=== PATIENT | female | born 2000 | race Caucasian/White ===

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

== ENCOUNTER 2022-02-15 13:21 | Outpatient (REF) | payer MEDICAID, SELFPAY ==
[2022-02-15 15:09] LABS: TSH reflex Free T4 0.53 uIU/mL (0.32-4.0)
== END 2022-02-15 13:22 | disposition home or self-care (01) ==
LOC: HO.LAB 13:21
PROVIDERS: PCP Registered Nurse; Visit Provider Nurse Practitioner
DX: K21.9 Gastro-esophageal reflux disease without esophagitis (principal); R63.5 Abnormal weight gain; R10.9 Unspecified abdominal pain
CPT/HCPCS: 36415; 84443; 99202

== ENCOUNTER 2022-02-17 14:59 | Outpatient (REF) | payer MEDICAID, SELFPAY | END 2022-02-17 15:00 | disposition home or self-care (01) | LOC: HO.LNP 14:59 | PROVIDERS: Visit Provider Nurse Practitioner | DX: K21.9 Gastro-esophageal reflux disease without esophagitis (principal); R63.5 Abnormal weight gain | CPT/HCPCS: 87338 ==

== ENCOUNTER 2022-02-21 08:49 | Outpatient (REF) | payer MEDICAID, SELFPAY ==
--- NOTE | ~2022-02-21 | FL_ITS ---
EXAMINATION: FL BARIUM SWALLOW CLINICAL INFORMATION: Dysphagia COMPARISON: None TECHNIQUE: Barium swallow examination is performed using fluoroscopic evaluation in addition to multiple fluoroscopic spot views. The patient is imaged both upright and prone and using both thick and thin sulfate along with effervescent granules. Barium tablet was also administered. Fluoroscopy time: 0.8 minutes DAP: 4.9 Gycm2 Images: 39 FINDINGS: The swallowing mechanism is normal. No aspiration or penetration. Esophageal motility is normal. No hernia or reflux. Barium tablet passed freely into the stomach. FL/FL barium swallow IMPRESSION: Unremarkable exam.
== END 2022-02-21 08:50 | disposition home or self-care (01) ==
LOC: HO.XRAY 08:49
PROVIDERS: PCP Registered Nurse; Visit Provider Nurse Practitioner
DX: R13.10 Dysphagia, unspecified (principal)
CPT/HCPCS: 74220

== ENCOUNTER 2022-03-03 14:15 | Emergency (ER) | payer MEDICAID, SELFPAY ==
--- NOTE | 2022-03-03 14:22 | ED.GENADULT ---
HPI - General Adult General Chief complaint: Dizziness <RADHA Bustillo - Last Filed: 03/03/22 14:24> Stated complaint: DIZZY,CP <RADHA Bustillo - Last Filed: 03/03/22 14:24> Time Seen by Provider: 03/03/22 16:19 <RADHA Bustillo - Last Filed: 03/03/22 14:24> Source: patient <RADHA Corrales - Last Filed: 03/03/22 16:37> Mode of arrival: ambulatory <RADHA Corrales - Last Filed: 03/03/22 16:37> Limitations: no limitations <RADHA Corrales - Last Filed: 03/03/22 16:37> History of Present Illness HPI narrative: Patient is a 22 year old assigned female at with a history of PTSD and intellectual disability presenting to the emergency department today with lightheadedness. Patient states that she is feeling more lightheaded since having her propranolol increased by her neurologist. Patient denies any dizziness, abdominal pain, nausea, vomiting, fever, chills, blurry vision, double vision, loss of vision, chest pain, difficulty breathing, shortness of breath, back pain, night sweats, pain with urination, increased urinary frequency, increased urinary urgency, blood in her urine or stool, syncope or a near syncopal episode, recent trauma or falls, bowel incontinence, bladder incontinence, bowel retention, bladder retention, or any other complaints at this time. <RADHA Corrales - Last Filed: 03/03/22 16:37> Onset (ago): day(s) <RADHA Corrales - Last Filed: 03/03/22 16:37> Severity: mild <RADHA Corrales - Last Filed: 03/03/22 16:37> Severity scale (1-10): 3 <RADHA Corrlaes Last Filed: 03/03/22 16:37> Relieving factors: none <RADHA Corrales Last Filed: 03/03/22 16:37> Exacerbating factors: none <RADHA Corrales Last Filed: 03/03/22 16:37> Associated symptoms: denies other symptoms <RADHA Corrales - Last Filed: 03/03/22 16:37> Treatments prior to arrival: none <RADHA Corrales - Last Filed: 03/03/22 16:37> Related Data Home medications: Home Medications Medication Instructions Recorded Confirmed etonogestrel 68 mg subdermal subdermal 05/25/21 09/12/21 implant (Nexplanon) hydroxyzine HCl 50 mg tablet 25 mg PO Q6H PRN Anxiety 06/28/21 09/12/21 calcium carbonate 200 mg calcium 400 mg PO Q6H PRN Gastric Reflux 08/18/21 09/12/21 (500 mg) chewable tablet (Calcium Antacid) mirtazapine 45 mg tablet 22.5 mg PO BEDTIME 08/18/21 09/12/21 trazodone 50 mg tablet 25 mg PO BEDTIME PRN Insomnia 08/18/21 09/12/21 Previous Rx's Medication Instructions Recorded guanfacine 2 mg tablet,extended 2 mg PO BEDTIME #30 tabs 03/02/21 release 24 hr acetaminophen 325 mg tablet 650 mg PO Q6H PRN Pain, Mild (Pain 04/22/21 Scale 1-3) #120 tabs cholecalciferol (vitamin D3) 25 25 mcg PO DAILY #30 caps 04/22/21 mcg (1,000 unit) capsule diphenhydramine HCl 25 mg tablet 50 mg PO Q6H PRN with prn haldol 04/22/21 (Allergy Relief (diphenhydramine)) EPS prevent #60 tabs docusate sodium 100 mg capsule 100 mg PO BEDTIME #30 caps 04/22/21 famotidine 20 mg tablet 20 mg PO BID #60 tabs 04/22/21 ibuprofen 800 mg tablet 800 mg PO Q8H PRN Pain, Mild (Pain 04/22/21 Scale 1-3) #60 tabs loratadine 10 mg tablet 10 mg PO DAILY PRN allergy sx #30 04/22/21 tabs naproxen 500 mg tablet 500 mg PO BID PRN cyst pain #60 04/22/21 tabs oxcarbazepine 300 mg tablet 300 mg PO TID #90 tabs 04/22/21 quetiapine 25 mg tablet 25 mg PO TID PRN PTSD Triggers, 04/22/21 Anxiety #60 tabs white petrolatum-mineral oil 1 appl topical BID PRN Itching 04/22/21 topical cream (Dermacerin topical #100 grams cream) <RADHA Bustillo Last Filed: 03/03/22 14:24> Allergies/adverse reactions: Allergies Allergy/AdvReac Type Severity Reaction Status Date / Time No Known Allergies Allergy Unverified 02/16/22 10:58 <RADHA Bustillo Last Filed: 03/03/22 14:24> Review of Systems Constitutional: Constitutional: Reports no additional constitutional complaints, Denies chills, Denies fever(s) and Denies night sweats <RADHA Corrales Last Filed: 03/03/22 16:37> Eyes: Eyes: Reports no additional eye complaints, Denies blurry vision, Denies change in vision, Denies diplopia, Denies eye discharge, Denies loss of vision and Denies eye pain <RADHA Corrales Last Filed: 03/03/22 16:37> ENT: Denies dizziness <RADHA Corrales Last Filed: 03/03/22 16:37> Cardiovascular: Cardiovascular: Reports no additional cardiovascular complaints, Denies chest pain, Denies lightheadedness, Denies Loss of Consciousness and Denies dyspnea <RADHA Corrales Last Filed: 03/03/22 16:37> Respiratory: Respiratory: Reports no additional respiratory complaints and Denies dyspnea <RADHA Corrales Last Filed: 03/03/22 16:37> Gastrointestinal: Gastrointestinal: Reports no additional gastrointestinal complaints, Denies abdominal pain, Denies melena, Denies hematochezia, Denies change in bowel habits and Denies change in stool character <RADHA Corrales Last Filed: 03/03/22 16:37> Genitourinary: Genitourinary: Denies hematuria, Denies urinary frequency, Denies dysuria, Denies urinary incontinence, Denies urinary hesitancy and Denies urinary urgency <RADHA Corrales Last Filed: 03/03/22 16:37> Musculoskeletal: Musculoskeletal: Reports no additional musculoskeletal complaints, Denies numbness and Denies tingling <RADHA Corrales Last Filed: 03/03/22 16:37> Neurologic: Denies dizziness, Denies loss of vision, Denies numbness and Denies tingling <RADHA Corrales - Last Filed: 03/03/22 16:37> Psychiatric: Psychiatric: Reports no additional psychiatric complaints <RADHA Corrales - Last Filed: 03/03/22 16:37> Endocrine: Endocrine: Reports no additional endocrine complaints <RADHA Corrales - Last Filed: 03/03/22 16:37> Hematologic/Lymphatic: Hematologic/Lymphatic: Reports no additional hematologic/lymphatic complaints <RADHA Corrales - Last Filed: 03/03/22 16:37> Allergic/Immunologic: Allergic/Immunologic: Reports no additional allergic/immunologic complaints <RADHA Corrales - Last Filed: 03/03/22 16:37> PMFSH Past Medical History Attestation statement: The following information was validated with the patient. <RADHA Corrales - Last Filed: 03/03/22 16:37> Source: old records reviewed and nursing notes reviewed <RADHA Corrales - Last Filed: 03/03/22 16:37> Medical History: Medical History ADHD Depression with anxiety Learning disability PTSD (post-traumatic stress disorder) Severe recurrent major depression Traumatic brain injury <RADHA Bustillo - Last Filed: 03/03/22 14:24> Social History Social History: Social History Household Members: Family Household Members Other:: Nursing Home Housing: House Do you presently have visiting nurse or other home services: No Alcohol intake: never Patient Tobacco Use Status: Never used Tobacco Use of substances other than those prescribed or required for medical reasons: No Advance Directives: No Advance Directives Information Provided: No service: No Sexual orientation: Straight/Heterosexual Gender identity: Female <RADHA Bustillo - Last Filed: 03/03/22 14:24> Physical Exam ED Vital Signs: Vital Signs - 24 hr 03/03/22 14:23 03/03/22 14:40 03/03/22 16:15 Temperature 98.2 F 98.7 F Pulse Rate 79 73 73 Respiratory Rate 18 14 Blood Pressure 123/90 H 118/81 125/79 Pulse Oximetry 98 98 Oxygen Delivery Method Room Air Room Air 03/03/22 16:20 03/03/22 16:26 Temperature Pulse Rate 73 81 Respiratory Rate Blood Pressure 119/79 127/98 H Pulse Oximetry Oxygen Delivery Method BMI result Body Mass Index 26.5 <RADHA Bustillo Last Filed: 03/03/22 14:24> Vital Signs - 24 hr 03/03/22 14:23 03/03/22 14:40 03/03/22 16:15 Temperature 98.2 F 98.7 F Pulse Rate 79 73 73 Respiratory Rate 18 14 Blood Pressure 123/90 H 118/81 125/79 Pulse Oximetry 98 98 Oxygen Delivery Method Room Air Room Air 03/03/22 16:20 03/03/22 16:26 Temperature Pulse Rate 73 81 Respiratory Rate Blood Pressure 119/79 127/98 H Pulse Oximetry Oxygen Delivery Method BMI result Body Mass Index 26.5 <RADHA Corrales Last Filed: 03/03/22 16:37> Const General: cooperative, no acute distress, alert and awake <RADHA Corrales Last Filed: 03/03/22 16:37> Nutritional Appearance: well nourished <RADHA Corrales Last Filed: 03/03/22 16:37> Orientation/consciousness: patient oriented x3 <RADHA Corrales Last Filed: 03/03/22 16:37> Limitations: no limitations <RADHA Corrales Last Filed: 03/03/22 16:37> HENMT Head: Yes normal to inspection and Yes atraumatic <RADHA Corrales Last Filed: 03/03/22 16:37> Ears: hearing grossly normal bilaterally and external ears normal <RADHA Corrales Last Filed: 03/03/22 16:37> General nose exam: Normal external nose present, no nasal discharge noted and no epistaxis <RADHA Corrales Last Filed: 03/03/22 16:37> Face and sinus: Yes normal facial exam, No abrasion and No laceration <RADHA Corrales Last Filed: 03/03/22 16:37> Mouth: Normal oral and palatal mucosa present, no drooling and no muffled voice <RADHA Corrales Last Filed: 03/03/22 16:37> Eyes General: appearance normal, both eyes and all related structures <Annel Escalona PA - Last Filed: 03/03/22 16:37> Periorbital: periorbital findings normal <Annel Escalona PA - Last Filed: 03/03/22 16:37> Eyelids: Yes eyelids normal <Annel Escalona PA - Last Filed: 03/03/22 16:37> Conjunctivae: conjunctivae normal <Annel Escalona PA - Last Filed: 03/03/22 16:37> Pupils: Equal, round and reactive pupils present <Annel Escalona PA - Last Filed: 03/03/22 16:37> EOM: EOMs intact bilaterally <Annel Escalona PA - Last Filed: 03/03/22 16:37> Neck Neck: Yes normal visual inspection, Yes full ROM and Yes no lymphadenopathy <Annel Escalona PA - Last Filed: 03/03/22 16:37> Chest Chest palpation & inspection: normal inspection of the chest <Annel Escalona PA - Last Filed: 03/03/22 16:37> Resp Effort & Inspection: normal respiratory effort and able to speak in complete sentences <Annel Escalona PA - Last Filed: 03/03/22 16:37> Auscultation: clear to auscultation bilaterally <Annel Escalona PA - Last Filed: 03/03/22 16:37> Cardio Rate: regular rate <Annel Escalona PA - Last Filed: 03/03/22 16:37> Rhythm: regular rhythm <Annel Escalona PA - Last Filed: 03/03/22 16:37> GI Inspection: Yes normal to inspection <Annel Escalona PA - Last Filed: 03/03/22 16:37> Neuro General: patient oriented x3 and moves all extremities <Annel Escalona PA - Last Filed: 03/03/22 16:37> Cranial nerves: Yes Equal, round and reactive pupils present <Annel Escalona PA - Last Filed: 03/03/22 16:37> Cognition (Neuro): normal cognition <Annel Escalona PA - Last Filed: 03/03/22 16:37> Motor exam (neuro): 5/5 motor strength present throughout <RADHA Corrales - Last Filed: 03/03/22 16:37> Sensory Exam: Normal double simultaneous stimulation for sensation <RADHA Corrales - Last Filed: 03/03/22 16:37> Coordination: [id number] test normal <RADHA Corrales - Last Filed: 03/03/22 16:37> Extrem General: Yes normal to inspection, Yes full ROM and Yes capillary refill normal <RAHDA Corrales - Last Filed: 03/03/22 16:37> Psych Appearance: grossly normal <RADHA Corrales - Last Filed: 03/03/22 16:37> Mental Status: mental status grossly normal <RADHA Corrales - Last Filed: 03/03/22 16:37> Affect: normal affect <RADHA Corrales - Last Filed: 03/03/22 16:37> Attitude: cooperative <RADHA Corrales - Last Filed: 03/03/22 16:37> Thought process: Normal thought process present <RADHA Corrales - Last Filed: 03/03/22 16:37> Thought content: Normal thought content present <RADHA Corrales - Last Filed: 03/03/22 16:37> Insight: Good insight present (Psych) <RADHA Corrales - Last Filed: 03/03/22 16:37> Course Course Course Narrative: RME-14:25PM - 21-year-old female c PMHx of intellectual disability, PTSD, ADHD, major depressive disorder, anxiety, adjustment disorder and insomnia who is currently in a prison presenting to the ED c c/o dizziness and feeling hot that started this morning. Denies any headaches, fevers, change in vision, nausea/vomiting, sore throat, ear pain, chest pain or shortness of breath, abdominal pain, dysuria, abnormal discharge, rashes, recent falls or trauma or any other symptoms complaints or concerns at this time. Kellie charge nurse is calling the prison to find out more information about this patient. Plan: Will start with the COVID/RSV/flu swab, UA and UHCG ordered at this time. Patient can be sent back to the waiting room to be evaluated in [facility]. <RADHA Bustillo - Last Filed: 03/03/22 14:24> Medical Decision Making Medical Decision Making [facility] Narrative: Patient is a 22 year old assigned female at with a history of PTSD and intellectual disability presenting to the emergency department today with lightheadedness. Patient's physical exam was unremarkable. Patient's blood work was unremarkable. Patient's urine showed no acute process. Patient's clinical presentation is likely due to an increase in her propranolol. I advised the patient to go back to her original dose and follow back up with her neurologist. I explained my physical exam findings as well as all test results to the patient. I answered all questions asked by the patient. Patient received IV fluids which she stated helped her symptoms significantly. I stressed the importance of the patient taking her medication as prescribed. I stressed the importance of the patient following up with her primary care provider and her neurologist. I stressed the importance of the patient returning to the emergency department immediately if her symptoms were to worsen or if she were to develop any dizziness, shortness of breath, difficulty breathing, chest pain, blurry vision, loss of vision, nausea, vomiting, abdominal pain, fever, chills, back pain, or any other complaints. Patient verbalized agreement and understanding with this treatment plan and discharge. <RADHA Corrales - Last Filed: 03/03/22 16:37> Differential Diagnosis Differential Diagnoses: The differential diagnosis associated with the presentation includes <RADHA Corrales - Last Filed: 03/03/22 16:37> lightheadedness <RADHA Corrales - Last Filed: 03/03/22 16:37> Lab Data [facility] Lab Attestation statement: I reviewed the patient's lab results. <RADHA Corrales - Last Filed: 03/03/22 16:37> Result Diagrams: : 03/03/22 14:58 03/03/22 14:58 <RADHA Bustillo - Last Filed: 03/03/22 14:24> Labs: Lab Results 03/03/22 03/03/22 03/03/22 Range/Units 14:43 14:57 14:57 WBC (4.8-10.8) X10*3/uL RBC (4.20-5.50) X10*6/uL Hgb (12.0-16.0) g/dl Hct (37.0-47.0) % MCV (80.0-98.0) fL MCH (27.0-33.0) pg MCHC (31.0-35.0) g/dl RDW (11.0-16.0) % Plt Count (160-400) X10*3/uL MPV (9.4-12.3) fL Absolute Nucleated RBC (0.0-0.012) X10*3/uL Nucleated RBC % (auto) (0.0-0.2) /100WBC Sodium (135-145) mmol/L Potassium (3.3-5.1) mmol/L Chloride (96-108) mmol/L Carbon Dioxide (22-29) mmol/L Anion Gap (12-20) BUN (9-16) mg/dL Creatinine (0.5-1.4) mg/dL Estim Creat Clear Calc Estimated GFR Random Glucose (60-115) mg/dL Calcium (8.4-10.2) mg/dL Urine Color Yellow Urine Appearance Clear Urine pH 7.0 (5.0-9.0) Ur Specific [place] 1.015 (1.005-1.025) Urine Protein Negative (Neg-Trace) mg/dL Urine Glucose (UA) Negative (Negative) mg/dL Urine Ketones Negative (Negative) mg/dL Urine Blood Negative (Negative) Urine Nitrite Negative (Negative) Ur Leukocyte Esterase Moderate (2+) H (Negative) Urine RBC 0-2 (0-2) /HPF Urine WBC 11-20 H (0-5) /HPF Ur Squamous Epith Cells 0-2 (0-2) /HPF Urine Bacteria None Seen (None Seen) Hyaline Casts 0-2 (0-2) /LPF Urine Test NEGATIVE (NEGATIVE) Influenza Type A (PCR) NEGATIVE (Negative) Influenza Type B (PCR) NEGATIVE (Negative) RSV RNA Qual (PCR) NEGATIVE (Negative) SARS-CoV-2 RNA (RT-PCR) NEGATIVE (Negative) 03/03/22 03/03/22 Range/Units 14:58 14:58 WBC 8.2 (4.8-10.8) X10*3/uL RBC 4.88 (4.20-5.50) X10*6/uL Hgb 13.7 (12.0-16.0) g/dl Hct 41.5 (37.0-47.0) % MCV 85.0 (80.0-98.0) fL MCH 28.1 (27.0-33.0) pg MCHC 33.0 (31.0-35.0) g/dl RDW 12.0 (11.0-16.0) % Plt Count 306 (160-400) X10*3/uL MPV 10.0 (9.4-12.3) fL Absolute Nucleated RBC 0.000 (0.0-0.012) X10*3/uL Nucleated RBC % (auto) 0.0 (0.0-0.2) /100WBC Sodium 140 (135-145) mmol/L Potassium 4.1 (3.3-5.1) mmol/L Chloride 103 (96-108) mmol/L Carbon Dioxide 29 (22-29) mmol/L Anion Gap 12 (12-20) BUN 9 (9-16) mg/dL Creatinine 0.77 (0.5-1.4) mg/dL Estim Creat Clear Calc 107.9 Estimated GFR > 60 Random Glucose 64 (60-115) mg/dL Calcium 9.8 D (8.4-10.2) mg/dL Urine Color Urine Appearance Urine pH (5.0-9.0) Ur Specific [place] (1.005-1.025) Urine Protein (Neg-Trace) mg/dL Urine Glucose (UA) (Negative) mg/dL Urine Ketones (Negative) mg/dL Urine Blood (Negative) Urine Nitrite (Negative) Ur Leukocyte Esterase (Negative) Urine RBC (0-2) /HPF Urine WBC (0-5) /HPF Ur Squamous Epith Cells (0-2) /HPF Urine Bacteria (None Seen) Hyaline Casts (0-2) /LPF Urine Test (NEGATIVE) Influenza Type A (PCR) (Negative) Influenza Type B (PCR) (Negative) RSV RNA Qual (PCR) (Negative) SARS-CoV-2 RNA (RT-PCR) (Negative) <RADHA Bustillo - Last Filed: 03/03/22 14:24> Lab Results 03/03/22 03/03/22 03/03/22 Range/Units 14:43 14:57 14:57 WBC (4.8-10.8) X10*3/uL RBC (4.20-5.50) X10*6/uL Hgb (12.0-16.0) g/dl Hct (37.0-47.0) % MCV (80.0-98.0) fL MCH (27.0-33.0) pg MCHC (31.0-35.0) g/dl RDW (11.0-16.0) % Plt Count (160-400) X10*3/uL MPV (9.4-12.3) fL Absolute Nucleated RBC (0.0-0.012) X10*3/uL Nucleated RBC % (auto) (0.0-0.2) /100WBC Sodium (135-145) mmol/L Potassium (3.3-5.1) mmol/L Chloride (96-108) mmol/L Carbon Dioxide (22-29) mmol/L Anion Gap (12-20) BUN (9-16) mg/dL Creatinine (0.5-1.4) mg/dL Estim Creat Clear Calc Estimated GFR Random Glucose (60-115) mg/dL Calcium (8.4-10.2) mg/dL Urine Color Yellow Urine Appearance Clear Urine pH 7.0 (5.0-9.0) Ur Specific [place] 1.015 (1.005-1.025) Urine Protein Negative (Neg-Trace) mg/dL Urine Glucose (UA) Negative (Negative) mg/dL Urine Ketones Negative (Negative) mg/dL Urine Blood Negative (Negative) Urine Nitrite Negative (Negative) Ur Leukocyte Esterase Moderate (2+) H (Negative) Urine RBC 0-2 (0-2) /HPF Urine WBC 11-20 H (0-5) /HPF Ur Squamous Epith Cells 0-2 (0-2) /HPF Urine Bacteria None Seen (None Seen) Hyaline Casts 0-2 (0-2) /LPF Urine Test NEGATIVE (NEGATIVE) Influenza Type A (PCR) NEGATIVE (Negative) Influenza Type B (PCR) NEGATIVE (Negative) RSV RNA Qual (PCR) NEGATIVE (Negative) SARS-CoV-2 RNA (RT-PCR) NEGATIVE (Negative) 03/03/22 03/03/22 Range/Units 14:58 14:58 WBC 8.2 (4.8-10.8) X10*3/uL RBC 4.88 (4.20-5.50) X10*6/uL Hgb 13.7 (12.0-16.0) g/dl Hct 41.5 (37.0-47.0) % MCV 85.0 (80.0-98.0) fL MCH 28.1 (27.0-33.0) pg MCHC 33.0 (31.0-35.0) g/dl RDW 12.0 (11.0-16.0) % Plt Count 306 (160-400) X10*3/uL MPV 10.0 (9.4-12.3) fL Absolute Nucleated RBC 0.000 (0.0-0.012) X10*3/uL Nucleated RBC % (auto) 0.0 (0.0-0.2) /100WBC Sodium 140 (135-145) mmol/L Potassium 4.1 (3.3-5.1) mmol/L Chloride 103 (96-108) mmol/L Carbon Dioxide 29 (22-29) mmol/L Anion Gap 12 (12-20) BUN 9 (9-16) mg/dL Creatinine 0.77 (0.5-1.4) mg/dL Estim Creat Clear Calc 107.9 Estimated GFR > 60 Random Glucose 64 (60-115) mg/dL Calcium 9.8 D (8.4-10.2) mg/dL Urine Color Urine Appearance Urine pH (5.0-9.0) Ur Specific [place] (1.005-1.025) Urine Protein (Neg-Trace) mg/dL Urine Glucose (UA) (Negative) mg/dL Urine Ketones (Negative) mg/dL Urine Blood (Negative) Urine Nitrite (Negative) Ur Leukocyte Esterase (Negative) Urine RBC (0-2) /HPF Urine WBC (0-5) /HPF Ur Squamous Epith Cells (0-2) /HPF Urine Bacteria (None Seen) Hyaline Casts (0-2) /LPF Urine Test (NEGATIVE) Influenza Type A (PCR) (Negative) Influenza Type B (PCR) (Negative) RSV RNA Qual (PCR) (Negative) SARS-CoV-2 RNA (RT-PCR) (Negative) <RADHA Corrales - Last Filed: 03/03/22 16:37> Discharge Plan Discharge Clinical Impression: Intermittent lightheadedness <RADHA Bustillo - Last Filed: 03/03/22 14:24> Patient Disposition: Home, Self-Care <RADHA Bustillo - Last Filed: 03/03/22 14:24> Instructions: Lightheadedness (ED) <RADHA Bustillo - Last Filed: 03/03/22 14:24> Additional Instructions: Go back down to your original dose of Propranolol. Follow up with your primary care provider and your neurologist. Return to the emergency department immediately if your symptoms worsen or if you develop any dizziness, shortness of breath, difficulty breathing, chest pain, blurry vision, loss of vision, nausea, vomiting, abdominal pain, fever, chills, back pain, or any other complaints. <RADHA Bustillo - Last Filed: 03/03/22 14:24> Prescriptions: No Action guanfacine 2 mg tablet extended release 24 hr 2 mg PO BEDTIME Qty: 30 1RF acetaminophen 325 mg Tablet 650 mg PO Q6H PRN (Reason: Pain, Mild (Pain Scale 1-3)) Qty: 120 0RF diphenhydramine HCl [Allergy Relief(diphenhydramin)] 25 mg Tablet 50 mg PO Q6H PRN (Reason: with prn haldol EPS prevent) Qty: 60 0RF loratadine 10 mg Tablet 10 mg PO DAILY PRN (Reason: allergy sx) Qty: 30 0RF quetiapine 25 mg Tablet 25 mg PO TID PRN (Reason: PTSD Triggers, Anxiety) Qty: 60 0RF ibuprofen 800 mg Tablet 800 mg PO Q8H PRN (Reason: Pain, Mild (Pain Scale 1-3)) Qty: 60 0RF oxcarbazepine 300 mg Tablet 300 mg PO TID Qty: 90 0RF famotidine 20 mg Tablet 20 mg PO BID Qty: 60 0RF docusate sodium 100 mg Capsule 100 mg PO BEDTIME Qty: 30 0RF naproxen 500 mg Tablet 500 mg PO BID PRN (Reason: cyst pain) Qty: 60 0RF Dermacerin Cream 1 appl topical BID PRN (Reason: Itching) Qty: 100 0RF Protocol: Apply to: Apply to: affected area post shaving cholecalciferol (vitamin D3) 25 mcg (1,000 unit) capsule 25 mcg PO DAILY Qty: 30 0RF calcium carbonate [Calcium Antacid] 200 mg calcium (500 mg) tablet,chewable 400 mg PO Q6H MDD 8 g PRN (Reason: Gastric Reflux) mirtazapine 45 mg tablet 22.5 mg PO BEDTIME trazodone 50 mg tablet 25 mg PO BEDTIME PRN (Reason: Insomnia) hydroxyzine HCl 50 mg tablet 25 mg PO Q6H PRN (Reason: Anxiety) Nexplanon 68 mg implant subdermal <RADHA Bustillo - Last Filed: 03/03/22 14:24> Referrals: [facility] [Primary Care Provider] - <RADHA Bustillo - Last Filed: 03/03/22 14:24> Print Language: Ukrainian <RADHA Bustillo - Last Filed: 03/03/22 14:24>
[2022-03-03 14:23] VITALS: BP 121/66; BP 123/90; PULSE 79; PULSE 88; RESP 18; TEMP 36.8; O2SAT 98; BMI 26.5
--- NOTE | 2022-03-03 14:34 | PC.NURSE ---
prison director kwame pereira called ([phone]) states pt had difficulty therapy session yesterday and is having trouble coping with the conversation. per kwame pt is no longer going to be in [facility] custody.
[2022-03-03 14:40] VITALS: BP 118/81; PULSE 73; RESP 14; TEMP 37.1; O2SAT 98
--- NOTE | 2022-03-03 14:55 | PC.NURSE ---
pt ambulating to restroom independently, steadily with no issue. states dizziness mostly resolved at this time
[2022-03-03 15:14] LABS: Hematocrit 41.5 % (37.0-47.0); Hemoglobin 13.7 g/dl (12.0-16.0); Mean Corpuscular Hemoglobin 28.1 pg (27.0-33.0); Platelet Count 306 X10*3/uL (160-400); Red Blood Count 4.88 X10*6/uL (4.20-5.50); White Blood Count 8.2 X10*3/uL (4.8-10.8)
[2022-03-03 15:19] LABS: UPreg QC Valid YES; Urine Pregnancy NEGATIVE (NEGATIVE)
[2022-03-03 15:21] LABS: Appearance Urine Clear; Color Urine Yellow; Glucose Urine UA Negative (Negative); Leukocyte Esterase Urine Moderate (2+) (Negative); Nitrite Urine Negative (Negative); Specific Gravity - Urine 1.015 (1.005-1.025); UMIC TRIGGER UACC YES; Urine Blood Negative (Negative); Urine Ketones Negative (Negative); Urine Protein Negative (Neg-Trace)
[2022-03-03 15:27] LABS: Bacteria Urine None Seen (None Seen); Hyaline Casts Urine 0-2 /LPF (0-2); RBC Urine 0-2 /HPF (0-2); Squamous Epithelial Cell Urine 0-2 /HPF (0-2); UACC Culture Trigger YES
[2022-03-03 15:39] LABS: Influenza A PCR NEGATIVE (Negative); Influenza B PCR NEGATIVE (Negative); Resp Syncy Virus RNA Qual PCR NEGATIVE (Negative); SARS COV2 PCR INHOUSE NEGATIVE (Negative)
[2022-03-03 15:50] LABS: Anion Gap 12 (12-20); Blood Urea Nitrogen 9 mg/dL (9-16); Calcium 9.8 mg/dL (8.4-10.2); Carbon Dioxide 29 mmol/L (22-29); Chloride 103 mmol/L (96-108); Creatinine Clr Calc Pharmacy 107.9; Estimated Glomerular Filt Rate > 60; Glucose Random 64 mg/dL (60-115); Potassium 4.1 mmol/L (3.3-5.1); Sodium 140 mmol/L (135-145)
[2022-03-03 16:15] VITALS: BP 125/79; PULSE 73
[2022-03-03 16:20] VITALS: BP 119/79; PULSE 73
[2022-03-03 16:26] VITALS: BP 127/98; PULSE 81
--- NOTE | 2022-03-03 16:26 | PC.NURSE ---
NEGATIVE ORTHOS. PT REPORTS RECENT CHANGE IN RX, UNKNOWN NAME
== END 2022-03-03 17:35 | disposition home or self-care (01) ==
PROVIDERS: Physician Assistant Medical; Emergency Provider Student in an Organized Health Care Education/Training Program
DX: R42 Dizziness and giddiness (principal); Z20.822 Contact with and (suspected) exposure to COVID-19; F41.8 Other specified anxiety disorders; Z79.899 Other long term (current) drug therapy
CPT/HCPCS: 0241U; 36415; 80048; 81001; 81025; 85027; 87086; 87147; 99283; 99284

== ENCOUNTER → 2022-03-07 12:45 | Outpatient (BNVA) | payer MEDICAID, SELFPAY | PROVIDERS: Visit Provider Nurse Practitioner | DX: K21.9 Gastro-esophageal reflux disease without esophagitis (principal); R10.9 Unspecified abdominal pain; R63.5 Abnormal weight gain | CPT/HCPCS: 99212 ==

== ENCOUNTER → 2022-06-23 12:05 | Outpatient (BNVA) | payer MEDICAID, SELFPAY | PROVIDERS: PCP Registered Nurse; Visit Provider Nurse Practitioner | DX: K21.9 Gastro-esophageal reflux disease without esophagitis (principal); R10.9 Unspecified abdominal pain; R63.5 Abnormal weight gain; Z79.899 Other long term (current) drug therapy | CPT/HCPCS: 99212 ==

== ENCOUNTER 2022-07-12 15:18 | Inpatient (IN) | payer MEDICAID, OTHER, SELFPAY ==
[2022-07-12 15:39] VITALS: BP 132/88; PULSE 89; RESP 16; TEMP 37.2; O2SAT 96
--- NOTE | 2022-07-12 15:40 | ED.PSYCH ---
HPI - Psych General Chief Complaint: Psychiatric Symptoms <RADHA Gary - Last Filed: 07/12/22 16:17> Stated Complaint: SI w/ plan per EMS <RADHA Gary - Last Filed: 07/12/22 16:17> Time Seen by Provider: 07/12/22 15:22 <RADHA Gary Last Filed: 07/12/22 16:17> Source: patient and EMS <RADHA Gary Last Filed: 07/12/22 16:17> Mode of arrival: EMS <RADHA Gary Last Filed: 07/12/22 16:17> Limitations: no limitations <RADHA Gary Last Filed: 07/12/22 16:17> History of Present Illness HPI Narrative: 22 y/o female with history of PTSD, severe recurrent major depression, ADHD, anxiety, learning disability, history of TBI, GERD, ovarian cyst who presents to the ER from her residential for evaluation of suicidal ideation with a plan to jump off of a bridge. She states she has been depressed lately and overwhelmed. 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 She does not feel supported in her residential and feels disrespected. She states she used to have a 1:1 at the residential but they took it away 6 months ago. She has been compliant with all of her meds, not using any etoh or drugs. She states she has bad suicidal ideations and cannot control her thoughts. She states she ran out of her residential today when she got upset and no one even followed her to make sure she was okay so they must not care about her. <RADHA Gary - Last Filed: 07/12/22 16:17> MD complaint: suicidal ideation and feels depressed <RADHA Gary Last Filed: 07/12/22 16:17> Onset (ago): unknown <RADHA Gary Last Filed: 07/12/22 16:17> Duration: changing over time <RADHA Gary Last Filed: 07/12/22 16:17> History of same: Yes <RADHA Gary Last Filed: 07/12/22 16:17> Relieving factors: none <RADHA Gary - Last Filed: 07/12/22 16:17> Exacerbating factors: none <RADHA Gary - Last Filed: 07/12/22 16:17> Context: significant life stressor <RADHA Gary - Last Filed: 07/12/22 16:17> Associated psychiatric symptoms: depression, suicidal ideation and racing thoughts <RADHA Gary - Last Filed: 07/12/22 16:17> Associated symptoms: denies other symptoms <RADHA Gary - Last Filed: 07/12/22 16:17> If self harm: admits thoughts of self harm and has plan <RADHA Gary - Last Filed: 07/12/22 16:17> Related Data Home Medications: Home Medications Medication Instructions Recorded Confirmed hydroxyzine HCl 50 mg tablet 25 mg PO Q6H PRN Anxiety 06/28/21 07/12/22 calcium carbonate 200 mg calcium 400 mg PO Q6H PRN Gastric Reflux 08/18/21 07/12/22 (500 mg) chewable tablet (Calcium Antacid) mirtazapine 45 mg tablet 22.5 mg PO BEDTIME 08/18/21 07/12/22 trazodone 50 mg tablet 25 mg PO BEDTIME PRN Insomnia 08/18/21 07/12/22 oxcarbazepine 300 mg tablet 300 mg PO TID 03/07/22 07/12/22 quetiapine 50 mg tablet,extended 50 mg PO BEDTIME 07/12/22 07/12/22 release 24 hr Previous Rx's Medication Instructions Recorded guanfacine 2 mg tablet,extended 2 mg PO BEDTIME #30 tabs 03/02/21 release 24 hr acetaminophen 325 mg tablet 650 mg PO Q6H PRN Pain, Mild (Pain 04/22/21 Scale 1-3) #120 tabs cholecalciferol (vitamin D3) 25 25 mcg PO DAILY #30 caps 04/22/21 mcg (1,000 unit) capsule diphenhydramine HCl 25 mg tablet 50 mg PO Q6H PRN with prn haldol 04/22/21 (Allergy Relief (diphenhydramine)) EPS prevent #60 tabs docusate sodium 100 mg capsule 100 mg PO BEDTIME #30 caps 04/22/21 loratadine 10 mg tablet 10 mg PO DAILY PRN allergy sx #30 04/22/21 tabs quetiapine 25 mg tablet 25 mg PO TID PRN PTSD Triggers, 04/22/21 Anxiety #60 tabs white petrolatum-mineral oil 1 appl topical BID PRN Itching 04/22/21 topical cream (Dermacerin topical #100 grams cream) dicyclomine 20 mg tablet 20 mg PO QID PRN cramping 30 days 06/23/22 #90 tabs famotidine 20 mg tablet 20 mg PO BID #60 tabs 06/23/22 sucralfate 100 mg/mL oral 10 ml PO BID PRN dyspepsia #420 mL 06/23/22 suspension (Carafate) <RADHA Gary - Last Filed: 07/12/22 16:17> Allergies/Adverse Reactions: Allergies Allergy/AdvReac Type Severity Reaction Status Date / Time No Known Allergies Allergy Verified 06/23/22 12:11 <RADHA Gary - Last Filed: 07/12/22 16:17> Review of Systems Review of Systems: Yes all other systems are reviewed and are negative <RADHA Gary - Last Filed: 07/12/22 16:17> [facility] Past Medical History Medical History: Medical History ADHD Depression with anxiety Learning disability PTSD (post-traumatic stress disorder) Severe recurrent major depression Traumatic brain injury <RADHA Gary - Last Filed: 07/12/22 16:17> Social History Social History: Social History Household Members: Family Household Members Other:: Custodial Housing: House Do you presently have visiting nurse or other home services: No Alcohol intake: never Patient Tobacco Use Status: Never used Tobacco Smoked in Last 30 Days: No Use of substances other than those prescribed or required for medical reasons: No Advance Directives: No Advance Directives Information Provided: No service: No Sexual orientation: Straight/Heterosexual Gender identity: Female <RADHA Gary - Last Filed: 07/12/22 16:17> Physical Exam Vital Signs: Vital Signs: Last Vital Signs Temp 97.6 F 07/14/22 06:01 Pulse 88 07/14/22 06:01 Resp 16 07/14/22 06:01 BP 117/71 07/14/22 06:01 Pulse Ox 98 07/14/22 06:01 O2 Del Method Room Air 07/14/22 06:01 BMI result Body Mass Index 25.4 <RADHA Gary - Last Filed: 07/12/22 16:17> Vital Signs: Last Vital Signs Temp 97.6 F 07/14/22 06:01 Pulse 88 07/14/22 06:01 Resp 16 07/14/22 06:01 BP 117/71 07/14/22 06:01 Pulse Ox 98 07/14/22 06:01 O2 Del Method Room Air 07/14/22 06:01 BMI result Body Mass Index 25.4 <Jeovany Gomez MD - Last Filed: 07/12/22 19:28> Vital Signs: Last Vital Signs Temp 97.6 F 07/14/22 06:01 Pulse 88 07/14/22 06:01 Resp 16 07/14/22 06:01 BP 117/71 07/14/22 06:01 Pulse Ox 98 07/14/22 06:01 O2 Del Method Room Air 07/14/22 06:01 BMI result Body Mass Index 25.4 <Reji Morgan MD - Last Filed: 07/13/22 07:01> Vital Signs: Last Vital Signs Temp 97.6 F 07/14/22 06:01 Pulse 88 07/14/22 06:01 Resp 07/14/22 06:01 BP 117/71 07/14/22 06:01 Pulse Ox 98 07/14/22 06:01 O2 Del Method Room Air 07/14/22 06:01 BMI result Body Mass Index 25.4 <Jaime Griffith MD - Last Filed: 07/14/22 10:59> Appearance: Alert. Oriented X3. No acute distress. Head: normocephalic, atraumatic. Eyes: Pupils equal, round and reactive to light. ENT: Pharynx normal. No tonsillar swelling or exudate. Neck: Normal inspection. Neck supple. CVS: Normal heart rate and rhythm. Pulses normal. Respiratory: No respiratory distress. Breath sounds normal. Abdomen: Soft and nontender. +BS x4 Skin: Skin warm and dry. Normal skin color. Normal skin turgor. No rashes. Extremities: No lower extremity edema. No joint swelling. Neuro/psych: Oriented X 3. No motor deficit. No sensory deficit. CN II-XII intact. Normal speech and cognition. Makes brief eye contact. Repetitive about residential staff. +SI, No HI, No AH, No VH. Mood is bad, depressed. <RADHA Gary - Last Filed: 07/12/22 16:17> Course Course Course Narrative: 1926: Patient was sitting in a chair and twitching, she was able to answer questions, I was able to get her to stand and walk back into her room. Patient consistent with anxiety/non electric-seizure. Patient was ordered to get Ativan 2 mg IM. <Jeovany Gomez MD - Last Filed: 07/12/22 19:28> Reevaluation(s) Reevaluation #1: I assume care at 7:00 a.m. this morning. This is a 22-year-old female who presents with suicidal ideation with a plan to jump off bridge. She is pending a care team evaluation. Overnight, patient did receive Ativan 2 mg intramuscularly. <Reji Morgan MD - Last Filed: 07/13/22 07:01> Reevaluation #2: June 8 AM no event reported overnight patient is a bed search for SI she is in a [facility] vital signs stable as 06:00, bed search continue <Jaime Griffith MD - Last Filed: 07/14/22 10:59> Time: 08:10 <Jaime Griffith MD - Last Filed: 07/14/22 10:59> Reevaluation #3: EKG non specific st-t changes in lateral leads ,but high sensitive tropi undetectable <Jaime Griffith MD - Last Filed: 07/14/22 10:59> Time: 10:57 <Jaime Griffith MD - Last Filed: 07/14/22 10:59> Medications Administered Generic Name Dose Route Start Last Admin Trade Name Freq PRN Reason Stop Dose Admin Diphenhydramine HCl 50 mg 07/13/22 06:31 07/13/22 20:22 Diphenhydramine Hcl 25 Mg Capsule PO 50 mg Q6H PRN Administration with prn haldol EPS prevent Docusate Sodium 100 mg 07/13/22 21:00 07/13/22 20:22 Docusate Sodium 100 Mg Capsule PO 100 mg BEDTIME PRISCILA Administration Famotidine 20 mg 07/13/22 09:00 07/14/22 08:28 Famotidine 20 Mg Tablet PO 20 mg BID PRISCILA Administration Guanfacine HCl 2 mg 07/13/22 21:00 07/13/22 20:39 Guanfacine Hcl Er 2 Mg Tab.Er.24h PO 2 mg BEDTIME PRISCILA Administration Hydroxyzine HCl 25 mg 07/13/22 06:31 07/13/22 20:27 Hydroxyzine Hcl 25 Mg Tablet PO 25 mg Q6H PRN Administration Anxiety Loratadine 10 mg 07/13/22 06:31 07/14/22 09:35 Loratadine 10 Mg Tablet PO 10 mg DAILY PRN Administration allergy sx Mirtazapine 22.5 mg 07/13/22 21:00 07/13/22 20:22 Mirtazapine 7.5 Mg Tablet PO 22.5 mg BEDTIME PRISCILA Administration Oxcarbazepine 300 mg 07/13/22 09:00 07/14/22 08:28 Oxcarbazepine 300 Mg Tablet PO 300 mg TID PRISCILA Administration Quetiapine Fumarate 25 mg 07/13/22 06:31 07/13/22 13:41 Quetiapine Fumarate 25 Mg Tablet PO 25 mg TID PRN Administration PTSD Triggers, Anxiety Quetiapine Fumarate 25 mg 07/13/22 09:00 07/14/22 08:28 Quetiapine Fumarate 25 Mg Tablet PO 25 mg BID PRISCILA Administration Vitamin D 25 mcg 07/13/22 09:00 07/14/22 08:28 Cholecalciferol (Vitamin D3) 25 Mcg Tablet PO 25 mcg DAILY PRISCILA Administration Discontinued Medications Generic Name Dose Route Start Last Admin Trade Name Freq PRN Reason Stop Dose Admin Lorazepam 2 mg 07/12/22 19:26 07/12/22 19:30 Lorazepam 2 Mg/Ml Vial IM 07/12/22 19:27 2 mg STAT STA Administration <RADHA Gary - Last Filed: 07/12/22 16:17> Medications Administered Generic Name Dose Route Start Last Admin Trade Name Freq PRN Reason Stop Dose Admin Diphenhydramine HCl 50 mg 07/13/22 06:31 07/13/22 20:22 Diphenhydramine Hcl 25 Mg Capsule PO 50 mg Q6H PRN Administration with prn haldol EPS prevent Docusate Sodium 100 mg 07/13/22 21:00 07/13/22 20:22 Docusate Sodium 100 Mg Capsule PO 100 mg BEDTIME PRISCILA Administration Famotidine 20 mg 07/13/22 09:00 07/14/22 08:28 Famotidine 20 Mg Tablet PO 20 mg BID PRISCILA Administration Guanfacine HCl 2 mg 07/13/22 21:00 07/13/22 20:39 Guanfacine Hcl Er 2 Mg Tab.Er.24h PO 2 mg BEDTIME PRISCILA Administration Hydroxyzine HCl 25 mg 07/13/22 06:31 07/13/22 20:27 Hydroxyzine Hcl 25 Mg Tablet PO 25 mg Q6H PRN Administration Anxiety Loratadine 10 mg 07/13/22 06:31 07/14/22 09:35 Loratadine 10 Mg Tablet PO 10 mg DAILY PRN Administration allergy sx Mirtazapine 22.5 mg 07/13/22 21:00 07/13/22 20:22 Mirtazapine 7.5 Mg Tablet PO 22.5 mg BEDTIME PRISCILA Administration Oxcarbazepine 300 mg 07/13/22 09:00 07/14/22 08:28 Oxcarbazepine 300 Mg Tablet PO 300 mg TID PRISCILA Administration Quetiapine Fumarate 25 mg 07/13/22 06:31 07/13/22 13:41 Quetiapine Fumarate 25 Mg Tablet PO 25 mg TID PRN Administration PTSD Triggers, Anxiety Quetiapine Fumarate 25 mg 07/13/22 09:00 07/14/22 08:28 Quetiapine Fumarate 25 Mg Tablet PO 25 mg BID PRISCILA Administration Vitamin D 25 mcg 07/13/22 09:00 07/14/22 08:28 Cholecalciferol (Vitamin D3) 25 Mcg Tablet PO 25 mcg DAILY PRISCILA Administration Discontinued Medications Generic Name Dose Route Start Last Admin Trade Name Freq PRN Reason Stop Dose Admin Lorazepam 2 mg 07/12/22 19:26 07/12/22 19:30 Lorazepam 2 Mg/Ml Vial IM 07/12/22 19:27 2 mg STAT STA Administration <Jeovany Sciaruto, MD - Last Filed: 07/12/22 19:28> Medications Administered Generic Name Dose Route Start Last Admin Trade Name Pauline PRN Reason Stop Dose Admin Diphenhydramine HCl 50 mg 07/13/22 06:31 07/13/22 20:22 Diphenhydramine Hcl 25 Mg Capsule PO 50 mg Q6H PRN Administration with prn haldol EPS prevent Docusate Sodium 100 mg 07/13/22 21:00 07/13/22 20:22 Docusate Sodium 100 Mg Capsule PO 100 mg BEDTIME PRISCILA Administration Famotidine 20 mg 07/13/22 09:00 07/14/22 08:28 Famotidine 20 Mg Tablet PO 20 mg BID PRISCILA Administration Guanfacine HCl 2 mg 07/13/22 21:00 07/13/22 20:39 Guanfacine Hcl Er 2 Mg Tab.Er.24h PO 2 mg BEDTIME PRISCILA Administration Hydroxyzine HCl 25 mg 07/13/22 06:31 07/13/22 20:27 Hydroxyzine Hcl 25 Mg Tablet PO 25 mg Q6H PRN Administration Anxiety Loratadine 10 mg 07/13/22 06:31 07/14/22 09:35 Loratadine 10 Mg Tablet PO 10 mg DAILY PRN Administration allergy sx Mirtazapine 22.5 mg 07/13/22 21:00 07/13/22 20:22 Mirtazapine 7.5 Mg Tablet PO 22.5 mg BEDTIME PRISCILA Administration Oxcarbazepine 300 mg 07/13/22 09:00 07/14/22 08:28 Oxcarbazepine 300 Mg Tablet PO 300 mg TID PRISCILA Administration Quetiapine Fumarate 25 mg 07/13/22 06:31 07/13/22 13:41 Quetiapine Fumarate 25 Mg Tablet PO 25 mg TID PRN Administration PTSD Triggers, Anxiety Quetiapine Fumarate 25 mg 07/13/22 09:00 07/14/22 08:28 Quetiapine Fumarate 25 Mg Tablet PO 25 mg BID PRISCILA Administration Vitamin D 25 mcg 07/13/22 09:00 07/14/22 08:28 Cholecalciferol (Vitamin D3) 25 Mcg Tablet PO 25 mcg DAILY PRISCILA Administration Discontinued Medications Generic Name Dose Route Start Last Admin Trade Name Pauline PRN Reason Stop Dose Admin Lorazepam 2 mg 07/12/22 19:26 07/12/22 19:30 Lorazepam 2 Mg/Ml Vial IM 07/12/22 19:27 2 mg STAT STA Administration <Reji Morgan MD - Last Filed: 07/13/22 07:01> Medications Administered Generic Name Dose Route Start Last Admin Trade Name Pauline PRN Reason Stop Dose Admin Diphenhydramine HCl 50 mg 07/13/22 06:31 07/13/22 20:22 Diphenhydramine Hcl 25 Mg Capsule PO 50 mg Q6H PRN Administration with prn haldol EPS prevent Docusate Sodium 100 mg 07/13/22 21:00 07/13/22 20:22 Docusate Sodium 100 Mg Capsule PO 100 mg BEDTIME PRISCILA Administration Famotidine 20 mg 07/13/22 09:00 07/14/22 08:28 Famotidine 20 Mg Tablet PO 20 mg BID PRISCILA Administration Guanfacine HCl 2 mg 07/13/22 21:00 07/13/22 20:39 Guanfacine Hcl Er 2 Mg Tab.Er.24h PO 2 mg BEDTIME PRISCILA Administration Hydroxyzine HCl 25 mg 07/13/22 06:31 07/13/22 20:27 Hydroxyzine Hcl 25 Mg Tablet PO 25 mg Q6H PRN Administration Anxiety Loratadine 10 mg 07/13/22 06:31 07/14/22 09:35 Loratadine 10 Mg Tablet PO 10 mg DAILY PRN Administration allergy sx Mirtazapine 22.5 mg 07/13/22 21:00 07/13/22 20:22 Mirtazapine 7.5 Mg Tablet PO 22.5 mg BEDTIME PRISCILA Administration Oxcarbazepine 300 mg 07/13/22 09:00 07/14/22 08:28 Oxcarbazepine 300 Mg Tablet PO 300 mg TID PRISCILA Administration Quetiapine Fumarate 25 mg 07/13/22 06:31 07/13/22 13:41 Quetiapine Fumarate 25 Mg Tablet PO 25 mg TID PRN Administration PTSD Triggers, Anxiety Quetiapine Fumarate 25 mg 07/13/22 09:00 07/14/22 08:28 Quetiapine Fumarate 25 Mg Tablet PO 25 mg BID PRISCILA Administration Vitamin D 25 mcg 07/13/22 09:00 07/14/22 08:28 Cholecalciferol (Vitamin D3) 25 Mcg Tablet PO 25 mcg DAILY PRISCILA Administration Discontinued Medications Generic Name Dose Route Start Last Admin Trade Name Pauline PRN Reason Stop Dose Admin Lorazepam 2 mg 07/12/22 19:26 07/12/22 19:30 Lorazepam 2 Mg/Ml Vial IM 07/12/22 19:27 2 mg STAT STA Administration <Jaime Griffith MD - Last Filed: 07/14/22 10:59> Medical Decision Making Medical Decision Making MDM Narrative: 22 yo female with history of TBI, PTSD, psychogenic nonepileptic seizures, depression/anxiety presents to the ER with SI with plan to jump off of a bridge. She is actively suicidal now. VSS. Does not feel safe in her residential. Medical clearance labs ordered along with CARE team evaluation. <RADHA Gary - Last Filed: 07/12/22 16:17> Differential Diagnosis Differential Diagnoses: The differential diagnosis associated with the presentation includes <RADHA Gary - Last Filed: 07/12/22 16:17> substance induced mood disorder, acute psychosis, schizophrenia, schizoaffective disorder, PTSD, bipolar disorder, major depression with psychotic features <RADHA Gary - Last Filed: 07/12/22 16:17> Admission/Observation Consideration of admission/observation: Escalation of care including admission/observation considered <RADHA Gary - Last Filed: 07/12/22 16:17> Lab Data Result Diagrams: 07/12/22 16:31 07/12/22 16:32 <RADHA Gary - Last Filed: 07/12/22 16:17> Labs: Lab Results 07/12/22 07/12/22 07/12/22 Range/Units 16:31 16:32 16:32 WBC 8.0 (4.8-10.8) X10*3/uL RBC 4.72 (4.20-5.50) X10*6/uL Hgb 13.2 (12.0-16.0) g/dl Hct 39.8 (37.0-47.0) % MCV 84.3 (80.0-98.0) fL MCH 28.0 (27.0-33.0) pg MCHC 33.2 (31.0-35.0) g/dl RDW 12.0 (11.0-16.0) % Plt Count 288 (160-400) X10*3/uL MPV 10.0 (9.4-12.3) fL Immature Gran % (Auto) 0.4 (0.0-0.4) % Neut % (Auto) 63.0 (45-73) % Lymph % (Auto) 24.0 (20-40) % [place] % (Auto) 5.8 (2-11) % Eos % (Auto) 5.8 H (0-4) % Baso % (Auto) 1.0 (0-2) % Lymph # (Auto) 1.9 (1.2-4.9) X10*3/uL [place] # (Auto) 0.5 (0.1-1.2) X10*3/uL Eos # (Auto) 0.5 H (0.0-0.4) X10*3/uL Baso # (Auto) 0.1 (0.0-0.2) X10*3/uL Abs Immat Gran (auto) 0.03 (0.00-0.03) X10*3/uL Absolute Neuts (auto) 5.0 (2.0-8.3) x10*3/uL Absolute Nucleated RBC 0.000 (0.0-0.012) X10*3/uL Nucleated RBC % (auto) 0.0 (0.0-0.2) /100WBC Sodium 143 (135-145) mmol/L Potassium 4.2 (3.3-5.1) mmol/L Chloride 107 (96-108) mmol/L Carbon Dioxide 26 (22-29) mmol/L Anion Gap 14 (12-20) BUN 14 (9-16) mg/dL Creatinine 1.05 (0.5-1.4) mg/dL Estim Creat Clear Calc 71.7 Estimated GFR > 60 Random Glucose 80 (60-115) mg/dL Calcium 10.3 H (8.4-10.2) mg/dL Magnesium 1.8 (1.6-2.6) mg/dL Total Bilirubin 0.3 (0.0-1.0) mg/dL Direct Bilirubin 0.1 (0.0-0.5) mg/dL AST 16 (5-31) U/L ALT 16 (0-31) U/L Alkaline Phosphatase 74 (39-117) U/L Troponin I High Sens (<3.5-17.0) ng/L Total Protein 7.2 (6.5-8.0) g/dL Albumin 4.6 (3.5-5.0) g/dL Urine Color Urine Appearance Urine pH (5.0-9.0) Ur Specific [place] (1.005-1.025) Urine Protein (Neg-Trace) mg/dL Urine Glucose (UA) (Negative) mg/dL Urine Ketones (Negative) mg/dL Urine Blood (Negative) Urine Nitrite (Negative) Ur Leukocyte Esterase (Negative) Urine RBC (0-2) /HPF Urine WBC (0-5) /HPF Ur Squamous Epith Cells (0-2) /HPF Urine Bacteria (None Seen) Hyaline Casts (0-2) /LPF Urine Test (NEGATIVE) Salicylates < 5.0 L (15-30) mg/dL Urine Opiates Screen (Not Detect) Urine Fentanyl Screen (Not Detect) Acetaminophen < 17 (<30) mcg/mL Ur Barbiturates Screen (Not Detect) Ur Phencyclidine Scrn (Not Detect) Ur Amphetamines Screen (Not Detect) U Benzodiazepines Scrn (Not Detect) Urine Cocaine Screen (Not Detect) U Marijuana (THC) Screen (Not Detect) Ethyl Alcohol < 10 mg/dL COVID-19 ([facility]) Negative (Negative) COVID-19 Clin Com See Note 07/12/22 07/12/22 07/12/22 Range/Units 16:57 16:57 16:57 WBC (4.8-10.8) X10*3/uL RBC (4.20-5.50) X10*6/uL Hgb (12.0-16.0) g/dl Hct (37.0-47.0) % MCV (80.0-98.0) fL MCH (27.0-33.0) pg MCHC (31.0-35.0) g/dl RDW (11.0-16.0) % Plt Count (160-400) X10*3/uL MPV (9.4-12.3) fL Immature Gran % (Auto) (0.0-0.4) % Neut % (Auto) (45-73) % Lymph % (Auto) (20-40) % [place] % (Auto) (2-11) % Eos % (Auto) (0-4) % Baso % (Auto) (0-2) % Lymph # (Auto) (1.2-4.9) X10*3/uL [place] # (Auto) (0.1-1.2) X10*3/uL Eos # (Auto) (0.0-0.4) X10*3/uL Baso # (Auto) (0.0-0.2) X10*3/uL Abs Immat Gran (auto) (0.00-0.03) X10*3/uL Absolute Neuts (auto) (2.0-8.3) x10*3/uL Absolute Nucleated RBC (0.0-0.012) X10*3/uL Nucleated RBC % (auto) (0.0-0.2) /100WBC Sodium (135-145) mmol/L Potassium (3.3-5.1) mmol/L Chloride (96-108) mmol/L Carbon Dioxide (22-29) mmol/L Anion Gap (12-20) BUN (9-16) mg/dL Creatinine (0.5-1.4) mg/dL Estim Creat Clear Calc Estimated GFR Random Glucose (60-115) mg/dL Calcium (8.4-10.2) mg/dL Magnesium (1.6-2.6) mg/dL Total Bilirubin (0.0-1.0) mg/dL Direct Bilirubin (0.0-0.5) mg/dL AST (5-31) U/L ALT (0-31) U/L Alkaline Phosphatase (39-117) U/L Troponin I High Sens (<3.5-17.0) ng/L Total Protein (6.5-8.0) g/dL Albumin (3.5-5.0) g/dL Urine Color Yellow Urine Appearance Clear Urine pH 5.5 (5.0-9.0) Ur Specific [place] 1.025 (1.005-1.025) Urine Protein Negative (Neg-Trace) mg/dL Urine Glucose (UA) Negative (Negative) mg/dL Urine Ketones Trace (Negative) mg/dL Urine Blood Trace H (Negative) Urine Nitrite Negative (Negative) Ur Leukocyte Esterase Large (3+) H (Negative) Urine RBC 6-10 H (0-2) /HPF Urine WBC >50 H (0-5) /HPF Ur Squamous Epith Cells 6-10 (0-2) /HPF Urine Bacteria Trace (None Seen) Hyaline Casts 0-2 (0-2) /LPF Urine Test NEGATIVE (NEGATIVE) Salicylates (15-30) mg/dL Urine Opiates Screen Not Detected (Not Detect) Urine Fentanyl Screen Not Detected (Not Detect) Acetaminophen (<30) mcg/mL Ur Barbiturates Screen Not Detected (Not Detect) Ur Phencyclidine Scrn Not Detected (Not Detect) Ur Amphetamines Screen Not Detected (Not Detect) U Benzodiazepines Scrn Not Detected (Not Detect) Urine Cocaine Screen Not Detected (Not Detect) U Marijuana (THC) Screen Not Detected (Not Detect) Ethyl Alcohol mg/dL COVID-19 ([facility]) (Negative) COVID-19 Clin Com 07/14/22 Range/Units 09:05 WBC (4.8-10.8) X10*3/uL RBC (4.20-5.50) X10*6/uL Hgb (12.0-16.0) g/dl Hct (37.0-47.0) % MCV (80.0-98.0) fL MCH (27.0-33.0) pg MCHC (31.0-35.0) g/dl RDW (11.0-16.0) % Plt Count (160-400) X10*3/uL MPV (9.4-12.3) fL Immature Gran % (Auto) (0.0-0.4) % Neut % (Auto) (45-73) % Lymph % (Auto) (20-40) % [place] % (Auto) (2-11) % Eos % (Auto) (0-4) % Baso % (Auto) (0-2) % Lymph # (Auto) (1.2-4.9) X10*3/uL [place] # (Auto) (0.1-1.2) X10*3/uL Eos # (Auto) (0.0-0.4) X10*3/uL Baso # (Auto) (0.0-0.2) X10*3/uL Abs Immat Gran (auto) (0.00-0.03) X10*3/uL Absolute Neuts (auto) (2.0-8.3) x10*3/uL Absolute Nucleated RBC (0.0-0.012) X10*3/uL Nucleated RBC % (auto) (0.0-0.2) /100WBC Sodium (135-145) mmol/L Potassium (3.3-5.1) mmol/L Chloride (96-108) mmol/L Carbon Dioxide (22-29) mmol/L Anion Gap (12-20) BUN (9-16) mg/dL Creatinine (0.5-1.4) mg/dL Estim Creat Clear Calc Estimated GFR Random Glucose (60-115) mg/dL Calcium (8.4-10.2) mg/dL Magnesium (1.6-2.6) mg/dL Total Bilirubin (0.0-1.0) mg/dL Direct Bilirubin (0.0-0.5) mg/dL AST (5-31) U/L ALT (0-31) U/L Alkaline Phosphatase (39-117) U/L Troponin I High Sens < 2.7 (<3.5-17.0) ng/L Total Protein (6.5-8.0) g/dL Albumin (3.5-5.0) g/dL Urine Color Urine Appearance Urine pH (5.0-9.0) Ur Specific [place] (1.005-1.025) Urine Protein (Neg-Trace) mg/dL Urine Glucose (UA) (Negative) mg/dL Urine Ketones (Negative) mg/dL Urine Blood (Negative) Urine Nitrite (Negative) Ur Leukocyte Esterase (Negative) Urine RBC (0-2) /HPF Urine WBC (0-5) /HPF Ur Squamous Epith Cells (0-2) /HPF Urine Bacteria (None Seen) Hyaline Casts (0-2) /LPF Urine Test (NEGATIVE) Salicylates (15-30) mg/dL Urine Opiates Screen (Not Detect) Urine Fentanyl Screen (Not Detect) Acetaminophen (<30) mcg/mL Ur Barbiturates Screen (Not Detect) Ur Phencyclidine Scrn (Not Detect) Ur Amphetamines Screen (Not Detect) U Benzodiazepines Scrn (Not Detect) Urine Cocaine Screen (Not Detect) U Marijuana (THC) Screen (Not Detect) Ethyl Alcohol mg/dL COVID-19 ([facility]) (Negative) COVID-19 Clin Com <RADHA Gary - Last Filed: 07/12/22 16:17> Lab Results 07/12/22 07/12/22 07/12/22 Range/Units 16:31 16:32 16:32 WBC 8.0 (4.8-10.8) X10*3/uL RBC 4.72 (4.20-5.50) X10*6/uL Hgb 13.2 (12.0-16.0) g/dl Hct 39.8 (37.0-47.0) % MCV 84.3 (80.0-98.0) fL MCH 28.0 (27.0-33.0) pg MCHC 33.2 (31.0-35.0) g/dl RDW 12.0 (11.0-16.0) % Plt Count 288 (160-400) X10*3/uL MPV 10.0 (9.4-12.3) fL Immature Gran % (Auto) 0.4 (0.0-0.4) % Neut % (Auto) 63.0 (45-73) % Lymph % (Auto) 24.0 (20-40) % [place] % (Auto) 5.8 (2-11) % Eos % (Auto) 5.8 H (0-4) % Baso % (Auto) 1.0 (0-2) % Lymph # (Auto) 1.9 (1.2-4.9) X10*3/uL [place] # (Auto) 0.5 (0.1-1.2) X10*3/uL Eos # (Auto) 0.5 H (0.0-0.4) X10*3/uL Baso # (Auto) 0.1 (0.0-0.2) X10*3/uL Abs Immat Gran (auto) 0.03 (0.00-0.03) X10*3/uL Absolute Neuts (auto) 5.0 (2.0-8.3) x10*3/uL Absolute Nucleated RBC 0.000 (0.0-0.012) X10*3/uL Nucleated RBC % (auto) 0.0 (0.0-0.2) /100WBC Sodium 143 (135-145) mmol/L Potassium 4.2 (3.3-5.1) mmol/L Chloride 107 (96-108) mmol/L Carbon Dioxide 26 (22-29) mmol/L Anion Gap 14 (12-20) BUN 14 (9-16) mg/dL Creatinine 1.05 (0.5-1.4) mg/dL Estim Creat Clear Calc 71.7 Estimated GFR > 60 Random Glucose 80 (60-115) mg/dL Calcium 10.3 H (8.4-10.2) mg/dL Magnesium 1.8 (1.6-2.6) mg/dL Total Bilirubin 0.3 (0.0-1.0) mg/dL Direct Bilirubin 0.1 (0.0-0.5) mg/dL AST 16 (5-31) U/L ALT 16 (0-31) U/L Alkaline Phosphatase 74 (39-117) U/L Troponin I High Sens (<3.5-17.0) ng/L Total Protein 7.2 (6.5-8.0) g/dL Albumin 4.6 (3.5-5.0) g/dL Urine Color Urine Appearance Urine pH (5.0-9.0) Ur Specific [place] (1.005-1.025) Urine Protein (Neg-Trace) mg/dL Urine Glucose (UA) (Negative) mg/dL Urine Ketones (Negative) mg/dL Urine Blood (Negative) Urine Nitrite (Negative) Ur Leukocyte Esterase (Negative) Urine RBC (0-2) /HPF Urine WBC (0-5) /HPF Ur Squamous Epith Cells (0-2) /HPF Urine Bacteria (None Seen) Hyaline Casts (0-2) /LPF Urine Test (NEGATIVE) Salicylates < 5.0 L (15-30) mg/dL Urine Opiates Screen (Not Detect) Urine Fentanyl Screen (Not Detect) Acetaminophen < 17 (<30) mcg/mL Ur Barbiturates Screen (Not Detect) Ur Phencyclidine Scrn (Not Detect) Ur Amphetamines Screen (Not Detect) U Benzodiazepines Scrn (Not Detect) Urine Cocaine Screen (Not Detect) U Marijuana (THC) Screen (Not Detect) Ethyl Alcohol < 10 mg/dL COVID-19 ([facility]) Negative (Negative) COVID-19 Clin Com See Note 07/12/22 07/12/22 07/12/22 Range/Units 16:57 16:57 16:57 WBC (4.8-10.8) X10*3/uL RBC (4.20-5.50) X10*6/uL Hgb (12.0-16.0) g/dl Hct (37.0-47.0) % MCV (80.0-98.0) fL MCH (27.0-33.0) pg MCHC (31.0-35.0) g/dl RDW (11.0-16.0) % Plt Count (160-400) X10*3/uL MPV (9.4-12.3) fL Immature Gran % (Auto) (0.0-0.4) % Neut % (Auto) (45-73) % Lymph % (Auto) (20-40) % [place] % (Auto) (2-11) % Eos % (Auto) (0-4) % Baso % (Auto) (0-2) % Lymph # (Auto) (1.2-4.9) X10*3/uL [place] # (Auto) (0.1-1.2) X10*3/uL Eos # (Auto) (0.0-0.4) X10*3/uL Baso # (Auto) (0.0-0.2) X10*3/uL Abs Immat Gran (auto) (0.00-0.03) X10*3/uL Absolute Neuts (auto) (2.0-8.3) x10*3/uL Absolute Nucleated RBC (0.0-0.012) X10*3/uL Nucleated RBC % (auto) (0.0-0.2) /100WBC Sodium (135-145) mmol/L Potassium (3.3-5.1) mmol/L Chloride (96-108) mmol/L Carbon Dioxide (22-29) mmol/L Anion Gap (12-20) BUN (9-16) mg/dL Creatinine (0.5-1.4) mg/dL Estim Creat Clear Calc Estimated GFR Random Glucose (60-115) mg/dL Calcium (8.4-10.2) mg/dL Magnesium (1.6-2.6) mg/dL Total Bilirubin (0.0-1.0) mg/dL Direct Bilirubin (0.0-0.5) mg/dL AST (5-31) U/L ALT (0-31) U/L Alkaline Phosphatase (39-117) U/L Troponin I High Sens (<3.5-17.0) ng/L Total Protein (6.5-8.0) g/dL Albumin (3.5-5.0) g/dL Urine Color Yellow Urine Appearance Clear Urine pH 5.5 (5.0-9.0) Ur Specific [place] 1.025 (1.005-1.025) Urine Protein Negative (Neg-Trace) mg/dL Urine Glucose (UA) Negative (Negative) mg/dL Urine Ketones Trace (Negative) mg/dL Urine Blood Trace H (Negative) Urine Nitrite Negative (Negative) Ur Leukocyte Esterase Large (3+) H (Negative) Urine RBC 6-10 H (0-2) /HPF Urine WBC >50 H (0-5) /HPF Ur Squamous Epith Cells 6-10 (0-2) /HPF Urine Bacteria Trace (None Seen) Hyaline Casts 0-2 (0-2) /LPF Urine Test NEGATIVE (NEGATIVE) Salicylates (15-30) mg/dL Urine Opiates Screen Not Detected (Not Detect) Urine Fentanyl Screen Not Detected (Not Detect) Acetaminophen (<30) mcg/mL Ur Barbiturates Screen Not Detected (Not Detect) Ur Phencyclidine Scrn Not Detected (Not Detect) Ur Amphetamines Screen Not Detected (Not Detect) U Benzodiazepines Scrn Not Detected (Not Detect) Urine Cocaine Screen Not Detected (Not Detect) U Marijuana (THC) Screen Not Detected (Not Detect) Ethyl Alcohol mg/dL COVID-19 ([facility]) (Negative) COVID-19 Clin Com 07/14/22 Range/Units 09:05 WBC (4.8-10.8) X10*3/uL RBC (4.20-5.50) X10*6/uL Hgb (12.0-16.0) g/dl Hct (37.0-47.0) % MCV (80.0-98.0) fL MCH (27.0-33.0) pg MCHC (31.0-35.0) g/dl RDW (11.0-16.0) % Plt Count (160-400) X10*3/uL MPV (9.4-12.3) fL Immature Gran % (Auto) (0.0-0.4) % Neut % (Auto) (45-73) % Lymph % (Auto) (20-40) % [place] % (Auto) (2-11) % Eos % (Auto) (0-4) % Baso % (Auto) (0-2) % Lymph # (Auto) (1.2-4.9) X10*3/uL [place] # (Auto) (0.1-1.2) X10*3/uL Eos # (Auto) (0.0-0.4) X10*3/uL Baso # (Auto) (0.0-0.2) X10*3/uL Abs Immat Gran (auto) (0.00-0.03) X10*3/uL Absolute Neuts (auto) (2.0-8.3) x10*3/uL Absolute Nucleated RBC (0.0-0.012) X10*3/uL Nucleated RBC % (auto) (0.0-0.2) /100WBC Sodium (135-145) mmol/L Potassium (3.3-5.1) mmol/L Chloride (96-108) mmol/L Carbon Dioxide (22-29) mmol/L Anion Gap (12-20) BUN (9-16) mg/dL Creatinine (0.5-1.4) mg/dL Estim Creat Clear Calc Estimated GFR Random Glucose (60-115) mg/dL Calcium (8.4-10.2) mg/dL Magnesium (1.6-2.6) mg/dL Total Bilirubin (0.0-1.0) mg/dL Direct Bilirubin (0.0-0.5) mg/dL AST (5-31) U/L ALT (0-31) U/L Alkaline Phosphatase (39-117) U/L Troponin I High Sens < 2.7 (<3.5-17.0) ng/L Total Protein (6.5-8.0) g/dL Albumin (3.5-5.0) g/dL Urine Color Urine Appearance Urine pH (5.0-9.0) Ur Specific [place] (1.005-1.025) Urine Protein (Neg-Trace) mg/dL Urine Glucose (UA) (Negative) mg/dL Urine Ketones (Negative) mg/dL Urine Blood (Negative) Urine Nitrite (Negative) Ur Leukocyte Esterase (Negative) Urine RBC (0-2) /HPF Urine WBC (0-5) /HPF Ur Squamous Epith Cells (0-2) /HPF Urine Bacteria (None Seen) Hyaline Casts (0-2) /LPF Urine Test (NEGATIVE) Salicylates (15-30) mg/dL Urine Opiates Screen (Not Detect) Urine Fentanyl Screen (Not Detect) Acetaminophen (<30) mcg/mL Ur Barbiturates Screen (Not Detect) Ur Phencyclidine Scrn (Not Detect) Ur Amphetamines Screen (Not Detect) U Benzodiazepines Scrn (Not Detect) Urine Cocaine Screen (Not Detect) U Marijuana (THC) Screen (Not Detect) Ethyl Alcohol mg/dL COVID-19 ([facility]) (Negative) COVID-19 Clin Com <Jeovany Gomez MD - Last Filed: 07/12/22 19:28> Lab Results 07/12/22 07/12/22 07/12/22 Range/Units 16:31 16:32 16:32 WBC 8.0 (4.8-10.8) X10*3/uL RBC 4.72 (4.20-5.50) X10*6/uL Hgb 13.2 (12.0-16.0) g/dl Hct 39.8 (37.0-47.0) % MCV 84.3 (80.0-98.0) fL MCH 28.0 (27.0-33.0) pg MCHC 33.2 (31.0-35.0) g/dl RDW 12.0 (11.0-16.0) % Plt Count 288 (160-400) X10*3/uL MPV 10.0 (9.4-12.3) fL Immature Gran % (Auto) 0.4 (0.0-0.4) % Neut % (Auto) 63.0 (45-73) % Lymph % (Auto) 24.0 (20-40) % [place] % (Auto) 5.8 (2-11) % Eos % (Auto) 5.8 H (0-4) % Baso % (Auto) 1.0 (0-2) % Lymph # (Auto) 1.9 (1.2-4.9) X10*3/uL [place] # (Auto) 0.5 (0.1-1.2) X10*3/uL Eos # (Auto) 0.5 H (0.0-0.4) X10*3/uL Baso # (Auto) 0.1 (0.0-0.2) X10*3/uL Abs Immat Gran (auto) 0.03 (0.00-0.03) X10*3/uL Absolute Neuts (auto) 5.0 (2.0-8.3) x10*3/uL Absolute Nucleated RBC 0.000 (0.0-0.012) X10*3/uL Nucleated RBC % (auto) 0.0 (0.0-0.2) /100WBC Sodium 143 (135-145) mmol/L Potassium 4.2 (3.3-5.1) mmol/L Chloride 107 (96-108) mmol/L Carbon Dioxide 26 (22-29) mmol/L Anion Gap 14 (12-20) BUN 14 (9-16) mg/dL Creatinine 1.05 (0.5-1.4) mg/dL Estim Creat Clear Calc 71.7 Estimated GFR > 60 Random Glucose 80 (60-115) mg/dL Calcium 10.3 H (8.4-10.2) mg/dL Magnesium 1.8 (1.6-2.6) mg/dL Total Bilirubin 0.3 (0.0-1.0) mg/dL Direct Bilirubin 0.1 (0.0-0.5) mg/dL AST 16 (5-31) U/L ALT 16 (0-31) U/L Alkaline Phosphatase 74 (39-117) U/L Troponin I High Sens (<3.5-17.0) ng/L Total Protein 7.2 (6.5-8.0) g/dL Albumin 4.6 (3.5-5.0) g/dL Urine Color Urine Appearance Urine pH (5.0-9.0) Ur Specific [place] (1.005-1.025) Urine Protein (Neg-Trace) mg/dL Urine Glucose (UA) (Negative) mg/dL Urine Ketones (Negative) mg/dL Urine Blood (Negative) Urine Nitrite (Negative) Ur Leukocyte Esterase (Negative) Urine RBC (0-2) /HPF Urine WBC (0-5) /HPF Ur Squamous Epith Cells (0-2) /HPF Urine Bacteria (None Seen) Hyaline Casts (0-2) /LPF Urine Test (NEGATIVE) Salicylates < 5.0 L (15-30) mg/dL Urine Opiates Screen (Not Detect) Urine Fentanyl Screen (Not Detect) Acetaminophen < 17 (<30) mcg/mL Ur Barbiturates Screen (Not Detect) Ur Phencyclidine Scrn (Not Detect) Ur Amphetamines Screen (Not Detect) U Benzodiazepines Scrn (Not Detect) Urine Cocaine Screen (Not Detect) U Marijuana (THC) Screen (Not Detect) Ethyl Alcohol < 10 mg/dL COVID-19 ([facility]) Negative (Negative) COVID-19 Clin Com See Note 07/12/22 07/12/22 07/12/22 Range/Units 16:57 16:57 16:57 WBC (4.8-10.8) X10*3/uL RBC (4.20-5.50) X10*6/uL Hgb (12.0-16.0) g/dl Hct (37.0-47.0) % MCV (80.0-98.0) fL MCH (27.0-33.0) pg MCHC (31.0-35.0) g/dl RDW (11.0-16.0) % Plt Count (160-400) X10*3/uL MPV (9.4-12.3) fL Immature Gran % (Auto) (0.0-0.4) % Neut % (Auto) (45-73) % Lymph % (Auto) (20-40) % [place] % (Auto) (2-11) % Eos % (Auto) (0-4) % Baso % (Auto) (0-2) % Lymph # (Auto) (1.2-4.9) X10*3/uL [place] # (Auto) (0.1-1.2) X10*3/uL Eos # (Auto) (0.0-0.4) X10*3/uL Baso # (Auto) (0.0-0.2) X10*3/uL Abs Immat Gran (auto) (0.00-0.03) X10*3/uL Absolute Neuts (auto) (2.0-8.3) x10*3/uL Absolute Nucleated RBC (0.0-0.012) X10*3/uL Nucleated RBC % (auto) (0.0-0.2) /100WBC Sodium (135-145) mmol/L Potassium (3.3-5.1) mmol/L Chloride (96-108) mmol/L Carbon Dioxide (22-29) mmol/L Anion Gap (12-20) BUN (9-16) mg/dL Creatinine (0.5-1.4) mg/dL Estim Creat Clear Calc Estimated GFR Random Glucose (60-115) mg/dL Calcium (8.4-10.2) mg/dL Magnesium (1.6-2.6) mg/dL Total Bilirubin (0.0-1.0) mg/dL Direct Bilirubin (0.0-0.5) mg/dL AST (5-31) U/L ALT (0-31) U/L Alkaline Phosphatase (39-117) U/L Troponin I High Sens (<3.5-17.0) ng/L Total Protein (6.5-8.0) g/dL Albumin (3.5-5.0) g/dL Urine Color Yellow Urine Appearance Clear Urine pH 5.5 (5.0-9.0) Ur Specific [place] 1.025 (1.005-1.025) Urine Protein Negative (Neg-Trace) mg/dL Urine Glucose (UA) Negative (Negative) mg/dL Urine Ketones Trace (Negative) mg/dL Urine Blood Trace H (Negative) Urine Nitrite Negative (Negative) Ur Leukocyte Esterase Large (3+) H (Negative) Urine RBC 6-10 H (0-2) /HPF Urine WBC >50 H (0-5) /HPF Ur Squamous Epith Cells 6-10 (0-2) /HPF Urine Bacteria Trace (None Seen) Hyaline Casts 0-2 (0-2) /LPF Urine Test NEGATIVE (NEGATIVE) Salicylates (15-30) mg/dL Urine Opiates Screen Not Detected (Not Detect) Urine Fentanyl Screen Not Detected (Not Detect) Acetaminophen (<30) mcg/mL Ur Barbiturates Screen Not Detected (Not Detect) Ur Phencyclidine Scrn Not Detected (Not Detect) Ur Amphetamines Screen Not Detected (Not Detect) U Benzodiazepines Scrn Not Detected (Not Detect) Urine Cocaine Screen Not Detected (Not Detect) U Marijuana (THC) Screen Not Detected (Not Detect) Ethyl Alcohol mg/dL COVID-19 ([facility]) (Negative) COVID-19 Clin Com 07/14/22 Range/Units 09:05 WBC (4.8-10.8) X10*3/uL RBC (4.20-5.50) X10*6/uL Hgb (12.0-16.0) g/dl Hct (37.0-47.0) % MCV (80.0-98.0) fL MCH (27.0-33.0) pg MCHC (31.0-35.0) g/dl RDW (11.0-16.0) % Plt Count (160-400) X10*3/uL MPV (9.4-12.3) fL Immature Gran % (Auto) (0.0-0.4) % Neut % (Auto) (45-73) % Lymph % (Auto) (20-40) % [place] % (Auto) (2-11) % Eos % (Auto) (0-4) % Baso % (Auto) (0-2) % Lymph # (Auto) (1.2-4.9) X10*3/uL [place] # (Auto) (0.1-1.2) X10*3/uL Eos # (Auto) (0.0-0.4) X10*3/uL Baso # (Auto) (0.0-0.2) X10*3/uL Abs Immat Gran (auto) (0.00-0.03) X10*3/uL Absolute Neuts (auto) (2.0-8.3) x10*3/uL Absolute Nucleated RBC (0.0-0.012) X10*3/uL Nucleated RBC % (auto) (0.0-0.2) /100WBC Sodium (135-145) mmol/L Potassium (3.3-5.1) mmol/L Chloride (96-108) mmol/L Carbon Dioxide (22-29) mmol/L Anion Gap (12-20) BUN (9-16) mg/dL Creatinine (0.5-1.4) mg/dL Estim Creat Clear Calc Estimated GFR Random Glucose (60-115) mg/dL Calcium (8.4-10.2) mg/dL Magnesium (1.6-2.6) mg/dL Total Bilirubin (0.0-1.0) mg/dL Direct Bilirubin (0.0-0.5) mg/dL AST (5-31) U/L ALT (0-31) U/L Alkaline Phosphatase (39-117) U/L Troponin I High Sens < 2.7 (<3.5-17.0) ng/L Total Protein (6.5-8.0) g/dL Albumin (3.5-5.0) g/dL Urine Color Urine Appearance Urine pH (5.0-9.0) Ur Specific [place] (1.005-1.025) Urine Protein (Neg-Trace) mg/dL Urine Glucose (UA) (Negative) mg/dL Urine Ketones (Negative) mg/dL Urine Blood (Negative) Urine Nitrite (Negative) Ur Leukocyte Esterase (Negative) Urine RBC (0-2) /HPF Urine WBC (0-5) /HPF Ur Squamous Epith Cells (0-2) /HPF Urine Bacteria (None Seen) Hyaline Casts (0-2) /LPF Urine Test (NEGATIVE) Salicylates (15-30) mg/dL Urine Opiates Screen (Not Detect) Urine Fentanyl Screen (Not Detect) Acetaminophen (<30) mcg/mL Ur Barbiturates Screen (Not Detect) Ur Phencyclidine Scrn (Not Detect) Ur Amphetamines Screen (Not Detect) U Benzodiazepines Scrn (Not Detect) Urine Cocaine Screen (Not Detect) U Marijuana (THC) Screen (Not Detect) Ethyl Alcohol mg/dL COVID-19 ([facility]) (Negative) COVID-19 Clin Com <Reji Morgan MD - Last Filed: 07/13/22 07:01> Lab Results 07/12/22 07/12/22 07/12/22 Range/Units 16:31 16:32 16:32 WBC 8.0 (4.8-10.8) X10*3/uL RBC 4.72 (4.20-5.50) X10*6/uL Hgb 13.2 (12.0-16.0) g/dl Hct 39.8 (37.0-47.0) % MCV 84.3 (80.0-98.0) fL MCH 28.0 (27.0-33.0) pg MCHC 33.2 (31.0-35.0) g/dl RDW 12.0 (11.0-16.0) % Plt Count 288 (160-400) X10*3/uL MPV 10.0 (9.4-12.3) fL Immature Gran % (Auto) 0.4 (0.0-0.4) % Neut % (Auto) 63.0 (45-73) % Lymph % (Auto) 24.0 (20-40) % [place] % (Auto) 5.8 (2-11) % Eos % (Auto) 5.8 H (0-4) % Baso % (Auto) 1.0 (0-2) % Lymph # (Auto) 1.9 (1.2-4.9) X10*3/uL [place] # (Auto) 0.5 (0.1-1.2) X10*3/uL Eos # (Auto) 0.5 H (0.0-0.4) X10*3/uL Baso # (Auto) 0.1 (0.0-0.2) X10*3/uL Abs Immat Gran (auto) 0.03 (0.00-0.03) X10*3/uL Absolute Neuts (auto) 5.0 (2.0-8.3) x10*3/uL Absolute Nucleated RBC 0.000 (0.0-0.012) X10*3/uL Nucleated RBC % (auto) 0.0 (0.0-0.2) /100WBC Sodium 143 (135-145) mmol/L Potassium 4.2 (3.3-5.1) mmol/L Chloride 107 (96-108) mmol/L Carbon Dioxide 26 (22-29) mmol/L Anion Gap 14 (12-20) BUN 14 (9-16) mg/dL Creatinine 1.05 (0.5-1.4) mg/dL Estim Creat Clear Calc 71.7 Estimated GFR > 60 Random Glucose 80 (60-115) mg/dL Calcium 10.3 H (8.4-10.2) mg/dL Magnesium 1.8 (1.6-2.6) mg/dL Total Bilirubin 0.3 (0.0-1.0) mg/dL Direct Bilirubin 0.1 (0.0-0.5) mg/dL AST 16 (5-31) U/L ALT 16 (0-31) U/L Alkaline Phosphatase 74 (39-117) U/L Troponin I High Sens (<3.5-17.0) ng/L Total Protein 7.2 (6.5-8.0) g/dL Albumin 4.6 (3.5-5.0) g/dL Urine Color Urine Appearance Urine pH (5.0-9.0) Ur Specific [place] (1.005-1.025) Urine Protein (Neg-Trace) mg/dL Urine Glucose (UA) (Negative) mg/dL Urine Ketones (Negative) mg/dL Urine Blood (Negative) Urine Nitrite (Negative) Ur Leukocyte Esterase (Negative) Urine RBC (0-2) /HPF Urine WBC (0-5) /HPF Ur Squamous Epith Cells (0-2) /HPF Urine Bacteria (None Seen) Hyaline Casts (0-2) /LPF Urine Test (NEGATIVE) Salicylates < 5.0 L (15-30) mg/dL Urine Opiates Screen (Not Detect) Urine Fentanyl Screen (Not Detect) Acetaminophen < 17 (<30) mcg/mL Ur Barbiturates Screen (Not Detect) Ur Phencyclidine Scrn (Not Detect) Ur Amphetamines Screen (Not Detect) U Benzodiazepines Scrn (Not Detect) Urine Cocaine Screen (Not Detect) U Marijuana (THC) Screen (Not Detect) Ethyl Alcohol < 10 mg/dL COVID-19 ([facility]) Negative (Negative) COVID-19 Clin Com See Note 07/12/22 07/12/22 07/12/22 Range/Units 16:57 16:57 16:57 WBC (4.8-10.8) X10*3/uL RBC (4.20-5.50) X10*6/uL Hgb (12.0-16.0) g/dl Hct (37.0-47.0) % MCV (80.0-98.0) fL MCH (27.0-33.0) pg MCHC (31.0-35.0) g/dl RDW (11.0-16.0) % Plt Count (160-400) X10*3/uL MPV (9.4-12.3) fL Immature Gran % (Auto) (0.0-0.4) % Neut % (Auto) (45-73) % Lymph % (Auto) (20-40) % [place] % (Auto) (2-11) % Eos % (Auto) (0-4) % Baso % (Auto) (0-2) % Lymph # (Auto) (1.2-4.9) X10*3/uL [place] # (Auto) (0.1-1.2) X10*3/uL Eos # (Auto) (0.0-0.4) X10*3/uL Baso # (Auto) (0.0-0.2) X10*3/uL Abs Immat Gran (auto) (0.00-0.03) X10*3/uL Absolute Neuts (auto) (2.0-8.3) x10*3/uL Absolute Nucleated RBC (0.0-0.012) X10*3/uL Nucleated RBC % (auto) (0.0-0.2) /100WBC Sodium (135-145) mmol/L Potassium (3.3-5.1) mmol/L Chloride (96-108) mmol/L Carbon Dioxide (22-29) mmol/L Anion Gap (12-20) BUN (9-16) mg/dL Creatinine (0.5-1.4) mg/dL Estim Creat Clear Calc Estimated GFR Random Glucose (60-115) mg/dL Calcium (8.4-10.2) mg/dL Magnesium (1.6-2.6) mg/dL Total Bilirubin (0.0-1.0) mg/dL Direct Bilirubin (0.0-0.5) mg/dL AST (5-31) U/L ALT (0-31) U/L Alkaline Phosphatase (39-117) U/L Troponin I High Sens (<3.5-17.0) ng/L Total Protein (6.5-8.0) g/dL Albumin (3.5-5.0) g/dL Urine Color Yellow Urine Appearance Clear Urine pH 5.5 (5.0-9.0) Ur Specific [place] 1.025 (1.005-1.025) Urine Protein Negative (Neg-Trace) mg/dL Urine Glucose (UA) Negative (Negative) mg/dL Urine Ketones Trace (Negative) mg/dL Urine Blood Trace H (Negative) Urine Nitrite Negative (Negative) Ur Leukocyte Esterase Large (3+) H (Negative) Urine RBC 6-10 H (0-2) /HPF Urine WBC >50 H (0-5) /HPF Ur Squamous Epith Cells 6-10 (0-2) /HPF Urine Bacteria Trace (None Seen) Hyaline Casts 0-2 (0-2) /LPF Urine Test NEGATIVE (NEGATIVE) Salicylates (15-30) mg/dL Urine Opiates Screen Not Detected (Not Detect) Urine Fentanyl Screen Not Detected (Not Detect) Acetaminophen (<30) mcg/mL Ur Barbiturates Screen Not Detected (Not Detect) Ur Phencyclidine Scrn Not Detected (Not Detect) Ur Amphetamines Screen Not Detected (Not Detect) U Benzodiazepines Scrn Not Detected (Not Detect) Urine Cocaine Screen Not Detected (Not Detect) U Marijuana (THC) Screen Not Detected (Not Detect) Ethyl Alcohol mg/dL COVID-19 ([facility]) (Negative) COVID-19 Clin Com 07/14/22 Range/Units 09:05 WBC (4.8-10.8) X10*3/uL RBC (4.20-5.50) X10*6/uL Hgb (12.0-16.0) g/dl Hct (37.0-47.0) % MCV (80.0-98.0) fL MCH (27.0-33.0) pg MCHC (31.0-35.0) g/dl RDW (11.0-16.0) % Plt Count (160-400) X10*3/uL MPV (9.4-12.3) fL Immature Gran % (Auto) (0.0-0.4) % Neut % (Auto) (45-73) % Lymph % (Auto) (20-40) % [place] % (Auto) (2-11) % Eos % (Auto) (0-4) % Baso % (Auto) (0-2) % Lymph # (Auto) (1.2-4.9) X10*3/uL [place] # (Auto) (0.1-1.2) X10*3/uL Eos # (Auto) (0.0-0.4) X10*3/uL Baso # (Auto) (0.0-0.2) X10*3/uL Abs Immat Gran (auto) (0.00-0.03) X10*3/uL Absolute Neuts (auto) (2.0-8.3) x10*3/uL Absolute Nucleated RBC (0.0-0.012) X10*3/uL Nucleated RBC % (auto) (0.0-0.2) /100WBC Sodium (135-145) mmol/L Potassium (3.3-5.1) mmol/L Chloride (96-108) mmol/L Carbon Dioxide (22-29) mmol/L Anion Gap (12-20) BUN (9-16) mg/dL Creatinine (0.5-1.4) mg/dL Estim Creat Clear Calc Estimated GFR Random Glucose (60-115) mg/dL Calcium (8.4-10.2) mg/dL Magnesium (1.6-2.6) mg/dL Total Bilirubin (0.0-1.0) mg/dL Direct Bilirubin (0.0-0.5) mg/dL AST (5-31) U/L ALT (0-31) U/L Alkaline Phosphatase (39-117) U/L Troponin I High Sens < 2.7 (<3.5-17.0) ng/L Total Protein (6.5-8.0) g/dL Albumin (3.5-5.0) g/dL Urine Color Urine Appearance Urine pH (5.0-9.0) Ur Specific [place] (1.005-1.025) Urine Protein (Neg-Trace) mg/dL Urine Glucose (UA) (Negative) mg/dL Urine Ketones (Negative) mg/dL Urine Blood (Negative) Urine Nitrite (Negative) Ur Leukocyte Esterase (Negative) Urine RBC (0-2) /HPF Urine WBC (0-5) /HPF Ur Squamous Epith Cells (0-2) /HPF Urine Bacteria (None Seen) Hyaline Casts (0-2) /LPF Urine Test (NEGATIVE) Salicylates (15-30) mg/dL Urine Opiates Screen (Not Detect) Urine Fentanyl Screen (Not Detect) Acetaminophen (<30) mcg/mL Ur Barbiturates Screen (Not Detect) Ur Phencyclidine Scrn (Not Detect) Ur Amphetamines Screen (Not Detect) U Benzodiazepines Scrn (Not Detect) Urine Cocaine Screen (Not Detect) U Marijuana (THC) Screen (Not Detect) Ethyl Alcohol mg/dL COVID-19 ([facility]) (Negative) COVID-19 Clin Com <Jaime Griffith MD - Last Filed: 07/14/22 10:59> Independent Historian Clinical information obtained from an independent historian. History obtained from or confirmed by: EMS <RADHA Gary - Last Filed: 07/12/22 16:17> External Record Review External record reviewed: Inpatient record, Outpatient record, Prior outpatient labs and Prior outpatient radiology <RADHA Gary - Last Filed: 07/12/22 16:17> Prescription Management I considered prescription management with: Other (antipsychotics) <RADHA Gary - Last Filed: 07/12/22 16:17> Chronic Conditions Patient?s care impacted by: Other (TBI, PTSD, mental illness) <RADHA Gary - Last Filed: 07/12/22 16:17> Social Determinants Patient?s care significantly limited by Social Determinants of Health including: Problems related to primary support group <RADHA Gary - Last Filed: 07/12/22 16:17> Critical Care Time Critical Care Time Critical Care Time: No <RADHA Gary - Last Filed: 07/12/22 16:17> Discharge Plan Discharge Clinical Impression: Suicidal ideation, Psychiatric pseudoseizure <RADHA Gary - Last Filed: 07/12/22 16:17> Patient Disposition: Still a Patient <RADHA Gary - Last Filed: 07/12/22 16:17> Prescriptions: No Action guanfacine 2 mg tablet extended release 24 hr 2 mg PO BEDTIME Qty: 30 1RF acetaminophen 325 mg Tablet 650 mg PO Q6H PRN (Reason: Pain, Mild (Pain Scale 1-3)) Qty: 120 0RF diphenhydramine HCl [Allergy Relief(diphenhydramin)] 25 mg Tablet 50 mg PO Q6H PRN (Reason: with prn haldol EPS prevent) Qty: 60 0RF loratadine 10 mg Tablet 10 mg PO DAILY PRN (Reason: allergy sx) Qty: 30 0RF quetiapine 25 mg Tablet 25 mg PO TID PRN (Reason: PTSD Triggers, Anxiety) Qty: 60 0RF docusate sodium 100 mg Capsule 100 mg PO BEDTIME Qty: 30 0RF Dermacerin Cream 1 appl topical BID PRN (Reason: Itching) Qty: 100 0RF Protocol: Apply to: Apply to: affected area post shaving cholecalciferol (vitamin D3) 25 mcg (1,000 unit) capsule 25 mcg PO DAILY Qty: 30 0RF calcium carbonate [Calcium Antacid] 200 mg calcium (500 mg) tablet,chewable 400 mg PO Q6H MDD 8 g PRN (Reason: Gastric Reflux) mirtazapine 45 mg tablet 22.5 mg PO BEDTIME trazodone 50 mg tablet 25 mg PO BEDTIME PRN (Reason: Insomnia) hydroxyzine HCl 50 mg tablet 25 mg PO Q6H PRN (Reason: Anxiety) quetiapine 50 mg tablet extended release 24 hr 50 mg PO BEDTIME oxcarbazepine 300 mg tablet 300 mg PO TID dicyclomine 20 mg tablet 20 mg PO QID PRN (Reason: cramping) 30 Days Qty: 90 3RF sucralfate [Carafate] 100 mg/mL suspension 10 ml PO BID PRN (Reason: dyspepsia) Qty: 420 6RF famotidine 20 mg tablet 20 mg PO BID Qty: 60 6RF <RADHA Gary - Last Filed: 07/12/22 16:17> Interventions: [place]-Suicide Risk Severity Scale Last Done: 07/14/22 04:56 <RADHA Gary - Last Filed: 07/12/22 16:17>
[2022-07-12 16:12] VITALS: BP 125/78; PULSE 81; TEMP 36.8; O2SAT 97; BMI 25.4
[2022-07-12 16:37] LABS: MANUAL DIFF FLAG NO
[2022-07-12 16:38] LABS: Basophils Absolute Auto 0.1 X10*3/uL (0.0-0.2); Eosinophils Absolute Auto 0.5 X10*3/uL (0.0-0.4); Eosinophils Percent Auto 5.8 % (0-4); Hematocrit 39.8 % (37.0-47.0); Hemoglobin 13.2 g/dl (12.0-16.0); Imm Gran Abs Auto 0.03 X10*3/uL (0.00-0.03); Imm Gran Pct Auto 0.4 % (0.0-0.4); Lymphocytes Absolute Auto 1.9 X10*3/uL (1.2-4.9); Mean Corpuscular HGB Conc 33.2 g/dl (31.0-35.0); Mean Corpuscular Volume 84.3 fL (80.0-98.0); Monocytes Absolute Auto 0.5 X10*3/uL (0.1-1.2); Monocytes Percent Auto 5.8 % (2-11); Platelet Count 288 X10*3/uL (160-400); Red Blood Count 4.72 X10*6/uL (4.20-5.50)
[2022-07-12 16:56] LABS: COVID-19 Test Negative (Negative); IDNOW Serial# 9DB6401D
[2022-07-12 17:08] LABS: Appearance Urine Clear; Color Urine Yellow; Glucose Urine UA Negative (Negative); Leukocyte Esterase Urine Large (3+) (Negative); Nitrite Urine Negative (Negative); PH 5.5 (5.0-9.0); Specific Gravity - Urine 1.025 (1.005-1.025); UMIC TRIGGER UACC YES; Urine Blood Trace (Negative); Urine Ketones Trace mg/dL (Negative); Urine Protein Negative (Neg-Trace)
[2022-07-12 17:10] LABS: Alanine Aminotransferase 16 U/L (0-31); Albumin Level 4.6 g/dL (3.5-5.0); Alkaline Phosphatase 74 U/L (39-117); Anion Gap 14 (12-20); Aspartate Amino Transferase 16 U/L (5-31); Bilirubin Direct 0.1 mg/dL (0.0-0.5); Bilirubin Total 0.3 mg/dL (0.0-1.0); Blood Urea Nitrogen 14 mg/dL (9-16); Calcium 10.3 mg/dL (8.4-10.2); Carbon Dioxide 26 mmol/L (22-29); Chloride 107 mmol/L (96-108); Creatinine Clr Calc Pharmacy 71.7; Estimated Glomerular Filt Rate > 60; Ethanol < 10 mg/dL; Glucose Random 80 mg/dL (60-115); Magnesium 1.8 mg/dL (1.6-2.6); Potassium 4.2 mmol/L (3.3-5.1); Sodium 143 mmol/L (135-145); Total Protein 7.2 g/dL (6.5-8.0)
[2022-07-12 17:12] LABS: UPreg QC Valid YES; Urine Pregnancy NEGATIVE (NEGATIVE)
[2022-07-12 17:21] LABS: Amphetamine Screen Urine Not Detected (Not Detect); Barbiturates, Urine Not Detected (Not Detect); Benzodiazepines Screen Urine Not Detected (Not Detect); Cannabinoid Screen Urine Not Detected (Not Detect); Cocaine Screen Urine Not Detected (Not Detect); Fentanyl, urine Not Detected (Not Detect); Opiate Screen Urine Not Detected (Not Detect); Phencyclidine Screen Urine Not Detected (Not Detect)
[2022-07-12 17:29] LABS: Acetaminophen LAB < 17 mcg/mL (<30); Salicylate < 5.0 mg/dL (15-30)
[2022-07-12 18:46] LABS: Bacteria Urine Trace (None Seen); Hyaline Casts Urine 0-2 /LPF (0-2); UACC Culture Trigger YES; WBC Urine >50 /HPF (0-5)
[2022-07-12] MEDS: LORazepam 2 MG/ML VIAL IM (19:30)
[2022-07-13 06:17] VITALS: BP 126/81; PULSE 61; RESP 17; TEMP 36.8; O2SAT 100
--- NOTE | 2022-07-13 06:31 | PC.NURSE ---
Patient had one episode of PNES Ativan 2 mg IM administered at 1930 with + effect, slept through the night, no distress observed/reported, med rec completed/pending provider's approval, care consult ordered/pending evaluation, labs completed/resulted, behavior non concerning, will continue to monitor.
[2022-07-13 08:27] VITALS: BP 124/83; PULSE 89; RESP 19; TEMP 36.8; O2SAT 99
[2022-07-13] MEDS: OXcarbazepine 300 MG TABLET PO ×3 (08:27→20:22)
[2022-07-13] MEDS: Cholecalciferol (Vitamin D3) 25 MCG TABLET PO (08:27)
[2022-07-13] MEDS: QUEtiapine Fumarate 25 MG TABLET PO ×3 (08:28→20:22)
[2022-07-13] MEDS: Famotidine 20 MG TABLET PO ×2 (08:28→20:22)
--- NOTE | 2022-07-13 12:48 | MHC.CARE ---
CARE Team [facility] conducted a follow-up call with Joanna Sarmiento ([phone]), Animator at pt's shelter. T/w informed her of the interventions given so far and possible plans for respite or to be discharged back home. Joanna was open to pt returning, but still has some ambivalence due to pt's chronic aggressive actions and elopements. CARE Team will follow-up with Joanna once a disposition is reached.
[2022-07-13] MEDS: hydrOXYzine HCL 25 MG TABLET PO ×2 (13:41→20:27)
--- NOTE | 2022-07-13 13:56 | PC.NURSE ---
1311 Pt reporting SI, began to lightly head bang, refused medications. Pt came out of her room, tossed trash can, tossed tray. She became loud. Security was called. Charissa in. Pt calmed. Meds given with good effect noted.
[2022-07-13] MEDS: diphenhydrAMINE HCL 25 MG CAPSULE 50 MG PO (20:22)
[2022-07-13] MEDS: Docusate Sodium 100 MG CAPSULE PO (20:22)
[2022-07-13] MEDS: Mirtazapine 7.5 MG TABLET 22.5 MG PO (20:22)
[2022-07-13 20:25] VITALS: BP 114/80; PULSE 114; RESP 20; TEMP 36.6; O2SAT 97
[2022-07-13] MEDS: guanFACINE HCl ER 2 MG TAB.ER.24H PO (20:39)
--- NOTE | 2022-07-14 04:59 | PC.NURSE ---
Patient slept through the night, no distress observed/reported, mood pleasant, behavior non concerning at this time, disposition per care team is section 12 inpatient bed search, medication compliant, VSS, contracted for the safety. will continue to monitor.
[2022-07-14 06:01] VITALS: BP 117/71; PULSE 88; RESP 16; TEMP 36.4; O2SAT 98
--- NOTE | 2022-07-14 08:19 | ECG_ITS ---
Test Reason : check qt Blood Pressure : / mmHG Vent. Rate : 097 BPM Atrial Rate : 097 BPM P-R Int : 170 ms QRS Dur : 076 ms QT Int : 344 ms P-R-T Axes : 049 075 -23 degrees QTc Int : 436 ms Normal sinus rhythm with sinus arrhythmia T wave abnormality, consider anterolateral ischemia Abnormal ECG No previous ECGs available Referred By: Jaime Griffith Electronically Signed By:Alfredo Potts
[2022-07-14] MEDS: Famotidine 20 MG TABLET PO ×2 (08:28→20:55)
[2022-07-14] MEDS: Cholecalciferol (Vitamin D3) 25 MCG TABLET PO (08:28)
[2022-07-14] MEDS: QUEtiapine Fumarate 25 MG TABLET PO ×2 (08:28→20:56)
[2022-07-14] MEDS: OXcarbazepine 300 MG TABLET PO ×3 (08:28→20:56)
--- NOTE | 2022-07-14 08:32 | PC.NURSE ---
Pt OOB. EKG obtained. Pt calm. Eating Breakfast. Mood has improved sense yesterday. Talking about college and work. Concerned with owing money to SSI. Pt laughing and seems happy. No dangerous behaviors at this time.
[2022-07-14] MEDS: Loratadine 10 MG TABLET PO (09:35)
[2022-07-14 10:35] LABS: Troponin-I High Sensitivity < 2.7 ng/L (<3.5-17.0)
[2022-07-14 14:32] VITALS: BP 118/72; PULSE 100; RESP 18; TEMP 36.8; O2SAT 99
[2022-07-14 15:06] VITALS: BP 145/86; PULSE 108; RESP 18; TEMP 36.8; O2SAT 95
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
[2022-07-14 20:15] VITALS: BP 139/92; PULSE 92; RESP 18; TEMP 36.7; O2SAT 98
[2022-07-14] MEDS: Docusate Sodium 100 MG CAPSULE PO (20:55)
[2022-07-14] MEDS: guanFACINE HCl ER 2 MG TAB.ER.24H PO (20:55)
[2022-07-14] MEDS: Mirtazapine 7.5 MG TABLET 22.5 MG PO (20:55)
[2022-07-14] MEDS: Propranolol HCL 10 MG TABLET PO (20:56)
[2022-07-14 22:03] LABS: Appearance Urine Clear; Color Urine Yellow; Glucose Urine UA Negative (Negative); Leukocyte Esterase Urine Small (1+) (Negative); Nitrite Urine Negative (Negative); Specific Gravity - Urine 1.025 (1.005-1.025); UMIC TRIGGER UA YES; Urine Blood Small (1+) (Negative); Urine Ketones Trace mg/dL (Negative); Urine Protein Negative (Neg-Trace)
[2022-07-14 22:36] LABS: Bacteria Urine None Seen (None Seen); Hyaline Casts Urine 0-2 /LPF (0-2); Squamous Epithelial Cell Urine 0-2 /HPF (0-2); WBC Urine 0-5 /HPF (0-5)
[2022-07-15 06:00] VITALS: BP 122/84; PULSE 92; RESP 18; TEMP 36.7; O2SAT 98
[2022-07-15] MEDS: Cholecalciferol (Vitamin D3) 25 MCG TABLET PO (09:19)
[2022-07-15] MEDS: OXcarbazepine 300 MG TABLET PO ×3 (09:19→20:53)
[2022-07-15] MEDS: Loratadine 10 MG TABLET PO (09:20)
[2022-07-15] MEDS: Propranolol HCL 10 MG TABLET PO ×2 (09:20→20:56)
[2022-07-15] MEDS: QUEtiapine Fumarate 25 MG TABLET PO ×2 (09:20→20:57)
[2022-07-15] MEDS: hydrOXYzine HCL 25 MG TABLET PO (09:20)
[2022-07-15] MEDS: Famotidine 20 MG TABLET PO ×2 (09:21→20:56)
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
[2022-07-15 18:00] VITALS: BP 121/78; PULSE 104; RESP 16; TEMP 36.8; O2SAT 97
[2022-07-15] MEDS: Mirtazapine 15 MG TABLET 45 MG PO (20:52)
[2022-07-15] MEDS: Docusate Sodium 100 MG CAPSULE PO (20:53)
[2022-07-15] MEDS: Amoxicillin 500 MG CAPSULE PO (20:53)
[2022-07-15] MEDS: hydrOXYzine HCL 50 MG TABLET PO (20:55)
[2022-07-15] MEDS: guanFACINE HCl ER 2 MG TAB.ER.24H PO (21:01)
[2022-07-16 06:00] VITALS: BP 130/84; PULSE 88; RESP 16; TEMP 36.6; O2SAT 98
[2022-07-16] MEDS: Propranolol HCL 10 MG TABLET PO ×2 (09:45→22:55)
[2022-07-16] MEDS: hydrOXYzine HCL 50 MG TABLET PO ×3 (09:45→22:55)
[2022-07-16] MEDS: Cholecalciferol (Vitamin D3) 25 MCG TABLET PO (09:46)
[2022-07-16] MEDS: QUEtiapine Fumarate 25 MG TABLET PO ×3 (09:46→22:56)
[2022-07-16] MEDS: OXcarbazepine 300 MG TABLET PO ×2 (09:46→22:55)
[2022-07-16] MEDS: Amoxicillin 500 MG CAPSULE PO ×3 (09:46→22:54)
[2022-07-16] MEDS: Famotidine 20 MG TABLET PO ×2 (09:46→21:17)
--- NOTE | 2022-07-16 16:57 | HO.PSYCHPN ---
Subjective Subjective Date of Service: 07/16/22 Reason For Visit: Si Interim History: calm, cooperative. feels things here are going well so far. focused on not feeling safe going back to [facility], not feeling wanted there, needing somewhere else to be. per staff, eating, in good behavioral control. sleeping well, about 8 hours last night. anxiety improved. some depression. Mental Status Exam Mental Status Exam Narrative: Patient Appearance:?Appropriate Patient Orientation:?Person, Place, Time and Situation Level of Consciousness:?Alert Patient Behavior:?Appropriate and Talkative Mood Description:?improved Affect Description:?flexible Patient Cognition Impaired:?no Ability to Follow Directions:?Good Speech Pattern:?Spontaneous Speech Memory Description:?Intact Hallucinations:?None Delusions:?Not Present Thought Process:?Distracted Thought Content:?positive for Circumstantial Depressive Symptoms:?Increased Anxiety, Diff. Making Decisions and Low Self Esteem Judgement:?Fair denies SI/HI/AVH Diagnostics Vital Signs (24Hr): Vital Signs - 24 hr 07/15/22 18:00 07/16/22 06:00 Temperature 98.3 F 97.8 F Pulse Rate 104 H 88 Respiratory Rate 16 16 Blood Pressure 121/78 130/84 Pulse Oximetry 97 98 Oxygen Delivery Method Room Air Room Air BMI result Body Mass Index 25.4 Labs 07/12/22 16:31 07/12/22 16:32 Labs: Laboratory Results - last 48 hr 07/14/22 21:05 Urine Color Yellow Urine Appearance Clear Urine pH 6.0 Ur Specific [place] 1.025 Urine Protein Negative Urine Glucose (UA) Negative Urine Ketones Trace Urine Blood Small (1+) H Urine Nitrite Negative Ur Leukocyte Esterase Small (1+) H Urine RBC 6-10 H Urine WBC 0-5 Ur Squamous Epith Cells 0-2 Urine Bacteria None Seen Hyaline Casts 0-2 Medications Medications Current Medications Acetaminophen (Acetaminophen 325 Mg Tablet) 650 mg PO Q6H PRN PRN Reason: Headache/Pain Mild Scale (1-3) Al Hydroxide/Mg Hydroxide (Magnesium Hydrox/Alum Hydrox 30 Ml Oral.Susp) 30 ml PO Q6H PRN PRN Reason: Heartburn/Nausea Amoxicillin (Amoxicillin 500 Mg Capsule) 500 mg PO TID [facility] Stop: 07/20/22 20:59 Last Admin: 07/16/22 14:06 Dose: 500 mg Calcium Carbonate (Calcium Carbonate 500 Mg Tablet) 500 mg PO Q6H PRN PRN Reason: Gastric Reflux Dicyclomine HCl (Dicyclomine Hcl 10 Mg Capsule) 20 mg PO QID PRN PRN Reason: cramping Docusate Sodium (Docusate Sodium 100 Mg Capsule) 100 mg PO BEDTIME [facility] Last Admin: 07/15/22 20:53 Dose: 100 mg Famotidine (Famotidine 20 Mg Tablet) 20 mg PO BID [facility] Last Admin: 07/16/22 09:46 Dose: 20 mg Guanfacine HCl (Guanfacine Hcl Er 2 Mg Tab.Er.24h) 2 mg PO BEDTIME [facility] Last Admin: 07/15/22 21:01 Dose: 2 mg Hydroxyzine HCl (Hydroxyzine Hcl 50 Mg Tablet) 50 mg PO TID [facility] Last Admin: 07/16/22 14:06 Dose: 50 mg Magnesium Hydroxide (Milk Of Magnesia 30 Ml Oral.Susp) 30 ml PO DAILY PRN PRN Reason: Constipation Mirtazapine (Mirtazapine 15 Mg Tablet) 45 mg PO BEDTIME [facility] Last Admin: 07/15/22 20:52 Dose: 45 mg Multi-Ingred Cream/Lotion/Oil/Oint (Mineral Oil/Petrolatum,White 106 Gm Tube) 1 appl TOPICAL BID PRN; Protocol PRN Reason: Itching Oxcarbazepine (Oxcarbazepine 300 Mg Tablet) 300 mg PO BID [facility] Last Admin: 07/16/22 09:46 Dose: 300 mg Propranolol HCl (Propranolol Hcl 10 Mg Tablet) 10 mg PO BID [facility]; Protocol Last Admin: 07/16/22 09:45 Dose: 10 mg Quetiapine Fumarate (Quetiapine Fumarate 25 Mg Tablet) 25 mg PO TID PRN PRN Reason: PTSD Triggers, Anxiety Last Admin: 07/16/22 14:06 Dose: 25 mg Quetiapine Fumarate (Quetiapine Fumarate 25 Mg Tablet) 25 mg PO BID [facility] Last Admin: 07/16/22 09:46 Dose: 25 mg Sucralfate (Sucralfate Oral Suspension 1 Gm/10 Ml Oral.Susp) 1 gm PO BID PRN PRN Reason: dyspepsia Trazodone HCl (Trazodone Hcl 50 Mg Tablet) 50 mg PO BEDTIME MRX1 PRN PRN Reason: Insomnia Vitamin D (Cholecalciferol (Vitamin D3) 25 Mcg Tablet) 25 mcg PO DAILY [facility] Last Admin: 07/16/22 09:46 Dose: 25 mcg Allergies Allergies Allergy/AdvReac Type Severity Reaction Status Date / Time No Known Allergies Allergy Verified 06/23/22 12:11 Assessment & Plan Assessment & Plan (1) PTSD (post-traumatic stress disorder): Status: Acute Code(s): F43.10 - Post-traumatic stress disorder, unspecified (2) Severe recurrent major depression: Status: Acute Code(s): F33.2 - Major depressive disorder, recurrent severe without psychotic features Plan continue home medications. collect collateral sunday, develop dispo plan. amox for UTI x 5 days. Reason for continued inpatient stay Substantial Risk for: inability to function and rapid decompensation Time Spent With Patient Time: Total time managing care of this patient today ____ minutes.
[2022-07-16 20:35] VITALS: BP 125/76; PULSE 105; RESP 18; TEMP 36.5; O2SAT 97
[2022-07-16] MEDS: Docusate Sodium 100 MG CAPSULE PO (22:54)
[2022-07-16] MEDS: guanFACINE HCl ER 2 MG TAB.ER.24H PO (22:54)
[2022-07-16] MEDS: Mirtazapine 15 MG TABLET 45 MG PO (22:55)
[2022-07-17] MEDS: Propranolol HCL 10 MG TABLET PO ×2 (08:15→21:16)
[2022-07-17] MEDS: QUEtiapine Fumarate 25 MG TABLET PO ×2 (08:15→21:15)
[2022-07-17] MEDS: Amoxicillin 500 MG CAPSULE PO ×3 (08:15→21:14)
[2022-07-17] MEDS: Famotidine 20 MG TABLET PO ×2 (08:16→21:15)
[2022-07-17] MEDS: hydrOXYzine HCL 50 MG TABLET PO ×3 (08:16→21:15)
[2022-07-17] MEDS: OXcarbazepine 300 MG TABLET PO ×2 (08:16→21:15)
[2022-07-17] MEDS: Cholecalciferol (Vitamin D3) 25 MCG TABLET PO (08:16)
[2022-07-17 08:18] VITALS: BP 122/72; PULSE 80; RESP 18; TEMP 36.9; O2SAT 97
[2022-07-17] MEDS: Loratadine 10 MG TABLET PO (14:22)
--- NOTE | 2022-07-17 14:39 | HO.PSYCHPN ---
Subjective Subjective Date of Service: 07/17/22 Reason For Visit: Si Interim History: calm, cooperative. no complaints. able to identify as a goal to decrease her impulsivity. meds reviewed, agree on increasing HS dose of intuniv to that end. enthusiastically awaiting adithya's return as she feels adithya knows her well (adithya moo DOMINGUEZ). intrigued by the idea of transferring services to [facility] and moving to a [facility]. per staff, sleeping well. no anx. wants new placement. safe. Mental Status Exam Mental Status Exam Narrative: Patient Appearance:?Appropriate Patient Orientation:?Person, Place, Time and Situation Level of Consciousness:?Alert Patient Behavior:?Appropriate and Talkative Mood Description:? pretty good Affect Description:?flexible Patient Cognition Impaired:?no Ability to Follow Directions:?Good Speech Pattern:?Spontaneous Speech Memory Description:?Intact Hallucinations:?None Delusions:?Not Present Thought Process:?Distracted Thought Content:?positive for Circumstantial Depressive Symptoms:?Increased Anxiety, Diff. Making Decisions and Low Self Esteem Judgement:?Fair denies SI/HI/AVH Diagnostics Vital Signs (24Hr): Vital Signs - 24 hr 07/16/22 20:35 07/17/22 08:18 Temperature 97.7 F 98.4 F Pulse Rate 105 H 80 Respiratory Rate 18 18 Blood Pressure 125/76 122/72 Pulse Oximetry 97 97 Oxygen Delivery Method Room Air Room Air BMI result Body Mass Index 25.4 Labs 07/12/22 16:31 07/12/22 16:32 Medications Medications Current Medications Acetaminophen (Acetaminophen 325 Mg Tablet) 650 mg PO Q6H PRN PRN Reason: Headache/Pain Mild Scale (1-3) Al Hydroxide/Mg Hydroxide (Magnesium Hydrox/Alum Hydrox 30 Ml Oral.Susp) 30 ml PO Q6H PRN PRN Reason: Heartburn/Nausea Amoxicillin (Amoxicillin 500 Mg Capsule) 500 mg PO TID [facility] Stop: 07/20/22 20:59 Last Admin: 07/17/22 14:22 Dose: 500 mg Calcium Carbonate (Calcium Carbonate 500 Mg Tablet) 500 mg PO Q6H PRN PRN Reason: Gastric Reflux Dicyclomine HCl (Dicyclomine Hcl 10 Mg Capsule) 20 mg PO QID PRN PRN Reason: cramping Docusate Sodium (Docusate Sodium 100 Mg Capsule) 100 mg PO BEDTIME [facility] Last Admin: 07/16/22 22:54 Dose: 100 mg Famotidine (Famotidine 20 Mg Tablet) 20 mg PO BID [facility] Last Admin: 07/17/22 08:16 Dose: 20 mg Guanfacine HCl (Guanfacine Hcl Er 1 Mg Tab.Er.24h) 3 mg PO BEDTIME [facility] Hydroxyzine HCl (Hydroxyzine Hcl 50 Mg Tablet) 50 mg PO TID [facility] Last Admin: 07/17/22 14:22 Dose: 50 mg Loratadine (Loratadine 10 Mg Tablet) 10 mg PO DAILY [facility] Last Admin: 07/17/22 14:22 Dose: 10 mg Magnesium Hydroxide (Milk Of Magnesia 30 Ml Oral.Susp) 30 ml PO DAILY PRN PRN Reason: Constipation Mirtazapine (Mirtazapine 15 Mg Tablet) 45 mg PO BEDTIME [facility] Last Admin: 07/16/22 22:55 Dose: 45 mg Multi-Ingred Cream/Lotion/Oil/Oint (Mineral Oil/Petrolatum,White 106 Gm Tube) 1 appl TOPICAL BID PRN; Protocol PRN Reason: Itching Oxcarbazepine (Oxcarbazepine 300 Mg Tablet) 300 mg PO BID [facility] Last Admin: 07/17/22 08:16 Dose: 300 mg Propranolol HCl (Propranolol Hcl 10 Mg Tablet) 10 mg PO BID [facility]; Protocol Last Admin: 07/17/22 08:15 Dose: 10 mg Quetiapine Fumarate (Quetiapine Fumarate 25 Mg Tablet) 25 mg PO TID PRN PRN Reason: PTSD Triggers, Anxiety Last Admin: 07/16/22 14:06 Dose: 25 mg Quetiapine Fumarate (Quetiapine Fumarate 25 Mg Tablet) 25 mg PO BID [facility] Last Admin: 07/17/22 08:15 Dose: 25 mg Sucralfate (Sucralfate Oral Suspension 1 Gm/10 Ml Oral.Susp) 1 gm PO BID PRN PRN Reason: dyspepsia Trazodone HCl (Trazodone Hcl 50 Mg Tablet) 50 mg PO BEDTIME MRX1 PRN PRN Reason: Insomnia Vitamin D (Cholecalciferol (Vitamin D3) 25 Mcg Tablet) 25 mcg PO DAILY [facility] Last Admin: 07/17/22 08:16 Dose: 25 mcg Allergies Allergies Allergy/AdvReac Type Severity Reaction Status Date / Time No Known Allergies Allergy Verified 06/23/22 12:11 Assessment & Plan Assessment & Plan (1) PTSD (post-traumatic stress disorder): Status: Acute Code(s): F43.10 - Post-traumatic stress disorder, unspecified (2) Severe recurrent major depression: Status: Acute Code(s): F33.2 - Major depressive disorder, recurrent severe without psychotic features Plan 07/15: continue home medications. collect collateral sunday, develop dispo plan. 07/16: as above, plus amox for UTI x 5 days. 07/17: increase intuniv to 3 mg QHS with goal of decreasing reactivity. appears euthymic. interested in moving to [facility] services and housing. [facility]. Reason for continued inpatient stay Substantial Risk for: inability to function and rapid decompensation Time Spent With Patient Time: Total time managing care of this patient today ____ minutes.
[2022-07-17] MEDS: Acetaminophen 325 MG TABLET 650 MG PO (18:14)
[2022-07-17] MEDS: guanFACINE HCl ER 1 MG TAB.ER.24H 3 MG PO (21:14)
[2022-07-17] MEDS: Docusate Sodium 100 MG CAPSULE PO (21:15)
[2022-07-17] MEDS: Mirtazapine 15 MG TABLET 45 MG PO (21:15)
[2022-07-17 21:19] VITALS: BP 129/78; PULSE 100; TEMP 36.6; O2SAT 97
[2022-07-18 09:20] VITALS: BP 116/63; PULSE 90; RESP 18; TEMP 36.6; O2SAT 98
[2022-07-18] MEDS: OXcarbazepine 300 MG TABLET PO ×2 (09:24→20:42)
[2022-07-18] MEDS: Acetaminophen 325 MG TABLET 650 MG PO ×2 (09:24→14:39)
[2022-07-18] MEDS: Famotidine 20 MG TABLET PO ×2 (09:24→20:43)
[2022-07-18] MEDS: Amoxicillin 500 MG CAPSULE PO ×3 (09:25→20:42)
[2022-07-18] MEDS: Cholecalciferol (Vitamin D3) 25 MCG TABLET PO (09:25)
[2022-07-18] MEDS: QUEtiapine Fumarate 25 MG TABLET PO ×2 (09:25→20:41)
[2022-07-18] MEDS: Loratadine 10 MG TABLET PO (09:25)
[2022-07-18] MEDS: hydrOXYzine HCL 50 MG TABLET PO ×3 (09:25→20:42)
[2022-07-18] MEDS: Propranolol HCL 10 MG TABLET PO ×2 (09:25→20:42)
[2022-07-18 10:17] VITALS: BP 124/69; PULSE 89
[2022-07-18 10:18] VITALS: BP 114/64; PULSE 93
[2022-07-18 10:19] VITALS: BP 116/73; PULSE 108
--- NOTE | 2022-07-18 15:37 | P.PNPSI_ITS ---
Subjective Subjective Date of Service: 07/18/22 Reason For Visit: Si Interim History: irritable, reactive. not happy with treaters' position that she needs to engage with her long term staff. no questions or complaints. per staff, + grps, + anx/dep. +meds and meals. Mental Status Exam Mental Status Exam Narrative: Patient Appearance:?Appropriate Patient Orientation:?Person, Place, Time and Situation Level of Consciousness:?Alert Patient Behavior:?Appropriate and Talkative Mood Description:?not assessed Affect Description:?flexible Patient Cognition Impaired:?no Ability to Follow Directions:?Good Speech Pattern:?Spontaneous Speech Memory Description:?Intact Hallucinations:?None Delusions:?Not Present Thought Process:?Distracted Thought Content:?positive for Circumstantial Depressive Symptoms:?Increased Anxiety, Diff. Making Decisions and Low Self Esteem Judgement:?Fair denies SI/HI/AVH Diagnostics Vital Signs (24Hr): Vital Signs - 24 hr 07/17/22 21:19 07/18/22 09:20 07/18/22 10:17 Temperature 97.8 F 97.8 F Pulse Rate 100 90 89 Respiratory Rate 18 Blood Pressure 129/78 116/63 124/69 Pulse Oximetry 97 98 Oxygen Delivery Method Room Air Room Air 07/18/22 10:18 07/18/22 10:19 Temperature Pulse Rate 93 108 H Respiratory Rate Blood Pressure 114/64 116/73 Pulse Oximetry Oxygen Delivery Method BMI result Body Mass Index 25.4 Labs 07/12/22 16:31 07/12/22 16:32 Medications Medications Current Medications Acetaminophen (Acetaminophen 325 Mg Tablet) 650 mg PO Q6H PRN PRN Reason: Headache/Pain Mild Scale (1-3) Last Admin: 07/18/22 14:39 Dose: 650 mg Al Hydroxide/Mg Hydroxide (Magnesium Hydrox/Alum Hydrox 30 Ml Oral.Susp) 30 ml PO Q6H PRN PRN Reason: Heartburn/Nausea Amoxicillin (Amoxicillin 500 Mg Capsule) 500 mg PO TID [facility] Stop: 07/20/22 20:59 Last Admin: 07/18/22 14:36 Dose: 500 mg Calcium Carbonate (Calcium Carbonate 500 Mg Tablet) 500 mg PO Q6H PRN PRN Reason: Gastric Reflux Dicyclomine HCl (Dicyclomine Hcl 10 Mg Capsule) 20 mg PO QID PRN PRN Reason: cramping Docusate Sodium (Docusate Sodium 100 Mg Capsule) 100 mg PO BEDTIME [facility] Last Admin: 07/17/22 21:15 Dose: 100 mg Famotidine (Famotidine 20 Mg Tablet) 20 mg PO BID [facility] Last Admin: 07/18/22 09:24 Dose: 20 mg Guanfacine HCl (Guanfacine Hcl Er 1 Mg Tab.Er.24h) 3 mg PO BEDTIME [facility] Last Admin: 07/17/22 21:14 Dose: 3 mg Hydroxyzine HCl (Hydroxyzine Hcl 50 Mg Tablet) 50 mg PO TID [facility] Last Admin: 07/18/22 14:36 Dose: 50 mg Loratadine (Loratadine 10 Mg Tablet) 10 mg PO DAILY [facility] Last Admin: 07/18/22 09:25 Dose: 10 mg Magnesium Hydroxide (Milk Of Magnesia 30 Ml Oral.Susp) 30 ml PO DAILY PRN PRN Reason: Constipation Mirtazapine (Mirtazapine 15 Mg Tablet) 45 mg PO BEDTIME [facility] Last Admin: 07/17/22 21:15 Dose: 45 mg Multi-Ingred Cream/Lotion/Oil/Oint (Mineral Oil/Petrolatum,White 106 Gm Tube) 1 appl TOPICAL BID PRN; Protocol PRN Reason: Itching Oxcarbazepine (Oxcarbazepine 300 Mg Tablet) 300 mg PO BID [facility] Last Admin: 07/18/22 09:24 Dose: 300 mg Propranolol HCl (Propranolol Hcl 10 Mg Tablet) 10 mg PO BID [facility]; Protocol Last Admin: 07/18/22 09:25 Dose: 10 mg Quetiapine Fumarate (Quetiapine Fumarate 25 Mg Tablet) 25 mg PO TID PRN PRN Reason: PTSD Triggers, Anxiety Last Admin: 07/16/22 14:06 Dose: 25 mg Quetiapine Fumarate (Quetiapine Fumarate 25 Mg Tablet) 25 mg PO BID [facility] Last Admin: 07/18/22 09:25 Dose: 25 mg Sucralfate (Sucralfate Oral Suspension 1 Gm/10 Ml Oral.Susp) 1 gm PO BID PRN PRN Reason: dyspepsia Trazodone HCl (Trazodone Hcl 50 Mg Tablet) 50 mg PO BEDTIME MRX1 PRN PRN Reason: Insomnia Vitamin D (Cholecalciferol (Vitamin D3) 25 Mcg Tablet) 25 mcg PO DAILY [facility] Last Admin: 07/18/22 09:25 Dose: 25 mcg Allergies Allergies Allergy/AdvReac Type Severity Reaction Status Date / Time No Known Allergies Allergy Verified 06/23/22 12:11 Assessment & Plan Assessment & Plan (1) PTSD (post-traumatic stress disorder): Status: Acute Code(s): F43.10 - Post-traumatic stress disorder, unspecified (2) Severe recurrent major depression: Status: Acute Code(s): F33.2 - Major depressive disorder, recurrent severe without psychotic features Plan 07/15: continue home medications. collect collateral sunday, develop dispo plan. 07/16: as above, plus amox for UTI x 5 days. 07/17: increase intuniv to 3 mg QHS with goal of decreasing reactivity. appears euthymic. interested in moving to [facility] services and housing. eagerly awaiting [facility] to return. 07/18: pt not happy to hear staff's support for engaging with long term staff. pt's only action item is that she will not return to the home unless they put her on 1:1 there. c/o some dizziness this morning. will continue the intuniv 3 for now. Reason for continued inpatient stay Substantial Risk for: harm to self, inability to function and rapid decompensa tion Time Spent With Patient Time: Total time managing care of this patient today ____ minutes.
[2022-07-18] MEDS: guanFACINE HCl ER 1 MG TAB.ER.24H 3 MG PO (20:41)
[2022-07-18] MEDS: Docusate Sodium 100 MG CAPSULE PO (20:42)
[2022-07-18] MEDS: Mirtazapine 15 MG TABLET 45 MG PO (20:43)
[2022-07-18 20:49] VITALS: BP 123/71; PULSE 106; TEMP 36.7; O2SAT 97
[2022-07-19] MEDS: Acetaminophen 325 MG TABLET 650 MG PO (05:16)
[2022-07-19 09:51] VITALS: BP 135/77; PULSE 89; RESP 18; TEMP 36.6; O2SAT 100
[2022-07-19] MEDS: QUEtiapine Fumarate 25 MG TABLET PO ×2 (10:26→20:56)
[2022-07-19] MEDS: Famotidine 20 MG TABLET PO ×2 (10:26→20:56)
[2022-07-19] MEDS: Amoxicillin 500 MG CAPSULE PO ×3 (10:26→20:56)
[2022-07-19] MEDS: Propranolol HCL 10 MG TABLET PO ×2 (10:26→20:55)
[2022-07-19] MEDS: hydrOXYzine HCL 50 MG TABLET PO ×3 (10:27→20:56)
[2022-07-19] MEDS: OXcarbazepine 300 MG TABLET PO ×2 (10:27→20:56)
[2022-07-19] MEDS: Loratadine 10 MG TABLET PO (10:27)
[2022-07-19] MEDS: Cholecalciferol (Vitamin D3) 25 MCG TABLET PO (10:27)
--- NOTE | 2022-07-19 15:44 | P.PNPSI_ITS ---
Subjective Subjective Date of Service: 07/19/22 Reason For Visit: Si Interim History: seen both alone and with ALBERTO cortés. loquacious and repetitive. no longer dizzy. rehearse arguments for why [facility] no issues, feeling OK. per staff, pleasant. low anx/dep. denies psych Sx. felt dizzy yesterday morning. + art group. taking meds and meals. sleeping well. Mental Status Exam Mental Status Exam Narrative: Patient Appearance:?Appropriate Patient Orientation:?Person, Place, Time and Situation Level of Consciousness:?Alert Patient Behavior:?Appropriate and Talkative Mood Description:? OK Affect Description:?flexible Patient Cognition Impaired:?no Ability to Follow Directions:?Good Speech Pattern:?Spontaneous Speech Memory Description:?Intact Hallucinations:?None Delusions:?Not Present Thought Process:?Distracted Thought Content:?positive for Circumstantial Depressive Symptoms:?Increased Anxiety, Diff. Making Decisions and Low Self E steem Judgement:?Fair denies SI/HI/AVH Diagnostics Vital Signs (24Hr): Vital Signs - 24 hr 07/18/22 20:49 07/19/22 09:51 Temperature 98.1 F 97.8 F Pulse Rate 106 H 89 Respiratory Rate 18 Blood Pressure 123/71 135/77 Pulse Oximetry 97 100 Oxygen Delivery Method Room Air Room Air BMI result Body Mass Index 25.4 Labs 07/12/22 16:31 07/12/22 16:32 Medications Medications Current Medications Acetaminophen (Acetaminophen 325 Mg Tablet) 650 mg PO Q6H PRN PRN Reason: Headache/Pain Mild Scale (1-3) Last Admin: 07/19/22 05:16 Dose: 650 mg Al Hydroxide/Mg Hydroxide (Magnesium Hydrox/Alum Hydrox 30 Ml Oral.Susp) 30 ml PO Q6H PRN PRN Reason: Heartburn/Nausea Amoxicillin (Amoxicillin 500 Mg Capsule) 500 mg PO TID [facility] Stop: 07/20/22 20:59 Last Admin: 07/19/22 10:26 Dose: 500 mg Calcium Carbonate (Calcium Carbonate 500 Mg Tablet) 500 mg PO Q6H PRN PRN Reason: Gastric Reflux Dicyclomine HCl (Dicyclomine Hcl 10 Mg Capsule) 20 mg PO QID PRN PRN Reason: cramping Docusate Sodium (Docusate Sodium 100 Mg Capsule) 100 mg PO BEDTIME [facility] Last Admin: 07/18/22 20:42 Dose: 100 mg Famotidine (Famotidine 20 Mg Tablet) 20 mg PO BID [facility] Last Admin: 07/19/22 10:26 Dose: 20 mg Guanfacine HCl (Guanfacine Hcl Er 1 Mg Tab.Er.24h) 3 mg PO BEDTIME [facility] Last Admin: 07/18/22 20:41 Dose: 3 mg Hydroxyzine HCl (Hydroxyzine Hcl 50 Mg Tablet) 50 mg PO TID [facility] Last Admin: 07/19/22 10:27 Dose: 50 mg Loratadine (Loratadine 10 Mg Tablet) 10 mg PO DAILY [facility] Last Admin: 07/19/22 10:27 Dose: 10 mg Magnesium Hydroxide (Milk Of Magnesia 30 Ml Oral.Susp) 30 ml PO DAILY PRN PRN Reason: Constipation Mirtazapine (Mirtazapine 15 Mg Tablet) 45 mg PO BEDTIME [facility] Last Admin: 07/18/22 20:43 Dose: 45 mg Multi-Ingred Cream/Lotion/Oil/Oint (Mineral Oil/Petrolatum,White 106 Gm Tube) 1 appl TOPICAL BID PRN; Protocol PRN Reason: Itching Oxcarbazepine (Oxcarbazepine 300 Mg Tablet) 300 mg PO BID [facility] Last Admin: 07/19/22 10:27 Dose: 300 mg Propranolol HCl (Propranolol Hcl 10 Mg Tablet) 10 mg PO BID [facility]; Protocol Last Admin: 07/19/22 10:26 Dose: 10 mg Quetiapine Fumarate (Quetiapine Fumarate 25 Mg Tablet) 25 mg PO TID PRN PRN Reason: PTSD Triggers, Anxiety Last Admin: 07/16/22 14:06 Dose: 25 mg Quetiapine Fumarate (Quetiapine Fumarate 25 Mg Tablet) 25 mg PO BID [facility] Last Admin: 07/19/22 10:26 Dose: 25 mg Sucralfate (Sucralfate Oral Suspension 1 Gm/10 Ml Oral.Susp) 1 gm PO BID PRN PRN Reason: dyspepsia Trazodone HCl (Trazodone Hcl 50 Mg Tablet) 50 mg PO BEDTIME [facility]X1 PRN PRN Reason: Insomnia Vitamin D (Cholecalciferol (Vitamin D3) 25 Mcg Tablet) 25 mcg PO DAILY [facility] Last Admin: 07/19/22 10:27 Dose: 25 mcg Allergies Allergies Allergy/AdvReac Type Severity Reaction Status Date / Time No Known Allergies Allergy Verified 06/23/22 12:11 Assessment & Plan Assessment & Plan (1) PTSD (post-traumatic stress disorder): Status: Acute Code(s): F43.10 - Post-traumatic stress disorder, unspecified (2) Severe recurrent major depression: Status: Acute Code(s): F33.2 - Major depressive disorder, recurrent severe without psychotic features Plan 07/15: continue home medications. collect collateral sunday, develop dispo plan. 07/16: as above, plus amox for UTI x 5 days. 07/17: increase intuniv to 3 mg QHS with goal of decreasing reactivity. appears euthymic. interested in moving to [facility]. 07/18: pt not happy to hear staff's support for engaging with [facility]. pt's only action item is that she will not return to the home unless they put her on 1:1 there. c/o some dizziness this morning. will continue the intuniv 3 for now. 07/19: stable presentation. no change in mgmt. dizziness has subsided. Reason for continued inpatient stay Substantial Risk for: harm to self, harm to others, inability to function and rapid decompensation Time Spent With Patient Time: Total time managing care of this patient today __35__ minutes.
[2022-07-19 16:38] VITALS: BP 138/76; PULSE 105; RESP 18; TEMP 36.4; O2SAT 99
[2022-07-19 20:15] VITALS: BP 122/78; PULSE 106; RESP 18; TEMP 37.1; O2SAT 99
[2022-07-19] MEDS: Mirtazapine 15 MG TABLET 45 MG PO (20:55)
[2022-07-19] MEDS: guanFACINE HCl ER 1 MG TAB.ER.24H 3 MG PO (20:56)
[2022-07-19] MEDS: Docusate Sodium 100 MG CAPSULE PO (20:56)
--- NOTE | 2022-07-20 06:45 | PC.NURSE ---
Cleve is noted to be social with her peers and has a bright affect. she continues to c/o the doctors not caring about her and not giving her the right medications because they don't like her. she required redirection for volume and converrsation content but was easily redirected. no real behavioral concerns noted, monitor for safety, continue Plan of Care
[2022-07-20] MEDS: Famotidine 20 MG TABLET PO ×2 (09:47→22:27)
[2022-07-20] MEDS: Loratadine 10 MG TABLET PO (09:47)
[2022-07-20] MEDS: Propranolol HCL 10 MG TABLET PO ×2 (09:47→22:27)
[2022-07-20] MEDS: QUEtiapine Fumarate 25 MG TABLET PO ×2 (09:48→22:27)
[2022-07-20] MEDS: Cholecalciferol (Vitamin D3) 25 MCG TABLET PO (09:48)
[2022-07-20] MEDS: OXcarbazepine 300 MG TABLET PO ×2 (09:48→22:26)
[2022-07-20] MEDS: Amoxicillin 500 MG CAPSULE PO ×2 (09:48→15:29)
[2022-07-20] MEDS: hydrOXYzine HCL 50 MG TABLET PO ×3 (09:48→22:26)
[2022-07-20 09:52] VITALS: BP 115/56; PULSE 82; RESP 16; TEMP 37; O2SAT 98
[2022-07-20 11:00] VITALS: BMI 29.8
[2022-07-20] MEDS: Magnesium Hydrox/Alum Hydrox 30 ML ORAL.SUSP PO (13:23)
[2022-07-20] MEDS: Docusate Sodium 100 MG CAPSULE PO (22:26)
[2022-07-20] MEDS: guanFACINE HCl ER 1 MG TAB.ER.24H 3 MG PO (22:26)
[2022-07-20] MEDS: Mirtazapine 15 MG TABLET 45 MG PO (22:26)
[2022-07-20 22:47] VITALS: BP 126/78; PULSE 80; RESP 16; TEMP 36.6; O2SAT 98
[2022-07-20] MEDS: Trolamine Salicylate 10 % Cream 85 GM TUBE 1 APPL TOPICAL (22:55)
--- NOTE | 2022-07-21 07:22 | HO.PSYCHPN ---
Subjective Subjective Date of Service: 07/20/22 Reason For Visit: Si Subjective Notes: Conditional Voluntary Interim History: Pt presents with brighter affect, pleasant on approach. Pt denies SI/HI. She reports a little somnolent with medications but doing well. Per nursing, sleeping and eating well. Review of Systems Review of Systems Yes all other systems are reviewed and are negative Mental Status Exam Mental Status Exam Narrative: Patient Appearance:?Appropriate Patient Orientation:?Person, Place, Time and Situation Level of Consciousness:?Alert Patient Behavior:?Appropriate and Talkative Mood Description:? OK Affect Description:?flexible Patient Cognition Impaired:?no Ability to Follow Directions:?Good Speech Pattern:?Spontaneous Speech Memory Description:?Intact Hallucinations:?None Delusions:?Not Present Thought Process:?Distracted Thought Content:?positive for Circumstantial Depressive Symptoms:?Increased Anxiety, Diff. Making Decisions and Low Self Esteem Judgement:?Fair denies SI/HI/AVH Diagnostics Vital Signs (24Hr): Vital Signs - 24 hr 07/20/22 09:52 07/20/22 22:47 Temperature 98.6 F 97.9 F Pulse Rate 82 80 Respiratory Rate 16 16 Blood Pressure 115/56 L 126/78 Pulse Oximetry 98 98 Oxygen Delivery Method Room Air Room Air BMI result Body Mass Index 29.8 Labs 07/12/22 16:31 07/12/22 16:32 Medications Medications Current Medications Acetaminophen (Acetaminophen 325 Mg Tablet) 650 mg PO Q6H PRN PRN Reason: Headache/Pain Mild Scale (1-3) Last Admin: 07/19/22 05:16 Dose: 650 mg Al Hydroxide/Mg Hydroxide (Magnesium Hydrox/Alum Hydrox 30 Ml Oral.Susp) 30 ml PO Q6H PRN PRN Reason: Heartburn/Nausea Last Admin: 07/20/22 13:23 Dose: 30 ml Calcium Carbonate (Calcium Carbonate 500 Mg Tablet) 500 mg PO Q6H PRN PRN Reason: Gastric Reflux Dicyclomine HCl (Dicyclomine Hcl 10 Mg Capsule) 20 mg PO QID PRN PRN Reason: cramping Docusate Sodium (Docusate Sodium 100 Mg Capsule) 100 mg PO BEDTIME [facility] Last Admin: 07/20/22 22:26 Dose: 100 mg Famotidine (Famotidine 20 Mg Tablet) 20 mg PO BID [facility] Last Admin: 07/20/22 22:27 Dose: 20 mg Guanfacine HCl (Guanfacine Hcl Er 1 Mg Tab.Er.24h) 3 mg PO BEDTIME [facility] Last Admin: 07/20/22 22:26 Dose: 3 mg Hydroxyzine HCl (Hydroxyzine Hcl 50 Mg Tablet) 50 mg PO TID [facility] Last Admin: 07/20/22 22:26 Dose: 50 mg Loratadine (Loratadine 10 Mg Tablet) 10 mg PO DAILY [facility] Last Admin: 07/20/22 09:47 Dose: 10 mg Magnesium Hydroxide (Milk Of Magnesia 30 Ml Oral.Susp) 30 ml PO DAILY PRN PRN Reason: Constipation Mirtazapine (Mirtazapine 15 Mg Tablet) 45 mg PO BEDTIME [facility] Last Admin: 07/20/22 22:26 Dose: 45 mg Multi-Ingred Cream/Lotion/Oil/Oint (Mineral Oil/Petrolatum,White 106 Gm Tube) 1 appl TOPICAL BID PRN; Protocol PRN Reason: Itching Oxcarbazepine (Oxcarbazepine 300 Mg Tablet) 300 mg PO BID [facility] Last Admin: 07/20/22 22:26 Dose: 300 mg Propranolol HCl (Propranolol Hcl 10 Mg Tablet) 10 mg PO BID [facility]; Protocol Last Admin: 07/20/22 22:27 Dose: 10 mg Quetiapine Fumarate (Quetiapine Fumarate 25 Mg Tablet) 25 mg PO TID PRN PRN Reason: PTSD Triggers, Anxiety Last Admin: 07/16/22 14:06 Dose: 25 mg Quetiapine Fumarate (Quetiapine Fumarate 25 Mg Tablet) 25 mg PO BID [facility] Last Admin: 07/20/22 22:27 Dose: 25 mg Sucralfate (Sucralfate Oral Suspension 1 Gm/10 Ml Oral.Susp) 1 gm PO BID PRN PRN Reason: dyspepsia Trazodone HCl (Trazodone Hcl 50 Mg Tablet) 50 mg PO BEDTIME MRX1 PRN PRN Reason: Insomnia Trolamine Salicylate (Trolamine Salicylate 10 % Cream 85 Gm Tube) 1 appl TOPICAL QID PRN PRN Reason: Pain, Mild (Pain Scale 1-3) Last Admin: 07/20/22 22:55 Dose: 1 appl Vitamin D (Cholecalciferol (Vitamin D3) 25 Mcg Tablet) 25 mcg PO DAILY [facility] Last Admin: 07/20/22 09:48 Dose: 25 mcg Allergies Allergies Allergy/AdvReac Type Severity Reaction Status Date / Time No Known Allergies Allergy Verified 06/23/22 12:11 Assessment & Plan Assessment & Plan (1) PTSD (post-traumatic stress disorder): Status: Acute Code(s): F43.10 - Post-traumatic stress disorder, unspecified (2) Severe recurrent major depression: Status: Acute Code(s): F33.2 - Major depressive disorder, recurrent severe without psychotic features Plan 07/15: continue home medications. collect collateral sunday, develop dispo plan. 07/16: as above, plus amox for UTI x 5 days. 07/17: increase intuniv to 3 mg QHS with goal of decreasing reactivity. appears euthymic. interested in moving to [facility] services and housing. eagerly awaiting [facility] to return. 07/18: pt not happy to hear staff's support for engaging with senior living staff. pt's only action item is that she will not return to the home unless they put her on 1:1 there. c/o some dizziness this morning. will continue the intuniv 3 for now. 07/19: stable presentation. no change in mgmt. dizziness has subsided. 07/20 continue tx. Reason for continued inpatient stay Substantial Risk for: stable for discharge Time Spent With Patient Time: Total time managing care of this patient today ____ minutes.
[2022-07-21 09:45] VITALS: BP 118/72; PULSE 82; RESP 18; TEMP 36.6; O2SAT 98
[2022-07-21] MEDS: Famotidine 20 MG TABLET PO ×2 (09:57→21:57)
[2022-07-21] MEDS: Loratadine 10 MG TABLET PO (09:57)
[2022-07-21] MEDS: Propranolol HCL 10 MG TABLET PO ×2 (09:57→21:58)
[2022-07-21] MEDS: Cholecalciferol (Vitamin D3) 25 MCG TABLET PO (09:58)
[2022-07-21] MEDS: hydrOXYzine HCL 50 MG TABLET PO ×2 (09:58→21:57)
[2022-07-21] MEDS: QUEtiapine Fumarate 25 MG TABLET PO ×2 (09:58→21:58)
[2022-07-21] MEDS: OXcarbazepine 300 MG TABLET PO ×2 (09:58→21:58)
[2022-07-21] MEDS: LORazepam 2 MG/ML VIAL IM (13:10)
[2022-07-21] MEDS: Haloperidol Lactate 5 MG/ML VIAL IM (13:10)
[2022-07-21] MEDS: Acetaminophen 325 MG TABLET 650 MG PO ×2 (13:19→22:09)
--- NOTE | 2022-07-21 13:29 | PC.NURSE ---
At 1305 patient was heard yelling loudly in small conference room . As this RN approached I heard what sounded like a repeated pounding on the wall. Patient was yelling, I need a fucking shot. I want a fucking shot now. repeatedly and hitting the plexiglass in the small conference room. She overturned the table in the room. Code assist was called for pt safety. At [address] Kidd for a prn IM at patient's request. Haldol 5mg IM and ativan 2mg IM ordered. I approached pt with the medication at 1309 and she verbally consented to receive IM haldol 5mg and IM ativan 2mg. She was cooperative with the injection, placed in her right deltoid. No holds were necessary and no hands were placed on patient during this episode. She is currently resting comfortably in bed. Left hand swelling noted. Ice applied and tylenol prn given . Dr Kidd informed.
--- NOTE | 2022-07-21 14:27 | HO.PSYCHPN ---
Subjective Subjective Date of Service: 07/21/22 Reason For Visit: Si Interim History: anxious re upcoming meeting today. no other issues. c/o mild shoulder pain for the past week. no dizziness. at meeting became dysregulated, angry, punched wall, yelling and yelling. asked for IM medication, haldol 5 and ativan 2 given per her request. slept after. per staff, low anxiety yesterday. some anxiety re visit with workers 07/21. otherwise pleasant, polite. Mental Status Exam Mental Status Exam Narrative: Patient Appearance:?Appropriate Patient Orientation:?Person, Place, Time and Situation Level of Consciousness:?Alert Patient Behavior:?Appropriate and Talkative Mood Description:? anxious Affect Description:?flexible Patient Cognition Impaired:?no Ability to Follow Directions:?Good Speech Pattern:?Spontaneous Speech Memory Description:?Intact Hallucinations:?None Delusions:?Not Present Thought Process:?Distracted Thought Content:?positive for Circumstantial Depressive Symptoms:?Increased Anxiety, Diff. Making Decisions and Low Self Esteem Judgement:?Fair denies SI/HI/AVH Diagnostics Vital Signs (24Hr): Vital Signs - 24 hr 07/20/22 22:47 07/21/22 09:45 Temperature 97.9 F 97.9 F Pulse Rate 80 82 Respiratory Rate 16 18 Blood Pressure 126/78 118/72 Pulse Oximetry 98 98 Oxygen Delivery Method Room Air Room Air BMI result Body Mass Index 29.8 Labs 07/12/22 16:31 07/12/22 16:32 Medications Medications Current Medications Acetaminophen (Acetaminophen 325 Mg Tablet) 650 mg PO Q6H PRN PRN Reason: Headache/Pain Mild Scale (1-3) Last Admin: 07/21/22 13:19 Dose: 650 mg Al Hydroxide/Mg Hydroxide (Magnesium Hydrox/Alum Hydrox 30 Ml Oral.Susp) 30 ml PO Q6H PRN PRN Reason: Heartburn/Nausea Last Admin: 07/20/22 13:23 Dose: 30 ml Calcium Carbonate (Calcium Carbonate 500 Mg Tablet) 500 mg PO Q6H PRN PRN Reason: Gastric Reflux Dicyclomine HCl (Dicyclomine Hcl 10 Mg Capsule) 20 mg PO QID PRN PRN Reason: cramping Docusate Sodium (Docusate Sodium 100 Mg Capsule) 100 mg PO BEDTIME [facility] Last Admin: 05/04/23 22:26 Dose: 100 mg Famotidine (Famotidine 20 Mg Tablet) [address] [facility] Last Admin: 07/21/22 09:57 Dose: 20 mg Guanfacine HCl (Guanfacine Hcl Er 1 Mg Tab.Er.24h) [address] [facility] Last Admin: 07/20/22 22:26 Dose: 3 mg Hydroxyzine HCl (Hydroxyzine Hcl 50 Mg Tablet) [address] [facility] Last Admin: 07/21/22 09:58 Dose: 50 mg Loratadine (Loratadine 10 Mg Tablet) [address] [facility] Last Admin: 07/21/22 09:57 Dose: 10 mg Magnesium Hydroxide (Milk Of Magnesia 30 Ml Oral.Susp) 30 ml PO DAILY PRN PRN Reason: Constipation Mirtazapine (Mirtazapine 15 Mg Tablet) [address] [facility] Last Admin: 07/20/22 22:26 Dose: 45 mg Multi-Ingred Cream/Lotion/Oil/Oint (Mineral Oil/Petrolatum,White 106 Gm Tube) 1 appl TOPICAL BID PRN; Protocol PRN Reason: Itching Oxcarbazepine (Oxcarbazepine 300 Mg Tablet) [address] [facility] Last Admin: 07/21/22 09:58 Dose: 300 mg Propranolol HCl (Propranolol Hcl 10 Mg Tablet) [address] [facility]; Protocol Last Admin: 07/21/22 09:57 Dose: 10 mg Quetiapine Fumarate (Quetiapine Fumarate 25 Mg Tablet) 25 mg PO TID PRN PRN Reason: PTSD Triggers, Anxiety Last Admin: 07/16/22 14:06 Dose: 25 mg Quetiapine Fumarate (Quetiapine Fumarate 25 Mg Tablet) [address] [facility] Last Admin: 07/21/22 09:58 Dose: 25 mg Sucralfate (Sucralfate Oral Suspension 1 Gm/10 Ml Oral.Susp) 1 gm PO BID PRN PRN Reason: dyspepsia Trazodone HCl (Trazodone Hcl 50 Mg Tablet) 50 mg PO BEDTIME MRX1 PRN PRN Reason: Insomnia Trolamine Salicylate (Trolamine Salicylate 10 % Cream 85 Gm Tube) 1 appl TOPICAL QID PRN PRN Reason: Pain, Mild (Pain Scale 1-3) Last Admin: 07/20/22 22:55 Dose: 1 appl Vitamin D (Cholecalciferol (Vitamin D3) 25 Mcg Tablet) 25 mcg PO DAILY [facility] Last Admin: 07/21/22 09:58 Dose: 25 mcg Allergies Allergies Allergy/AdvReac Type Severity Reaction Status Date / Time No Known Allergies Allergy Verified 06/23/22 12:11 Assessment & Plan Assessment & Plan (1) PTSD (post-traumatic stress disorder): Status: Acute Code(s): F43.10 - Post-traumatic stress disorder, unspecified (2) Severe recurrent major depression: Status: Acute Code(s): F33.2 - Major depressive disorder, recurrent severe without psychotic features Plan 07/15: continue home medications. collect collateral sunday, develop dispo plan. 07/16: as above, plus amox for UTI x 5 days. 07/17: increase intuniv to 3 mg QHS with goal of decreasing reactivity. appears euthymic. interested in moving to [facility] services and housing. eagerly awaiting [facility] to return. 07/18: pt not happy to hear staff's support for engaging with detention staff. pt's only action item is that she will not return to the home unless they put her on 1:1 there. c/o some dizziness this morning. will continue the intuniv 3 for now. 07/19: stable presentation. no change in mgmt. dizziness has subsided. 07/20 continue tx. 07/21: episode of severe agitation during mtg with DCF worker and other outpt wet silk hanger. became enraged and dysregulated on being told she would not have a 1:1 when she returns to the detention. asked for IM medications, haldol 5 and ativan 2 given, slept after. Reason for continued inpatient stay Substantial Risk for: harm to self, inability to function and rapid decompensation Time Spent With Patient Time: Total time managing care of this patient today _25___ minutes.
[2022-07-21] MEDS: guanFACINE HCl ER 1 MG TAB.ER.24H 3 MG PO (21:55)
[2022-07-21] MEDS: Mirtazapine 15 MG TABLET 45 MG PO (21:56)
[2022-07-21] MEDS: Docusate Sodium 100 MG CAPSULE PO (21:57)
[2022-07-21 22:00] VITALS: BP 103/54; PULSE 87; RESP 14; TEMP 36.8; O2SAT 96
[2022-07-22 08:00] VITALS: BP 119/72; PULSE 84; RESP 18; TEMP 36.7; O2SAT 97
--- NOTE | 2022-07-22 10:44 | PC.NURSE ---
Pt refused al morning meds, stated that I feel worse when specifically asked she reported that her depression was worse. Encouraged x2 to take meds and Pt refused. She did allow vital signs to be taken which were WNL .
--- NOTE | 2022-07-22 14:48 | PC.NURSE ---
Pt was quiet today not talking to peers and staff. Refused all am meds and appeared to be sleeping when I ,asked her if she would take her hydroxyzine. Will inform nurse at shift change re med.
--- NOTE | 2022-07-22 21:00 | HO.PSYCHPN ---
Subjective Subjective Date of Service: 07/22/22 Reason For Visit: Si Medical Problems Affecting Mental Status: No Interim History: Has been anxious. Upset with community program and not having 1:1 staff there and feels unsupported by them. Has refused all meds today. Feels depressed, SI. No psychosis. Sleep ok. Encouraged to take seroquel schedule and prn for mood and agitation. Medication Compliance: No Side effects from medications: No Attending Groups: No Review of Systems Acute medical concerns: No Review of Systems Review of Systems unremarkable Mental Status Exam Mental Status Exam Narrative: Patient Appearance:?Appropriate Patient Orientation:?Person, Place, Time and Situation Level of Consciousness:?Alert Patient Behavior:?Appropriate and Talkative Mood Description:? anxious Affect Description:?flexible Patient Cognition Impaired:?no Ability to Follow Directions:?Good Speech Pattern:?Spontaneous Speech Memory Description:?Intact Hallucinations:?None Delusions:?Not Present Thought Process:?Distracted Thought Content:?positive for Circumstantial Depressive Symptoms:?Increased Anxiety, Diff. Making Decisions and Low Self Esteem Judgement:?Fair denies SI/HI/AVH Diagnostics Vital Signs (24Hr): Vital Signs - 24 hr 07/21/22 22:00 07/22/22 08:00 Temperature 98.2 F 98.1 F Pulse Rate 87 84 Respiratory Rate 14 18 Blood Pressure 103/54 L 119/72 Pulse Oximetry 96 97 Oxygen Delivery Method Room Air Room Air BMI result Body Mass Index 29.8 Labs 07/12/22 16:31 07/12/22 16:32 Medications Medications Current Medications Acetaminophen (Acetaminophen 325 Mg Tablet) 650 mg PO Q6H PRN PRN Reason: Headache/Pain Mild Scale (1-3) Last Admin: 07/21/22 22:09 Dose: 650 mg Al Hydroxide/Mg Hydroxide (Magnesium Hydrox/Alum Hydrox 30 Ml Oral.Susp) 30 ml PO Q6H PRN PRN Reason: Heartburn/Nausea Last Admin: 07/20/22 13:23 Dose: 30 ml Calcium Carbonate (Calcium Carbonate 500 Mg Tablet) 500 mg PO Q6H PRN PRN Reason: Gastric Reflux Dicyclomine HCl (Dicyclomine Hcl 10 Mg Capsule) 20 mg PO QID PRN PRN Reason: cramping Docusate Sodium (Docusate Sodium 100 Mg Capsule) 100 mg PO BEDTIME [facility] Last Admin: 07/21/22 21:57 Dose: 100 mg Famotidine (Famotidine 20 Mg Tablet) 20 mg PO BID [facility] Last Admin: 07/22/22 13:08 Dose: Not Given Guanfacine HCl (Guanfacine Hcl Er 1 Mg Tab.Er.24h) 3 mg PO BEDTIME [facility] Last Admin: 07/21/22 21:55 Dose: 3 mg Hydroxyzine HCl (Hydroxyzine Hcl 50 Mg Tablet) 50 mg PO TID [facility] Last Admin: 07/22/22 16:26 Dose: Not Given Loratadine (Loratadine 10 Mg Tablet) 10 mg PO DAILY [facility] Last Admin: 07/22/22 13:08 Dose: Not Given Magnesium Hydroxide (Milk Of Magnesia 30 Ml Oral.Susp) 30 ml PO DAILY PRN PRN Reason: Constipation Mirtazapine (Mirtazapine 15 Mg Tablet) 45 mg PO BEDTIME [facility] Last Admin: 07/21/22 21:56 Dose: 45 mg Multi-Ingred Cream/Lotion/Oil/Oint (Mineral Oil/Petrolatum,White 106 Gm Tube) 1 appl TOPICAL BID PRN; Protocol PRN Reason: Itching Oxcarbazepine (Oxcarbazepine 300 Mg Tablet) 300 mg PO BID [facility] Last Admin: 07/22/22 13:08 Dose: Not Given Propranolol HCl (Propranolol Hcl 10 Mg Tablet) 10 mg PO BID [facility]; Protocol Last Admin: 07/22/22 13:08 Dose: Not Given Quetiapine Fumarate (Quetiapine Fumarate 25 Mg Tablet) 25 mg PO TID PRN PRN Reason: PTSD Triggers, Anxiety Last Admin: 07/16/22 14:06 Dose: 25 mg Quetiapine Fumarate (Quetiapine Fumarate 25 Mg Tablet) 25 mg PO BID [facility] Last Admin: 07/22/22 13:09 Dose: Not Given Sucralfate (Sucralfate Oral Suspension 1 Gm/10 Ml Oral.Susp) 1 gm PO BID PRN PRN Reason: dyspepsia Trazodone HCl (Trazodone Hcl 50 Mg Tablet) 50 mg PO BEDTIME MRX1 PRN PRN Reason: Insomnia Trolamine Salicylate (Trolamine Salicylate 10 % Cream 85 Gm Tube) 1 appl TOPICAL QID PRN PRN Reason: Pain, Mild (Pain Scale 1-3) Last Admin: 07/20/22 22:55 Dose: 1 appl Vitamin D (Cholecalciferol (Vitamin D3) 25 Mcg Tablet) 25 mcg PO DAILY [facility] Last Admin: 07/22/22 13:08 Dose: Not Given Allergies Allergies Allergy/AdvReac Type Severity Reaction Status Date / Time No Known Allergies Allergy Verified 06/23/22 12:11 Assessment & Plan Assessment & Plan (1) PTSD (post-traumatic stress disorder): Status: Acute Code(s): F43.10 - Post-traumatic stress disorder, unspecified (2) Severe recurrent major depression: Status: Acute Code(s): F33.2 - Major depressive disorder, recurrent severe without psychotic features Plan 07/15: continue home medications. collect collateral sunday, develop dispo plan. 07/16: as above, plus amox for UTI x 5 days. 07/17: increase intuniv to 3 mg QHS with goal of decreasing reactivity. appears euthymic. interested in moving to [facility] services and housing. eagerly awaiting [facility] to return. 07/18: pt not happy to hear staff's support for engaging with [facility]. pt's only action item is that she will not return to the home unless they put her on 1:1 there. c/o some dizziness this morning. will continue the intuniv 3 for now. 07/19: stable presentation. no change in mgmt. dizziness has subsided. 07/20 continue tx. 07/21: episode of severe agitation during mtg with DCF worker and other outpt energy analyst. became enraged and dysregulated on being told she would not have a 1:[facility]. asked for IM medications, haldol 5 and ativan 2 given, slept after. 07/22: encourage med adherence Reason for continued inpatient stay Substantial Risk for: inability to function Time Spent With Patient Time: Total time managing care of this patient today ____ minutes.
[2022-07-22] MEDS: Trolamine Salicylate 10 % Cream 85 GM TUBE 1 APPL TOPICAL (22:02)
[2022-07-22] MEDS: Propranolol HCL 10 MG TABLET PO (22:03)
[2022-07-22] MEDS: OXcarbazepine 300 MG TABLET PO (22:03)
[2022-07-22] MEDS: guanFACINE HCl ER 1 MG TAB.ER.24H 3 MG PO (22:03)
[2022-07-22] MEDS: hydrOXYzine HCL 50 MG TABLET PO (22:04)
[2022-07-22] MEDS: Mirtazapine 15 MG TABLET 45 MG PO (22:04)
[2022-07-22] MEDS: Famotidine 20 MG TABLET PO (22:04)
[2022-07-22] MEDS: Docusate Sodium 100 MG CAPSULE PO (22:04)
[2022-07-22] MEDS: QUEtiapine Fumarate 25 MG TABLET PO (22:04)
[2022-07-22 22:08] VITALS: BP 123/77; PULSE 90; TEMP 36.6; O2SAT 99
[2022-07-23 10:15] VITALS: BP 128/83; PULSE 91; RESP 18; TEMP 36.8; O2SAT 98
[2022-07-23] MEDS: QUEtiapine Fumarate 25 MG TABLET PO (10:27)
[2022-07-23] MEDS: OXcarbazepine 300 MG TABLET PO ×2 (10:27→22:22)
[2022-07-23] MEDS: Famotidine 20 MG TABLET PO ×2 (10:30→22:22)
[2022-07-23] MEDS: Propranolol HCL 10 MG TABLET PO ×2 (10:30→22:21)
[2022-07-23] MEDS: Cholecalciferol (Vitamin D3) 25 MCG TABLET PO (10:30)
[2022-07-23] MEDS: hydrOXYzine HCL 50 MG TABLET PO ×3 (10:31→22:22)
[2022-07-23] MEDS: Loratadine 10 MG TABLET PO (10:31)
--- NOTE | 2022-07-23 14:03 | HO.PSYCHPN ---
Subjective Subjective Date of Service: 07/23/22 Reason For Visit: Si Interim History: Remains upset with community program and not having 1:1 staff there and feels unsupported by them. Feels depressed and intermittent SI, no plans. Accepted meds today. Slept ok with unusual dreams. Worries if she discharges she will end up back in hospital as her needs might not be met (such as 1 on 1 staff). Discussed medications- preferred seroquel at 6pm and agreed to 50mg dose. Described chronic intermittent upper muscular back discomfort and advised to see PCP ref same. Medication Compliance: Yes Side effects from medications: No Attending Groups: Intermittent Review of Systems Acute medical concerns: No Review of Systems Review of Systems unremarkable Mental Status Exam Mental Status Exam Narrative: Patient Appearance:?Appropriate Patient Orientation:?Person, Place, Time and Situation Level of Consciousness:?Alert Patient Behavior:?Appropriate and Talkative Mood Description:? anxious Affect Description:?flexible Patient Cognition Impaired:?no Ability to Follow Directions:?Good Speech Pattern:?Spontaneous Speech Memory Description:?Intact Hallucinations:?None Delusions:?Not Present Thought Process:?Distracted Thought Content:?positive for Circumstantial Depressive Symptoms:?Increased Anxiety, Diff. Making Decisions and Low Self Esteem Judgement:?Fair Intermitte SI. No HI, psychosis Diagnostics Vital Signs (24Hr): Vital Signs - 24 hr 07/22/22 22:08 07/23/22 10:15 Temperature 97.9 F 98.2 F Pulse Rate 90 91 Respiratory Rate 18 Blood Pressure 123/77 128/83 Pulse Oximetry 99 98 Oxygen Delivery Method Room Air Room Air BMI result Body Mass Index 29.8 Labs 07/12/22 16:31 07/12/22 16:32 Medications Medications Current Medications Acetaminophen (Acetaminophen 325 Mg Tablet) 650 mg PO Q6H PRN PRN Reason: Headache/Pain Mild Scale (1-3) Last Admin: 07/21/22 22:09 Dose: 650 mg Al Hydroxide/Mg Hydroxide (Magnesium Hydrox/Alum Hydrox 30 Ml Oral.Susp) 30 ml PO Q6H PRN PRN Reason: Heartburn/Nausea Last Admin: 07/20/22 13:23 Dose: 30 ml Calcium Carbonate (Calcium Carbonate 500 Mg Tablet) 500 mg PO Q6H PRN PRN Reason: Gastric Reflux Dicyclomine HCl (Dicyclomine Hcl 10 Mg Capsule) 20 mg PO QID PRN PRN Reason: cramping Docusate Sodium (Docusate Sodium 100 Mg Capsule) 100 mg PO BEDTIME [facility] Last Admin: 07/22/22 22:04 Dose: 100 mg Famotidine (Famotidine 20 Mg Tablet) 20 mg PO BID [facility] Last Admin: 07/23/22 10:30 Dose: 20 mg Guanfacine HCl (Guanfacine Hcl Er 1 Mg Tab.Er.24h) 3 mg PO BEDTIME [facility] Last Admin: 07/22/22 22:03 Dose: 3 mg Hydroxyzine HCl (Hydroxyzine Hcl 50 Mg Tablet) 50 mg PO TID [facility] Last Admin: 07/23/22 10:31 Dose: 50 mg Loratadine (Loratadine 10 Mg Tablet) 10 mg PO DAILY [facility] Last Admin: 07/23/22 10:31 Dose: 10 mg Magnesium Hydroxide (Milk Of Magnesia 30 Ml Oral.Susp) 30 ml PO DAILY PRN PRN Reason: Constipation Mirtazapine (Mirtazapine 15 Mg Tablet) 45 mg PO BEDTIME [facility] Last Admin: 07/22/22 22:04 Dose: 45 mg Multi-Ingred Cream/Lotion/Oil/Oint (Mineral Oil/Petrolatum,White 106 Gm Tube) 1 appl TOPICAL BID PRN; Protocol PRN Reason: Itching Oxcarbazepine (Oxcarbazepine 300 Mg Tablet) 300 mg PO BID [facility] Last Admin: 07/23/22 10:27 Dose: 300 mg Propranolol HCl (Propranolol Hcl 10 Mg Tablet) 10 mg PO BID [facility]; Protocol Last Admin: 07/23/22 10:30 Dose: 10 mg Quetiapine Fumarate (Quetiapine Fumarate 25 Mg Tablet) 25 mg PO TID PRN PRN Reason: PTSD Triggers, Anxiety Last Admin: 07/16/22 14:06 Dose: 25 mg Quetiapine Fumarate (Quetiapine Fumarate 50 Mg Tablet) 50 mg PO DAILY@1800 [facility] Sucralfate (Sucralfate Oral Suspension 1 Gm/10 Ml Oral.Susp) 1 gm PO BID PRN PRN Reason: dyspepsia Trazodone HCl (Trazodone Hcl 50 Mg Tablet) 50 mg PO BEDTIME MRX1 PRN PRN Reason: Insomnia Trolamine Salicylate (Trolamine Salicylate 10 % Cream 85 Gm Tube) 1 appl TOPICAL QID PRN PRN Reason: Pain, Mild (Pain Scale 1-3) Last Admin: 07/22/22 22:02 Dose: 1 appl Vitamin D (Cholecalciferol (Vitamin D3) 25 Mcg Tablet) 25 mcg PO DAILY PRISCILA Last Admin: 07/23/22 10:30 Dose: 25 mcg Allergies Allergies Allergy/AdvReac Type Severity Reaction Status Date / Time No Known Allergies Allergy Verified 06/23/22 12:11 Assessment & Plan Assessment & Plan (1) PTSD (post-traumatic stress disorder): Status: Acute Code(s): F43.10 - Post-traumatic stress disorder, unspecified (2) Severe recurrent major depression: Status: Acute Code(s): F33.2 - Major depressive disorder, recurrent severe without psychotic features Plan 07/15: continue home medications. collect collateral sunday, develop dispo plan. 07/16: as above, plus amox for UTI x 5 days. 07/17: increase intuniv to 3 mg QHS with goal of decreasing reactivity. appears euthymic. interested in moving to [facility]. 07/18: pt not happy to hear staff's support for engaging with long term staff. pt's only action item is that she will not return to the home unless they put her on 1:1 there. c/o some dizziness this morning. will continue the intuniv 3 for now. 07/19: stable presentation. no change in mgmt. dizziness has subsided. 07/20 continue tx. 07/21: episode of severe agitation during mtg with DCF worker and other outpt canteen operator. became enraged and dysregulated on being told she would not have a 1:1 when she returns to the long term. asked for IM medications, haldol 5 and ativan 2 given, slept after. 07/22: encourage med adherence 57: seroquel 50mg at 6pm Reason for continued inpatient stay Substantial Risk for: inability to function and rapid decompensation Time Spent With Patient Time: Total time managing care of this patient today ____ minutes.
[2022-07-23] MEDS: QUEtiapine Fumarate 50 MG TABLET PO (18:04)
[2022-07-23 22:10] VITALS: BP 118/78; PULSE 93; RESP 20; TEMP 36.8; O2SAT 98
[2022-07-23] MEDS: guanFACINE HCl ER 1 MG TAB.ER.24H 3 MG PO (22:21)
[2022-07-23] MEDS: Docusate Sodium 100 MG CAPSULE PO (22:22)
[2022-07-23] MEDS: Mirtazapine 15 MG TABLET 45 MG PO (22:22)
[2022-07-23] MEDS: Trolamine Salicylate 10 % Cream 85 GM TUBE 1 APPL TOPICAL (22:22)
[2022-07-24 06:00] VITALS: BP 144/92; PULSE 94; RESP 16; TEMP 36.7; O2SAT 98
[2022-07-24] MEDS: hydrOXYzine HCL 50 MG TABLET PO ×3 (10:24→21:27)
[2022-07-24] MEDS: Propranolol HCL 10 MG TABLET PO ×2 (10:24→21:27)
[2022-07-24] MEDS: Loratadine 10 MG TABLET PO (10:24)
[2022-07-24] MEDS: Famotidine 20 MG TABLET PO ×2 (10:24→21:27)
[2022-07-24] MEDS: OXcarbazepine 300 MG TABLET PO ×2 (10:25→21:27)
[2022-07-24] MEDS: Cholecalciferol (Vitamin D3) 25 MCG TABLET PO (10:25)
[2022-07-24] MEDS: Haloperidol Lactate 5 MG/ML VIAL IM (10:52)
[2022-07-24] MEDS: diphenhydrAMINE HCL 50 MG/ML VIAL IM (10:53)
[2022-07-24] MEDS: LORazepam 2 MG/ML VIAL IM (10:53)
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
--- NOTE | 2022-07-24 17:14 | PC.NURSE ---
From earlier today. Pt had meeting with provider and school social worker, She was notified that she will be getting discharged tomorrow back to the snf that she came from. Patient then appeared to lose control, punching the wall, threatening the Doctor, pushing over chairs, tipping over the tables. Patient got IM medication, Ativan, Diphenhydramine, and Haldol.
[2022-07-24] MEDS: Magnesium Hydrox/Alum Hydrox 30 ML ORAL.SUSP PO (17:48)
[2022-07-24] MEDS: QUEtiapine Fumarate 50 MG TABLET PO (17:48)
[2022-07-24] MEDS: Sucralfate Oral Suspension 1 GM/10 ML ORAL.SUSP PO (17:48)
[2022-07-24 20:05] VITALS: BP 132/84; PULSE 86; RESP 16; TEMP 36.6; O2SAT 99
[2022-07-24] MEDS: Docusate Sodium 100 MG CAPSULE PO (21:27)
[2022-07-24] MEDS: Mirtazapine 15 MG TABLET 45 MG PO (21:27)
[2022-07-24] MEDS: Trolamine Salicylate 10 % Cream 85 GM TUBE 1 APPL TOPICAL (21:28)
[2022-07-24] MEDS: guanFACINE HCl ER 1 MG TAB.ER.24H 3 MG PO (21:28)
[2022-07-25 09:40] VITALS: BP 112/59; PULSE 92; TEMP 36.7; O2SAT 98
[2022-07-25] MEDS: Loratadine 10 MG TABLET PO (09:41)
[2022-07-25] MEDS: OXcarbazepine 300 MG TABLET PO (09:42)
[2022-07-25] MEDS: Propranolol HCL 10 MG TABLET PO (09:42)
[2022-07-25] MEDS: hydrOXYzine HCL 50 MG TABLET PO (09:42)
[2022-07-25] MEDS: Famotidine 20 MG TABLET PO (09:42)
[2022-07-25] MEDS: Cholecalciferol (Vitamin D3) 25 MCG TABLET PO (09:42)
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
== END 2022-07-25 12:57 | disposition home or self-care (01) | DRG 751 ==
LOC: HO.ED 07-14 08:42 → HO.PADLT16 07-14 14:18
PROVIDERS: Emergency Medicine; Physician Assistant; Admitting Provider Psychiatry & Neurology Psychiatry; Emergency Provider Emergency Medicine Emergency Medical Services; Visit Provider Psychiatry & Neurology Psychiatry
DX: F33.2 Major depressive disorder, recurrent severe without psychotic features (principal); R45.851 Suicidal ideations; F43.10 Post-traumatic stress disorder, unspecified; F90.9 Attention-deficit hyperactivity disorder, unspecified type; Z20.822 Contact with and (suspected) exposure to COVID-19; Z87.820 Personal history of traumatic brain injury; Z79.899 Other long term (current) drug therapy
CPT/HCPCS: 36415; 80048; 80076; 80143; 80179; 80307; 81001; 81003; 81025; 82077; 83735; 84484; 85025; 87086; 87147; 87635; 93005; 99285; J1200; J2060; S9485

== ENCOUNTER 2022-07-27 11:22 | Emergency (ER) | payer MEDICAID, SELFPAY ==
[2022-07-27 11:58] VITALS: BP 128/90; PULSE 95; RESP 17; TEMP 36.6; O2SAT 99; BMI 28.2
--- NOTE | 2022-07-27 12:05 | ECG_ITS ---
Test Reason : tachy Blood Pressure : / mmHG Vent. Rate : 096 BPM Atrial Rate : 096 BPM P-R Int : 162 ms QRS Dur : 072 ms QT Int : 350 ms P-R-T Axes : 027 052 018 degrees QTc Int : 442 ms Normal sinus rhythm Possible Left atrial enlargement Nonspecific T wave abnormality Abnormal ECG When compared with ECG of 14-JUL-2022 08:28, Nonspecific T wave abnormality has replaced inverted T waves in Anterior leads Referred By: Generic ED Physician Electronically Signed By:JOSEFINA SALAZAR
[2022-07-27 12:41] LABS: MANUAL DIFF FLAG NO
[2022-07-27 12:45] LABS: Appearance Urine Clear; Color Urine Yellow; Glucose Urine UA Negative (Negative); Leukocyte Esterase Urine Trace (Negative); Nitrite Urine Negative (Negative); Specific Gravity - Urine 1.025 (1.005-1.025); UMIC TRIGGER UACC YES; Urine Blood Trace (Negative); Urine Ketones Trace mg/dL (Negative); Urine Protein Negative (Neg-Trace)
[2022-07-27 12:47] LABS: Bacteria Urine None Seen (None Seen); Hyaline Casts Urine 0-2 /LPF (0-2); Squamous Epithelial Cell Urine 0-2 /HPF (0-2); WBC Urine 0-5 /HPF (0-5)
[2022-07-27 12:48] LABS: Basophils Absolute Auto 0.1 X10*3/uL (0.0-0.2); Basophils Percent Auto 0.7 % (0-2); Eosinophils Absolute Auto 0.4 X10*3/uL (0.0-0.4); Eosinophils Percent Auto 5.4 % (0-4); Hematocrit 38.6 % (37.0-47.0); Hemoglobin 12.9 g/dl (12.0-16.0); Imm Gran Abs Auto 0.03 X10*3/uL (0.00-0.03); Imm Gran Pct Auto 0.4 % (0.0-0.4); Lymphocytes Absolute Auto 1.7 X10*3/uL (1.2-4.9); Lymphocytes Percent Auto 22.5 % (20-40); Mean Corpuscular HGB Conc 33.4 g/dl (31.0-35.0); Mean Corpuscular Volume 83.7 fL (80.0-98.0); Mean Platelet Volume 9.6 fL (9.4-12.3); Monocytes Absolute Auto 0.5 X10*3/uL (0.1-1.2); Monocytes Percent Auto 6.1 % (2-11); Neutrophils Absolute Auto 4.9 x10*3/uL (2.0-8.3); Neutrophils Percent Auto 64.9 % (45-73); Platelet Count 278 X10*3/uL (160-400); Red Blood Count 4.61 X10*6/uL (4.20-5.50); Red Cell Distribution Width 12.5 % (11.0-16.0); White Blood Count 7.5 X10*3/uL (4.8-10.8)
[2022-07-27 13:05] LABS: Alanine Aminotransferase 24 U/L (0-31); Albumin Level 4.6 g/dL (3.5-5.0); Alkaline Phosphatase 81 U/L (39-117); Anion Gap 15 (12-20); Aspartate Amino Transferase 18 U/L (5-31); Bilirubin Total 0.6 mg/dL (0.0-1.0); Blood Urea Nitrogen 8 mg/dL (9-16); Calcium 9.9 mg/dL (8.4-10.2); Carbon Dioxide 27 mmol/L (22-29); Chloride 104 mmol/L (96-108); Creatinine Clr Calc Pharmacy 98.2; Estimated Glomerular Filt Rate > 60; Glucose Random 147 mg/dL (60-115); Potassium 3.8 mmol/L (3.3-5.1); Sodium 142 mmol/L (135-145); Total Protein 7.2 g/dL (6.5-8.0)
[2022-07-27 15:48] VITALS: BP 155/92; PULSE 104
--- NOTE | 2022-07-27 16:18 | ED.GENADULT ---
HPI - General Adult General Chief complaint: General Medical Stated complaint: medication side effects Time Seen by Provider: 07/27/22 15:27 Source: patient, RN notes reviewed and old records reviewed Mode of arrival: ambulatory History of Present Illness HPI narrative: 22-year-old female with a past medical history of ADHD, depression, anxiety, PTSD, recently discharged from our facility on 07/25/2022, presenting to the ED complaining of reported tachycardia this AM in 200's, suspected secondary to new medication changes after hospital discharge. Patient states her Quetiapine was increased from 25mg to 50mg, and Guanfacine was added. Patient was brought back in to the Behavioral POD s/p becoming triggered in the waiting room after seeing somebody who caused her trauma. patient with screaming/placed herself on ground while in the waiting room after being triggered. Denies SI/HI. denies CP/SOB Related Data Home Medications Medication Instructions Recorded Confirmed calcium carbonate 200 mg calcium 400 mg PO Q6H PRN Gastric Reflux 08/18/21 07/12/22 (500 mg) chewable tablet (Calcium Antacid) trazodone 50 mg tablet 25 mg PO BEDTIME PRN Insomnia 08/18/21 07/12/22 Previous Rx's Medication Instructions Recorded acetaminophen 325 mg tablet 650 mg PO Q6H PRN Pain, Mild (Pain 04/22/21 Scale 1-3) #120 tabs quetiapine 25 mg tablet 25 mg PO TID PRN PTSD Triggers, 04/22/21 Anxiety #60 tabs white petrolatum-mineral oil 1 appl topical BID PRN Itching 04/22/21 topical cream (Dermacerin topical #100 grams cream) sucralfate 100 mg/mL oral 10 ml PO BID PRN dyspepsia #420 mL 06/23/22 suspension (Carafate) cholecalciferol (vitamin D3) 25 25 mcg PO DAILY 30 days #30 caps 07/25/22 mcg (1,000 unit) capsule dicyclomine 20 mg tablet 20 mg PO QID PRN cramping 30 days 07/25/22 #90 tabs docusate sodium 100 mg capsule 100 mg PO BEDTIME 30 days #30 caps 07/25/22 famotidine 20 mg tablet 20 mg PO BID 30 days #60 tabs 07/25/22 guanfacine 1 mg tablet,extended 3 mg PO BEDTIME 30 days #90 tabs 07/25/22 release 24 hr hydroxyzine HCl 50 mg tablet 50 mg PO TID 30 days #90 tabs 07/25/22 loratadine 10 mg tablet 10 mg PO DAILY 30 days #30 tabs 07/25/22 mirtazapine 15 mg tablet 45 mg PO BEDTIME 30 days #90 tabs 07/25/22 oxcarbazepine 300 mg tablet 300 mg PO TID 30 days #90 tabs 07/25/22 propranolol 10 mg tablet 10 mg PO BID 30 days #60 tabs 07/25/22 quetiapine 50 mg tablet,extended 50 mg PO DAILY 30 days #30 tabs 07/25/22 release 24 hr trolamine salicylate 10 % topical 1 appl topical QID PRN Pain, Mild 07/25/22 cream (Arthricream) (Pain Scale 1-3) 30 days #50 grams Allergies Allergy/AdvReac Type Severity Reaction Status Date / Time No Known Allergies Allergy Verified 06/23/22 12:11 Review of Systems Review of Systems: Constitutional: No Fever, No Chills, No Malaise ENT/Mouth: No Ear Pain, No Nasal Congestion Eyes: No Eye Pain, No Swelling, No Redness Cardiovascular: No Chest Pain, No SOB, No Palpitations Respiratory: No Cough, No Sputum Gastrointestinal: No Nausea, No Vomiting, No Abdominal pain Musculoskeletal: No joint pain, No Myalgias, No Joint Swelling Skin: No Skin Lesions, No rash Neuro: No Weakness, No Headache Psych: + Anxiety/Panic, No Depression, No SI/HI/AH/VH, + Social Issues Yes all other systems are reviewed and are negative Constitutional: Constitutional: Reports as per [facility] Past Medical History Attestation statement: The following information was validated with the patient. Source: old records reviewed Medical History ADHD Depression with anxiety Learning disability PTSD (post-traumatic stress disorder) Severe recurrent major depression Traumatic brain injury Social History Social History Household Members: Other Household Members Other:: penitentiary Housing: Other Housing Other:: penitentiary Do you presently have visiting nurse or other home services: No Alcohol intake: never Patient Tobacco Use Status: Never used Tobacco Advance Directives: No Advance Directives Information Provided: No service: No Sexual orientation: Straight/Heterosexual Gender identity: Female Physical Exam ED Vital Signs: Vital Signs - 24 hr 07/27/22 11:58 07/27/22 15:48 Temperature 97.9 F Pulse Rate 95 104 H Respiratory Rate 17 Blood Pressure 128/90 H 155/92 H Pulse Oximetry 99 Oxygen Delivery Method Room Air BMI result Body Mass Index 28.2 Const General: cooperative, healthy appearing, no acute distress, alert, awake and anxious Orientation/consciousness: patient oriented x3 Limitations: no limitations HENMT Head: Yes normal to inspection and Yes atraumatic Ears: hearing grossly normal bilaterally General nose exam: Normal external nose present Face and sinus: Yes normal facial exam Eyes General: appearance normal, both eyes and all related structures EOM: EOMs intact bilaterally Neck Neck: Yes normal visual inspection and Yes no meningeal signs Resp Effort & Inspection: normal respiratory effort and no respiratory distress Cardio Rate: regular rate Heart sounds: S1 normal heart sound present and S2 normal heart sound present Skin Rashes: no rashes Wounds: no wounds Neuro General: patient oriented x3, tone normal, moves all extremities, no meningeal signs and CN's II-XI intact bilaterally Gait exam (Neuro): Normal gait present Extrem General: Yes normal to inspection Psych Affect: Anxious affect present, Hostile affect present and Irritable affect present Thought content: suicidality and no homicidality Medications Administered Discontinued Medications Generic Name Dose Route Start Last Admin Trade Name Freq PRN Reason Stop Dose Admin Lorazepam 1 mg 07/27/22 16:14 07/27/22 16:43 Lorazepam 1 Mg Tablet PO 07/27/22 16:15 1 mg ONCE ONE Administration Medical Decision Making Medical Decision Making MDM Narrative: 22-year-old female with a past medical history of ADHD, depression, anxiety, PTSD, recently discharged from our facility on 07/25/2022, presenting to the ED complaining of reported tachycardia this AM in 200's, suspected secondary to new medication changes after hospital discharge. On evaluation patient worked up, tearful, anxious, elated, however reports symptomatic improvement now that she is in behavior health POD applied. Denies SI/HI. Patient with penitentiary staff member, & feels safe to be discharged back to penitentiary. CARE team Stacie spoke with patient, patient now calmer/ cooperative, feels safe for discharge back to penitentiary with staff. Recommended close follow-up with outpatient providers in continued compliance with medications. Labs unremarkable Results discussed with patient including worrisome signs and symptoms and strict return precautions, and when to return to the emergency department. They verbalized understanding and feel safe for discharge at this time. Differential Diagnosis Differential Diagnoses: The differential diagnosis associated with the presentation includes As above Admission/Observation Consideration of admission/observation: Escalation of care including admission/observation considered Lab Data MDM Lab Attestation statement: I reviewed the patient's lab results. 07/27/22 12:35 07/27/22 12:35 Labs: Lab Results 07/27/22 07/27/22 07/27/22 Range/Units 12:29 12:35 12:35 WBC 7.5 (4.8-10.8) X10*3/uL RBC 4.61 (4.20-5.50) X10*6/uL Hgb 12.9 (12.0-16.0) g/dl Hct 38.6 (37.0-47.0) % MCV 83.7 (80.0-98.0) fL MCH 28.0 (27.0-33.0) pg MCHC 33.4 (31.0-35.0) g/dl RDW 12.5 (11.0-16.0) % Plt Count 278 (160-400) X10*3/uL MPV 9.6 (9.4-12.3) fL Immature Gran % (Auto) 0.4 (0.0-0.4) % Neut % (Auto) 64.9 (45-73) % Lymph % (Auto) 22.5 (20-40) % Garrett % (Auto) 6.1 (2-11) % Eos % (Auto) 5.4 H (0-4) % Baso % (Auto) 0.7 (0-2) % Lymph # (Auto) 1.7 (1.2-4.9) X10*3/uL Garrett # (Auto) 0.5 (0.1-1.2) X10*3/uL Eos # (Auto) 0.4 (0.0-0.4) X10*3/uL Baso # (Auto) 0.1 (0.0-0.2) X10*3/uL Abs Immat Gran (auto) 0.03 (0.00-0.03) X10*3/uL Absolute Neuts (auto) 4.9 (2.0-8.3) x10*3/uL Absolute Nucleated RBC 0.000 (0.0-0.012) X10*3/uL Nucleated RBC % (auto) 0.0 (0.0-0.2) /100WBC Sodium 142 (135-145) mmol/L Potassium 3.8 (3.3-5.1) mmol/L Chloride 104 (96-108) mmol/L Carbon Dioxide 27 (22-29) mmol/L Anion Gap 15 (12-20) BUN 8 L (9-16) mg/dL Creatinine 0.87 (0.5-1.4) mg/dL Estim Creat Clear Calc 98.2 Estimated GFR > 60 Random Glucose 147 H (60-115) mg/dL Calcium 9.9 (8.4-10.2) mg/dL Total Bilirubin 0.6 (0.0-1.0) mg/dL AST 18 (5-31) U/L ALT 24 (0-31) U/L Alkaline Phosphatase 81 (39-117) U/L Total Protein 7.2 (6.5-8.0) g/dL Albumin 4.6 (3.5-5.0) g/dL Urine Color Yellow Urine Appearance Clear Urine pH 6.0 (5.0-9.0) Ur Specific Backus 1.025 (1.005-1.025) Urine Protein Negative (Neg-Trace) mg/dL Urine Glucose (UA) Negative (Negative) mg/dL Urine Ketones Trace (Negative) mg/dL Urine Blood Trace H (Negative) Urine Nitrite Negative (Negative) Ur Leukocyte Esterase Trace H (Negative) Urine RBC 6-10 H (0-2) /HPF Urine WBC 0-5 (0-5) /HPF Ur Squamous Epith Cells 0-2 (0-2) /HPF Urine Bacteria None Seen (None Seen) Hyaline Casts 0-2 (0-2) /LPF Radiology Impression Discussion of test interpretation with radiology: I have reviewed the radiologist's reading. External Record Review External record reviewed: Inpatient record, Office record, Outpatient record, Prior outpatient labs, Prior outpatient radiology, Primary care record and Outside ED record Tests considered The following testing was considered but not selected: As above Discharge Plan Discharge Clinical Impression: PTSD (post-traumatic stress disorder) Patient Disposition: Home, Self-Care Instructions: Anxiety (ED) Additional Instructions: please continue your previously prescribed medications, you need to call your prescriber and have close follow-up outpatient your blood work was reassuring today If you have thoughts of hurting herself or others, or your heart rate rises again, you develop chest pain or shortness of breath return to the ED immediately Prescriptions: No Action acetaminophen 325 mg Tablet 650 mg PO Q6H PRN (Reason: Pain, Mild (Pain Scale 1-3)) Qty: 120 0RF quetiapine 25 mg Tablet 25 mg PO TID PRN (Reason: PTSD Triggers, Anxiety) Qty: 60 0RF Dermacerin Cream 1 appl topical BID PRN (Reason: Itching) Qty: 100 0RF Protocol: Apply to: Apply to: affected area post shaving calcium carbonate [Calcium Antacid] 200 mg calcium (500 mg) tablet,chewable 400 mg PO Q6H MDD 8 g PRN (Reason: Gastric Reflux) trazodone 50 mg tablet 25 mg PO BEDTIME PRN (Reason: Insomnia) propranolol 10 mg Tablet 10 mg PO BID 30 Days Qty: 60 0RF Protocol: Hold for SBP/HR < HOLD for SBP < : 90 HOLD for HR < : 60 mirtazapine 15 mg Tablet 45 mg PO BEDTIME 30 Days Qty: 90 0RF loratadine 10 mg Tablet 10 mg PO DAILY 30 Days Qty: 30 0RF guanfacine 1 mg Tablet Extended Release 24 Hr 3 mg PO BEDTIME 30 Days Qty: 90 0RF hydroxyzine HCl 50 mg Tablet 50 mg PO TID 30 Days Qty: 90 0RF trolamine salicylate [Arthricream] 10 % Cream 1 appl topical QID PRN (Reason: Pain, Mild (Pain Scale 1-3)) 30 Days Qty: 50 0RF oxcarbazepine 300 mg tablet 300 mg PO TID 30 Days Qty: 90 0RF famotidine 20 mg tablet 20 mg PO BID 30 Days Qty: 60 6RF dicyclomine 20 mg tablet 20 mg PO QID PRN (Reason: cramping) 30 Days Qty: 90 3RF docusate sodium 100 mg Capsule 100 mg PO BEDTIME 30 Days Qty: 30 0RF cholecalciferol (vitamin D3) 25 mcg (1,000 unit) capsule 25 mcg PO DAILY 30 Days Qty: 30 0RF quetiapine 50 mg tablet extended release 24 hr 50 mg PO DAILY 30 Days Qty: 30 0RF Rx Instructions: give at 6 pm sucralfate [Carafate] 100 mg/mL suspension 10 ml PO BID PRN (Reason: dyspepsia) Qty: 420 6RF Referrals: [facility] [Provider Group] [facility] [Outside] Physician,Unknown J [Primary Care Provider] - Interventions: ED Discharge Assessment Last Done: 07/27/22 16:52 Discharge Date/Time: 07/27/22 16:56
[2022-07-27] MEDS: LORazepam 1 MG TABLET PO (16:43)
--- NOTE | 2022-07-27 16:51 | MHC.CARE ---
CARE Team provides emotional support/check in to pt at the request of ED provider, RADHA Whalen. Pt was initially brought to the ED by her manager quantitative due to suspected medication side effects. While in the waiting room, she reports seeing the man who her mother was with at the time that pt describes being abandoned to the custody of the state, citing she picked him over me. Pt is initially very emotionally overwhelmed, crying, breathing heavily, speaking loudly, however, after processes her emotions for about 20 mins, pt is significantly calmer. Pt's jail is willing to take her back and does not have any safety concerns at this time. Pt identifies chronic feelings of hopelessness and symptoms of trauma, abandonment. Pt seems immature for her age. CARE Team speaks with RADHA Reyes and plan is for pt to be discharged home. Pt is offered to stay overnight in the pod, but declines.
--- NOTE | 2022-07-27 20:54 | MHC.CARE ---
CARE Team calls pt to check in. Pt's cell phone is [phone]. She reports she feels much better and is home interacting with staff. Pt reports she will be going to bed soon because she just took her night time medications and has day program tomorrow. She was advised to call the CARE Team if needed.
== END 2022-07-27 16:56 | disposition home or self-care (01) ==
PROVIDERS: Emergency Provider Student in an Organized Health Care Education/Training Program
DX: R00.0 Tachycardia, unspecified (principal); F43.10 Post-traumatic stress disorder, unspecified; Z79.899 Other long term (current) drug therapy
CPT/HCPCS: 36415; 80053; 81001; 85025; 93005; 99283; 99284

== ENCOUNTER 2022-08-09 15:00 | Outpatient (RCR) | payer MEDICAID, SELFPAY ==
--- NOTE | 2022-06-15 15:26 | MHC.OT.EP ---
[address] [phone] Occupational Therapy Plan of Care Patient Name: Cleve Agudelo Date of Evaluation: 06/15/22 Diagnosis: Psychogenic nonepileptic seizure Pain Location: No pain reported Pt. 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 Pt is currently residing in a supportive fdc as has assist for meal prep, shopping, and cleaning. She attends a transitional program daily 9-2. Pt. reports feeling slightly overwhelmed with her new diagnosis and is interested in strategies for stress management. She would eventually like to return to work, although she repots feeling fearful of having an episode at work and this is effecting her stress levels. Pt also reports having poor attention/concentration and memory. She does have history of learning disability. Cleve was issued the [place] Cognitive Assessment (MOCA), scoring 21/30 indicating mild cognitive impairment. Pt would benefit from skilled OT services to address noted barriers and maximize functional IND. Pt is very motivated and in agreement with plan. Frequency and Duration: The patient will be seen 2x/wk for 6 weks Short Term Goals: Pt will be educated in and utilize 2-3 stress management strategies When put in overwheming environment, pt. will utilizing grounding and/or breathing exercises to de-escalate Pt will be educated in strategies to improve attention/concentration/memory for increased IND with IADL's [employer] Attendant Goals: Pt will independently utilize chosen coping strategies during stressful situation to decrease incidence of PNES symptoms Improve attention/memory to be able to recall customers order and improve success at work Independently utilize self regulation strategy when feeling anxious/overwhelmed Pt will complete job application with min A Treatment Plan: Therapeutic Activity Patient Education ADL Training Other (see comments) Coping skills, anxiety management, IADL training, job readiness skills Electronically Signed By: Nasima Weaver MS OTR/L Please Sign and return to therapist. Thank you once again for your referral.
--- NOTE | 2022-08-10 10:47 | MHC.OT.DC ---
[address] [phone] F: [phone] Occupational Therapy Discharge Note Patient Name: Cleve Agudelo Provider: Nancy Patel Diagnosis: Psychogenic nonepileptic seizure Date of Surgery: Date of Evaluation: 06/15/22 Date of Discharge: 08/09/22 Treatments to Date: 4 Cancellations to Date: No Shows to Date: Discharge Status: Patient Elected to Stop Discharge Summary: Cleve has had a one month lapse in therapy due to recent inpatient psych hospitalization. Pt. does not go into detail, although states driving to [place] feels triggering for her. We reviewed relaxation and stress management strategies. Pt reports that in the moment when she is feeling anxiety, it is difficult to implement them. Discussed consistent exercise and walking outside in nature as resiliency strategies to improve nervous system regulation. Pt appears open to suggestions. At this time, pt. is requesting to conclude OT therapy and will continue working with her counselor/therapist for support. Goals were updated with client. Reviewed strategies to date and pt. was instructed to call with any questions/concerns. Electronically Signed By: Nasima Weaver MS OTR/L Reviewed/agree with student documentation: Therapist: Please Sign and return to therapist, thank you for your referral.
== END 2022-08-10 10:48 | disposition home or self-care (01) ==
LOC: HO.OT 15:00
PROVIDERS: Visit Provider Registered Nurse
DX: F44.5 Conversion disorder with seizures or convulsions (principal)
CPT/HCPCS: 97165; 97530

== ENCOUNTER 2022-10-12 18:28 | Emergency (ER) | payer MEDICAID, OTHER, SELFPAY ==
[2022-10-12 18:47] VITALS: BP 124/84; BP 143/84; PULSE 116; PULSE 131; RESP 18; TEMP 36.9; O2SAT 96; O2SAT 98; BMI 26.6
--- NOTE | 2022-10-12 19:03 | ED.PSYCH ---
HPI - Psych General Chief Complaint: Psychiatric Symptoms Stated Complaint: sec 12 Time Seen by Provider: 10/12/22 18:36 Source: patient Mode of arrival: EMS Limitations: no limitations History of Present Illness HPI Narrative: Patient comes to the emergency room complaining of worsening depression, suicidal ideation. Patient was Section 12 by police department in the community, because patient kept trying to run into oncoming traffic. Patient denies homicidal ideation. Related Data Home Medications Medication Instructions Recorded Confirmed calcium carbonate 200 mg calcium 400 mg PO Q6H PRN Gastric Reflux 08/18/21 07/12/22 (500 mg) chewable tablet (Calcium Antacid) trazodone 50 mg tablet 25 mg PO BEDTIME PRN Insomnia 08/18/21 07/12/22 Previous Rx's Medication Instructions Recorded acetaminophen 325 mg tablet 650 mg PO Q6H PRN Pain, Mild (Pain 04/22/21 Scale 1-3) #120 tabs quetiapine 25 mg tablet 25 mg PO TID PRN PTSD Triggers, 04/22/21 Anxiety #60 tabs white petrolatum-mineral oil 1 appl topical BID PRN Itching 04/22/21 topical cream (Dermacerin topical #100 grams cream) sucralfate 100 mg/mL oral 10 ml PO BID PRN dyspepsia #420 mL 06/23/22 suspension (Carafate) cholecalciferol (vitamin D3) 25 25 mcg PO DAILY 30 days #30 caps 07/25/22 mcg (1,000 unit) capsule dicyclomine 20 mg tablet 20 mg PO QID PRN cramping 30 days 07/25/22 #90 tabs docusate sodium 100 mg capsule 100 mg PO BEDTIME 30 days #30 caps 07/25/22 famotidine 20 mg tablet 20 mg PO BID 30 days #60 tabs 07/25/22 guanfacine 1 mg tablet,extended 3 mg PO BEDTIME 30 days #90 tabs 07/25/22 release 24 hr hydroxyzine HCl 50 mg tablet 50 mg PO TID 30 days #90 tabs 07/25/22 loratadine 10 mg tablet 10 mg PO DAILY 30 days #30 tabs 07/25/22 mirtazapine 15 mg tablet 45 mg PO BEDTIME 30 days #90 tabs 07/25/22 oxcarbazepine 300 mg tablet 300 mg PO TID 30 days #90 tabs 07/25/22 propranolol 10 mg tablet 10 mg PO BID 30 days #60 tabs 07/25/22 quetiapine 50 mg tablet,extended 50 mg PO DAILY 30 days #30 tabs 07/25/22 release 24 hr trolamine salicylate 10 % topical 1 appl topical QID PRN Pain, Mild 07/25/22 cream (Arthricream) (Pain Scale 1-3) 30 days #50 grams Allergies Allergy/AdvReac Type Severity Reaction Status Date / Time No Known Allergies Allergy Verified 06/23/22 12:11 Review of Systems Review of Systems: Constitutional : No Weight loss, No Fever, No Chills, No Night Sweats, No Fatigue, No Malaise ENT/Mouth : No Hearing loss, No Ear Pain, No Nasal Congestion, No Sinus Pain, No Hoarseness, No sore throat, No Rhinorrhea, No Swallowing Difficulty Eyes: No Eye Pain, No Swelling, No Redness, No Foreign Body, No Discharge, No Vision Changes Cardiovascular : No Chest Pain, No SOB, No Dyspnea on Exertion, No Orthopnea, No Edema, No Palpitations Respiratory : No Cough, No Sputum, No Wheezing, No Smoke Exposure, No Dyspnea Gastrointestinal : No Nausea, No Vomiting, No Diarrhea, No Constipation, No abdominal Pain, No Hematochezia, No Melena Genitourinary : no irregular bleeding, No Dysuria, No Urinary Frequency, No Hematuria, No Urinary Incontinence, No Urgency, No Flank Pain, No Urinary Flow Changes, No Hesitancy Musculoskeletal : No joint pain, No Myalgias, No Joint Swelling Skin : No Skin Lesions, No rash Neuro : No Weakness, No Numbness, No Paresthesias, No Loss of Consciousness, No Dizziness, No Headache Psych : Complaining of anxiety and depression, complaining of suicidal ideation, kept trying to run into oncoming traffic, no homicidal ideation Heme/Lymph: No Bruising, No Bleeding,No Lymphadenopathy Endocrine : No Polyuria, No Polydipsia, No Temperature Intolerance [facility] Past Medical History Medical History ADHD Depression with anxiety Learning disability Psychiatric pseudoseizure PTSD (post-traumatic stress disorder) Severe recurrent major depression Traumatic brain injury Social History Social History Household Members: Other Household Members Other:: custodial Housing: Other Housing Other:: custodial Do you presently have visiting nurse or other home services: No Alcohol intake: never Patient Tobacco Use Status: Never used Tobacco service: No Sexual orientation: Straight/Heterosexual Gender identity: Female Physical Exam Vital Signs: Vital Signs: Last Vital Signs Temp 98.4 F 10/12/22 18:47 Pulse 116 H 10/12/22 18:47 Resp 18 10/12/22 18:47 BP 143/84 H 10/12/22 18:47 Pulse Ox 96 10/12/22 18:47 O2 Del Method Room Air 10/12/22 18:47 BMI result Body Mass Index 26.6 Const: Other: Appearance: Alert. Oriented X3. No acute distress. Eyes: Pupils equal, round and reactive to light. ENT: Pharynx normal. Neck: Normal inspection. Neck supple. No lymph nodes noted. No crepitus CVS: Normal heart rate and rhythm. Pulses normal. Normal S1 and S2 Respiratory: No respiratory distress. Breath sounds normal. No Wheezing. No rales Abdomen: Soft and nontender. No rigidity. No distention. Skin: Skin warm and dry. Normal skin color. Normal skin turgor. Extremities: No lower extremity edema. No Lacerations. No Rash Neuro: Oriented X 3. No motor deficit. No sensory deficit. Moving all extremities. No slurred speech. CN 2 through 12 grossly intact Psych: calm, cooperative, flat affect Course Course Course Narrative: -all of patient's labs are pending -care team consult pending -physician observation pending Discharge Plan Discharge Clinical Impression: Depression with suicidal ideation Patient Disposition: Still a Patient Prescriptions: No Action acetaminophen 325 mg Tablet 650 mg PO Q6H PRN (Reason: Pain, Mild (Pain Scale 1-3)) Qty: 120 0RF quetiapine 25 mg Tablet 25 mg PO TID PRN (Reason: PTSD Triggers, Anxiety) Qty: 60 0RF Dermacerin Cream 1 appl topical BID PRN (Reason: Itching) Qty: 100 0RF Protocol: Apply to: Apply to: affected area post shaving calcium carbonate [Calcium Antacid] 200 mg calcium (500 mg) tablet,chewable 400 mg PO Q6H MDD 8 g PRN (Reason: Gastric Reflux) trazodone 50 mg tablet 25 mg PO BEDTIME PRN (Reason: Insomnia) propranolol 10 mg Tablet 10 mg PO BID 30 Days Qty: 60 0RF Protocol: Hold for SBP/HR < HOLD for SBP < : 90 HOLD for HR < : 60 mirtazapine 15 mg Tablet 45 mg PO BEDTIME 30 Days Qty: 90 0RF loratadine 10 mg Tablet 10 mg PO DAILY 30 Days Qty: 30 0RF guanfacine 1 mg Tablet Extended Release 24 Hr 3 mg PO BEDTIME 30 Days Qty: 90 0RF hydroxyzine HCl 50 mg Tablet 50 mg PO TID 30 Days Qty: 90 0RF trolamine salicylate [Arthricream] 10 % Cream 1 appl topical QID PRN (Reason: Pain, Mild (Pain Scale 1-3)) 30 Days Qty: 50 0RF oxcarbazepine 300 mg tablet 300 mg PO TID 30 Days Qty: 90 0RF famotidine 20 mg tablet 20 mg PO BID 30 Days Qty: 60 6RF dicyclomine 20 mg tablet 20 mg PO QID PRN (Reason: cramping) 30 Days Qty: 90 3RF docusate sodium 100 mg Capsule 100 mg PO BEDTIME 30 Days Qty: 30 0RF cholecalciferol (vitamin D3) 25 mcg (1,000 unit) capsule 25 mcg PO DAILY 30 Days Qty: 30 0RF quetiapine 50 mg tablet extended release 24 hr 50 mg PO DAILY 30 Days Qty: 30 0RF Rx Instructions: give at 6 pm sucralfate [Carafate] 100 mg/mL suspension 10 ml PO BID PRN (Reason: dyspepsia) Qty: 420 6RF
[2022-10-12 19:23] LABS: MANUAL DIFF FLAG NO
[2022-10-12 19:24] LABS: Basophils Absolute Auto 0.1 X10*3/uL (0.0-0.2); Basophils Percent Auto 0.6 % (0-2); Eosinophils Absolute Auto 0.1 X10*3/uL (0.0-0.4); Eosinophils Percent Auto 1.1 % (0-4); Hematocrit 41.6 % (37.0-47.0); Hemoglobin 13.8 g/dl (12.0-16.0); Imm Gran Abs Auto 0.06 X10*3/uL (0.00-0.03); Imm Gran Pct Auto 0.5 % (0.0-0.4); Lymphocytes Absolute Auto 1.2 X10*3/uL (1.2-4.9); Lymphocytes Percent Auto 9.5 % (20-40); Mean Corpuscular HGB Conc 33.2 g/dl (31.0-35.0); Mean Corpuscular Hemoglobin 28.2 pg (27.0-33.0); Mean Corpuscular Volume 85.1 fL (80.0-98.0); Mean Platelet Volume 9.8 fL (9.4-12.3); Monocytes Absolute Auto 0.6 X10*3/uL (0.1-1.2); Monocytes Percent Auto 4.5 % (2-11); Neutrophils Absolute Auto 10.9 x10*3/uL (2.0-8.3); Neutrophils Percent Auto 83.8 % (45-73); Platelet Count 322 X10*3/uL (160-400); Red Blood Count 4.89 X10*6/uL (4.20-5.50); Red Cell Distribution Width 12.6 % (11.0-16.0)
--- NOTE | 2022-10-12 19:31 | PC.NURSE ---
Patient was presented to ED via ambulance on section 12 from her correction for suicidal ideation and an attempt by running into traffic triggered issues at correction. Patient is also reporting worsening depression. Calm and quiet at this time, care consult ordered, pending evaluation, blood work completed/pending results, urine pending, med rec completed/pending provider's approval, will continue to monitor.
[2022-10-12 19:41] LABS: Anion Gap 20 (12-20); Blood Urea Nitrogen 12 mg/dL (9-16); Calcium 10.3 mg/dL (8.4-10.2); Carbon Dioxide 21 mmol/L (22-29); Chloride 106 mmol/L (96-108); Creatinine Clr Calc Pharmacy 71.6; Estimated Glomerular Filt Rate 60; Ethanol < 10 mg/dL; Glucose Random 84 mg/dL (60-115); Sodium 143 mmol/L (135-145)
[2022-10-12 23:15] LABS: Appearance Urine Cloudy; Color Urine Yellow; Glucose Urine UA Negative (Negative); Leukocyte Esterase Urine Negative (Negative); Nitrite Urine Negative (Negative); PH 5.5 (5.0-9.0); Specific Gravity - Urine 1.025 (1.005-1.025); UMIC TRIGGER UACC YES; Urine Blood Trace (Negative); Urine Ketones >=160 mg/dL (Negative); Urine Protein 100 (2+) mg/dL (Neg-Trace)
[2022-10-12 23:16] LABS: UPreg QC Valid YES; Urine Pregnancy NEGATIVE (NEGATIVE)
[2022-10-12 23:23] LABS: Bacteria Urine None Seen (None Seen); Granular Casts Urine Present; RBC Urine 0-2 /HPF (0-2); Squamous Epithelial Cell Urine 0-2 /HPF (0-2); WBC Urine 0-5 /HPF (0-5)
[2022-10-12 23:25] LABS: Amphetamine Screen Urine Not Detected (Not Detect); Barbiturates, Urine Not Detected (Not Detect); Benzodiazepines Screen Urine Not Detected (Not Detect); Cannabinoid Screen Urine Not Detected (Not Detect); Cocaine Screen Urine Not Detected (Not Detect); Opiate Screen Urine Not Detected (Not Detect); Phencyclidine Screen Urine Not Detected (Not Detect)
[2022-10-13] MEDS: QUEtiapine Fumarate 25 MG TABLET PO ×3 (00:08→15:23)
[2022-10-13] MEDS: hydrOXYzine HCL 50 MG TABLET PO ×3 (00:08→15:23)
[2022-10-13] MEDS: Mirtazapine 15 MG TABLET 45 MG PO (00:08)
[2022-10-13] MEDS: Famotidine 20 MG TABLET PO ×2 (00:08→08:55)
[2022-10-13] MEDS: OXcarbazepine 300 MG TABLET PO ×3 (00:08→15:23)
[2022-10-13] MEDS: Propranolol HCL 10 MG TABLET PO ×2 (00:08→08:55)
[2022-10-13 00:10] VITALS: BP 120/76; PULSE 99; RESP 16; TEMP 36.6; O2SAT 99
[2022-10-13 00:37] LABS: Fentanyl, urine Not Detected (Not Detect)
--- NOTE | 2022-10-13 05:37 | PC.NURSE ---
Patient slept through the night, no distress observed/reported, medication compliant, disposition per care team is pending, follow up in the morning, behavior non concerning, labs completed/resulted, VSS, will continue to monitor.
[2022-10-13 06:00] VITALS: RESP 16
[2022-10-13 07:28] VITALS: RESP 16
[2022-10-13] MEDS: guanFACINE HCl ER 1 MG TAB.ER.24H 3 MG PO (08:54)
[2022-10-13] MEDS: Docusate Sodium 100 MG CAPSULE PO (08:55)
[2022-10-13] MEDS: Loratadine 10 MG TABLET PO (08:55)
[2022-10-13 09:00] VITALS: BP 116/70; PULSE 87; RESP 16; TEMP 36.7; O2SAT 98
--- NOTE | 2022-10-13 14:35 | PC.NURSE ---
CARE TEAM AT BEDSIDE. PT AWARE OF PLAN OF CARE.
--- NOTE | 2022-10-13 16:55 | PC.NURSE ---
PT IS BEING D/C TO RESIDENTIAL PROGRAM WITH DORI (JAMMER OPERATOR)
== END 2022-10-13 17:09 | disposition home or self-care (01) ==
PROVIDERS: Emergency Medicine; Emergency Provider Emergency Medicine Emergency Medical Services
DX: F33.1 Major depressive disorder, recurrent, moderate (principal); R45.851 Suicidal ideations; Z79.899 Other long term (current) drug therapy
CPT/HCPCS: 36415; 80048; 80307; 81001; 81025; 85025; 99284; S9485

== ENCOUNTER 2022-10-15 04:06 | Emergency (ER) | payer MEDICAID, OTHER, SELFPAY ==
[2022-10-15 04:11] VITALS: BP 132/95; BP 142/108; PULSE 90; PULSE 95; RESP 18; TEMP 36.6; O2SAT 97; BMI 26.9
--- NOTE | 2022-10-15 04:16 | ED.GENADULT ---
HPI - General Adult General Chief complaint: Medical Clearance Stated complaint: clearance Time Seen by Provider: 10/15/22 04:09 Source: patient and EMS Mode of arrival: EMS Limitations: no limitations History of Present Illness HPI narrative: Patient lives in a intermediate and is now here for evaluation. Patient reportedly ran away. She went have dinner. She denies drug or alcohol abuse. She denies suicidal homicidal ideation. Patient is unaware why she is actually here or why she lives intermediate. Patient denies any medical complaints. Related Data Home Medications Medication Instructions Recorded Confirmed cholecalciferol (vitamin D3) 25 25 mcg PO DAILY 10/12/22 10/15/22 mcg (1,000 unit) tablet docusate sodium 100 mg capsule 100 mg PO DAILY 10/12/22 10/15/22 famotidine 20 mg tablet 20 mg PO BID 10/12/22 10/15/22 guanfacine 3 mg tablet,extended 3 mg PO DAILY 10/12/22 10/15/22 release 24 hr hydroxyzine HCl 50 mg tablet 50 mg PO TID 10/12/22 10/15/22 loratadine 10 mg tablet 10 mg PO DAILY 10/12/22 10/15/22 mirtazapine 15 mg tablet 45 mg PO BEDTIME 10/12/22 10/15/22 oxcarbazepine 300 mg tablet 300 mg PO TID 10/12/22 10/15/22 propranolol 10 mg tablet 10 mg PO BID 10/12/22 10/15/22 quetiapine 25 mg tablet 25 mg PO TID 10/12/22 10/15/22 Previous Rx's Medication Instructions Recorded acetaminophen 325 mg tablet 650 mg PO Q6H PRN Pain, Mild (Pain 04/22/21 Scale 1-3) #120 tabs Allergies Allergy/AdvReac Type Severity Reaction Status Date / Time No Known Allergies Allergy Verified 10/15/22 04:34 Review of Systems Review of Systems: CONSTITUTIONAL: Denies weight loss, fever and chills. HEENT: Denies changes in vision and hearing. RESPIRATORY: Denies SOB and cough. CV: Denies palpitations no CP. GI: Denies abdominal pain, nausea, vomiting and diarrhea. : Denies dysuria and urinary frequency. MSK: Denies myalgia and joint pain. SKIN: Denies rash and pruritus. NEUROLOGICAL: Denies headache and syncope. PSYCHIATRIC: Denies recent changes in mood. Denies anxiety and depression. All other ROS are negative unless in HPI [facility] Past Medical History Medical History ADHD Depression with anxiety Learning disability Psychiatric pseudoseizure PTSD (post-traumatic stress disorder) Severe recurrent major depression Traumatic brain injury Social History Social History Household Members: Other Household Members Other:: intermediate Housing: Other Housing Other:: intermediate Do you presently have visiting nurse or other home services: No Alcohol intake: never Patient Tobacco Use Status: Never used Tobacco Smoked in Last 30 Days: No Use of substances other than those prescribed or required for medical reasons: No Advance Directives: No Advance Directives Information Provided: No Patient : No service: No Sexual orientation: Straight/Heterosexual Gender identity: Female Physical Exam ED Vital Signs: Vital Signs - 24 hr 10/15/22 04:11 10/15/22 05:51 Temperature 97.8 F 98.1 F Pulse Rate 95 74 Respiratory Rate 18 16 Blood Pressure 132/95 H 140/95 H Pulse Oximetry 97 98 Oxygen Delivery Method Room Air Room Air BMI result Body Mass Index 26.9 GEN: Well developed, no acute distress, alert, oriented HEENT: Normocephalic, atraumatic, normal external ears, nose appears normal Eyes: Normal to appearance Neck: Supple, no lymphadenopathy Respiratory: Talks in complete sentences, no respiratory distress Extremities: No clubbing cyanosis or edema Neurologic: No focal neurologic deficits, cranial nerves 2-12 intact, gait normal Skin: No rash Course Reevaluation(s) Reevaluation #1: Patient is medically cleared for care team evaluation. I will place the patient in physician observation at this time. Time: 05:52 Reevaluation #2: Patient will be signed out to the oncoming provider at 7:00 a.m. this morning. Time: 06:16 Medical Decision Making Medical Decision Making MDM Narrative: Patient presents for an evaluation. Patient requires a medical and psychiatric clearance return back to her intermediate according to EMS. Patient did miss or 8:00 p.m. medications. Patient denies suicidal homicidal ideation. She is, cooperative. Will order routine laboratory analysis and put in for care team consultation. Differential Diagnosis Differential Diagnoses: The differential diagnosis associated with the presentation includes (Depression, anxiety, PTSD) Admission/Observation Consideration of admission/observation: Escalation of care including admission/observation considered Lab Data MDM Lab Attestation statement: I reviewed the patient's lab results. 10/15/22 04:40 10/15/22 04:40 Labs: Lab Results 10/15/22 10/15/22 Range/Units 04:40 04:40 WBC 8.0 (4.8-10.8) X10*3/uL RBC 4.73 (4.20-5.50) X10*6/uL Hgb 13.5 (12.0-16.0) g/dl Hct 40.3 (37.0-47.0) % MCV 85.2 (80.0-98.0) fL MCH 28.5 (27.0-33.0) pg MCHC 33.5 (31.0-35.0) g/dl RDW 12.4 (11.0-16.0) % Plt Count 300 (160-400) X10*3/uL MPV 9.7 (9.4-12.3) fL Immature Gran % (Auto) 0.1 (0.0-0.4) % Neut % (Auto) 62.4 (45-73) % Lymph % (Auto) 26.8 (20-40) % [place] % (Auto) 8.1 (2-11) % Eos % (Auto) 1.5 (0-4) % Baso % (Auto) 1.1 (0-2) % Lymph # (Auto) 2.1 (1.2-4.9) X10*3/uL [place] # (Auto) 0.7 (0.1-1.2) X10*3/uL Eos # (Auto) 0.1 (0.0-0.4) X10*3/uL Baso # (Auto) 0.1 (0.0-0.2) X10*3/uL Abs Immat Gran (auto) 0.01 (0.00-0.03) X10*3/uL Absolute Neuts (auto) 5.0 (2.0-8.3) x10*3/uL Absolute Nucleated RBC 0.000 (0.0-0.012) X10*3/uL Nucleated RBC % (auto) 0.0 (0.0-0.2) /100WBC Sodium 142 (135-145) mmol/L Potassium 3.4 (3.3-5.1) mmol/L Chloride 106 (96-108) mmol/L Carbon Dioxide 21 L (22-29) mmol/L Anion Gap 18 (12-20) BUN 8 L (9-16) mg/dL Creatinine 0.82 (0.5-1.4) mg/dL Estim Creat Clear Calc 102.0 Estimated GFR > 60 Random Glucose 90 (60-115) mg/dL Calcium 9.5 D (8.4-10.2) mg/dL Total Bilirubin 0.3 (0.0-1.0) mg/dL AST 16 (5-31) U/L ALT 15 (0-31) U/L Alkaline Phosphatase 68 (39-117) U/L Total Protein 7.3 (6.5-8.0) g/dL Albumin 4.5 (3.5-5.0) g/dL Ethyl Alcohol < 10 mg/dL Independent Historian Clinical information obtained from an independent historian. History obtained from or confirmed by: EMS External Record Review External record reviewed: Inpatient record Prescription Management I considered prescription management with: Other (Patient's usual medication) Discharge Plan Discharge Clinical Impression: PTSD (post-traumatic stress disorder), Severe recurrent major depression Patient Disposition: Still a Patient Prescriptions: No Action acetaminophen 325 mg Tablet 650 mg PO Q6H PRN (Reason: Pain, Mild (Pain Scale 1-3)) Qty: 120 0RF hydroxyzine HCl 50 mg tablet 50 mg PO TID propranolol 10 mg tablet 10 mg PO BID famotidine 20 mg tablet 20 mg PO BID docusate sodium 100 mg capsule 100 mg PO DAILY loratadine 10 mg tablet 10 mg PO DAILY cholecalciferol (vitamin D3) 25 mcg (1,000 unit) tablet 25 mcg PO DAILY quetiapine 25 mg tablet 25 mg PO TID oxcarbazepine 300 mg tablet 300 mg PO TID mirtazapine 15 mg tablet 45 mg PO BEDTIME guanfacine 3 mg tablet extended release 24 hr 3 mg PO DAILY
--- NOTE | 2022-10-15 04:41 | MHC.EDTECH ---
patient labs drawn and sent to lab .
[2022-10-15 04:44] LABS: MANUAL DIFF FLAG NO
[2022-10-15 04:45] LABS: Basophils Absolute Auto 0.1 X10*3/uL (0.0-0.2); Basophils Percent Auto 1.1 % (0-2); Eosinophils Absolute Auto 0.1 X10*3/uL (0.0-0.4); Eosinophils Percent Auto 1.5 % (0-4); Hematocrit 40.3 % (37.0-47.0); Hemoglobin 13.5 g/dl (12.0-16.0); Imm Gran Abs Auto 0.01 X10*3/uL (0.00-0.03); Imm Gran Pct Auto 0.1 % (0.0-0.4); Lymphocytes Absolute Auto 2.1 X10*3/uL (1.2-4.9); Lymphocytes Percent Auto 26.8 % (20-40); Mean Corpuscular HGB Conc 33.5 g/dl (31.0-35.0); Mean Corpuscular Hemoglobin 28.5 pg (27.0-33.0); Mean Corpuscular Volume 85.2 fL (80.0-98.0); Mean Platelet Volume 9.7 fL (9.4-12.3); Monocytes Absolute Auto 0.7 X10*3/uL (0.1-1.2); Monocytes Percent Auto 8.1 % (2-11); Neutrophils Percent Auto 62.4 % (45-73); Platelet Count 300 X10*3/uL (160-400); Red Blood Count 4.73 X10*6/uL (4.20-5.50); Red Cell Distribution Width 12.4 % (11.0-16.0)
[2022-10-15 04:59] LABS: Potassium 3.4 mmol/L (3.3-5.1)
[2022-10-15 05:00] LABS: Alanine Aminotransferase 15 U/L (0-31); Albumin Level 4.5 g/dL (3.5-5.0); Alkaline Phosphatase 68 U/L (39-117); Anion Gap 18 (12-20); Aspartate Amino Transferase 16 U/L (5-31); Bilirubin Total 0.3 mg/dL (0.0-1.0); Blood Urea Nitrogen 8 mg/dL (9-16); Calcium 9.5 mg/dL (8.4-10.2); Carbon Dioxide 21 mmol/L (22-29); Chloride 106 mmol/L (96-108); Estimated Glomerular Filt Rate > 60; Ethanol < 10 mg/dL; Glucose Random 90 mg/dL (60-115); Sodium 142 mmol/L (135-145); Total Protein 7.3 g/dL (6.5-8.0)
[2022-10-15 05:51] VITALS: BP 140/95; PULSE 74; RESP 16; TEMP 36.7; O2SAT 98
--- NOTE | 2022-10-15 05:53 | MHC.EDTECH ---
0600 ROUNDING DONE ,VITALS SIGN TAKEN ,PATIENT DRANK 360 ML KAITLYN WILLIAM ,STILL WAITING FOR URINE SAMPLE .
--- NOTE | 2022-10-15 08:15 | PC.NURSE ---
assumed care of pt at 0700. pt currently sleeping, in no apparent distress at this moment. awaiting urine sample and care team consult. jamie
--- NOTE | 2022-10-15 09:45 | PC.NURSE ---
pt woke up and was updated on plan of care. pt gave urine sample. awaiting results and care team consult. pt currently sitting up in bed on phone. alert and oriented. rr even/unlabored. wctm
[2022-10-15 09:50] LABS: Appearance Urine Cloudy; Color Urine Yellow; Glucose Urine UA Negative (Negative); Leukocyte Esterase Urine Negative (Negative); Nitrite Urine Negative (Negative); UMIC TRIGGER UACC YES; Urine Blood Trace (Negative); Urine Ketones 15 mg/dL (Negative); Urine Protein Trace mg/dL (Neg-Trace)
[2022-10-15 09:52] LABS: Bacteria Urine None Seen (None Seen); Hyaline Casts Urine 0-2 /LPF (0-2); Squamous Epithelial Cell Urine 0-2 /HPF (0-2); WBC Urine 0-5 /HPF (0-5)
[2022-10-15 09:53] LABS: UPreg QC Valid YES; Urine Pregnancy NEGATIVE (NEGATIVE)
[2022-10-15 10:01] LABS: Amphetamine Screen Urine Not Detected (Not Detect); Barbiturates, Urine Not Detected (Not Detect); Benzodiazepines Screen Urine Not Detected (Not Detect); Cannabinoid Screen Urine Not Detected (Not Detect); Cocaine Screen Urine Not Detected (Not Detect); Fentanyl, urine Not Detected (Not Detect); Opiate Screen Urine Not Detected (Not Detect); Phencyclidine Screen Urine Not Detected (Not Detect)
--- NOTE | 2022-10-15 10:07 | PC.NURSE ---
pt seen by care team. Kristyn Vegas, Director of pt's [facility] called for an update. requesting pt be seen by crisis for self harm behaviors. Left number with this RN for update: [phone]
--- NOTE | 2022-10-15 12:11 | MHC.CARE ---
Patient evaluated by the CARE Team, she does not require an inpatient admission at this time and is clear to return to the care home, staff will pick her up at 12:30. ED provider, RDAHA Corrales consulted and in agreement. Written assessment to follow.
[2022-10-15 12:31] VITALS: BP 138/89; PULSE 94; RESP 16; TEMP 36.8; O2SAT 99
== END 2022-10-15 12:40 | disposition home or self-care (01) ==
PROVIDERS: Emergency Provider Emergency Medicine; PCP Registered Nurse
DX: F43.10 Post-traumatic stress disorder, unspecified (principal); F33.1 Major depressive disorder, recurrent, moderate; Z79.899 Other long term (current) drug therapy
CPT/HCPCS: 36415; 80053; 80307; 81001; 81025; 85025; 99284; S9485

== ENCOUNTER 2022-10-16 09:37 | Emergency (ER) | payer MEDICAID, SELFPAY ==
[2022-10-16 09:48] VITALS: BP 128/90; PULSE 96; O2SAT 98
[2022-10-16 09:53] VITALS: BMI 28.2
[2022-10-16 10:19] VITALS: BP 124/86; PULSE 87; RESP 16; TEMP 36.7; O2SAT 94
--- NOTE | 2022-10-16 11:02 | ED.GENADULT ---
HPI - General Adult General Chief complaint: General Medical Stated complaint: FELT LIKE SHE WAS GOING TO HAVE A SZ @ [facility] Time Seen by Provider: 10/16/22 10:02 Source: patient and EMS Mode of arrival: EMS Limitations: no limitations History of Present Illness HPI narrative: 22-year-old female presents for evaluation. Patient reports having had a panic attack which she feels like could be a seizure. However, patient has no history of seizure disorder. Patient is having arguments with staff at her current nursing home. She reports that the nursing home occupants are supposed to be and unable to take care of themselves. She appears to be there for psychological related issues. She denies any SI or HI. Today, she felt stressed when they told her she they would not be able to take her to work. She became upset and frustrated. She felt lightheaded again like she might have a seizure. The symptoms were severe. They are worsened during the situation. They are improved currently at this moment. Patient has had symptoms like this in the past whenever she has been stressed. Patient also reports feeling stress that she is attempting to be in a relationship with somebody and some the from the staff has to come with her on her dates. She reports them telling her what she is supposed to do and when she is post do it. Related Data Home Medications Medication Instructions Recorded Confirmed cholecalciferol (vitamin D3) 25 25 mcg PO DAILY 10/12/22 10/15/22 mcg (1,000 unit) tablet docusate sodium 100 mg capsule 100 mg PO DAILY 10/12/22 10/15/22 famotidine 20 mg tablet 20 mg PO BID 10/12/22 10/15/22 guanfacine 3 mg tablet,extended 3 mg PO DAILY 10/12/22 10/15/22 release 24 hr hydroxyzine HCl 50 mg tablet 50 mg PO TID 10/12/22 10/15/22 loratadine 10 mg tablet 10 mg PO DAILY 10/12/22 10/15/22 mirtazapine 15 mg tablet 45 mg PO BEDTIME 10/12/22 10/15/22 oxcarbazepine 300 mg tablet 300 mg PO TID 10/12/22 10/15/22 propranolol 10 mg tablet 10 mg PO BID 10/12/22 10/15/22 quetiapine 25 mg tablet 25 mg PO TID 10/12/22 10/15/22 Previous Rx's Medication Instructions Recorded acetaminophen 325 mg tablet 650 mg PO Q6H PRN Pain, Mild (Pain 04/22/21 Scale 1-3) #120 tabs Allergies Allergy/AdvReac Type Severity Reaction Status Date / Time No Known Allergies Allergy Verified 10/16/22 09:53 Review of Systems Review of Systems: CONSTITUTIONAL: Denies weight loss, fever and chills. HEENT: Denies changes in vision and hearing. RESPIRATORY: Denies SOB and cough. CV: Denies palpitations no CP. GI: Denies abdominal pain, nausea, vomiting and diarrhea. : Denies dysuria and urinary frequency. MSK: Denies myalgia and joint pain. SKIN: Denies rash and pruritus. NEUROLOGICAL: Denies headache and syncope. PSYCHIATRIC: + recent changes in mood. + anxiety and depression. All other ROS are negative unless in HPI [facility] Past Medical History Medical History ADHD Depression with anxiety Learning disability Psychiatric pseudoseizure PTSD (post-traumatic stress disorder) Severe recurrent major depression Traumatic brain injury Social History Social History Household Members: Other Household Members Other:: nursing home Housing: Other Housing Other:: nursing home Do you presently have visiting nurse or other home services: No Alcohol intake: never Patient Tobacco Use Status: Never used Tobacco Smoked in Last 30 Days: No Use of substances other than those prescribed or required for medical reasons: No Advance Directives: No Advance Directives Information Provided: No service: No Sexual orientation: Straight/Heterosexual Gender identity: Female Physical Exam ED Vital Signs: Vital Signs - 24 hr 10/16/22 10:19 Temperature 98.1 F Pulse Rate 87 Respiratory Rate 16 Blood Pressure 124/86 Pulse Oximetry 94 Oxygen Delivery Method Room Air BMI result Body Mass Index 28.2 GEN: Well developed, no acute distress, alert, oriented HEENT: Normocephalic, atraumatic, normal external ears, nose appears normal Eyes: Normal to appearance Neck: Supple, no lymphadenopathy Respiratory: Talks in complete sentences, no respiratory distress Extremities: No clubbing cyanosis or edema Neurologic: No focal neurologic deficits, cranial nerves 2-12 intact, gait normal Skin: No rash Course Course Course Narrative: The workup is complete. Patient can be discharged at this time. Apparently her behavioral issues are causing her to have increasing restrictions at her nursing home. Patient is in DDS and DCFS services. She will go back to her nursing home. I had an extensive conversation about her behavior which is causing increased restrictions upon her ability to function independently. I also recommended that she follow-up with her disability case manager. Medical Decision Making Medical Decision Making MDM Narrative: 22-year-old female with history of psychiatric/psychological disorders. She now presents with an acute stress reaction/panic attack. Her examination is benign. Will involve Case Management to determine appropriate disposition. According to the patient, the nursing home may not be a great fit for her. Will determine if there are any a bed available options for her. Differential Diagnosis Differential Diagnoses: The differential diagnosis associated with the presentation includes (Depression, anxiety, PTSD, mood disorder, panic attack) Independent Historian Clinical information obtained from an independent historian. History obtained from or confirmed by: EMS External Record Review External record reviewed: Other (Care team consultation) Discharge Plan Discharge Clinical Impression: Acute stress reaction Patient Disposition: Still a Patient Instructions: Stress (ED) Prescriptions: No Action acetaminophen 325 mg Tablet 650 mg PO Q6H PRN (Reason: Pain, Mild (Pain Scale 1-3)) Qty: 120 0RF hydroxyzine HCl 50 mg tablet 50 mg PO TID propranolol 10 mg tablet 10 mg PO BID famotidine 20 mg tablet 20 mg PO BID docusate sodium 100 mg capsule 100 mg PO DAILY loratadine 10 mg tablet 10 mg PO DAILY cholecalciferol (vitamin D3) 25 mcg (1,000 unit) tablet 25 mcg PO DAILY quetiapine 25 mg tablet 25 mg PO TID oxcarbazepine 300 mg tablet 300 mg PO TID mirtazapine 15 mg tablet 45 mg PO BEDTIME guanfacine 3 mg tablet extended release 24 hr 3 mg PO DAILY Referrals: Marilin Rios [Primary Care Provider] -
--- NOTE | 2022-10-16 11:42 | MHC.CARE ---
CARE Team reviewed consult with Dr. Morgan. Plan for Pt to be discharged back to without CARE Team consult as Pt is not here for crisis.
--- NOTE | 2022-10-16 11:52 | PC.NURSE ---
alf called patient is being discharged. CARE TEAM spoke with dr Morgan
== END 2022-10-16 12:16 | disposition still patient (30) ==
PROVIDERS: Emergency Provider Emergency Medicine; PCP Nurse Practitioner
DX: F43.0 Acute stress reaction (principal)
CPT/HCPCS: 99284

== ENCOUNTER 2022-10-17 15:05 | Outpatient (REF) | payer MEDICAID, SELFPAY ==
[2022-10-17 16:54] LABS: Cholesterol 158 mg/dL; HDL Cholesterol 38 mg/dL; LDL Cholesterol Calculated 99 mg/dl; Triglycerides 106 mg/dL
[2022-10-17 17:12] LABS: Vitamin D 25-OH Total 53.2 ng/mL (>30)
== END 2022-10-17 15:06 | disposition home or self-care (01) ==
LOC: HO.HHCL 15:05
PROVIDERS: Visit Provider Registered Nurse
DX: Z00.00 Encounter for general adult medical examination without abnormal findings (principal); Z86.39 Personal history of other endocrine, nutritional and metabolic disease
CPT/HCPCS: 36415; 80061; 82306

== ENCOUNTER 2022-10-29 09:22 | Emergency (ER) | payer MEDICAID, SELFPAY ==
[2022-10-29 09:29] VITALS: BP 125/81; PULSE 78; RESP 18; TEMP 36.6; O2SAT 98; BMI 26.6
--- NOTE | 2022-10-29 10:10 | ED_ITS ---
HPI - General Adult General Chief complaint: Dental/Oral Stated complaint: Dental pain Time Seen by Provider: 10/29/22 09:34 Source: patient and family (Mother) Mode of arrival: ambulatory Limitations: no limitations History of Present Illness HPI narrative: Patient is a 22-year-old female presenting to the emergency department with right lower jaw pain. Patient states that she saw her dentist and was told she had an abscess and would also require a root canal. She was referred to a 2nd dentist for the root canal. Patient reports she finished the full course of antibiotics as prescribed and when she followed up with the 2nd dentist she was told that she did not require a root canal but that she did require a filling. Patient has been using Tylenol for her discomfort. She has not contacted her primary dentist. Denies any fevers. MD complaint: dental pain Onset (ago): day(s) Location: mouth Radiation: non-radiation Severity: severe Quality: aching Relieving factors: none Exacerbating factors: none Associated symptoms: denies other symptoms Treatments prior to arrival: other (Tylenol) Related Data Home Medications Medication Instructions Recorded Confirmed cholecalciferol (vitamin D3) 25 25 mcg PO DAILY 10/12/22 10/15/22 mcg (1,000 unit) tablet docusate sodium 100 mg capsule 100 mg PO DAILY 10/12/22 10/15/22 famotidine 20 mg tablet 20 mg PO BID 10/12/22 10/15/22 guanfacine 3 mg tablet,extended 3 mg PO DAILY 10/12/22 10/15/22 release 24 hr hydroxyzine HCl 50 mg tablet 50 mg PO TID 10/12/22 10/15/22 loratadine 10 mg tablet 10 mg PO DAILY 10/12/22 10/15/22 mirtazapine 15 mg tablet 45 mg PO BEDTIME 10/12/22 10/15/22 oxcarbazepine 300 mg tablet 300 mg PO TID 10/12/22 10/15/22 propranolol 10 mg tablet 10 mg PO BID 10/12/22 10/15/22 quetiapine 25 mg tablet 25 mg PO TID 10/12/22 10/15/22 Previous Rx's Medication Instructions Recorded acetaminophen 325 mg tablet 650 mg PO Q6H PRN Pain, Mild (Pain 04/22/21 Scale 1-3) #120 tabs ibuprofen 600 mg tablet 600 mg PO Q6H PRN pain #20 tabs 10/29/22 Allergies Allergy/AdvReac Type Severity Reaction Status Date / Time No Known Allergies Allergy Verified 10/29/22 09:29 Review of Systems Review of Systems: As per HPI. Yes all other systems are reviewed and are negative Constitutional: Constitutional: Reports as per HPI [facility] Past Medical History Medical History ADHD Depression with anxiety Learning disability Psychiatric pseudoseizure PTSD (post-traumatic stress disorder) Severe recurrent major depression Traumatic brain injury Social History Social History Household Members: Other Household Members Other:: custodial Housing: Other Housing Other:: custodial Do you presently have visiting nurse or other home services: No Alcohol intake: never Patient Tobacco Use Status: Never used Tobacco Advance Directives: No Advance Directives Information Provided: Yes service: No Sexual orientation: Straight/Heterosexual Gender identity: Female Physical Exam ED Vital Signs: Vital Signs - 24 hr 10/29/22 09:29 Temperature 98 F Pulse Rate 78 Respiratory Rate 18 Blood Pressure 125/81 Pulse Oximetry 98 Oxygen Delivery Method Room Air BMI result Body Mass Index 26.6 Vital signs have been reviewed and appear to be correct. Blood pressure normal. Heart rate normal. Respiratory rate normal. Temperature normal. Oxygen saturation normal. Const General: cooperative, healthy appearing and no acute distress Orientation/consciousness: oriented to person, oriented to place, oriented to time and patient oriented x3 Limitations: no limitations HENMT Head: Yes normocephalic and Yes atraumatic Ears: external ears normal General nose exam: Normal external nose present Face and sinus: Yes face symmetric Mouth: oropharynx normal and moist mucous membranes Teeth and gingiva: gingiva normal and fair dentition Teeth image: 1. No gingival erythema, edema, fluctuance or drainage, tooth nontender Throat: Yes posterior oropharynx normal and Yes uvula midline Eyes Pupils: Equal, round and reactive pupils present Neck Neck: Yes normal visual inspection and Yes supple Resp Effort & Inspection: normal respiratory effort and able to speak in complete sentences Auscultation: clear to auscultation bilaterally Cardio Rate: regular rate Rhythm: regular rhythm Heart sounds: S1 normal heart sound present and S2 normal heart sound present GI Palpation (GI): Soft to palpation and nontender Auscultation: normoactive bowel sounds General: Yes no CVA tenderness Back/Spine/Pelvis Back: no CVA tenderness Skin General skin exam: elasticity normal and turgor normal Neuro General: oriented to person, oriented to place, oriented to time, patient oriented x3, moves all extremities, no focal motor deficits and CN's II-XI int act bilaterally Cranial nerves: Yes Equal, round and reactive pupils present Cognition (Neuro): normal cognition Extrem General: Yes full ROM, Yes no pedal edema and Yes no calf tenderness Psych Mental Status: mental status grossly normal Affect: normal affect Thought process: Normal thought process present Medical Decision Making Medical Decision Making MDM Narrative: Patient is a 22-year-old female presenting to the emergency department with right lower jaw pain. On exam patient is awake, A+Ox3, VS WNL, afebrile, normal neurological exam without focal deficits, no erythema fluctuance or drainage noted to gingiva, tooth nontender. Given reported symptoms and physical exam findings, initial differential includes dental pain, dental infection, dental abscess. No evidence of infection on exam, discussed with patient alternating Tylenol and ibuprofen every 3 hours as well as gargling with salt water several times daily. Instructed patient to follow-up with dentist Sunday. Return precautions discussed at bedside. Patient and mother verbalized understanding of and agreement with plan. Differential Diagnosis Differential Diagnoses: The differential diagnosis associated with the presentation includes As per MDM. Independent Historian Clinical information obtained from an independent historian. History obtained from or confirmed by: Parent External Record Review External record reviewed: Inpatient record, Office record and Outpatient record Discharge Plan Discharge Clinical Impression: Pain, dental Patient Disposition: Home, Self-Care Instructions: Toothache (ED) Additional Instructions: You were evaluated in the emergency department today with complaint of dental pain. Your physical exam did not show evidence of infection or abscess. As discussed, you should take 650 mg of Tylenol and 600 mg ibuprofen every 6 hours. If necessary, you can alternate these medications every 3 hours, for example take ibuprofen at noon, then Tylenol at 3:00 p.m., then ibuprofen at 6:00 p.m.. Return to the emergency department if you develop worsening pain, swelling, discharge or drainage, fever 100.4? F or greater, difficulty swallowing, or any other concerning symptoms. Please contact your dentist 1st thing Earl morning for a follow-up appointment Prescriptions: New ibuprofen 600 mg tablet 600 mg PO Q6H PRN (Reason: pain) Qty: 20 0RF No Action acetaminophen 325 mg Tablet 650 mg PO Q6H PRN (Reason: Pain, Mild (Pain Scale 1-3)) Qty: 120 0RF hydroxyzine HCl 50 mg tablet 50 mg PO TID propranolol 10 mg tablet 10 mg PO BID famotidine 20 mg tablet 20 mg PO BID docusate sodium 100 mg capsule 100 mg PO DAILY loratadine 10 mg tablet 10 mg PO DAILY cholecalciferol (vitamin D3) 25 mcg (1,000 unit) tablet 25 mcg PO DAILY quetiapine 25 mg tablet 25 mg PO TID oxcarbazepine 300 mg tablet 300 mg PO TID mirtazapine 15 mg tablet 45 mg PO BEDTIME guanfacine 3 mg tablet extended release 24 hr 3 mg PO DAILY
[2022-10-29 10:38] VITALS: BP 116/78; PULSE 70; RESP 16; TEMP 36.5; O2SAT 98
== END 2022-10-29 10:48 | disposition home or self-care (01) ==
PROVIDERS: Emergency Provider Emergency Medicine Emergency Medical Services
DX: K08.89 Other specified disorders of teeth and supporting structures (principal); Z79.899 Other long term (current) drug therapy
CPT/HCPCS: 99283; 99284

== ENCOUNTER 2022-11-02 13:54 | Outpatient (AMB) | payer MEDICAID, SELFPAY ==
--- NOTE | 2022-11-02 14:02 | MHC.OFFVIS ---
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 She [place] [facility] with 3 her girls. 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 She is not sexually active with anybody she has the Nexplanon in some research into the chart showed that it was inserted in 07/28/2020 so she would be due for exchange it July of 2023 she likes it it is in her right arm because she is left-handed. She has not had sex with anybody since she was last seen and in fact the last 2 sets of STI testing was all negative. She is not yet due for her 1st Pap smear as she is only 22 years old. Her primary care providers at the [facility]. She does have questions about how to manage her ingrown hairs in her pubic area she has increased facial hair and body hair and she wax at but still got ingrown hairs she thought that it would be better than shaving. [facility], LAT[facility] Medical History ADHD Depression with anxiety Learning disability Psychiatric pseudoseizure PTSD (post-traumatic stress disorder) Severe recurrent major depression Traumatic brain injury Social History Household Members: Other Household Members [place] [facility] Housing: Other Housing Other[place] [facility] Do you presently have visiting nurse or other home services: No Alcohol intake: never Patient Tobacco Use Status: Never used Tobacco service: No Sexual orientation: Straight/Heterosexual Gender identity: Female Female Reproductive History Menstrual Age of Menarche: 16 control method: implanted (nexplonon) Total pregnancies: 0 Physical Exam Vital Signs: Last Vital Signs BP 122/82 11/02/22 14:13 BMI result Body Mass Index 26.6 Const Other: Hirsute is Um noted patient manages well by waxing her chin. She tried waxing her pubic area and unfortunately got ingrown hairs and some folliculitis at several follicles which are still slightly pink though not actively inflamed at this time. Some of the hairs are indeed ingrown and they are very curly. General: healthy appearing, comfortable, no acute distress, well developed and alert Nutritional Appearance: average body habitus Orientation/consciousness: patient oriented x3 Limitations: no limitations HEENT Head: Yes normocephalic Neck Neck: Yes normal visual inspection Chest Chest palpation & inspection: normal inspection of the chest Breast/axilla inspection: normal inspection of the breasts and normal inspection of the axillae Breast/axilla palpation: normal palpation of the breasts and normal palpation of the axillae Resp Effort & Inspection: normal respiratory effort GI Inspection: Yes normal to inspection, No Abdominal wall edema and No distended Palpation (GI): Soft to palpation and nontender Bimanual Exam- Adnexa, other: normal adnexae, no masses, normal and No adnexal tenderness Neuro General: patient oriented x3 Assessment & Plan Assessment & Plan (1) Encounter for monitoring of etonogestrel implant: Comment: Inserted 07/28/2020 due for exchange July of 2023 Code(s): Z30.46 - Encounter for surveillance of implantable subdermal contraceptive (2) Complex ovarian cyst: Comment: Resolved Code(s): N83.299 - Other ovarian cyst, unspecified side (3) control counseling: Code(s): Z30.09 - Encounter for other general counseling and advice on contraception (4) Well woman exam with routine gynecological exam: Code(s): Z01.419 - Encounter for gynecological examination (general) (routine) without abnormal findings (5) Hirsutism: Code(s): L68.0 - Hirsutism (6) Ingrown hair: Code(s): 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 Discussed self-care in general recommend safer sex with condoms if she does have sex with anyone in the coming year. She is definitely keeping herself safe by being abstinent at this time she is happy with her body weight at this time discussed her symptoms of hirsute is Um and her history of irregular periods before having had the Depo and the Nexplanon. Discussed the possibility that these factors might indicate that she might have PCOS. Discussed that it would be important for her never to gain a lot of weight and to guard against that especially with the Nexplanon. Discussed the long-term implications of obesity especially if she did have PCOS and that it would put her at increased risk for pre diabetes fatty liver and other health concerns and other concerns down the road. Discussed the it all points to elevated testosterone levels and can be difficult to manage. Discussed is speaking with her primary care provider about possibly a dermatology referral for her skin and cosmetic concerns. I wished her well with her culinary arts program.. She is not sure how much longer she will [place]. Her next visit could be any year for her annual and she would need a Pap smear then but she inquired as to when the Nexplanon needed to be replaced and that would be July of 2023 so she would need a visit month had a time in order to fill out the paperwork and review the counseling on it. Medications: Discontinued docusate sodium 100 mg PO BEDTIME 30 caps 0RF cholecalciferol (vitamin D3) 25 mcg PO DAILY 30 caps 0RF dicyclomine 20 mg PO QID 30 days PRN 90 tabs 3RF cramping R10.9 - Unspecified abdominal pain Coding Level of Care Code Est Pt Prev Care 18-39y(99151) Diagnoses Encounter for monitoring of etonogestrel implant Z30.46 Complex ovarian cyst N83.299 control counseling Z30.09 Well woman exam with routine gynecological exam Z01.419 Hirsutism L68.0 Ingrown hair L73.1
[2022-11-02 14:13] VITALS: BP 122/82; BMI 26.6
== END 2022-11-02 14:52 | disposition home or self-care (01) ==
LOC: HO.HWS 13:54
PROVIDERS: Visit Provider Advanced Practice Midwife
DX: Z01.419 Encounter for gynecological examination (general) (routine) without abnormal findings (principal); Z30.46 Encounter for surveillance of implantable subdermal contraceptive; N83.299 Other ovarian cyst, unspecified side; Z30.09 Encounter for other general counseling and advice on contraception; L68.0 Hirsutism; L73.1 Pseudofolliculitis barbae
CPT/HCPCS: 99395

== ENCOUNTER → 2022-11-02 13:54 | Outpatient (BNVA) | payer OTHER, SELFPAY | PROVIDERS: Visit Provider Advanced Practice Midwife ==

== ENCOUNTER 2022-11-24 18:15 | Outpatient (REF) | payer MEDICAID, SELFPAY ==
[2022-11-25 09:20] LABS: CT PCR NOT DETECTED (Not Detect.); NG PCR NOT DETECTED (Not Detect.)
[2022-11-25 12:35] LABS: BV Int Neg Control Negative (Negative); BV Int Pos Control Positive (Positive)
== END 2022-11-24 18:16 | disposition home or self-care (01) ==
LOC: HO.LNP 18:15
PROVIDERS: Visit Provider Emergency Medicine
DX: N89.8 Other specified noninflammatory disorders of vagina (principal)
CPT/HCPCS: 0353U; 87480; 87510; 87660

== ENCOUNTER 2022-12-11 15:05 | Emergency (ER) | payer MEDICAID, SELFPAY ==
[2022-12-11 15:27] VITALS: BP 138/92; PULSE 80
[2022-12-11 15:28] VITALS: BMI 26.6
--- NOTE | 2022-12-11 16:25 | ECG_ITS ---
Test Reason : PANIC ATTACK Blood Pressure : / mmHG Vent. Rate : 070 BPM Atrial Rate : 070 BPM P-R Int : 166 ms QRS Dur : 074 ms QT Int : 442 ms P-R-T Axes : 008 039 020 degrees QTc Int : 477 ms Normal sinus rhythm Nonspecific T wave abnormality Cannot rule out Anterior infarct , age undetermined Abnormal ECG When compared with ECG of 27-JUL-2022 12:28, Nonspecific T wave abnormality, worse in Lateral leads Referred By: Angi Vargas Electronically Signed By:ANGE MELARA
--- NOTE | 2022-12-11 16:28 | ED_ITS ---
HPI - General Adult General Chief complaint: General Medical Stated complaint: anxiety, pseudo sz's Time Seen by Provider: 12/11/22 16:25 Source: patient Mode of arrival: EMS Limitations: no limitations History of Present Illness HPI narrative: Patient comes to the emergency room complaining of a panic attack. Patient comes in by ambulance for panic attack and a pseudo-seizure. According to EMS, patient was not postictal. 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 Denies passing out, no loss of consciousness, at this time, patient has no complaints. Related Data Home Medications Medication Instructions Recorded Confirmed cholecalciferol (vitamin D3) 25 25 mcg PO DAILY 10/12/22 11/02/22 mcg (1,000 unit) tablet docusate sodium 100 mg capsule 100 mg PO DAILY 10/12/22 11/02/22 famotidine 20 mg tablet 20 mg PO BID 10/12/22 11/02/22 guanfacine 3 mg tablet,extended 3 mg PO DAILY 10/12/22 11/02/22 release 24 hr hydroxyzine HCl 50 mg tablet 50 mg PO TID 10/12/22 11/02/22 loratadine 10 mg tablet 10 mg PO DAILY 10/12/22 11/02/22 mirtazapine 45 mg disintegrating 45 mg PO BEDTIME 11/02/22 11/02/22 tablet (Remeron SolTab) propranolol 10 mg tablet 10 mg PO BID 11/02/22 11/02/22 Previous Rx's Medication Instructions Recorded acetaminophen 325 mg tablet 650 mg (2 x 325 mg) PO Q6H PRN 04/22/21 Pain, Mild (Pain Scale 1-3) #120 tabs ibuprofen 600 mg tablet 600 mg PO Q6H PRN pain #20 tabs 10/29/22 Allergies Allergy/AdvReac Type Severity Reaction Status Date / Time No Known Allergies Allergy Verified 10/29/22 09:29 Review of Systems Review of Systems: Constitutional : No Weight loss, No Fever, No Chills, No Night Sweats, No Fatigue, No Malaise ENT/Mouth : No Hearing loss, No Ear Pain, No Nasal Congestion, No Sinus Pain, No Hoarseness, No sore throat, No Rhinorrhea, No Swallowing Difficulty Eyes: No Eye Pain, No Swelling, No Redness, No Foreign Body, No Discharge, No Vision Changes Cardiovascular : No Chest Pain, No SOB, No Dyspnea on Exertion, No Orthopnea, No Edema, No Palpitations Respiratory : No Cough, No Sputum, No Wheezing, No Smoke Exposure, No Dyspnea Gastrointestinal : No Nausea, No Vomiting, No Diarrhea, No Constipation, No abdominal Pain, No Hematochezia, No Melena Genitourinary : no irregular bleeding, No Dysuria, No Urinary Frequency, No Hematuria, No Urinary Incontinence, No Urgency, No Flank Pain, No Urinary Flow Changes, No Hesitancy Musculoskeletal : No joint pain, No Myalgias, No Joint Swelling Skin : No Skin Lesions, No rash Neuro : No Weakness, No Numbness, No Paresthesias, No Loss of Consciousness, No Dizziness, No Headache Psych : Complaining of a panic attack and pseudo-seizure, No Depression, No SI/HI/AH/VH, No Social Issues, Heme/Lymph: No Bruising, No Bleeding,No Lymphadenopathy Endocrine : No Polyuria, No Polydipsia, No Temperature Intolerance REPLACED BY [facility] Past Medical History Medical History Psychiatric pseudoseizure Severe recurrent major depression PTSD (post-traumatic stress disorder) Traumatic brain injury Learning disability ADHD Depression with anxiety Social History Social History Household Members: Other Household Members Other:: custodial Housing: Other Housing Other:: custodial Do you presently have visiting nurse or other home services: No Alcohol intake: never Patient Tobacco Use Status: Never used Tobacco Advance Directives: No Advance Directives Information Provided: Yes service: No Sexual orientation: Straight/Heterosexual Gender identity: Female Physical Exam ED Vital Signs: BMI result Body Mass Index 26.6 Const Other: Appearance: Alert. Oriented X3. No acute distress. Eyes: Pupils equal, round and reactive to light. ENT: Pharynx normal. Neck: Normal inspection. Neck supple. No lymph nodes noted. No crepitus CVS: Normal heart rate and rhythm. Pulses normal. Normal S1 and S2 Respiratory: No respiratory distress. Breath sounds normal. No Wheezing. No rales Abdomen: Soft and nontender. No rigidity. No distention. Skin: Skin warm and dry. Normal skin color. Normal skin turgor. Extremities: No lower extremity edema. No Lacerations. No Rash Neuro: Oriented X 3. No motor deficit. No sensory deficit. Moving all extremities. No slurred speech. CN 2 through 12 grossly intact Psych: calm, cooperative, normal affect Medical Decision Making Medical Decision Making MDM Narrative: -patient likely had a panic attack, not postictal, feels back to baseline. -my interpretation of EKG: Normal sinus rhythm, heart rate 74, no ST segment depression or elevation, nonspecific T-wave inversion in V3 V4 V5, QTC 388 Differential Diagnosis Differential Diagnoses: The differential diagnosis associated with the presentation includes (Anxiety, panic attack, pseudo-seizure) Discharge Plan Discharge Clinical Impression: Panic attack Patient Disposition: Home, Self-Care Instructions: Panic Attack (ED) Additional Instructions: Please follow-up with your primary care physician tomorrow. If you have any worsening or new symptoms, please return to the emergency room or call 911 Prescriptions: No Action acetaminophen 325 mg Tablet 650 mg PO Q6H PRN (Reason: Pain, Mild (Pain Scale 1-3)) Qty: 120 0RF hydroxyzine HCl 50 mg tablet 50 mg PO TID famotidine 20 mg tablet 20 mg PO BID docusate sodium 100 mg capsule 100 mg PO DAILY loratadine 10 mg tablet 10 mg PO DAILY cholecalciferol (vitamin D3) 25 mcg (1,000 unit) tablet 25 mcg PO DAILY guanfacine 3 mg tablet extended release 24 hr 3 mg PO DAILY ibuprofen 600 mg tablet 600 mg PO Q6H PRN (Reason: pain) Qty: 20 0RF mirtazapine [Remeron SolTab] 45 mg tablet,disintegrating 45 mg PO BEDTIME propranolol 10 mg tablet 10 mg PO BID Interventions: ED Discharge Assessment Last Done: 12/11/22 16:59
== END 2022-12-11 17:53 | disposition home or self-care (01) ==
PROVIDERS: Emergency Provider Emergency Medicine
DX: F41.0 Panic disorder [episodic paroxysmal anxiety] (principal)
CPT/HCPCS: 93005; 99283

== ENCOUNTER 2022-12-28 14:16 | Outpatient (REF) | payer MEDICAID, SELFPAY ==
--- NOTE | ~2022-12-28 | XR_ITS ---
EXAMINATION: XR SHOULDER, LEFT CLINICAL INFORMATION: Pain status-post injury. COMPARISON: Radiographs dated 03/30/2020. TECHNIQUE: AP external rotation, Grashey, scapular Y, and axillary views of the left shoulder. FINDINGS: The bones and soft tissues are normal. No fracture. Glenohumeral and acromioclavicular alignment is anatomic with normal joint space. No abnormal soft tissue calcifications. XR/XR shoulder LT min 2V IMPRESSION: Normal left shoulder.
== END 2022-12-28 14:17 | disposition home or self-care (01) ==
LOC: HO.XRAY 14:16
PROVIDERS: PCP Registered Nurse; Visit Provider Family Medicine
DX: M25.512 Pain in left shoulder (principal)
CPT/HCPCS: 73030

== ENCOUNTER 2023-01-03 09:20 | Outpatient (REF) | payer MEDICAID, SELFPAY ==
[2023-01-03 11:28] LABS: Estimated Average Glucose 100 mg/dL; Hemoglobin A1c % 5.1 % (<6.0)
[2023-01-03 12:05] LABS: Cholesterol 169 mg/dL (<200); Glucose Fasting 85 mg/dL (60-99); HDL Cholesterol 43 mg/dL (>40); LDL Cholesterol Calculated 109 mg/dL (<100); Triglycerides 85 mg/dL (<150)
[2023-01-04 08:19] LABS: Prolactin 18.1 ng/mL
== END 2023-01-03 09:21 | disposition home or self-care (01) ==
LOC: HO.HHCL 09:20
PROVIDERS: Visit Provider Registered Nurse Psychiatric/Mental Health
DX: Z79.899 Other long term (current) drug therapy (principal)
CPT/HCPCS: 36415; 80061; 82947; 83036; 84146

== ENCOUNTER 2023-01-19 14:49 | Outpatient (AMB) | payer MEDICAID, SELFPAY ==
[2023-01-19 14:54] VITALS: BP 126/71; PULSE 71; BMI 26.0
--- NOTE | 2023-01-19 14:54 | A.OFFVIS_ITS ---
Intake Vital Signs 01/19/23 14:54 Height 5 ft 3 in Weight 146 lb 13.246 oz BMI 26.0 BP 126/71 Blood Pressure Location Lt brachial Position Sitting Pulse 71 Intake Visit Reasons: 6 month follow up Intake Note: Cleve presents to in ofice visit today in follow up of GERD. CC: Patient reports upper abdominal pain but states that the carafate helps with the pain but she sometimes can't take it because it makes her nauseous. Packer Insulation Required: No Accompanied by: Self / Same As Patient Allergies No Known Allergies Allergy (Verified 01/19/23 14:58) HPI 6 month follow up HPI Details Assessment & Plan (1) GERD (gastroesophageal reflux diseas e): Code(s): K21.9 - Gastro-esophageal reflux disease without esophagitis Plan: She feels that she is doing well with utilizing the Carafate and the famotidine. However she never received the dicyclomine so I will try res sending it. However, she is not having a great deal of cramping so she might not even really need this but my feel better having it in case there is any breakthrough emergency. At this time she is happy with her GI regimen and does not feel we need to ad dress any further concerns. Return office visit in 6 months (2) Abdominal cramping: Code(s): R10.9 - Unspecified abdominal pain (3) Weight gain, abnormal: Code(s): R63.5 - Abnormal weight gain Medications: Refilled dicyclomine 20 mg PO QID 30 d ays PRN 90 tabs 3R F cramping R10.9 - Unspecifie d abdominal pain sucralfate (Carafa te) 10 mL PO BID PRN 420 mL 6RF dyspeps ia R10.9 - Unspecifie d abdominal pain famotidine 20 mg PO BID 60 t abs 6RF TODAY'S VISIT She is here today with someone from her residential who is supportive. She does not like the taste of the carafate, so I recommend mixing it with a sweet drink. They will re write the order and fax it out for signature. This is because despite her dislike of the taste the staff and the patient agree that it is helping her quite a lot. She is not currently using the dicyclomine. She continues to use her famotidine. ROV 6 mos. [facility] Medical History Psychiatric pseudoseizure Severe recurrent major depression PTSD (post-traumatic stress disorder) Traumatic brain injury Learning disability ADHD Depression with anxiety Social History Household Members: Other Household Members Other:: residential Housing: Other Housing Other:: residential Do you presently have visiting nurse or other home services: No Alcohol intake: never Patient Tobacco Use Status: Never used Tobacco service: No Sexual orientation: Straight/Heterosexual Gender identity: Female Female Reproductive History Menstrual Age of Menarche: 16 Review of Systems Const Denies fatigue, Denies fever(s), Denies night sweats, Denies poor appetite and Denies weight loss ENT Reports Normal hearing present, Denies dental pain, Denies dysphagia, Denies hearing loss, Denies mouth pain, Denies odynophagia, Denies throat swelling, Denies tongue swelling and Reports other (Dentition adequate) Card Reports no additional complaints Resp Reports no additional complaints GI Denies abdominal pain, Denies melena, Denies bloating, Denies hematochezia, Denies constipation, Reports GI cramping, Denies dysphagia, Denies excessive flatus, Denies early satiety, Reports heartburn, Denies diarrhea, Reports loose stools, Denies nausea, Denies odynophagia, Denies vomiting and Denies hematemesis Skin/Breast Denies pruritus, Denies lesions, Denies rash and Denies jaundice Neuro Reports Normal hearing present and Denies Abnormal speech present Endo Denies fatigue Aller/Immun Denies throat swelling and Denies tongue swelling Physical Exam Vital Signs: Last Vital Signs Pulse 71 01/19/23 14:54 BP 126/71 01/19/23 14:54 BMI result Body Mass Index 26.0 Const General: cooperative, no acute distress, well developed and well groomed Nutritional Appearance: average body habitus and well nourished Orientation/consciousness: oriented to person, oriented to place and oriented to time Limitations: No language barrier HEENT Head: Yes normocephalic and Yes atraumatic Eyes General: appearance normal, both eyes and all related structures Pupils: Equal, round and reactive pupils present Neck Neck: Yes normal visual inspection and Yes no lymphadenopathy Thyroid: Thyroid normal Resp Effort & Inspection: normal respiratory effort and able to speak in complete sentences Auscultation: clear to auscultation bilaterally Cardio Rate: regular rate Rhythm: regular rhythm Heart sounds: Normal, physiologic split S2 sound present Peripheral pulses: radial pulses present and posterior tibial pulses present GI Inspection: No distended and No Abdominal panniculus present Palpation (GI): Soft to palpation, nontender, no guarding, not rigid and No hepatosplenomegaly present Percussion: Yes normal to percussion Auscultation: normal bowel sounds Rectal Exam - Female: deferred Skin General skin exam: no rashes or lesions noted, turgor normal, skin not dry, no jaundice, No spider nevi and no striae Rashes: no rashes Nails: normal Neuro General: oriented to person, oriented to place and oriented to time Cranial nerves: Yes Equal, round and reactive pupils present and Yes Normal hearing present Speech: No Abnormal speech present Extrem General: Yes normal to inspection, No clubbing, No cyanosis and No edema Psych Appearance: grossly normal and well kempt Mental Status: mental status grossly normal Speech and movement: Normal speech and movement present Affect: normal affect Attitude: cooperative Thought process: Normal thought process present and not confabulating Thought content: Normal thought content present Insight: Limited insight present (Psych) Judgement: Limited judgement present (Psych) Assessment & Plan Assessment & Plan (1) GERD (gastroesophageal reflux disease): Code(s): K21.9 - Gastro-esophageal reflux disease without esophagitis Plan: She is here today with someone from her residential who is supportive. She does not like the taste of the carafate, so I recommend mixing it with a sweet drink. They will re write the order and fax it out for signature. This is because despite her dislike of the taste the staff and the patient agree that it is helping her quite a lot. She is not currently using the dicyclomine. She continues to use her famotidine. ROV 6 mos. (2) Abdominal cramping: Code(s): R10.9 - Unspecified abdominal pain Coding Level of Care Code Est Pt Level 3 (14674) Diagnoses GERD (gastroesophageal reflux disease) K21.9 Abdominal cramping R10.9
== END 2023-01-19 15:11 | disposition home or self-care (01) ==
PROVIDERS: PCP Registered Nurse; Visit Provider Nurse Practitioner
DX: K21.9 Gastro-esophageal reflux disease without esophagitis (principal); R10.9 Unspecified abdominal pain
CPT/HCPCS: 99213

== ENCOUNTER → 2023-01-19 14:49 | Outpatient (BNVA) | payer MEDICAID, SELFPAY | PROVIDERS: PCP Registered Nurse; Visit Provider Nurse Practitioner | DX: K21.9 Gastro-esophageal reflux disease without esophagitis (principal); R10.9 Unspecified abdominal pain | CPT/HCPCS: 99212 ==

== ENCOUNTER 2023-02-07 17:42 | Outpatient (REF) | payer MEDICAID, SELFPAY | END 2023-02-07 17:43 | disposition home or self-care (01) | LOC: HO.HHCLNP 17:42 | PROVIDERS: Visit Provider Nurse Practitioner Family | DX: R30.0 Dysuria (principal) | CPT/HCPCS: 87086; 87088; 87186 ==

== ENCOUNTER 2023-02-25 21:21 | Emergency (ER) | payer MEDICAID, SELFPAY ==
[2023-02-25 21:28] VITALS: BP 141/88; PULSE 88; RESP 18; TEMP 36.6; O2SAT 97; BMI 25.7
[2023-02-25 23:21] LABS: Hematocrit 40.3 % (37.0-47.0); Hemoglobin 13.3 g/dl (12.0-16.0); Mean Corpuscular Hemoglobin 27.6 pg (27.0-33.0); Mean Corpuscular Volume 83.6 fL (80.0-98.0); Platelet Count 235 X10*3/uL (160-400); Red Blood Count 4.82 X10*6/uL (4.20-5.50); Red Cell Distribution Width 13.2 % (11.0-16.0); White Blood Count 6.3 X10*3/uL (4.8-10.8)
[2023-02-25 23:23] LABS: Appearance Urine Clear; Color Urine Dark Yellow; Glucose Urine UA Negative (Negative); Leukocyte Esterase Urine Trace (Negative); Nitrite Urine Negative (Negative); Specific Gravity - Urine >= 1.030 (1.005-1.025); UMIC TRIGGER UACC YES; Urine Blood Moderate (2+) (Negative); Urine Ketones Trace mg/dL (Negative); Urine Protein 30 (1+) mg/dL (Neg-Trace)
[2023-02-25 23:24] LABS: UPreg QC Valid YES; Urine Pregnancy NEGATIVE (NEGATIVE)
[2023-02-25 23:25] LABS: Bacteria Urine None Seen (None Seen); Hyaline Casts Urine 0-2 /LPF (0-2); RBC Urine >20 /HPF (0-2); WBC Urine 0-5 /HPF (0-5)
[2023-02-25 23:35] LABS: Anion Gap 15 (12-20); Blood Urea Nitrogen 11 mg/dL (9-16); Calcium 9.1 mg/dL (8.4-10.2); Carbon Dioxide 26 mmol/L (22-29); Chloride 103 mmol/L (96-108); Creatinine Clr Calc Pharmacy 101.6; Estimated Glomerular Filt Rate > 60; Glucose Random 142 mg/dL (60-115); Potassium 3.4 mmol/L (3.3-5.1); Sodium 141 mmol/L (135-145)
--- NOTE | 2023-02-25 23:39 | ED_ITS ---
HPI - Female Genitourinary General Chief complaint: Vaginal Bleeding Stated complaint: cramps, heavy vaginal bleeding Time Seen by Provider: 02/25/23 23:28 Source: patient, old records reviewed and other Mode of arrival: ambulatory Limitations: no limitations History of Present Illness HPI Narrative: 23 yo female with PMH of PTSD, GERD, nexplanon 2020 due for replacement in July 2023 who comes in with c/o pelvic cramping in waves and bleeding but it is blood the appearance of the end of period. She is not dizzy or weak. She notes she was with her boyfriend on Sunday. She feels slightly better with ibuprofen. She has not had a menses since her nexplanon. MD elicited complaint: vaginal bleeding and pelvic pain Onset (ago): day(s) (1) Location of symptoms: pelvis Severity: moderate Quality of pain: cramping Consistency: intermittent Vaginal bleeding: scant Exacerbating factors: none Relieving factors: none Associated symptoms: denies other symptoms Treatment prior to arrival: acetaminophen and NSAIDs Patient : No Related Data Home Medications Medication Instructions Recorded Confirmed cholecalciferol (vitamin D3) 25 25 mcg PO DAILY 10/12/22 11/02/22 mcg (1,000 unit) tablet docusate sodium 100 mg capsule 100 mg PO DAILY 10/12/22 11/02/22 famotidine 20 mg tablet 20 mg PO BID 10/12/22 11/02/22 guanfacine 3 mg tablet,extended 3 mg PO DAILY 10/12/22 11/02/22 release 24 hr hydroxyzine HCl 50 mg tablet 50 mg PO TID 10/12/22 11/02/22 loratadine 10 mg tablet 10 mg PO DAILY 10/12/22 11/02/22 mirtazapine 45 mg disintegrating 45 mg PO BEDTIME 11/02/22 11/02/22 tablet (Remeron SolTab) propranolol 10 mg tablet 10 mg PO BID 11/02/22 11/02/22 oxcarbazepine 300 mg tablet 300 mg PO TID 01/19/23 quetiapine 50 mg tablet,extended 50 mg PO BEDTIME 01/19/23 release 24 hr sucralfate 100 mg/mL oral PO 01/19/23 suspension (Carafate) Previous Rx's Medication Instructions Recorded acetaminophen 325 mg tablet 650 mg (2 x 325 mg) PO Q6H PRN 04/22/21 Pain, Mild (Pain Scale 1-3) #120 tabs Allergies Allergy/AdvReac Type Severity Reaction Status Date / Time No Known Allergies Allergy Verified 02/25/23 21:34 Review of Systems 2 Review of Systems: Constitutional : No Fever, No Chills ENT/Mouth : No sore throat, No Rhinorrhea Eyes: No Eye Pain, No Redness Cardiovascular : No Chest Pain, No SOB Respiratory : No Cough, No Sputum, No Wheezing Gastrointestinal : no Nausea, No Vomiting, No Diarrhea, positive abdominal pain, Genitourinary : positive irregular bleeding, No Dysuria, No Urinary Frequency, positive pelvic pain Musculoskeletal : No Myalgias Skin : No rash Neuro : No Weakness, No Headache Psych : No Anxiety/Panic, No Depression Heme/Lymph: No bruising, No Lymphadenopathy Endocrine : No Polyuria, No Polydipsia All other systems reviewed and are negative [facility] Past Medical History Attestation statement: The following information was validated with the patient. Source: old records reviewed Medical History Psychiatric pseudoseizure Severe recurrent major depression PTSD (post-traumatic stress disorder) Traumatic brain injury Learning disability ADHD Depression with anxiety Social History Social History Household Members: Other Household Members Other:: [facility] Housing: Other Housing Other:: [facility] Do you presently have visiting nurse or other home services: No Alcohol intake: never Patient Tobacco Use Status: Never used Tobacco Smoked in Last 30 Days: No Use of substances other than those prescribed or required for medical reasons: No Advance Directives: No Advance Directives Information Provided: No Patient : No service: No Sexual orientation: Straight/Heterosexual Gender identity: Female Physical Exam 2 Vital Signs: Vital Signs: Last Vital Signs Temp 97.9 F 02/25/23 21:28 Pulse 88 02/25/23 21:28 Resp 18 02/25/23 21:28 BP 141/88 H 02/25/23 21:28 Pulse Ox 97 02/25/23 21:28 O2 Del Method Room Air 02/25/23 21:28 BMI result Body Mass Index 25.7 Appearance: Alert. Oriented X3. No acute distress. Eyes: Pupils equal, round and reactive to light. ENT: Pharynx normal. Neck: Normal inspection. Neck supple. CVS: Normal heart rate and rhythm. Pulses normal. Respiratory: No respiratory distress. Breath sounds normal. Abdomen: Soft and mild suprapubic ttp no rebound or guarding it is bilateral but abdomen is very soft : deferred Skin: Skin warm and dry. Normal skin color. Normal skin turgor. Extremities: No lower extremity edema. No calf ttp Neuro: Oriented X 3. No motor deficit. No sensory deficit. Medical Decision Making Medical Decision Making [facility] [place] Narrative: 23 yo female with PMH of PTSD, GERD, nexplanon 2020 due for replacement in July 2023 here with 1st time of light bleeding but with cramping at this time VS stable, H/H stable, UA no UTI, abdominal exam and history of cramping in waves bilateral associated with spotting that is symmetric not consistent with torsion or cyst rupture. Was with boyfriend will send off NGCT. Suspect bleeding due to nexplanon vs chlamydia. Will refer to OBGYN Differential Diagnosis Differential Diagnoses: The differential diagnosis associated with the presentation includes dysmenorrhea, STI, UTI Lab Data [facility] [place] Lab Attestation statement: I reviewed the patient's lab results. 02/25/23 23:13 02/25/23 23:13 Labs: Lab Results 02/25/23 Range/Units 23:13 WBC 6.3 (4.8-10.8) X10*3/uL RBC 4.82 (4.20-5.50) X10*6/uL Hgb 13.3 (12.0-16.0) g/dl Hct 40.3 (37.0-47.0) % MCV 83.6 (80.0-98.0) fL MCH 27.6 (27.0-33.0) pg MCHC 33.0 (31.0-35.0) g/dl RDW 13.2 (11.0-16.0) % Plt Count 235 (160-400) X10*3/uL MPV 10.0 (9.4-12.3) fL Immature Gran % (Auto) Cancelled Neut % (Auto) Cancelled Lymph % (Auto) Cancelled [place] % (Auto) Cancelled Eos % (Auto) Cancelled Baso % (Auto) Cancelled Lymph # (Auto) Cancelled [place] # (Auto) Cancelled Eos # (Auto) Cancelled Baso # (Auto) Cancelled Abs Immat Gran (auto) Cancelled Absolute Neuts (auto) Cancelled Absolute Nucleated RBC 0.000 (0.0-0.012) X10*3/uL Nucleated RBC % (auto) 0.0 (0.0-0.2) /100WBC Neutrophils % (Manual) 37 L (45-73) % Band Neutrophils % 1 L (3-5) % Lymphocytes % (Manual) 36 (20-40) % Atypical Lymphs % (Man) 18 H (0-6) % Monocytes % (Manual) 6 (2-11) % Basophils % (Manual) 2 (0-2) % Abs Neuts (Manual) 2.4 (2.0-8.3) X10*3/uL Lymphocytes # (Manual) 2.3 (1.2-4.9) X10*3/uL Atyp Lymphs # (Manual) 1.1 x10*3/uL Monocytes # (Manual) 0.4 (0.1-1.2) X10*3/uL Basophils # (Manual) 0.1 (0.0-0.2) X10*3/uL Toxic Vacuolation PRESENT Platelet Estimate NORMAL (NORMAL) Plt Morphology Comment NORMAL RBC Morphology NORMAL Sodium 141 (135-145) mmol/L Potassium 3.4 (3.3-5.1) mmol/L Chloride 103 (96-108) mmol/L Carbon Dioxide 26 (22-29) mmol/L Anion Gap 15 (12-20) BUN 11 (9-16) mg/dL Creatinine 0.83 (0.5-1.4) mg/dL Estim Creat Clear Calc 101.6 Estimated GFR > 60 Random Glucose 142 H (60-115) mg/dL Calcium 9.1 (8.4-10.2) mg/dL Urine Color Dark Yellow Urine Appearance Clear Urine pH 6.0 (5.0-9.0) Ur Specific [place] >= 1.030 H (1.005-1.025) Urine Protein 30 (1+) H (Neg-Trace) mg/dL Urine Glucose (UA) Negative (Negative) mg/dL Urine Ketones Trace (Negative) mg/dL Urine Blood Moderate (2+) H (Negative) Urine Nitrite Negative (Negative) Ur Leukocyte Esterase Trace H (Negative) Urine RBC >20 H (0-2) /HPF Urine WBC 0-5 (0-5) /HPF Ur Squamous Epith Cells 11-20 (0-2) /HPF Urine Bacteria None Seen (None Seen) Hyaline Casts 0-2 (0-2) /LPF Urine Test NEGATIVE (NEGATIVE) Independent Historian Clinical information obtained from an independent historian. History obtained from or confirmed by: Other External Record Review External record reviewed: Office record Discharge Plan Discharge Clinical Impression: Dysmenorrhea Patient Disposition: Home, Self-Care Instructions: Dysmenorrhea (ED) Additional Instructions: continue to alternate ibuprofen and tylenol. we have a pending test for gonorrhea and chlamydia if positive we will call you. return for worsening pain, fevers, bleeding worse than regular menses more than 2 pads per hour or clots larger than a golf ball, weakness, dizziness, fainting or any other concerns. Prescriptions: No Action acetaminophen 325 mg Tablet 650 mg PO Q6H PRN (Reason: Pain, Mild (Pain Scale 1-3)) Qty: 120 0RF hydroxyzine HCl 50 mg tablet 50 mg PO TID famotidine 20 mg tablet 20 mg PO BID docusate sodium 100 mg capsule 100 mg PO DAILY loratadine 10 mg tablet 10 mg PO DAILY cholecalciferol (vitamin D3) 25 mcg (1,000 unit) tablet 25 mcg PO DAILY guanfacine 3 mg tablet extended release 24 hr 3 mg PO DAILY mirtazapine [Remeron SolTab] 45 mg tablet,disintegrating 45 mg PO BEDTIME propranolol 10 mg tablet 10 mg PO BID oxcarbazepine 300 mg tablet 300 mg PO TID quetiapine 50 mg tablet extended release 24 hr 50 mg PO BEDTIME sucralfate [Carafate] 100 mg/mL suspension PO Referrals: Jackie Alberts CNM [Certified Nurse Sports Betting Manager] - (call to schedule appointment please)
[2023-02-25 23:47] LABS: Atypical Lymph Absolute Manual 1.1 x10*3/uL; Band Neutrophils Percent 1 % (3-5); Basophils Abs Manual 0.1 X10*3/uL (0.0-0.2); Basophils Percent Manual 2 % (0-2); Lymphocytes Absolute Manual 2.3 X10*3/uL (1.2-4.9); Lymphocytes Percent Manual 36 % (20-40); Monocytes Absolute Manual 0.4 X10*3/uL (0.1-1.2); Monocytes Percent Manual 6 % (2-11); Neutrophils Absolute Manual 2.4 X10*3/uL (2.0-8.3); Neutrophils Percent Manual 37 % (45-73)
[2023-02-25 23:48] LABS: Atypical Lymphs Percent Manual 18 % (0-6); Platelet Estimate NORMAL (NORMAL); Platelet Morphology Comment NORMAL; RBC Morphology NORMAL; Toxic Vacuolation PRESENT
[2023-02-26 00:17] VITALS: BP 125/90; PULSE 78; RESP 16; TEMP 36.6; O2SAT 100
[2023-02-26 01:55] LABS: CT PCR NOT DETECTED (Not Detect.); NG PCR NOT DETECTED (Not Detect.)
== END 2023-02-26 00:36 | disposition home or self-care (01) ==
PROVIDERS: Student in an Organized Health Care Education/Training Program; Emergency Provider Emergency Medicine; PCP Registered Nurse
DX: N94.6 Dysmenorrhea, unspecified (principal); R10.2 Pelvic and perineal pain; N93.9 Abnormal uterine and vaginal bleeding, unspecified; Z79.899 Other long term (current) drug therapy
CPT/HCPCS: 0353U; 36415; 80048; 81001; 81025; 85007; 85027; 99283; 99284

== ENCOUNTER 2023-03-06 10:22 | Outpatient (REF) | payer MEDICAID, SELFPAY ==
[2023-03-06 11:31] LABS: Basophils Absolute Auto 0.1 X10*3/uL (0.0-0.2); Basophils Percent Auto 1.1 % (0-2); Eosinophils Absolute Auto 0.1 X10*3/uL (0.0-0.4); Eosinophils Percent Auto 2.4 % (0-4); Hematocrit 39.8 % (37.0-47.0); Hemoglobin 12.8 g/dl (12.0-16.0); Imm Gran Abs Auto 0.01 X10*3/uL (0.00-0.03); Imm Gran Pct Auto 0.2 % (0.0-0.4); Lymphocytes Absolute Auto 3.5 X10*3/uL (1.2-4.9); Lymphocytes Percent Auto 63.6 % (20-40); MANUAL DIFF FLAG SCAN; Mean Corpuscular HGB Conc 32.2 g/dl (31.0-35.0); Mean Corpuscular Volume 87.1 fL (80.0-98.0); Mean Platelet Volume 10.7 fL (9.4-12.3); Monocytes Absolute Auto 0.6 X10*3/uL (0.1-1.2); Monocytes Percent Auto 10.1 % (2-11); Neutrophils Absolute Auto 1.2 x10*3/uL (2.0-8.3); Neutrophils Percent Auto 22.6 % (45-73); Platelet Count 288 X10*3/uL (160-400); Red Blood Count 4.57 X10*6/uL (4.20-5.50); SCAN SMEAR FLAG 1; White Blood Count 5.5 X10*3/uL (4.8-10.8)
[2023-03-06 11:52] LABS: SLIDE REVIEW VERIFIED
== END 2023-03-06 10:23 | disposition home or self-care (01) ==
LOC: HO.HHCL 10:22
PROVIDERS: Visit Provider Student in an Organized Health Care Education/Training Program
DX: D72.820 Lymphocytosis (symptomatic) (principal)
CPT/HCPCS: 36415; 85025

== ENCOUNTER 2023-03-29 | Outpatient (REF) | payer MEDICAID, SELFPAY | END 2023-03-29 00:01 | LOC: HO.HHCLNP | PROVIDERS: Visit Provider Advanced Practice Midwife | DX: Z12.4 Encounter for screening for malignant neoplasm of cervix (principal) | CPT/HCPCS: 88142 ==

== ENCOUNTER 2023-03-30 19:40 | Emergency (ER) | payer MEDICAID, SELFPAY ==
[2023-03-30 19:51] VITALS: BP 127/83; PULSE 87; RESP 16; TEMP 36.7; O2SAT 99; BMI 24.8
[2023-03-30 22:30] VITALS: BP 125/79; PULSE 94; RESP 17; TEMP 36.9; O2SAT 100
--- NOTE | 2023-03-30 23:00 | ED_ITS ---
HPI - Dental/Oral General Chief complaint: Dental/Oral Stated complaint: allergic reaction? swollen lip, itchy mouth Time Seen by Provider: 03/30/23 22:30 Source: patient Mode of arrival: ambulatory Limitations: no limitations History of Present Illness HPI Narrative: 23 yo female noted superficial ulcers on top of roof of mouth and on lower lip used chapstick and woke up with them denies viral illness or hx of cold sores Onset (ago): hour(s) (several) Duration: constant Severity: mild Relieving factors: nothing Exacerbating factors: other (touching area, eating) Associated symptoms: other (denies) Treatment prior to arrival: none Related Data Home Medications Medication Instructions Recorded Confirmed cholecalciferol (vitamin D3) 25 25 mcg PO DAILY 10/12/22 11/02/22 mcg (1,000 unit) tablet docusate sodium 100 mg capsule 100 mg PO DAILY 10/12/22 11/02/22 famotidine 20 mg tablet 20 mg PO BID 10/12/22 11/02/22 guanfacine 3 mg tablet,extended 3 mg PO DAILY 10/12/22 11/02/22 release 24 hr hydroxyzine HCl 50 mg tablet 50 mg PO TID 10/12/22 11/02/22 loratadine 10 mg tablet 10 mg PO DAILY 10/12/22 11/02/22 mirtazapine 45 mg disintegrating 45 mg PO BEDTIME 11/02/22 11/02/22 tablet (Remeron SolTab) propranolol 10 mg tablet 10 mg PO BID 11/02/22 11/02/22 oxcarbazepine 300 mg tablet 300 mg PO TID 01/19/23 quetiapine 50 mg tablet,extended 50 mg PO BEDTIME 01/19/23 release 24 hr sucralfate 100 mg/mL oral PO 01/19/23 suspension (Carafate) Previous Rx's Medication Instructions Recorded acetaminophen 325 mg tablet 650 mg (2 x 325 mg) PO Q6H PRN 04/22/21 Pain, Mild (Pain Scale 1-3) #120 tabs famotidine 20 mg tablet 20 mg PO BID #60 tabs 03/01/23 Allergies Allergy/AdvReac Type Severity Reaction Status Date / Time No Known Allergies Allergy Verified 03/30/23 19:54 Review of Systems Review of Systems: Constitutional : No Fever, No Chills ENT/Mouth : No swallowing difficulty, no change in voice, pos oral lesions Eyes: No Eye Pain, No Swelling Cardiovascular : No Chest Pain, No SOB Respiratory : No Cough, No Sputum Gastrointestinal : No Nausea, No Vomiting, No Diarrhea Genitourinary : No Dysuria Musculoskeletal : No Myalgias Skin : No rash Neuro : No Weakness, No Numbness, No Headache PMFSH Past Medical History Attestation statement: The following information was validated with the patient. Source: old records reviewed Onset Date is defined in the Problem List Problems that require an onset date and time if occurred within 24 hrs of arrival to the ED Aortic Dissection and Rupture; Neurologic impairment; Cardiopulmonary Arrest; Endotracheal Intubation; Insertion or Replacement of Mechanical Circulatory Assist Device Medical History Psychiatric pseudoseizure Severe recurrent major depression PTSD (post-traumatic stress disorder) Traumatic brain injury Learning disability ADHD Depression with anxiety Social History Social History Household Members: Other Household Members Other:: nursing home Housing: Other Housing Other:: nursing home Do you presently have visiting nurse or other home services: No Alcohol intake: never Patient Tobacco Use Status: Never used Tobacco Smoked in Last 30 Days: Yes Use of substances other than those prescribed or required for medical reasons: No Advance Directives: No Advance Directives Information Provided: No service: No Sexual orientation: Straight/Heterosexual Gender identity: Female Physical Exam Vital Signs: Vital Signs: Last Vital Signs Temp 98.5 F 03/30/23 22:30 Pulse 94 03/30/23 22:30 Resp 17 03/30/23 22:30 BP 125/79 03/30/23 22:30 Pulse Ox 100 03/30/23 22:30 O2 Del Method Room Air 03/30/23 22:30 BMI result Body Mass Index 24.8 Appearance: Alert. Oriented X3. No acute distress. Eyes: Pupils equal, round and reactive to light. ENT: Pharynx on right lower lip very superficial apthous ulcers but just on lip mucosa in small patch on roof of mouth L upper near incisor border small apthous ulcer no other areas noted Neck: Normal inspection. Neck supple. CVS: Normal heart rate and rhythm. Pulses normal. Respiratory: No respiratory distress. Breath sounds normal. Abdomen: Soft and nontender. Skin: Skin warm and dry. Normal skin color. Normal skin turgor. Extremities: No lower extremity edema. No calf ttp Neuro: Oriented X 3. No motor deficit. No sensory deficit. Medical Decision Making Medical Decision Making [facility] Narrative: 23 yo female here with non specific apthous ulcers noted to the lip and roof of mouth without preceding illness - she is not toxic. she looks well they do not appear herpetic they do not cross the [place] border. Differential Diagnosis Differential Diagnoses: The differential diagnosis associated with the presentation includes ulcer, HSV< viral infection Lab Data Labs: Lab Results 03/30/23 Range/Units 22:56 COVID-19 ([facility]) Negative (Negative) COVID-19 Clin Com See Note External Record Review External record reviewed: Inpatient record Discharge Plan Discharge Clinical Impression: Aphthous ulcer, Acute viral syndrome Patient Disposition: Home, Self-Care Instructions: Canker Sores (ED), Viral Syndrome (ED) Additional Instructions: rinse mouth after eating can use warm water mixed with salt and gargle - avoid acidic foods like oranges and ketchup or spicy foods they will burn. return for spreading, swelling, fevers or any other concerns. COVID negative avoid the chapstick you used today. Prescriptions: No Action famotidine 20 mg tablet 20 mg PO BID Qty: 60 6RF acetaminophen 325 mg Tablet 650 mg PO Q6H PRN (Reason: Pain, Mild (Pain Scale 1-3)) Qty: 120 0RF hydroxyzine HCl 50 mg tablet 50 mg PO TID famotidine 20 mg tablet 20 mg PO BID docusate sodium 100 mg capsule 100 mg PO DAILY loratadine 10 mg tablet 10 mg PO DAILY cholecalciferol (vitamin D3) 25 mcg (1,000 unit) tablet 25 mcg PO DAILY guanfacine 3 mg tablet extended release 24 hr 3 mg PO DAILY mirtazapine [Remeron SolTab] 45 mg tablet,disintegrating 45 mg PO BEDTIME propranolol 10 mg tablet 10 mg PO BID oxcarbazepine 300 mg tablet 300 mg PO TID quetiapine 50 mg tablet extended release 24 hr 50 mg PO BEDTIME sucralfate [Carafate] 100 mg/mL suspension PO
[2023-03-30 23:18] LABS: COVID-19 Test Negative (Negative); IDNOW Serial# 6674DD1D
== END 2023-03-30 23:54 | disposition home or self-care (01) ==
PROVIDERS: Emergency Provider Emergency Medicine; PCP Registered Nurse
DX: K12.0 Recurrent oral aphthae (principal); B34.9 Viral infection, unspecified; Z11.52 Encounter for screening for COVID-19; Z20.828 Contact with and (suspected) exposure to other viral communicable diseases
CPT/HCPCS: 87635; 99283; 99284

== ENCOUNTER 2023-04-27 13:03 | Outpatient (REF) | payer MEDICAID, SELFPAY ==
[2023-04-28 03:58] LABS: CT PCR NOT DETECTED (Not Detect.); NG PCR NOT DETECTED (Not Detect.)
[2023-04-28 14:26] LABS: BV Int Neg Control Negative (Negative); BV Int Pos Control Positive (Positive)
== END 2023-04-27 13:04 | disposition home or self-care (01) ==
LOC: HO.LNP 13:03
PROVIDERS: PCP Registered Nurse; Visit Provider Advanced Practice Midwife
DX: N92.1 Excessive and frequent menstruation with irregular cycle (principal); Z97.5 Presence of (intrauterine) contraceptive device
CPT/HCPCS: 0353U; 87480; 87510; 87660; 99212

== ENCOUNTER 2023-04-27 13:03 | Outpatient (AMB) | payer MEDICAID, SELFPAY ==
--- NOTE | 2023-04-27 13:06 | MHC.OFFVIS ---
Intake Vital Signs 04/27/23 13:08 Height 5 ft 5 in Weight 147 lb BMI 24.5 BP 122/72 Intake Visit Reasons: bleeding with intercourse Intake Note: bleeding after intercourse Manager Of Radiology Required: No Information Interpreted: non-clinical & clinical Clearance Coordinator: Clearance Coordinator Present (Vivian) Allergies No Known Allergies Allergy (Verified 04/27/23 13:09) Medication List - Last Reconciled 04/27/23 by Jackie Alberts CNM acetaminophen 650 mg (2 x 325 mg) PO Q6H PRN cholecalciferol (vitamin D3) 25 mcg PO DAILY docusate sodium 100 mg PO DAILY etonogestrel (Nexplanon) subdermal famotidine 20 mg PO BID famotidine 20 mg PO BID guanfacine ER 3 mg PO DAILY hydroxyzine HCl 50 mg PO TID loratadine 10 mg PO DAILY mirtazapine (Remeron SolTab) 45 mg PO BEDTIME oxcarbazepine 300 mg PO TID propranolol 10 mg PO BID quetiapine ER 50 mg PO BEDTIME sucralfate (Carafate) PO Is last menstrual period known: No Post menopausal: No HPI bleeding with intercourse HPI Details PATIENT IS IN A RELATIONSHIP FOR THE LAST 6-7 MONTHS AND SHE SAYS SHE IS VERY HAPPY IN THE RELATIONSHIP AND IT IS GOOD BUT EVERY TIME SHE HAS SEX LATELY SHE HAS BEEN HAVING BLEEDING AND IT CAN LAST FOR A FEW DAYS IT STARTS OUT BRIGHT RED AND THEN TWIN DOES DOWN TO JUST A LITTLE BIT OF BROWN She has a Nexplanon in and she is happy with that and would replace it when it is due she thinks it is due for replacement this year. She is still in the residential program and has been for couple years and it is good and she is in the [employer] [facility] and it is going well as well. [facility] Medical History Psychiatric pseudoseizure Severe recurrent major depression PTSD (post-traumatic stress disorder) Traumatic brain injury Learning disability ADHD Depression with anxiety Social History Household Members: Other Household Members Other:: [facility] Housing: Other Housing Other:: [facility]iary Do you presently have visiting nurse or other home services: No Alcohol intake: never Patient Tobacco Use Status: Never used Tobacco service: No Sexual orientation: Straight/Heterosexual Gender identity: Female Female Reproductive History Menstrual Age of Menarche: 16 control method: implanted Total pregnancies: 0 Date of last pap smear: 03/30/23 (negative) Physical Exam Vital Signs: BMI result Body Mass Index 24.5 External Female Exam: normal external appearance Speculum Exam - Vagina: normal appearance of the vagina and normal vaginal discharge Speculum Exam - Cervix: normal appearance of the cervix Bimanual exam- vagina & uterus: normal bimanual exam, uterine size normal, consistency normal, uterine mobility normal, uterine shape normal and non-tender Bimanual Exam- Adnexa, other: normal adnexae, no masses and No adnexal tenderness Assessment & Plan Assessment & Plan (1) Breakthrough bleeding on Nexplanon: Comment: With intercourse. Code(s): N92.1 - Excessive and frequent menstruation with irregular cycle; Z97.5 - Presence of (intrauterine) contraceptive device Plan Testing for gonorrhea chlamydia trich Gardnerella and Cara done. I recommend condoms with intercourse. The bleeding could simply be because of orgasmic contractions releasing small amounts of unstable menstrual lining with intercourse. However in case there is any capillary bleeding and trauma I would recommend condoms for safety. Also discussed replacement of the Nexplanon and she is to check when that is going to be so that she can sign the paperwork ahead of time so it can be ordered. Testing for STIs done as above. She is on the portal and can check for the results or call Sunday. Her exam was completely benign and the cervix did not bleed with touch. Coding Level of Care Code Est Pt Level 3 (53264) Diagnoses Breakthrough bleeding on Nexplanon N92.1; Z97.5
[2023-04-27 13:08] VITALS: BP 122/72; BMI 24.5
== END 2023-04-27 14:19 | disposition home or self-care (01) ==
LOC: HO.HWSM 13:03
PROVIDERS: PCP Registered Nurse; Visit Provider Advanced Practice Midwife
DX: N92.1 Excessive and frequent menstruation with irregular cycle (principal); Z97.5 Presence of (intrauterine) contraceptive device
CPT/HCPCS: 99213

== ENCOUNTER 2023-05-07 19:27 | Emergency (ER) | payer MEDICAID, SELFPAY ==
--- NOTE | 2023-05-07 | ECG_ITS ---
Test Reason : SEIZURE Blood Pressure : / mmHG Vent. Rate : 115 BPM Atrial Rate : 115 BPM P-R Int : 162 ms QRS Dur : 072 ms QT Int : 314 ms P-R-T Axes : 027 036 -09 degrees QTc Int : 434 ms Sinus tachycardia Possible Left atrial enlargement T wave abnormality, consider anterior ischemia Abnormal ECG When compared with ECG of 11-DEC-2022 16:56, Vent. rate has increased BY 45 BPM Nonspecific T wave abnormality, improved in Lateral leads Referred By: Generic ED Physician Electronically Signed By:JOHNNIE NEWELL MD
[2023-05-07 19:38] VITALS: BP 127/85; BP 143/76; PULSE 111; PULSE 122; RESP 16; TEMP 36.9; O2SAT 98; BMI 25.4
[2023-05-07 19:49] LABS: MANUAL DIFF FLAG NO
[2023-05-07 19:51] VITALS: PULSE 106
--- NOTE | 2023-05-07 19:51 | ED_ITS ---
HPI - Seizure General Chief Complaint: Seizure Stated Complaint: actively seizing on arrival. 4mg versed Time Seen by Provider: 05/07/23 19:45 Source: patient Mode of arrival: EMS History of Present Illness HPI Narrative: 23-year-old female brought in from intermediate by EMS where the staff reported seizure-like activity lasting approximately 10 minutes and on arrival EMS found patient seizing and administered 4 mg of Versed IM and noted that patient was 88% with a heart rate of 140. Patient reports a history of pseudoseizures but is not on intermediate list of diagnoses. Seizure History: Yes (HX of seizure and pseudoseizure) Related Data Home Medications Medication Instructions Recorded Confirmed cholecalciferol (vitamin D3) 25 25 mcg PO DAILY 10/12/22 04/27/23 mcg (1,000 unit) tablet docusate sodium 100 mg capsule 100 mg PO DAILY 10/12/22 04/27/23 famotidine 20 mg tablet 20 mg PO BID 10/12/22 04/27/23 guanfacine 3 mg tablet,extended 3 mg PO DAILY 10/12/22 04/27/23 release 24 hr hydroxyzine HCl 50 mg tablet 50 mg PO TID 10/12/22 04/27/23 loratadine 10 mg tablet 10 mg PO DAILY 10/12/22 04/27/23 mirtazapine 45 mg disintegrating 45 mg PO BEDTIME 11/02/22 04/27/23 tablet (Remeron SolTab) propranolol 10 mg tablet 10 mg PO BID 11/02/22 04/27/23 oxcarbazepine 300 mg tablet 300 mg PO TID 01/19/23 04/27/23 quetiapine 50 mg tablet,extended 50 mg PO BEDTIME 01/19/23 04/27/23 release 24 hr sucralfate 100 mg/mL oral PO 01/19/23 04/27/23 suspension (Carafate) etonogestrel 68 mg subdermal subdermal 04/27/23 04/27/23 implant (Nexplanon) Previous Rx's Medication Instructions Recorded acetaminophen 325 mg tablet 650 mg (2 x 325 mg) PO Q6H PRN 04/22/21 Pain, Mild (Pain Scale 1-3) #120 tabs famotidine 20 mg tablet 20 mg PO BID #60 tabs 03/01/23 metronidazole 500 mg tablet 500 mg PO BID 7 days #14 tabs 05/01/23 nitrofurantoin 100 mg PO Q12H 5 days #10 caps 05/07/23 monohydrate/macrocrystals 100 mg capsule (Macrobid) Allergies Allergy/AdvReac Type Severity Reaction Status Date / Time No Known Allergies Allergy Verified 04/27/23 13:09 Review of Systems 2 Review of Systems: Pertinent positives and negatives as stated in HPI [facility] Past Medical History Source: nursing notes reviewed Medical History Psychiatric pseudoseizure Severe recurrent major depression PTSD (post-traumatic stress disorder) Traumatic brain injury Learning disability ADHD Depression with anxiety Social History Social History Household Members: Other Household Members Other:: intermediate Housing: Other Housing Other:: intermediate Do you presently have visiting nurse or other home services: No Alcohol intake: never Patient Tobacco Use Status: Never used Tobacco Smoked in Last 30 Days: No Advance Directives: No Advance Directives Information Provided: No service: No Sexual orientation: Straight/Heterosexual Gender identity: Female Physical Exam 2 Vital Signs: Vital Signs: Last Vital Signs Temp 98.2 F 05/07/23 22:19 Pulse 79 05/07/23 22:19 Resp 16 05/07/23 22:19 BP 128/85 05/07/23 22:19 Pulse Ox 98 05/07/23 22:19 O2 Del Method Room Air 05/07/23 22:19 BMI result Body Mass Index 25.4 VITAL SIGNS: Reviewed. GENERAL: Well developed, well nourished, in no acute distress. HEAD: Normocephalic/atraumatic EYES: PERRLA, EOMI EARS: Ext canals without abnormality NOSE: Nares patent bilateral OROPHARYNX: no oral lesions noted, posterior pharynx clear, no noted intraoral injuries NECK: Supple, no adenopathy LUNGS: Normal breath sounds. No adventitious sounds or accessory muscle use. SpO2<98> on 2 L nasal cannula CARDIOVASCULAR: Regular rate and rhythm without noted murmurs ABDOMEN: Soft, non-tender, non-distended with bowel sounds. MUSCULOSKELETAL: No tenderness, deformities, or effusions noted on gross inspection. EXTREMITIES: No cyanosis, clubbing or edema. SKIN: Inspection of the skin reveals no rashes NEUROLOGIC: Alert and oriented x 4. Strength and sensation to light touch were grossly intact x 4. Medications Administered Discontinued Medications Generic Name Dose Route Start Last Admin Trade Name Pauline PRN Reason Stop Dose Admin Sodium Chloride 1,000 mls @ 999 mls/hr 05/07/23 20:00 05/07/23 21:16 Ns IV 05/07/23 21:00 Infused .Q1H1M PRISCILA Infusion Sodium Chloride 1,000 mls @ 999 mls/hr 05/07/23 21:00 05/07/23 21:17 Ns IV 05/07/23 22:00 999 mls/hr .Q1H1M PRISCILA Administration Medical Decision Making Medical Decision Making MDM Narrative: 23-year-old female who arrives from a intermediate with history reported by her of pseudoseizures although I do not find any documentation of this diagnosis and on review of patient's medication list from the intermediate it does appear that she is on Trileptal and has recently been started on a course of Flagyl but on investigation of any associated interactions with that medication there are none reported. Will evaluate for possible infection/electrolyte etiologies for seizure. I reviewed all investigations and hematologic indices are grossly within normal limits without any noted derangements. Chemistry indices do not demonstrate any DEVAUGHN or electrolyte/liver enzyme derangements. Beta hCG is undetectable. Urinalysis appears to be positive and will treat for urinary tract infection, initial antibiotics provided here. Toxicology is negative and oxcarbazepine is pending and should be followed up by the supervising physician for the facility. Viral testing is negative for influenza/RSV/COVID. My interpretation is that patient had a seizure and also has a noted urinary tract infection for which she will be given antibiotics. We did check anti seizure medication levels which is a send out test and should be followed up by the supervising physician of the facility. Differential Diagnosis Differential Diagnoses: The differential diagnosis associated with the presentation includes Please see the discussion Admission/Observation Consideration of admission/observation: Escalation of care including admission/observation considered Please see the discussion above Lab Data [facility] Lab Attestation statement: I reviewed the patient's lab results. Please see the discussion above 05/07/23 19:46 05/07/23 19:46 Labs: Lab Results 05/07/23 05/07/23 05/07/23 Range/Units 19:46 20:12 22:00 WBC 5.8 (4.8-10.8) X10*3/uL RBC 4.49 (4.20-5.50) X10*6/uL Hgb 12.6 (12.0-16.0) g/dl Hct 37.5 (37.0-47.0) % MCV 83.5 (80.0-98.0) fL MCH 28.1 (27.0-33.0) pg MCHC 33.6 (31.0-35.0) g/dl RDW 12.3 (11.0-16.0) % Plt Count 259 (160-400) X10*3/uL MPV 9.9 (9.4-12.3) fL Immature Gran % (Auto) 0.2 (0.0-0.4) % Neut % (Auto) 58.6 (45-73) % Lymph % (Auto) 30.9 (20-40) % Wirt % (Auto) 7.4 (2-11) % Eos % (Auto) 2.2 (0-4) % Baso % (Auto) 0.7 (0-2) % Lymph # (Auto) 1.8 (1.2-4.9) X10*3/uL Wirt # (Auto) 0.4 (0.1-1.2) X10*3/uL Eos # (Auto) 0.1 (0.0-0.4) X10*3/uL Baso # (Auto) 0.0 (0.0-0.2) X10*3/uL Abs Immat Gran (auto) 0.01 (0.00-0.03) X10*3/uL Absolute Neuts (auto) 3.4 (2.0-8.3) x10*3/uL Absolute Nucleated RBC 0.000 (0.0-0.012) X10*3/uL Nucleated RBC % (auto) 0.0 (0.0-0.2) /100WBC Sodium 141 (135-145) mmol/L Potassium 3.3 (3.3-5.1) mmol/L Chloride 106 (96-108) mmol/L Carbon Dioxide 26 (22-29) mmol/L Anion Gap 12 (12-20) BUN 12 (9-16) mg/dL Creatinine 0.85 (0.5-1.4) mg/dL Estim Creat Clear Calc 98.7 Estimated GFR > 60 Random Glucose 117 H (60-115) mg/dL Calcium 9.1 (8.4-10.2) mg/dL Total Bilirubin 0.2 (0.0-1.0) mg/dL AST 14 (5-31) U/L ALT 11 (0-31) U/L Alkaline Phosphatase 59 (39-117) U/L Total Protein 7.0 (6.5-8.0) g/dL Albumin 4.4 (3.5-5.0) g/dL Beta HCG, Quant < 2 mIU/mL Urine Color Yellow Urine Appearance Clear Urine pH 6.5 (5.0-9.0) Ur Specific Clay 1.025 (1.005-1.025) Urine Protein Negative (Neg-Trace) mg/dL Urine Glucose (UA) Negative (Negative) mg/dL Urine Ketones 15 (Negative) mg/dL Urine Blood Negative (Negative) Urine Nitrite Negative (Negative) Ur Leukocyte Esterase Moderate (2+) H (Negative) Urine RBC 0-2 (0-2) /HPF Urine WBC 11-20 H (0-5) /HPF Ur Squamous Epith Cells 6-10 (0-2) /HPF Urine Bacteria Trace (None Seen) Hyaline Casts 0-2 (0-2) /LPF Urine Opiates Screen Not Detected (Not Detect) Urine Fentanyl Screen Not Detected (Not Detect) Ur Barbiturates Screen Not Detected (Not Detect) Ur Phencyclidine Scrn Not Detected (Not Detect) Ur Amphetamines Screen Not Detected (Not Detect) U Benzodiazepines Scrn POSITIVE H (Not Detect) Urine Cocaine Screen Not Detected (Not Detect) U Marijuana (THC) Screen Not Detected (Not Detect) Influenza Type A (PCR) NEGATIVE (Negative) Influenza Type B (PCR) NEGATIVE (Negative) RSV RNA Qual (PCR) NEGATIVE (Negative) SARS-CoV-2 RNA (RT-PCR) NEGATIVE (Negative) Independent Interpretation I performed an independent interpretation of an: EKG Interpretation: Sinus tachycardia, HR-115, no STEMI, NH/QRS/QTC is within normal limits. External Record Review External record reviewed: Outpatient record, Prior outpatient labs and Prior outpatient radiology Critical Care Time Critical Care Time Critical Care Time: Yes Total Critical Care Time: 60 Attestation: I personally attest to this time spent taking care of the patient. Discharge Plan Discharge Clinical Impression: Seizure, UTI (urinary tract infection) Patient Disposition: Home, Self-Care Instructions: Urinary Tract Infection in Women (ED), Nonepileptic Seizures (ED) Additional Instructions: 1. Resume all home medications as prescribed. 2. Follow-up on the anti seizure medication levels that were sent. 3. Complete the entire course of antibiotics as prescribed. 4. Follow-up with the primary care doctor in the next 1-2 days. Return to the ER for any worsening symptoms. Prescriptions: New nitrofurantoin monohyd/m-cryst [Macrobid] 100 mg capsule 100 mg PO Q12H 5 Days Qty: 10 0RF Rx Instructions: must administer with a meal/food No Action famotidine 20 mg tablet 20 mg PO BID Qty: 60 6RF metronidazole 500 mg tablet 500 mg PO BID 7 Days Qty: 14 0RF Rx Instructions: Take with food, Avoid alcohol and vinegar products acetaminophen 325 mg Tablet 650 mg PO Q6H PRN (Reason: Pain, Mild (Pain Scale 1-3)) Qty: 120 0RF hydroxyzine HCl 50 mg tablet 50 mg PO TID famotidine 20 mg tablet 20 mg PO BID docusate sodium 100 mg capsule 100 mg PO DAILY loratadine 10 mg tablet 10 mg PO DAILY cholecalciferol (vitamin D3) 25 mcg (1,000 unit) tablet 25 mcg PO DAILY guanfacine 3 mg tablet extended release 24 hr 3 mg PO DAILY mirtazapine [Remeron SolTab] 45 mg tablet,disintegrating 45 mg PO BEDTIME propranolol 10 mg tablet 10 mg PO BID oxcarbazepine 300 mg tablet 300 mg PO TID quetiapine 50 mg tablet extended release 24 hr 50 mg PO BEDTIME sucralfate [Carafate] 100 mg/mL suspension PO Nexplanon 68 mg implant subdermal Referrals: Nancy Patel FNP [Primary Care Provider] -
[2023-05-07 19:52] LABS: Basophils Percent Auto 0.7 % (0-2); Eosinophils Absolute Auto 0.1 X10*3/uL (0.0-0.4); Eosinophils Percent Auto 2.2 % (0-4); Hematocrit 37.5 % (37.0-47.0); Hemoglobin 12.6 g/dl (12.0-16.0); Imm Gran Abs Auto 0.01 X10*3/uL (0.00-0.03); Imm Gran Pct Auto 0.2 % (0.0-0.4); Lymphocytes Absolute Auto 1.8 X10*3/uL (1.2-4.9); Lymphocytes Percent Auto 30.9 % (20-40); Mean Corpuscular HGB Conc 33.6 g/dl (31.0-35.0); Mean Corpuscular Hemoglobin 28.1 pg (27.0-33.0); Mean Corpuscular Volume 83.5 fL (80.0-98.0); Mean Platelet Volume 9.9 fL (9.4-12.3); Monocytes Absolute Auto 0.4 X10*3/uL (0.1-1.2); Monocytes Percent Auto 7.4 % (2-11); Neutrophils Absolute Auto 3.4 x10*3/uL (2.0-8.3); Neutrophils Percent Auto 58.6 % (45-73); Platelet Count 259 X10*3/uL (160-400); Red Blood Count 4.49 X10*6/uL (4.20-5.50); Red Cell Distribution Width 12.3 % (11.0-16.0); White Blood Count 5.8 X10*3/uL (4.8-10.8)
[2023-05-07] MEDS: 0.9 % Sodium Chloride 1,000 ML 999 ML IV ×2 (20:09→21:17)
[2023-05-07 20:15] LABS: Alanine Aminotransferase 11 U/L (0-31); Albumin Level 4.4 g/dL (3.5-5.0); Alkaline Phosphatase 59 U/L (39-117); Anion Gap 12 (12-20); Aspartate Amino Transferase 14 U/L (5-31); Bilirubin Total 0.2 mg/dL (0.0-1.0); Blood Urea Nitrogen 12 mg/dL (9-16); Calcium 9.1 mg/dL (8.4-10.2); Carbon Dioxide 26 mmol/L (22-29); Chloride 106 mmol/L (96-108); Creatinine Clr Calc Pharmacy 98.7; Estimated Glomerular Filt Rate > 60; Glucose Random 117 mg/dL (60-115); Potassium 3.3 mmol/L (3.3-5.1); Sodium 141 mmol/L (135-145)
--- NOTE | 2023-05-07 20:40 | MHC.EDTECH ---
This Tech assumed care of this PT upon arrival. Pt changed into a hospital gown and placed on a compliance monitor. EKG done and handed to a provider. bloodwork sent to the lab for processing
[2023-05-07 20:42] LABS: HCG Quantitative < 2 mIU/mL
[2023-05-07 20:54] LABS: Influenza A PCR NEGATIVE (Negative); Influenza B PCR NEGATIVE (Negative); Resp Syncy Virus RNA Qual PCR NEGATIVE (Negative); SARS COV2 PCR INHOUSE NEGATIVE (Negative)
[2023-05-07 21:34] VITALS: BP 114/70; PULSE 87; RESP 14; O2SAT 98
[2023-05-07 22:07] LABS: Appearance Urine Clear; Color Urine Yellow; Glucose Urine UA Negative (Negative); Leukocyte Esterase Urine Moderate (2+) (Negative); Nitrite Urine Negative (Negative); PH 6.5 (5.0-9.0); Specific Gravity - Urine 1.025 (1.005-1.025); UMIC TRIGGER UACC YES; Urine Blood Negative (Negative); Urine Ketones 15 mg/dL (Negative); Urine Protein Negative (Neg-Trace)
[2023-05-07 22:17] LABS: Amphetamine Screen Urine Not Detected (Not Detect); Barbiturates, Urine Not Detected (Not Detect); Benzodiazepines Screen Urine POSITIVE (Not Detect); Cannabinoid Screen Urine Not Detected (Not Detect); Cocaine Screen Urine Not Detected (Not Detect); Fentanyl, urine Not Detected (Not Detect); Opiate Screen Urine Not Detected (Not Detect); Phencyclidine Screen Urine Not Detected (Not Detect)
[2023-05-07 22:18] LABS: Bacteria Urine Trace (None Seen); Hyaline Casts Urine 0-2 /LPF (0-2); RBC Urine 0-2 /HPF (0-2); UACC Culture Trigger YES
[2023-05-07 22:19] VITALS: BP 128/85; PULSE 79; RESP 16; TEMP 36.8; O2SAT 98
[2023-05-07 22:50] VITALS: BP 117/69; PULSE 87; RESP 14; O2SAT 99
[2023-05-07] MEDS: Nitrofurantoin Monohyd/M-Cryst 100 MG CAPSULE PO (22:58)
== END 2023-05-07 23:12 | disposition home or self-care (01) ==
PROVIDERS: Emergency Provider Student in an Organized Health Care Education/Training Program; PCP Registered Nurse
DX: R56.9 Unspecified convulsions (principal); N39.0 Urinary tract infection, site not specified; R00.0 Tachycardia, unspecified; Z79.899 Other long term (current) drug therapy; Z20.828 Contact with and (suspected) exposure to other viral communicable diseases; Z11.52 Encounter for screening for COVID-19
CPT/HCPCS: 0241U; 36415; 80053; 80307; 80339; 81001; 84702; 85025; 87086; 87147; 93005; 96360; 96361; 99284; 99285

== ENCOUNTER → 2023-05-07 19:41 | Outpatient (BNV) | payer MEDICAID, SELFPAY | PROVIDERS: Emergency Provider Student in an Organized Health Care Education/Training Program; PCP Registered Nurse; Visit Provider Internal Medicine Cardiovascular Disease | DX: R94.31 Abnormal electrocardiogram [ECG] [EKG] (principal) | CPT/HCPCS: 93010 ==

== ENCOUNTER 2023-06-21 15:26 | Emergency (ER) | payer MEDICAID, SELFPAY ==
[2023-06-21 15:41] VITALS: BP 125/74; PULSE 92; RESP 16; TEMP 36.8; O2SAT 98; BMI 22.5
--- NOTE | 2023-06-21 17:13 | ECG_ITS ---
Test Reason : SEIZURES Blood Pressure : / mmHG Vent. Rate : 076 BPM Atrial Rate : 076 BPM P-R Int : 182 ms QRS Dur : 074 ms QT Int : 380 ms P-R-T Axes : 009 081 010 degrees QTc Int : 427 ms Normal sinus rhythm Nonspecific T wave abnormality Abnormal ECG When compared with ECG of 07-MAY-2023 19:41, Vent. rate has decreased BY 39 BPM Nonspecific T wave abnormality has replaced inverted T waves in Anterior leads Referred By: Angi Vargas Electronically Signed By:JOHNNIE NEWELL MD
--- NOTE | 2023-06-21 17:14 | ED_ITS ---
HPI - General Adult General Chief complaint: General Medical Stated complaint: Pseudo sz like activity. No hx of epilepsy Time Seen by Provider: 06/21/23 16:03 Source: patient Mode of arrival: EMS Limitations: no limitations History of Present Illness HPI narrative: patient comes to the emergency room complaining of seizure-like activity. Patient states that she was in school arguing with the teacher, patient started having palpitations and she nearly passed out. EMS reports that she had seizure-like activity but was fully awake. At this time, patient is completely asymptomatic. No history of seizures, strong history of anxiety , suicidal ideation and panic attacks. at this time patient is not SI or HI. Related Data Home Medications ?Medication ?Instructions ?Recorded ?Confirmed cholecalciferol (vitamin D3) 25 25 mcg PO DAILY 10/12/22 04/27/23 mcg (1,000 unit) tablet docusate sodium 100 mg capsule 100 mg PO DAILY 10/12/22 04/27/23 famotidine 20 mg tablet 20 mg PO BID 10/12/22 04/27/23 guanfacine 3 mg tablet,extended 3 mg PO DAILY 10/12/22 04/27/23 release 24 hr hydroxyzine HCl 50 mg tablet 50 mg PO TID 10/12/22 04/27/23 loratadine 10 mg tablet 10 mg PO DAILY 10/12/22 04/27/23 mirtazapine 45 mg disintegrating 45 mg PO BEDTIME 11/02/22 04/27/23 tablet (Remeron SolTab) propranolol 10 mg tablet 10 mg PO BID 11/02/22 04/27/23 oxcarbazepine 300 mg tablet 300 mg PO TID 01/19/23 04/27/23 quetiapine 50 mg tablet,extended 50 mg PO BEDTIME 01/19/23 04/27/23 release 24 hr sucralfate 100 mg/mL oral PO 01/19/23 04/27/23 suspension (Carafate) etonogestrel 68 mg subdermal subdermal 04/27/23 04/27/23 implant (Nexplanon) Previous Rx's ?Medication ?Instructions ?Recorded acetaminophen 325 mg tablet 650 mg (2 x 325 mg) PO Q6H PRN 04/22/21 Pain, Mild (Pain Scale 1-3) #120 tabs famotidine 20 mg tablet 20 mg PO BID #60 tabs 03/01/23 metronidazole 500 mg tablet 500 mg PO BID 7 days #14 tabs 05/01/23 nitrofurantoin 100 mg PO Q12H 5 days #10 caps 05/07/23 monohydrate/macrocrystals 100 mg capsule (Macrobid) Allergies Allergy/AdvReac Type Severity Reaction Status Date / Time No Known Allergies Allergy Verified 06/21/23 15:41 Review of Systems 2 Review of Systems: Constitutional : No Weight loss, No Fever, No Chills, No Night Sweats, No Fatigue, No Malaise ENT/Mouth : No Hearing loss, No Ear Pain, No Nasal Congestion, No Sinus Pain, No Hoarseness, No sore throat, No Rhinorrhea, No Swallowing Difficulty Eyes: No Eye Pain, No Swelling, No Redness, No Foreign Body, No Discharge, No Vision Changes Cardiovascular : No Chest Pain, No SOB, No Dyspnea on Exertion, No Orthopnea, No Edema, No Palpitations Respiratory : No Cough, No Sputum, No Wheezing, No Smoke Exposure, No Dyspnea Gastrointestinal : No Nausea, No Vomiting, No Diarrhea, No Constipation, No abdominal Pain, No Hematochezia, No Melena Genitourinary : no irregular bleeding, No Dysuria, No Urinary Frequency, No Hematuria, No Urinary Incontinence, No Urgency, No Flank Pain, No Urinary Flow Changes, No Hesitancy Musculoskeletal : No joint pain, No Myalgias, No Joint Swelling Skin : No Skin Lesions, No rash Neuro : No Weakness, No Numbness, No Paresthesias, No Loss of Consciousness, No Dizziness, No Headache , complaining of pseudo seizure-like activity Psych : complaining of anxiety and stress in school, No Depression, No SI/HI/AH/VH, No Social Issues, Heme/Lymph: No Bruising, No Bleeding,No Lymphadenopathy Endocrine : No Polyuria, No Polydipsia, No Temperature Intolerance PMFSH Past Medical History Medical History Psychiatric pseudoseizure Severe recurrent major depression PTSD (post-traumatic stress disorder) Traumatic brain injury Learning disability ADHD Depression with anxiety Social History Social History Household Members: Other Household Members Other:: [facility] Housing: Other Housing Other:: [facility] Do you presently have visiting nurse or other home services: No Alcohol intake: never Patient Tobacco Use Status: Never used Tobacco Advance Directives: No Advance Directives Information Provided: No service: No Sexual orientation: Straight/Heterosexual Gender identity: Female Physical Exam ED Vital Signs: Vital Signs - 24 hr 06/21/23 15:41 Temperature 98.2 F Pulse Rate 92 Respiratory Rate 16 Blood Pressure 125/74 Pulse Oximetry 98 Oxygen Delivery Method Room Air BMI result Body Mass Index 22.5 Const Other: Appearance: Alert. Oriented X3. No acute distress. Eyes: Pupils equal, round and reactive to light. ENT: Pharynx normal. Neck: Normal inspection. Neck supple. No lymph nodes noted. No crepitus CVS: Normal heart rate and rhythm. Pulses normal. Normal S1 and S2 Respiratory: No respiratory distress. Breath sounds normal. No Wheezing. No rales Abdomen: Soft and nontender. No rigidity. No distention. Skin: Skin warm and dry. Normal skin color. Normal skin turgor. Extremities: No lower extremity edema. No Lacerations. No Rash Neuro: Oriented X 3. No motor deficit. No sensory deficit. Moving all extremities. No slurred speech. CN 2 through 12 grossly intact Psych: calm, cooperative, normal affect Course Course Course Narrative: - at this time, patient's physical exam is completely normal, vitals are normal, normal affect - EKG and basic labs pending Medical Decision Making Medical Decision Making [facility] Narrative: - I discussed with the patient that is likely that her symptoms from today were anxiety related, to seizure versus panic attack. - Also, I discussed with the patient that if she continues having increased from rate, palpitations, she may be a good candidate for a Holter monitor that can be referred to Cardiology through her primary care physician -my interpretation of labs: Normal hematology chemistry lactic acid, troponin -patient has been on the monitor, normal heart rate, no seizures or pseudoseizures Differential Diagnosis Differential Diagnoses: The differential diagnosis associated with the presentation includes (Anxiety, seizure, pseudo-seizure) Lab Data [facility] Lab Attestation statement: I reviewed the patient's lab results. 06/21/23 18:16 06/21/23 18:16 Labs: Lab Results 06/21/23 06/21/23 Range/Units 18:16 18:28 WBC 7.5 (4.8-10.8) X10*3/uL RBC 4.30 (4.20-5.50) X10*6/uL Hgb 12.9 (12.0-16.0) g/dl Hct 36.6 L (37.0-47.0) % MCV 85.1 (80.0-98.0) fL MCH 30.0 (27.0-33.0) pg MCHC 35.2 H (31.0-35.0) g/dl RDW 12.8 (11.0-16.0) % Plt Count 249 (160-400) X10*3/uL MPV 10.7 (9.4-12.3) fL Immature Gran % (Auto) 0.3 (0.0-0.4) % Neut % (Auto) 56.4 (45-73) % Lymph % (Auto) 30.1 (20-40) % Cherry % (Auto) 7.3 (2-11) % Eos % (Auto) 5.5 H (0-4) % Baso % (Auto) 0.4 (0-2) % Lymph # (Auto) 2.3 (1.2-4.9) X10*3/uL Cherry # (Auto) 0.6 (0.1-1.2) X10*3/uL Eos # (Auto) 0.4 (0.0-0.4) X10*3/uL Baso # (Auto) 0.0 (0.0-0.2) X10*3/uL Abs Immat Gran (auto) 0.02 (0.00-0.03) X10*3/uL Absolute Neuts (auto) 4.2 (2.0-8.3) x10*3/uL Absolute Nucleated RBC 0.000 (0.0-0.012) X10*3/uL Nucleated RBC % (auto) 0.0 (0.0-0.2) /100WBC Sodium 140 (135-145) mmol/L Potassium 4.7 D (3.3-5.1) mmol/L Chloride 106 (96-108) mmol/L Carbon Dioxide 26 (22-29) mmol/L Anion Gap 13 (12-20) BUN 9 (9-16) mg/dL Creatinine 0.76 (0.5-1.4) mg/dL Estim Creat Clear Calc 105.3 Estimated GFR > 60 Random Glucose 85 (60-115) mg/dL Lactic Acid 1.7 (0.5-2.0) mmol/L Calcium 9.3 (8.4-10.2) mg/dL Total Bilirubin 0.2 (0.0-1.0) mg/dL Direct Bilirubin < 0.2 (0.0-0.5) mg/dL AST 21 (5-31) U/L ALT 15 (0-31) U/L Alkaline Phosphatase 60 (39-117) U/L Troponin I High Sens < 2.7 (<3.5-17.0) ng/L Total Protein 7.1 (6.5-8.0) g/dL Albumin 3.9 (3.5-5.0) g/dL Discharge Plan Discharge Clinical Impression: Anxiety, Palpitations Patient Disposition: Home, Self-Care Instructions: Anxiety (ED), Heart Palpitations (ED) Additional Instructions: Please follow-up with your primary care physician tomorrow. If you have any worsening or new symptoms, please return to the emergency room or call 911 Prescriptions: No Action famotidine 20 mg tablet 20 mg PO BID Qty: 60 6RF metronidazole 500 mg tablet 500 mg PO BID 7 Days Qty: 14 0RF Rx Instructions: Take with food, Avoid alcohol and vinegar products acetaminophen 325 mg Tablet 650 mg PO Q6H PRN (Reason: Pain, Mild (Pain Scale 1-3)) Qty: 120 0RF hydroxyzine HCl 50 mg tablet 50 mg PO TID famotidine 20 mg tablet 20 mg PO BID docusate sodium 100 mg capsule 100 mg PO DAILY loratadine 10 mg tablet 10 mg PO DAILY cholecalciferol (vitamin D3) 25 mcg (1,000 unit) tablet 25 mcg PO DAILY guanfacine 3 mg tablet extended release 24 hr 3 mg PO DAILY nitrofurantoin monohyd/m-cryst [Macrobid] 100 mg capsule 100 mg PO Q12H 5 Days Qty: 10 0RF Rx Instructions: must administer with a meal/food mirtazapine [Remeron SolTab] 45 mg tablet,disintegrating 45 mg PO BEDTIME propranolol 10 mg tablet 10 mg PO BID oxcarbazepine 300 mg tablet 300 mg PO TID quetiapine 50 mg tablet extended release 24 hr 50 mg PO BEDTIME sucralfate [Carafate] 100 mg/mL suspension PO Nexplanon 68 mg implant subdermal Print Language: Swedish
[2023-06-21 18:23] LABS: MANUAL DIFF FLAG NO
[2023-06-21 18:25] LABS: Basophils Percent Auto 0.4 % (0-2); Eosinophils Absolute Auto 0.4 X10*3/uL (0.0-0.4); Eosinophils Percent Auto 5.5 % (0-4); Hematocrit 36.6 % (37.0-47.0); Hemoglobin 12.9 g/dl (12.0-16.0); Imm Gran Abs Auto 0.02 X10*3/uL (0.00-0.03); Imm Gran Pct Auto 0.3 % (0.0-0.4); Lymphocytes Absolute Auto 2.3 X10*3/uL (1.2-4.9); Lymphocytes Percent Auto 30.1 % (20-40); Mean Corpuscular HGB Conc 35.2 g/dl (31.0-35.0); Mean Corpuscular Volume 85.1 fL (80.0-98.0); Mean Platelet Volume 10.7 fL (9.4-12.3); Monocytes Absolute Auto 0.6 X10*3/uL (0.1-1.2); Monocytes Percent Auto 7.3 % (2-11); Neutrophils Absolute Auto 4.2 x10*3/uL (2.0-8.3); Neutrophils Percent Auto 56.4 % (45-73); Platelet Count 249 X10*3/uL (160-400); Red Cell Distribution Width 12.8 % (11.0-16.0); White Blood Count 7.5 X10*3/uL (4.8-10.8)
[2023-06-21 18:44] LABS: Lactic Acid 1.7 mmol/L (0.5-2.0)
[2023-06-21 18:46] LABS: Troponin-I High Sensitivity < 2.7 ng/L (<3.5-17.0)
[2023-06-21 19:38] LABS: Alanine Aminotransferase 15 U/L (0-31); Albumin Level 3.9 g/dL (3.5-5.0); Alkaline Phosphatase 60 U/L (39-117); Anion Gap 13 (12-20); Bilirubin Total 0.2 mg/dL (0.0-1.0); Blood Urea Nitrogen 9 mg/dL (9-16); Calcium 9.3 mg/dL (8.4-10.2); Carbon Dioxide 26 mmol/L (22-29); Chloride 106 mmol/L (96-108); Creatinine Clr Calc Pharmacy 105.3; Estimated Glomerular Filt Rate > 60; Glucose Random 85 mg/dL (60-115); Sodium 140 mmol/L (135-145)
[2023-06-21 19:41] LABS: Aspartate Amino Transferase 21 U/L (5-31); Bilirubin Direct < 0.2 mg/dL (0.0-0.5); Potassium 4.7 mmol/L (3.3-5.1); Total Protein 7.1 g/dL (6.5-8.0)
[2023-06-21 20:06] VITALS: BP 120/76; PULSE 90; RESP 16; TEMP 36.8; O2SAT 99
== END 2023-06-21 20:07 | disposition home or self-care (01) ==
PROVIDERS: Emergency Provider Emergency Medicine; PCP Registered Nurse
DX: R56.9 Unspecified convulsions (principal); F41.1 Generalized anxiety disorder; F43.0 Acute stress reaction; R00.2 Palpitations; Z79.899 Other long term (current) drug therapy
CPT/HCPCS: 36415; 80048; 80076; 83605; 84484; 85025; 93005; 99283; 99284

== ENCOUNTER → 2023-06-21 17:13 | Outpatient (BNV) | payer MEDICAID, SELFPAY | PROVIDERS: Emergency Provider Emergency Medicine; Visit Provider Internal Medicine Cardiovascular Disease | DX: R94.31 Abnormal electrocardiogram [ECG] [EKG] (principal) | CPT/HCPCS: 93010 ==

== ENCOUNTER 2023-06-28 10:48 | Outpatient (AMB) | payer MEDICAID, SELFPAY ==
[2023-06-28 11:14] VITALS: BP 110/62
--- NOTE | 2023-06-28 11:14 | MHC.OFFVIS ---
Intake Vital Signs 06/28/23 11:14 Height 5 ft 5 in BP 110/62 Intake Visit Reasons: Nexplanon exchange Hospital Librarian Required: No Information Interpreted: clinical only Plant Pathologist: Plant Pathologist Present Allergies No Known Allergies Allergy (Verified 06/28/23 11:15) Medication List - Last Reconciled 06/28/23 by Jackie Alberts CNM acetaminophen 650 mg (2 x 325 mg) PO Q6H PRN cholecalciferol (vitamin D3) 25 mcg PO DAILY docusate sodium 100 mg PO DAILY etonogestrel (Nexplanon) subdermal famotidine 20 mg PO BID famotidine 20 mg PO BID guanfacine ER 3 mg PO DAILY hydroxyzine HCl 50 mg PO TID loratadine 10 mg PO DAILY mirtazapine (Remeron SolTab) 45 mg PO BEDTIME nitrofurantoin monohyd/m-cryst 100 mg (Macrobid) 100 mg PO Q12H 5 days oxcarbazepine 300 mg PO TID propranolol 10 mg PO BID quetiapine ER 50 mg PO BEDTIME sucralfate (Carafate) PO Is last menstrual period known: Yes Last menstrual period: 06/28/23 Do you need a note to return to daycare/school/sports/work: No HPI Nexplanon exchange HPI Details Patient is here to get her Nexplanon removed and a new 1 inserted. She has not had sex for 2 months test today is negative she has had it for about 3 years she is on other medications for which there was concern about interactions but she has been on them for years and also has had the Nexplanon the years and it is the best alternative method for her. 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 [facility] Medical History Psychiatric pseudoseizure Severe recurrent major depression PTSD (post-traumatic stress disorder) Traumatic brain injury Learning disability ADHD Depression with anxiety Social History Household Members: Other Household Members Other:: nursing home Housing: Other Housing Other:: nursing home Do you presently have visiting nurse or other home services: No Alcohol intake: never Patient Tobacco Use Status: Never used Tobacco service: No Sexual orientation: Straight/Heterosexual Gender identity: Female Female Reproductive History Menstrual Age of Menarche: 16 Date of last menstrual period: 06/28/23 control method: implanted Total pregnancies: 0 Physical Exam Vital Signs: Last Vital Signs BP 110/62 06/28/23 11:14 Office Procedures Contraception Insert/Removal Details Details: Nexplanon Removal/Reinsertion Insertion Procedure The patient was placed in a supine position with her non dominant hand resting extended upwards, secondary to limitations of room space and bed.. The insertion site was located: 8-10cm from the medial epicondyle notch of the humerus, posterior to the sulcus, between the triceps and biceps muscle. The area of the previous implant was identified and the distal tip located. This area was cleansed with an alcohol prep and 3 ml of 1% Lidocaine on a 25 gauge needle and syringe was utilized for adequate anesthesia to the insertion site. After ascertaining adequate anesthesia, the area was prepped with Betadine solution. The skin over the distal tip was incised with a #11 blade scalpel and the capsule was located and entered freeing the implant from the canal. The implant was removed with a gentle tug using a blunt tweezer and removed intact. The Nexplanon device was removed from the manufacturers package and the implant was noted in the trocar canal. The trocar was inserted at a 30 degree angle and then lowered parallel to the skin for insertion into the subcutaneous space with counter traction. Direct pressure was applied to the insertion site for hemostasis, minimal bleeding was observed. Steri strips, Tegaderm covering, gauze pads, and Marlys wrap dressing were secured with paper tape. The implant was palpable underneath the skin by myself and the patient. The patient tolerated the procedure well and left the office in good condition. 98921 - Insertion and Removal Office Meds Nexplanon 68 mg subdermal implant Performing Provider: Jackie Alberts CNM [place] [facility] Administered by: Luis Alberto Samuel CMA on 06/28/23 12:06 Dose Route Admin Location Dispensed Lot Number Expiration Date [facility] [employer] 1 implant subdermal 1 implant [id number] 02/15/25 [id number] [employer] 1 implant subdermal 1 ea Results Reviewed Results Reviewed: Name: Cleve Jacques Age/Sex: 23/F Attending: : 2000 Submitted by: TIAGO RODRÍGUEZ [facility] Copies to: MR #: [id number] Status: PRE REF Collected: 03/29/23 Location: .LN Received: 03/30/23 Interpretation Satisfactory for evaluation. Negative for intraepithelial lesion or malignancy. Clinical Information LMP: Unknown date Previous PAP test: Unknown date/findings Material Received ThinPrep-Cervical Electronically Signed By: Heydi Hope 04/09/23 1121 The Pap Test is a screening procedure with the inherent possibility of both false negative and false positive results. Results should be interpreted in the context of historic and current clinical findings. Reliability of the Pap Test is enhanced by performing the test on a regular repetitive basis. Patient: Cleve Jacques Age/Sex: 23/F MR#: [id number] Page 1 of 1 test negative today . last intercourse 2 months ago. Assessment & Plan Assessment & Plan (1) Insertion of Nexplanon: Code(s): Z30.017 - Encounter for initial prescription of implantable subdermal contraceptive (2) Encounter for removal and reinsertion of Nexplanon: Code(s): Z30.46 - Encounter for surveillance of implantable subdermal contraceptive Plan Tolerated the procedure very well and said she did not feel thing. Area was held with pressure and Steri-Strips applied and Tegaderm over that and a pressure dressing with paper tape and over that a pressure dressing with Marlys wrap. Patient is returning school her paperwork was filled out for her. Patient instructed if she could to leave the pressure dressing on until tonight in leave the Tegaderm on until 3 days and to call if there are any signs and symptoms of expulsion or infection. See her in 1-2 weeks to check on the site. Orders: Orders AMB Nexplanon/Implanon Insertion - Patient Supply Today Z30.017 - Encounter for initial prescription of implantable subdermal contraceptive AMB HCG Urine Test Today Z32.02 - Encounter for test, result negative Coding Level of Care Code Est Pt Level 3 (51661) Diagnoses Insertion of Nexplanon Z30.017 Encounter for removal and reinsertion of Nexplanon Z30.46 CPT Codes Details - Contraception: 47155 - Insertion and Removal ([id number])
== END 2023-06-28 12:01 | disposition home or self-care (01) ==
LOC: HO.HWSM 10:48
PROVIDERS: Visit Provider Advanced Practice Midwife
DX: Z30.017 Encounter for initial prescription of implantable subdermal contraceptive (principal); Z30.46 Encounter for surveillance of implantable subdermal contraceptive
CPT/HCPCS: 11983

== ENCOUNTER → 2023-06-28 10:48 | Outpatient (BNVA) | payer MEDICAID, SELFPAY | PROVIDERS: Visit Provider Advanced Practice Midwife | DX: Z30.46 Encounter for surveillance of implantable subdermal contraceptive (principal) | CPT/HCPCS: 11983; J7307 ==

== ENCOUNTER 2023-07-12 10:47 | Outpatient (AMB) | payer MEDICAID, SELFPAY ==
[2023-07-12 10:52] VITALS: BP 110/62; BMI 22.5
--- NOTE | 2023-07-12 10:52 | A.OFFVIS_ITS ---
Vital Signs 07/12/23 10:52 Height 5 ft 5 in Weight 135 lb BMI 22.5 BP 110/62 Intake Visit Reasons: 2 week Nexplanon Check Chefs Required: No Information Interpreted: clinical only Senior Linux Systems Engineer: Senior Linux Systems Engineer Present Allergies No Known Allergies Allergy (Verified 07/12/23 10:52) Medication List - Last Reconciled 07/12/23 by Jackie Alberts CNM acetaminophen 650 mg (2 x 325 mg) PO Q6H PRN cholecalciferol (vitamin D3) 25 mcg PO DAILY docusate sodium 100 mg PO DAILY etonogestrel (Nexplanon) subdermal famotidine 20 mg PO BID famotidine 20 mg PO BID guanfacine ER 3 mg PO DAILY hydroxyzine HCl 50 mg PO TID loratadine 10 mg PO DAILY mirtazapine (Remeron SolTab) 45 mg PO BEDTIME nitrofurantoin monohyd/m-cryst 100 mg (Macrobid) 100 mg PO Q12H 5 days oxcarbazepine 300 mg PO TID propranolol 10 mg PO BID quetiapine ER 50 mg PO BEDTIME sucralfate (Carafate) PO Is last menstrual period known: Yes () HPI HPI 2 week Nexplanon Check: Details: For 2 week check on Nexplanon. She had 1 removed and another 1 inserted. She is on number other medications her her psychiatrist do with moods she says that her psychiatrist or somebody stopped her from taking the Trileptal because somebody in our office told her she could not be on that and use the Nexplanon which she had been on for years as well as the Trileptal. This issue had been discussed in the past with the patient and with other staff. Per the research that I had done the issue was more that presence of the Nexplanon may affect the level of the Trileptal if it is being used for seizure prevention. The patient was on it for mood stabilization not seizure prevention but in any case she is off of it currently I discussed with the patient that this was something she would need to discuss with her psychiatrist in determining what medications she needed but in any case if there was any question of being put on a medication that would render her her control less functional then she should backup method with condoms. A list of all the medication that she provided to us will be provided to the patient to bring to her psychiatrist today as well. [facility] Medical History Psychiatric pseudoseizure Severe recurrent major depression PTSD (post-traumatic stress disorder) Traumatic brain injury Learning disability ADHD Depression with anxiety Social History Household Members: Other Household Members Other:: retirement Housing: Other Housing Other:: retirement Do you presently have visiting nurse or other home services: No Alcohol intake: never Patient Tobacco Use Status: Never used Tobacco service: No Sexual orientation: Straight/Heterosexual Gender identity: Female Female Reproductive History Menstrual Age of Menarche: 16 Duration of menses: <3 days control method: implanted Total pregnancies: 0 Physical Exam Vital Signs: Last Vital Signs BP 110/62 07/12/23 10:52 BMI result Body Mass Index 22.5 Const Other: Patient has Nexplanon site is healing well in her right arm she also has faint skin discolorations on her arm from where the tape covering the pressure dress ing touched her skin and was left over night. She is putting Aquaphor on that. Assessment & Plan Assessment & Plan (1) Encounter for surveillance of Nexplanon subdermal contraceptive: Code(s): Z30.46 - Encounter for surveillance of implantable subdermal contraceptive Category: Medical Plan For 2 week check on Nexplanon. She had 1 removed and another 1 inserted. She is on number other medications her her psychiatrist do with moods she says that her psychiatrist or somebody stopped her from taking the Trileptal because somebody in our office told her she could not be on that and use the Nexplanon which she had been on for years as well as the Trileptal. This issue had been discussed in the past with the patient and with other staff. Per the research that I had done the issue was more that presence of the Nexplanon may affect the level of the Trileptal if it is being used for seizure prevention. The patient was on it for mood stabilization not seizure prevention but in any case she is off of it currently I discussed with the patient that this was something she would need to discuss with her psychiatrist in determining what medications she needed but in any case if there was any question of being put on a medication that would render her her control less functional then she should backup method with condoms. A list of all the medication that she provided to us will be provided to the patient to bring to her psychiatrist today as well. Coding Level of Care Code Est Pt Level 3 (00437) Diagnoses Encounter for surveillance of Nexplanon subdermal contraceptive Z30.46
== END 2023-07-12 11:36 | disposition home or self-care (01) ==
PROVIDERS: Visit Provider Advanced Practice Midwife
DX: Z30.46 Encounter for surveillance of implantable subdermal contraceptive (principal)
CPT/HCPCS: 99213

== ENCOUNTER → 2023-07-12 10:47 | Outpatient (BNVA) | payer MEDICAID, SELFPAY | PROVIDERS: Visit Provider Advanced Practice Midwife | DX: Z30.46 Encounter for surveillance of implantable subdermal contraceptive (principal) | CPT/HCPCS: 99212 ==

== ENCOUNTER 2023-08-21 10:48 | Emergency (ER) | payer OTHER, SELFPAY ==
[2023-08-21 10:56] VITALS: BP 124/86; PULSE 64; O2SAT 94
[2023-08-21 10:58] VITALS: BMI 25.4
[2023-08-21 11:06] VITALS: BP 138/108; PULSE 110; RESP 18; TEMP 36.9; O2SAT 98
--- NOTE | 2023-08-21 11:07 | ED.PSYCH ---
HPI - Psych General Chief Complaint: Behavioral Concerns Stated Complaint: SEC 12,SI ACTION WITH STAFF,CPD FOR SAFETY Time Seen by Provider: 08/21/23 10:54 Source: patient, EMS, RN notes reviewed and old records reviewed Mode of arrival: EMS History of Present Illness ED Provider: Maureen Lees PA-C HPI Narrative: 23-year-old female with a past medical history of pseudoseizures, PTSD, learning disability, ADHD, depression, anxiety, presenting to the ED from correction via EMS with PD on section 12 due to aggression with staff and SI threats. Per EMS patient took a broken piece of glass and put it up to her neck threatening to kill herself. Per patient she refused her medications today and was antagonize by correction staff which set her off. Denies SI/HI at present. States she has been taking her medications other than today. Denies auditory/visual hallucinations. Denies drugs/ETOH use Related Data Home Medications ?Medication ?Instructions ?Recorded ?Confirmed cholecalciferol (vitamin D3) 25 25 mcg PO DAILY 10/12/22 08/21/23 mcg (1,000 unit) tablet docusate sodium 100 mg capsule 100 mg PO DAILY 10/12/22 08/21/23 guanfacine 3 mg tablet,extended 3 mg PO DAILY 10/12/22 08/21/23 release 24 hr hydroxyzine HCl 50 mg tablet 50 mg PO TID 10/12/22 08/21/23 loratadine 10 mg tablet 10 mg PO DAILY 10/12/22 08/21/23 mirtazapine 45 mg disintegrating 45 mg PO BEDTIME 11/02/22 08/21/23 tablet (Remeron SolTab) quetiapine 50 mg tablet,extended 50 mg PO BEDTIME 01/19/23 08/21/23 release 24 hr carvedilol 6.25 mg tablet 6.25 mg PO BID 08/21/23 08/21/23 cetirizine 10 mg tablet 10 mg PO DAILY 08/21/23 08/21/23 oxcarbazepine 300 mg tablet 300 mg PO TID 08/21/23 08/21/23 Previous Rx's ?Medication ?Instructions ?Recorded acetaminophen 325 mg tablet 650 mg (2 x 325 mg) PO Q6H PRN 04/22/21 Pain, Mild (Pain Scale 1-3) #120 tabs famotidine 20 mg tablet 20 mg PO BID #60 tabs 03/01/23 nitrofurantoin 100 mg PO Q12H 5 days #10 caps 05/07/23 monohydrate/macrocrystals 100 mg capsule (Macrobid) Allergies Allergy/AdvReac Type Severity Reaction Status Date / Time No Known Allergies Allergy Verified 08/21/23 11:02 Review of Systems Review of Systems: Constitutional: No Fever, No Chills, No Fatigue, No Malaise Cardiovascular: No Chest Pain, No SOB Respiratory: No Cough, No Sputum, No Wheezing, No Smoke Exposure, No Dyspnea Gastrointestinal: No Nausea, No Vomiting, No Diarrhea, No Constipation, No Abdominal pain Musculoskeletal: No joint pain, No Myalgias Skin: No Skin Lesions, No rash Neuro: No Weakness, No Headache Psych: No Anxiety/Panic, No Depression, No SI/HI/AH/VH, + Social Issues Yes all other systems are reviewed and are negative Constitutional: Constitutional: Reports as per [facility] Past Medical History Attestation statement: The following information was validated with the patient. Source: old records reviewed Medical History Psychiatric pseudoseizure Severe recurrent major depression PTSD (post-traumatic stress disorder) Traumatic brain injury Learning disability ADHD Depression with anxiety Social History Social History Household Members: Other Household Members Other:: correction Housing: Other Housing Other:: correction Do you presently have visiting nurse or other home services: No Unable to assess alcohol history related to: Unable to respond Alcohol intake: never Patient Tobacco Use Status: Never used Tobacco Use of substances other than those prescribed or required for medical reasons: Unable to respond Advance Directives: No Advance Directives Information Provided: Yes Do you have a plan to hurt others: No Plan service: No Sexual orientation: Straight/Heterosexual Gender identity: Female Physical Exam Vital Signs: Vital Signs: Last Vital Signs Temp 98.4 F 08/21/23 11:06 Pulse 110 H 08/21/23 11:06 Resp 18 08/21/23 11:06 BP 138/108 H 08/21/23 11:06 Pulse Ox 98 08/21/23 11:06 O2 Del Method Room Air 08/21/23 11:06 BMI result Body Mass Index 25.4 Const: Other: Tearful General: healthy appearing and no acute distress Orientation/consciousness: patient oriented x3 Limitations: no limitations HEENT: Head: Yes normal to inspection and Yes atraumatic Ears: hearing grossly normal bilaterally General nose exam: Normal external nose present Face and sinus: Yes normal facial exam Eyes: General: appearance normal, both eyes and all related structures EOM: EOMs intact bilaterally Neck: Neck: Yes normal visual inspection and Yes no meningeal signs Resp: Effort & Inspection: normal respiratory effort and no respiratory distress Cardio: Rate: regular rate Skin: Rashes: no rashes Wounds: no wounds Neuro: General: patient oriented x3, tone normal, no meningeal signs and CN's II-XI intact bilaterally Cranial nerves: Yes CN's II-XII intact bilaterally Gait exam (Neuro): Normal gait present Extrem: General: Yes normal to inspection Psych: Other: tearful Speech and movement: Pressured speech present Affect: Irritable affect present Thought process: Perseverating thought process present Thought content: suicidality and no homicidality Course Course Course Narrative: -1321--no leukocytosis. Labs otherwise reassuring. Tox screen negative. -physician observation initiated at 13:22 as patient needs more time to be evaluated by CARE team -1545--patient evaluated by care team and will be respite bed search -1630--ED care transferred to RADHA Ludwig pending Respite Medications Administered Generic Name Dose Route Start Last Admin Trade Name Freq PRN Reason Stop Dose Admin Hydroxyzine HCl 50 mg 08/21/23 15:00 08/21/23 15:11 Hydroxyzine Hcl 50 Mg Tablet PO 50 mg TID PRISCILA Administration Nitrofurantoin Macrocrystals 100 mg 08/21/23 14:45 08/21/23 15:12 Nitrofurantoin Monohyd/M-Cryst 100 Mg Capsule PO Not Given BID PRISCILA Oxcarbazepine 300 mg 08/21/23 15:00 08/21/23 15:12 Oxcarbazepine 300 Mg Tablet PO Not Given TID PRISCILA Medical Decision Making Medical Decision Making [facility] Narrative: 23-year-old female with a past medical history of pseudoseizures, PTSD, learning disability, ADHD, depression, anxiety, presenting to the ED from correction via EMS with PD on section 12 due to aggression with staff and SI threats. On exam hypertensive, tachycardic, worked up, tearful. Denies SI/HI at present. Rule out organic causes. Plan: Labs, WRIGHT, CARE team consult Please refer to course for remaining clinical decision making, interpretation of labs/imaging results, and discussions with consultants and/or family members. Differential Diagnosis Differential Diagnoses: The differential diagnosis associated with the presentation includes As above Admission/Observation Consideration of admission/observation: Escalation of care including admission/observation considered Consult Healthcare Provider Management of the patient was discussed with: Behavioral Health Provider Lab Data [facility] Lab Attestation statement: I reviewed the patient's lab results. 08/21/23 12:07 08/21/23 12:07 Labs: Lab Results 08/21/23 08/21/23 Range/Units 12:07 12:27 WBC 7.5 (4.8-10.8) X10*3/uL RBC 4.77 (4.20-5.50) X10*6/uL Hgb 13.4 (12.0-16.0) g/dl Hct 40.6 (37.0-47.0) % MCV 85.1 (80.0-98.0) fL MCH 28.1 (27.0-33.0) pg MCHC 33.0 (31.0-35.0) g/dl RDW 12.4 (11.0-16.0) % Plt Count 270 (160-400) X10*3/uL MPV 10.5 (9.4-12.3) fL Immature Gran % (Auto) 0.4 (0.0-0.4) % Neut % (Auto) 77.8 H (45-73) % Lymph % (Auto) 15.0 L (20-40) % [place] % (Auto) 4.4 (2-11) % Eos % (Auto) 1.9 (0-4) % Baso % (Auto) 0.5 (0-2) % Lymph # (Auto) 1.1 L (1.2-4.9) X10*3/uL [place] # (Auto) 0.3 (0.1-1.2) X10*3/uL Eos # (Auto) 0.1 (0.0-0.4) X10*3/uL Baso # (Auto) 0.0 (0.0-0.2) X10*3/uL Abs Immat Gran (auto) 0.03 (0.00-0.03) X10*3/uL Absolute Neuts (auto) 5.8 (2.0-8.3) x10*3/uL Absolute Nucleated RBC 0.000 (0.0-0.012) X10*3/uL Nucleated RBC % (auto) 0.0 (0.0-0.2) /100WBC Sodium 140 (135-145) mmol/L Potassium 4.0 (3.3-5.1) mmol/L Chloride 106 (96-108) mmol/L Carbon Dioxide 26 (22-29) mmol/L Anion Gap 12 (12-20) BUN 8 L (9-16) mg/dL Creatinine 0.87 (0.5-1.4) mg/dL Estim Creat Clear Calc 96.3 Estimated GFR > 60 Random Glucose 91 (60-115) mg/dL Calcium 10.2 D (8.4-10.2) mg/dL Total Bilirubin 0.5 (0.0-1.0) mg/dL AST 16 (5-31) U/L ALT 11 (0-31) U/L Alkaline Phosphatase 75 (39-117) U/L Total Protein 7.7 (6.5-8.0) g/dL Albumin 4.7 (3.5-5.0) g/dL Urine Color Yellow Urine Appearance Clear Urine pH 7.5 (5.0-9.0) Ur Specific [place] 1.010 (1.005-1.025) Urine Protein Negative (Neg-Trace) mg/dL Urine Glucose (UA) Negative (Negative) mg/dL Urine Ketones Negative (Negative) mg/dL Urine Blood Negative (Negative) Urine Nitrite Negative (Negative) Ur Leukocyte Esterase Moderate (2+) H (Negative) Urine RBC 0-2 (0-2) /HPF Urine WBC 0-5 (0-5) /HPF Ur Squamous Epith Cells 11-20 (0-2) /HPF Urine Bacteria 1+ (None Seen) Hyaline Casts 0-2 (0-2) /LPF Urine Opiates Screen Not Detected (Not Detect) Ur Buprenorphine Scrn Not Detected (Not Detect) ng/mL Ur Oxycodone Screen Not Detected (Not Detect) ng/mL Urine Methadone Screen Not Detected (Not Detect) ng/mL Urine Fentanyl Screen Not Detected (Not Detect) Ur Barbiturates Screen Not Detected (Not Detect) Ur Phencyclidine Scrn Not Detected (Not Detect) Ur Amphetamines Screen Not Detected (Not Detect) U Benzodiazepines Scrn Not Detected (Not Detect) Urine Cocaine Screen Not Detected (Not Detect) U Marijuana (THC) Screen Not Detected (Not Detect) Ethyl Alcohol < 10 mg/dL Independent Historian Clinical information obtained from an independent historian. History obtained from or confirmed by: EMS External Record Review External record reviewed: Inpatient record, Office record, Outpatient record, Prior outpatient labs, Prior outpatient radiology, Primary care record and Outside ED record Tests considered The following testing was considered but not selected: As above Chronic Conditions Patient?s care impacted by: Other Discharge Plan Discharge Clinical Impression: Suicidal ideations Patient Disposition: Still a Patient Prescriptions: No Action famotidine 20 mg tablet 20 mg PO BID Qty: 60 6RF acetaminophen 325 mg Tablet 650 mg PO Q6H PRN (Reason: Pain, Mild (Pain Scale 1-3)) Qty: 120 0RF hydroxyzine HCl 50 mg tablet 50 mg PO TID docusate sodium 100 mg capsule 100 mg PO DAILY loratadine 10 mg tablet 10 mg PO DAILY cholecalciferol (vitamin D3) 25 mcg (1,000 unit) tablet 25 mcg PO DAILY guanfacine 3 mg tablet extended release 24 hr 3 mg PO DAILY nitrofurantoin monohyd/m-cryst [Macrobid] 100 mg capsule 100 mg PO Q12H 5 Days Qty: 10 0RF Rx Instructions: must administer with a meal/food carvedilol 6.25 mg tablet 6.25 mg PO BID cetirizine 10 mg tablet 10 mg PO DAILY oxcarbazepine 300 mg tablet 300 mg PO TID mirtazapine [Remeron SolTab] 45 mg tablet,disintegrating 45 mg PO BEDTIME quetiapine 50 mg tablet extended release 24 hr 50 mg PO BEDTIME Print Language: Chilean
--- NOTE | 2023-08-21 11:13 | PC.NURSE ---
PT DILSHAD accompanied by PD on a section 12 from her alf due to taking a piece of broken glass and threatening to kill herself with it. Per report the staff at the alf were attempting to pass morning medications but the patient was refusing. There was an escalation between the patient and staff and the patient ended up breaking a plate and used the broken piece to threaten to kill herself with it. The patient was changed over into hospital attire and belongings were inventoried. Upon assessment the patient continues to endorse suicidal ideations. The patient is very tearful and repeatedly states that she does not want to go back to the alf she was living in. The patient denies homicidal ideations. Per alf face sheet the patient has a history of: Intellectual disability PTSD ADHD MDD Anxiety Adjustment Disorder Insomnia
[2023-08-21 12:17] LABS: MANUAL DIFF FLAG NO
[2023-08-21 12:20] LABS: Basophils Percent Auto 0.5 % (0-2); Eosinophils Absolute Auto 0.1 X10*3/uL (0.0-0.4); Eosinophils Percent Auto 1.9 % (0-4); Hematocrit 40.6 % (37.0-47.0); Hemoglobin 13.4 g/dl (12.0-16.0); Imm Gran Abs Auto 0.03 X10*3/uL (0.00-0.03); Imm Gran Pct Auto 0.4 % (0.0-0.4); Lymphocytes Absolute Auto 1.1 X10*3/uL (1.2-4.9); Mean Corpuscular Hemoglobin 28.1 pg (27.0-33.0); Mean Corpuscular Volume 85.1 fL (80.0-98.0); Mean Platelet Volume 10.5 fL (9.4-12.3); Monocytes Absolute Auto 0.3 X10*3/uL (0.1-1.2); Monocytes Percent Auto 4.4 % (2-11); Neutrophils Absolute Auto 5.8 x10*3/uL (2.0-8.3); Neutrophils Percent Auto 77.8 % (45-73); Platelet Count 270 X10*3/uL (160-400); Red Blood Count 4.77 X10*6/uL (4.20-5.50); Red Cell Distribution Width 12.4 % (11.0-16.0); White Blood Count 7.5 X10*3/uL (4.8-10.8)
[2023-08-21 12:42] LABS: Alanine Aminotransferase 11 U/L (0-31); Albumin Level 4.7 g/dL (3.5-5.0); Alkaline Phosphatase 75 U/L (39-117); Anion Gap 12 (12-20); Aspartate Amino Transferase 16 U/L (5-31); Bilirubin Total 0.5 mg/dL (0.0-1.0); Blood Urea Nitrogen 8 mg/dL (9-16); Calcium 10.2 mg/dL (8.4-10.2); Carbon Dioxide 26 mmol/L (22-29); Chloride 106 mmol/L (96-108); Creatinine Clr Calc Pharmacy 96.3; Estimated Glomerular Filt Rate > 60; Ethanol < 10 mg/dL; Glucose Random 91 mg/dL (60-115); Sodium 140 mmol/L (135-145); Total Protein 7.7 g/dL (6.5-8.0)
[2023-08-21 12:47] LABS: Appearance Urine Clear; Color Urine Yellow; Glucose Urine UA Negative (Negative); Leukocyte Esterase Urine Moderate (2+) (Negative); Nitrite Urine Negative (Negative); PH 7.5 (5.0-9.0); UMIC TRIGGER UACC YES; Urine Blood Negative (Negative); Urine Ketones Negative (Negative); Urine Protein Negative (Neg-Trace)
[2023-08-21 12:54] LABS: Amphetamine Screen Urine Not Detected (Not Detect); Barbiturates, Urine Not Detected (Not Detect); Benzodiazepines Screen Urine Not Detected (Not Detect); Buprenorphine Scr Not Detected (Not Detect); Cannabinoid Screen Urine Not Detected (Not Detect); Cocaine Screen Urine Not Detected (Not Detect); Fentanyl, urine Not Detected (Not Detect); Methadone Screen, Urine Not Detected (Not Detect); Opiate Screen Urine Not Detected (Not Detect); Oxycodone Screen Urine Not Detected (Not Detect); Phencyclidine Screen Urine Not Detected (Not Detect)
[2023-08-21 13:07] LABS: Bacteria Urine 1+ (None Seen); Hyaline Casts Urine 0-2 /LPF (0-2); RBC Urine 0-2 /HPF (0-2); WBC Urine 0-5 /HPF (0-5)
[2023-08-21] MEDS: hydrOXYzine HCL 50 MG TABLET PO ×2 (15:11→20:30)
--- NOTE | 2023-08-21 15:43 | MHC.CARE ---
at the time of this writing, patinet is an [facility] bed search.
--- NOTE | 2023-08-21 19:37 | PC.NURSE ---
patient appears to remain at rest in chair in common area, patient asking appropriate questions in regard to care plan, patient appears in no distress.
[2023-08-21 20:30] VITALS: BP 118/80; PULSE 98
[2023-08-21] MEDS: carvediloL 6.25 MG TABLET PO (20:30)
[2023-08-21] MEDS: Mirtazapine 15 MG TABLET 45 MG PO (20:30)
[2023-08-21] MEDS: OXcarbazepine 300 MG TABLET PO (20:30)
[2023-08-21] MEDS: QUEtiapine Fumarate 25 MG TABLET PO (20:30)
[2023-08-21] MEDS: Famotidine 20 MG TABLET PO (20:30)
[2023-08-21] MEDS: Nitrofurantoin Monohyd/M-Cryst 100 MG CAPSULE PO (20:30)
[2023-08-21 20:32] VITALS: BP 118/80; PULSE 98; RESP 16; TEMP 36.8; O2SAT 97
[2023-08-22 06:30] VITALS: BP 125/83; PULSE 79; RESP 15; TEMP 36.8; O2SAT 98
[2023-08-22 08:02] VITALS: BP 138/91; PULSE 86; RESP 16; TEMP 37.1; O2SAT 97
[2023-08-22] MEDS: hydrOXYzine HCL 50 MG TABLET PO (08:27)
[2023-08-22] MEDS: Famotidine 20 MG TABLET PO (08:27)
[2023-08-22] MEDS: Loratadine 10 MG TABLET PO (08:27)
[2023-08-22] MEDS: Docusate Sodium 100 MG CAPSULE PO (08:27)
[2023-08-22] MEDS: Nitrofurantoin Monohyd/M-Cryst 100 MG CAPSULE PO (08:27)
[2023-08-22] MEDS: Cholecalciferol (Vitamin D3) 25 MCG TABLET PO (08:27)
[2023-08-22 10:34] VITALS: BP 138/91; PULSE 86; RESP 16; TEMP 37.1; O2SAT 97
== END 2023-08-22 10:39 | disposition other institution (70) ==
PROVIDERS: Emergency Provider Emergency Medicine
DX: R45.851 Suicidal ideations (principal); R00.0 Tachycardia, unspecified; F33.2 Major depressive disorder, recurrent severe without psychotic features; F43.10 Post-traumatic stress disorder, unspecified; F41.8 Other specified anxiety disorders; F90.9 Attention-deficit hyperactivity disorder, unspecified type; F81.9 Developmental disorder of scholastic skills, unspecified; Z87.820 Personal history of traumatic brain injury; Z79.899 Other long term (current) drug therapy
CPT/HCPCS: 36415; 80053; 80307; 81001; 85025; 99284; S9485

== ENCOUNTER 2023-09-18 10:57 | Outpatient (AMB) | payer MEDICAID, SELFPAY ==
--- NOTE | 2023-09-18 11:03 | A.OFFVIS_ITS ---
Vital Signs 09/18/23 11:07 Height 5 ft 4 in Weight 155 lb 10.342 oz BMI 26.7 BP 116/74 Blood Pressure Location Lt brachial Position Sitting Pulse 80 Intake Visit Reasons: 6 month follow up Intake Note: Cleve presents to in office visit today in follow up of GERD. CC: Patient reports that she ran out of the Carafate because she missed her last appt and since she began to have abdominal pain. Child Care Provider Required: No Accompanied by: Self / Same As Patient Allergies No Known Allergies Allergy (Verified 09/18/23 11:11) HPI HPI 6 month follow up: Details: Assessment & Plan (1) GERD (gastroesophageal reflux disease): Code(s): K21.9 - Gastro-esophageal reflux disease without esophagitis Plan: She is here today with someone from her [facility] who is supportive. She does not like the taste of the carafate, so I recommend mixing it with a sweet drink. They will re write the order and fax it out for signature. This is because despite her dislike of the taste the staff and the patient agree that it is helping her quite a lot. She is not currently using the dicyclomine. She continues to use her famotidine. ROV 6 mos. (2) Abdominal cramping: Code(s): R10.9 - Unspecified abdominal pain ?] CORRESPONDENCE On 06/30/22 @ 08:05 Shaista Salazar Wrote To MarieJune (2) Let does discontinue the medication since she seems to be doing quite well without it On 06/29/22 @ 15:39 Adilia Mabry Wrote To MarieShaista Environmental Engineering Professor to the [facility] of which [facility] resides called requesting that script sent at last visit is re-sent with clearer instructions as opposed to 'PRN'. The director states that patient is not compliant with medication often and given that there is not staff available 24hrs a day to dispense medication it would be easier if the instructions for example stated BID: take one in the am and one at night . I informed her I would send message to you to advise to get your thoughts. TODAY'S VISIT She has been out of her carafate since 07/2023 and her HB was quite worse, Kristie arently she was in [place] and missed several appts. She continues on famotidine. RoV 6 mos. [facility] Medical History (Updated 09/19/23 @ 17:03 by CUAUHTEMOC Strange) Encounter for monitoring of etonogestrel implant Etonogestrel implant for control Screen for sexually transmitted diseases COVID-19 Insertion of Nexplanon Breakthrough bleeding on Depo-Provera Depot contraception control counseling Well woman exam with routine gynecological exam Encounter for surveillance of Nexplanon subdermal contraceptive Encounter for removal and reinsertion of Nexplanon Psychiatric pseudoseizure Severe recurrent major depression PTSD (post-traumatic stress disorder) Traumatic brain injury Learning disability ADHD Depression with anxiety Social History Household Members: Other Household Members Other:: [facility] Housing: Other Housing Other:: [facility] Do you presently have visiting nurse or other home services: No Unable to assess alcohol history related to: Unable to respond Alcohol intake: never Patient Tobacco Use Status: Never used Tobacco service: No Sexual orientation: Straight/Heterosexual Gender identity: Female Female Reproductive History Menstrual Age of Menarche: 16 Review of Systems Const Denies fatigue, Denies fever(s), Denies night sweats, Denies poor appetite and Denies weight loss ENT Reports Normal hearing present, Denies dental pain, Denies dysphagia, Denies hearing loss, Denies mouth pain, Denies odynophagia, Denies throat swelling, Denies tongue swelling and Reports other (Dentition adequate) Card Reports no additional complaints Resp Reports no additional complaints GI Details: Denies abdominal pain, Denies melena, Denies bloating, Denies hematochezia, Denies constipation, Denies GI cramping, Denies dysphagia, Denies excessive flatus, Denies early satiety, Reports heartburn, Denies diarrhea, Reports nausea, Denies odynophagia, Reports vomiting and Denies hematemesis Skin/Breast Denies pruritus, Denies lesions, Denies rash and Denies jaundice Neuro Reports Normal hearing present and Denies Abnormal speech present Endo Denies fatigue Aller/Immun Denies throat swelling and Denies tongue swelling Physical Exam Vital Signs: Last Vital Signs Pulse 80 09/18/23 11:07 BP 116/74 09/18/23 11:07 BMI result Body Mass Index 26.7 Const General: cooperative, no acute distress, well developed and well groomed Nutritional Appearance: average body habitus and well nourished Orientation/consciousness: oriented to person, oriented to place and oriented to time Limitations: No language barrier HEENT Head: Yes normocephalic and Yes atraumatic Eyes General: appearance normal, both eyes and all related structures Pupils: Equal, round and reactive pupils present Neck Neck: Yes normal visual inspection and Yes no lymphadenopathy Thyroid: Thyroid normal Resp Effort & Inspection: normal respiratory effort and able to speak in complete sentences Auscultation: clear to auscultation bilaterally Cardio Rate: regular rate Rhythm: regular rhythm Heart sounds: Normal, physiologic split S2 sound present Peripheral pulses: radial pulses present and posterior tibial pulses present GI Inspection: No distended and No Abdominal panniculus present Palpation (GI): Soft to palpation, nontender, no guarding, not rigid and No hepatosplenomegaly present Percussion: Yes normal to percussion Auscultation: normal bowel sounds Rectal Exam - Female: deferred Skin General skin exam: no rashes or lesions noted, turgor normal, skin not dry, no jaundice, No spider nevi and no striae Rashes: no rashes Nails: normal Neuro General: oriented to person, oriented to place and oriented to time Cranial nerves: Yes Equal, round and reactive pupils present and Yes Normal hearing present Speech: No Abnormal speech present Extrem General: Yes normal to inspection, No clubbing, No cyanosis and No edema Psych Appearance: grossly normal and well kempt Mental Status: mental status grossly normal Speech and movement: Normal speech and movement present Affect: normal affect Attitude: cooperative Thought process: Normal thought process present and not confabulating Thought content: Normal thought content present Insight: Limited insight present (Psych) Judgement: Limited judgement present (Psych) Assessment & Plan Assessment & Plan (1) GERD (gastroesophageal reflux disease): Code(s): K21.9 - Gastro-esophageal reflux disease without esophagitis Category: Medical Plan She has been out of her carafate since 07/2023 and her HB was quite worse, Appartenly she was in [place] and missed several appts. She continues on famotidine. RoV 6 mos. Medications: New sucralfate (Carafate) Ok to mix with sweet drink 10 mL PO BID 1,000 mL 12RF Refilled famotidine 20 mg PO BID 56 tabs 12RF Coding Level of Care Code Est Pt Level 3 (85700) Diagnoses GERD (gastroesophageal reflux disease) K21.9
[2023-09-18 11:07] VITALS: BP 116/74; PULSE 80; BMI 26.7
== END 2023-09-18 11:48 | disposition home or self-care (01) ==
PROVIDERS: Visit Provider Nurse Practitioner
DX: K21.9 Gastro-esophageal reflux disease without esophagitis (principal)
CPT/HCPCS: 99213

== ENCOUNTER → 2023-09-18 10:57 | Outpatient (BNVA) | payer MEDICAID, SELFPAY | PROVIDERS: Visit Provider Nurse Practitioner | DX: K21.9 Gastro-esophageal reflux disease without esophagitis (principal) | CPT/HCPCS: 99212 ==

== ENCOUNTER 2023-10-01 10:04 | Outpatient (REF) | payer MEDICAID, SELFPAY ==
[2023-10-01 14:26] LABS: MANUAL DIFF FLAG NO
[2023-10-01 14:37] LABS: Basophils Absolute Auto 0.1 X10*3/uL (0.0-0.2); Basophils Percent Auto 0.9 % (0-2); Eosinophils Absolute Auto 0.4 X10*3/uL (0.0-0.4); Eosinophils Percent Auto 6.2 % (0-4); Hematocrit 41.3 % (37.0-47.0); Hemoglobin 13.6 g/dl (12.0-16.0); Imm Gran Abs Auto 0.02 X10*3/uL (0.00-0.03); Imm Gran Pct Auto 0.3 % (0.0-0.4); Lymphocytes Absolute Auto 1.6 X10*3/uL (1.2-4.9); Mean Corpuscular HGB Conc 32.9 g/dl (31.0-35.0); Mean Corpuscular Hemoglobin 28.6 pg (27.0-33.0); Mean Corpuscular Volume 86.8 fL (80.0-98.0); Monocytes Absolute Auto 0.4 X10*3/uL (0.1-1.2); Monocytes Percent Auto 6.2 % (2-11); Neutrophils Absolute Auto 3.9 x10*3/uL (2.0-8.3); Neutrophils Percent Auto 61.4 % (45-73); Platelet Count 286 X10*3/uL (160-400); Red Blood Count 4.76 X10*6/uL (4.20-5.50); Red Cell Distribution Width 12.7 % (11.0-16.0); White Blood Count 6.4 X10*3/uL (4.8-10.8)
[2023-10-01 15:08] LABS: Vitamin D 25-OH Total 45.2 ng/mL (>30)
== END 2023-10-01 10:05 | disposition home or self-care (01) ==
LOC: HO.CHCLDS 10:04
PROVIDERS: Visit Provider Registered Nurse
DX: E55.9 Vitamin D deficiency, unspecified (principal); D72.820 Lymphocytosis (symptomatic)
CPT/HCPCS: 36415; 82306; 85025

== ENCOUNTER 2023-11-05 13:16 | Outpatient (REF) | payer MEDICAID, SELFPAY ==
[2023-11-06 12:13] LABS: Bacterial Vaginosis PCR POSITIVE (Negative); Candida Group PCR NOT DETECTED (Not Detect); Candida glab krusei PCR NOT DETECTED (Not Detect); Trichomonas vaginalis PCR NOT DETECTED (Not Detect)
[2023-11-06 12:36] LABS: CT PCR NOT DETECTED (Not Detect.); NG PCR NOT DETECTED (Not Detect.)
== END 2023-11-05 13:17 | disposition home or self-care (01) ==
LOC: HO.LAB 13:16
PROVIDERS: Visit Provider Advanced Practice Midwife
DX: N89.8 Other specified noninflammatory disorders of vagina (principal); Z20.2 Contact with and (suspected) exposure to infections with a predominantly sexual mode of transmission; Z30.46 Encounter for surveillance of implantable subdermal contraceptive; Z11.3 Encounter for screening for infections with a predominantly sexual mode of transmission; Z01.419 Encounter for gynecological examination (general) (routine) without abnormal findings; Z12.4 Encounter for screening for malignant neoplasm of cervix
CPT/HCPCS: 0352U; 87491; 87591; 99395

== ENCOUNTER 2023-11-05 13:16 | Outpatient (AMB) | payer MEDICAID, SELFPAY ==
--- NOTE | 2023-11-05 13:31 | MHC.OFFVIS ---
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 Distribution Supervisor Required: No Information Interpreted: clinical only Allergies No Known Allergies Allergy (Verified 11/05/23 13:33) Medication List - Last Reviewed 11/05/23 by Luis Alberto Samuel CMA acetaminophen 650 mg (2 x 325 mg) PO Q6H PRN cetirizine 10 mg PO DAILY cholecalciferol (vitamin D3) 25 mcg PO DAILY docusate sodium 100 mg PO DAILY etonogestrel (Nexplanon) subdermal famotidine 20 mg PO BID fluticasone propionate 50 mcg/actuation sprays intranasal guanfacine ER 3 mg PO DAILY hydroxyzine HCl 50 mg PO TID mirtazapine (Remeron SolTab) 45 mg PO BEDTIME propranolol 20 mg PO BID quetiapine ER 50 mg PO BEDTIME sucralfate (Carafate) 10 mL PO BID Is last menstrual period known: No (Nexplanon) Do you need a note to return to daycare/school/sports/work: No HPI 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 She says the last time she had sex with anybody was in June. She sometimes gets some spotting and discharge in she wears panty liners. She sees a psychiatrist at [facility] [place] is on some psych meds she also is on a medication for her heart and she is also on different allergy meds. 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 and will graduate with her associates this year she likes [facility] Medical History (Updated 11/05/23 @ 14:27 by Jackie Alberts CNM) Well woman exam with routine gynecological exam Encounter for monitoring of etonogestrel implant Etonogestrel implant for control Screen for sexually transmitted diseases COVID-19 Insertion of Nexplanon Breakthrough bleeding on Depo-Provera Depot contraception control counseling Encounter for surveillance of Nexplanon subdermal contraceptive Encounter for removal and reinsertion of Nexplanon Psychiatric pseudoseizure Severe recurrent major depression PTSD (post-traumatic stress disorder) Traumatic brain injury Learning disability ADHD Depression with anxiety Social History Household Members: Other Household Members Other:: [facility] Housing: Other Housing Other:: [facility] Do you presently have visiting nurse or other home services: No Unable to assess alcohol history related to: Unable to respond Alcohol intake: never Patient Tobacco Use Status: Never used Tobacco service: No Sexual orientation: Straight/Heterosexual Gender identity: Female Female Reproductive History Menstrual Age of Menarche: 16 Duration of menses: <3 days control method: implanted Total pregnancies: 0 Date of last pap smear: 03/30/23 (negative) History of abnormal pap smear: No Physical Exam Vital Signs: Last Vital Signs BP 112/70 11/05/23 13:33 BMI result Body Mass Index 27.5 Const Other: Nexplanon present in right upper arm. Normal appearing whitish discharge vagina pink some ectropion visible cervix slightly reddened may just be ectropion. Cervix long close thick mobile nontender uterus midposition mobile nontender adnexa nontender good tone with Kegel. General: healthy appearing, comfortable, no acute distress, well developed and alert Nutritional Appearance: average body habitus Orientation/consciousness: patient oriented x3 Limitations: no limitations HEENT Head: Yes normocephalic Neck Neck: Yes normal visual inspection Chest Chest palpation & inspection: normal inspection of the chest Breast/axilla inspection: normal inspection of the breasts and normal inspection of the axillae Breast/axilla palpation: normal palpation of the breasts and normal palpation of the axillae Resp Effort & Inspection: normal respiratory effort GI Inspection: Yes normal to inspection, No Abdominal wall edema and No distended Palpation (GI): Soft to palpation and nontender General: Yes bladder normal to palpation External Female Exam: normal external appearance and normal appearance of the urethra Speculum Exam - Vagina: normal appearance of the vagina, normal palpation and normal vaginal discharge Speculum Exam - Cervix: normal appearance of the cervix, normal palpation and nontender Bimanual exam- vagina & uterus: normal bimanual exam, normal palpation, uterine size normal, bladder normal to palpation, consistency normal, normal palpation, uterine mobility normal, uterine shape normal, No Cervical tenderness present, non-tender and no cervical motion tenderness Bimanual Exam- Adnexa, other: normal adnexae, no masses, normal and No adnexal tenderness Neuro General: patient oriented x3 Results Reviewed Results Reviewed: Name: Cleve Jacques Age/Sex: 23/F Attending: : 2000 Submitted by: EDMAR GRIDER CNM Copies to: MR #: [id number] Status: PRE REF Collected: 03/29/23 Location: .LN Received: 03/30/23 Interpretation Satisfactory for evaluation. Negative for intraepithelial lesion or malignancy. Clinical Information LMP: Unknown date Previous PAP test: Unknown date/findings Material Received ThinPrep-Cervical Electronically Signed By: Heydi Hope 04/09/23 1121 The Pap Test is a screening procedure with the inherent possibility of both false negative and false positive results. Results should be interpreted in the context of historic and current clinical findings. Reliability of the Pap Test is enhanced by performing the test on a regular repetitive basis. Patient: Cleve Jacques Age/Sex: 23/F MR#: [id number] Page 1 of 1 Assessment & Plan Assessment & Plan (1) Encounter for monitoring of etonogestrel implant: Comment: Inserted 07/28/2020 due for exchange July of 2023;replaced 06/28/23. Code(s): Z30.46 - Encounter for surveillance of implantable subdermal contraceptive Category: Medical (2) Encounter for screening examination for sexually transmitted disease: Code(s): Z11.3 - Encounter for screening for infections with a predominantly sexual mode of transmission Category: Medical (3) Well woman exam with routine gynecological exam: Code(s): Z01.419 - Encounter for gynecological examination (general) (routine) without abnormal findings Category: Medical (4) Cervical cancer screening: Comment: Had negative Pap smear 04/07/2023 at [facility]. Code(s): Z12.4 - Encounter for screening for malignant neoplasm of cervix Category: Medical Plan -----Discussed in this visit the following: healthy balanced diet, regular and consistent exercise, getting recommended health screens, doing the best she can for her particular health concerns, kegel exercises, pap smear screening and followup recommendations, mammography screening and SBE, normal changes in cycles in her life stage--- --------reviewed her use of the Nexplanon the occasional possible breakthrough bleeding/spotting that can occur. I recommend against panty liners but many people use them. She had some razor rash full folliculitis but she said it was from when she waxed. Review that probably would be helpful to decide where she wants to go for care but at least she is getting the care she needs. Testing done for gonorrhea chlamydia trichomoniasis Gardnerella and Cara reviewed the normalness of the last 2. Encounter form stating that she was here was signed. I wished her well with her last year [employer] program she has been working in the summer at the [employer].. She is under the care of psychiatry at [facility] as well. Orders: Orders CT NG by PCR Today N89.8 - Other specified noninflammatory disorders of vagina, Z20.2 - Contact with and (suspected) exposure to infections with a predominantly sexual mode of transmission Bacterial Vaginosis Panel Today N89.8 - Other specified noninflammatory disorders of vagina Coding Level of Care Code Est Pt Prev Care 18-39y(68695) Diagnoses Encounter for monitoring of etonogestrel implant Z30.46 Encounter for screening examination for sexually transmitted disease Z11.3 Well woman exam with routine gynecological exam Z01.419 Cervical cancer screening Z12.4
[2023-11-05 13:33] VITALS: BP 112/70; BMI 27.5
== END 2023-11-05 14:21 | disposition home or self-care (01) ==
LOC: HO.HWSM 13:16
PROVIDERS: Visit Provider Advanced Practice Midwife
DX: Z30.46 Encounter for surveillance of implantable subdermal contraceptive (principal); Z11.3 Encounter for screening for infections with a predominantly sexual mode of transmission; Z01.419 Encounter for gynecological examination (general) (routine) without abnormal findings; Z12.4 Encounter for screening for malignant neoplasm of cervix
CPT/HCPCS: 99395

== ENCOUNTER 2023-12-26 12:03 | Outpatient (REF) | payer MEDICAID, SELFPAY ==
[2023-12-26 14:35] LABS: Estimated Average Glucose 111 mg/dL; Hemoglobin A1C 119.5368 umol/L; Hemoglobin A1c % 5.5 % (<6.0); Total Hemoglobin (HGBA1C) 3239.4479 umol/L
[2023-12-26 14:54] LABS: Alanine Aminotransferase 21 U/L (0-31); Albumin Level 4.3 g/dL (3.5-5.0); Alkaline Phosphatase 75 U/L (39-117); Anion Gap 12 (12-20); Aspartate Amino Transferase 18 U/L (5-31); Bilirubin Total 0.5 mg/dL (0.0-1.0); Blood Urea Nitrogen 11 mg/dL (9-16); Carbon Dioxide 27 mmol/L (22-29); Chloride 107 mmol/L (96-108); Cholesterol 161 mg/dL (<200); Estimated Glomerular Filt Rate > 60; Glucose Random 91 mg/dL (60-115); HDL Cholesterol 39 mg/dL (>40); LDL Cholesterol Calculated 102 mg/dL (<100); Potassium 3.9 mmol/L (3.3-5.1); Sodium 142 mmol/L (135-145); Total Protein 7.4 g/dL (6.5-8.0); Triglycerides 101 mg/dL (<150)
[2023-12-26 14:59] LABS: TSH reflex Free T4 0.45 uIU/mL (0.32-4.0)
[2023-12-26 17:01] LABS: CT PCR NOT DETECTED (Not Detect.); NG PCR NOT DETECTED (Not Detect.)
[2023-12-27 04:34] LABS: HIV AB/AG Nonreactive (Nonreactive); HIV Num 1 0.04 S/CO (0.00-0.99)
[2023-12-28 10:33] LABS: HCV Log PCR <1.18 NOT DETECTED Log IU/mL (NOT DETECTED); HepC Viral Load <15 NOT DETECTED IU/mL (NOT DETECTED)
[2023-12-31 07:37] LABS: RPR Rapid Plasma Reagin NON-REACTIVE (NON-REACTIVE)
== END 2023-12-26 12:04 | disposition home or self-care (01) ==
LOC: HO.CHCLDS 12:03
PROVIDERS: Visit Provider Registered Nurse
DX: Z00.00 Encounter for general adult medical examination without abnormal findings (principal)
CPT/HCPCS: 36415; 80053; 80061; 83036; 84443; 86592; 87389; 87491; 87522; 87591

== ENCOUNTER 2024-02-18 17:17 | Emergency (ER) | payer MEDICAID, SELFPAY ==
--- NOTE | ~2024-02-18 | CT_ITS ---
EXAMINATION: CT ABDOMEN AND PELVIS WITHOUT CONTRAST CLINICAL INFORMATION: Left lower quadrant abdominal pain. Kidney stones. COMPARISON: Pelvic ultrasound from 06/16/2021. TECHNIQUE: Multidetector volumetric imaging was performed from the lung bases to the pubic without contrast. Sagittal and coronal reformatted images were obtained on the technologist workstation. This CT examination was performed using dose optimization techniques as appropriate, variously including the following: *Automated exposure control. *Adjustment of mA and/or kV according to patient size (this includes techniques or standardized protocols for targeted exams where dose is matched to indication/reason for exam; i.e. extremities or head). *Use of iterative reconstruction technique. DLP: 580 mGy-cm FINDINGS: LUNG BASES: Mild bilateral dependent atelectasis. Otherwise, no abnormalities of the visualized lung bases. No demonstrated abnormalities of the visualized cardiac structures. ABDOMEN/PELVIS: Liver, Biliary Ducts, and Gallbladder: The unenhanced liver is normal in size and attenuation without focal hepatic lesions or biliary ductal dilatation. The gallbladder is physiologically distended without radiopaque gallstones, pericholecystic fluid, or significant gallbladder wall thickening. Pancreas: The pancreas is normal in appearance. Adrenal Glands: The adrenal glands are normal in appearance. Spleen: The spleen is normal in appearance. Kidneys and Ureters: The unenhanced kidneys are normal in size without evidence of nephrolithiasis or hydronephrosis. No ureterolithiasis or hydroureter. Urinary Bladder: The urinary bladder is partially distended without focal wall thickening. No bladder calculi are demonstrated. Gastrointestinal System: The stomach is decompressed and therefore not well evaluated on this exam. The small bowel is of normal caliber. The colon is normal in appearance without focal wall thickening or pericolonic inflammatory change. Normal appendix. Genitourinary: No adnexal soft tissue masses. Intra-abdominal and Retroperitoneal Spaces: No intra-abdominal free fluid collections or gas. No mesenteric, retroperitoneal, or inguinal lymphadenopathy. VASCULATURE: The abdominal aorta is of normal contour and caliber. MUSCULOSKELETAL: No acute osseous abnormalities. No lytic or sclerotic osseous lesions demonstrated. No soft tissue masses demonstrated. CT/CT abdomen pelvis wo IV con IMPRESSION: 1. No evidence of nephrolithiasis or hydronephrosis. 2. No additional CT abnormalities to explain the patient's symptoms. Electronically signed by: Anil Benjamin DO 02/19/2024 01:49 AM [facility]
[2024-02-18 17:39] VITALS: BP 126/91; PULSE 114; RESP 18; TEMP 36.6; O2SAT 98; BMI 28.7
--- NOTE | 2024-02-18 17:46 | ED_ITS ---
HPI - Female Genitourinary General Chief complaint: Urogenital-Female Stated complaint: abd pain, ? uti Time Seen by Provider: 02/18/24 19:40 Source: patient Mode of arrival: ambulatory Limitations: no limitations History of Present Illness ED Provider: Pinky Hilliard NP HPI Narrative: Patient is a 23-year-old female who presents emergency department for evaluation of urinary frequency, light pink discoloration to her urine without dysuria. Initial nursing triage with report of left lower quadrant abdominal pain, however she at the time of my evaluation is reporting a pain to the bilateral groin described as a pain sensation that is worse with sitting. She does admit that yesterday she had 4 episodes of watery diarrhea but this has resolved. Denies fevers, chills, chest pain, nausea, vomiting, hematemesis, constipation, hematochezia, melena. denies pelvic pain or abnormal vaginal discharge. Denies concern for sexually transmitted infection. Denies concern for , date of LMP is uncertain. Related Data Home Medications ?Medication ?Instructions ?Recorded ?Confirmed cholecalciferol (vitamin D3) 25 25 mcg PO DAILY 10/12/22 11/05/23 mcg (1,000 unit) tablet docusate sodium 100 mg capsule 100 mg PO DAILY 10/12/22 11/05/23 guanfacine 3 mg tablet,extended 3 mg PO DAILY 10/12/22 11/05/23 release 24 hr hydroxyzine HCl 50 mg tablet 50 mg PO TID 10/12/22 11/05/23 mirtazapine 45 mg disintegrating 45 mg PO BEDTIME 11/02/22 11/05/23 tablet (Remeron SolTab) quetiapine 50 mg tablet,extended 50 mg PO BEDTIME 01/19/23 11/05/23 release 24 hr cetirizine 10 mg tablet 10 mg PO DAILY 08/21/23 11/05/23 fluticasone propionate 50 spray intranasal 09/18/23 11/05/23 mcg/actuation nasal spray,suspension etonogestrel 68 mg subdermal subdermal 11/05/23 11/05/23 implant (Nexplanon) propranolol 40 mg tablet 20 mg PO BID 11/05/23 Previous Rx's ?Medication ?Instructions ?Recorded acetaminophen 325 mg tablet 650 mg (2 x 325 mg) PO Q6H PRN 04/22/21 Pain, Mild (Pain Scale 1-3) #120 tabs famotidine 20 mg tablet 20 mg PO BID #56 tabs 09/18/23 sucralfate 100 mg/mL oral 10 ml PO BID #1,000 mL 09/18/23 suspension (Carafate) cefuroxime axetil 250 mg tablet 250 mg PO BID #14 tabs 02/19/24 Allergies Allergy/AdvReac Type Severity Reaction Status Date / Time No Known Allergies Allergy Verified 02/18/24 17:42 Review of Systems 2 Review of Systems: Yes all other systems are reviewed and are negative [facility] Past Medical History Attestation statement: The following information was validated with the patient. Source: old records reviewed Medical History Well woman exam with routine gynecological exam Encounter for monitoring of etonogestrel implant Etonogestrel implant for control Screen for sexually transmitted diseases COVID-19 Insertion of Nexplanon Breakthrough bleeding on Depo-Provera [place] contraception control counseling Encounter for surveillance of Nexplanon subdermal contraceptive Encounter for removal and reinsertion of Nexplanon Psychiatric pseudoseizure Severe recurrent major depression PTSD (post-traumatic stress disorder) Traumatic brain injury Learning disability ADHD Depression with anxiety Social History Social History Household Members: Other Household Members Other:: assisted Housing: Other Housing Other:: assisted Do you presently have visiting nurse or other home services: No Unable to assess alcohol history related to: Unable to respond Alcohol intake: never Patient Tobacco Use Status: Never used Tobacco Smoked in Last 30 Days: No Use of substances other than those prescribed or required for medical reasons: No Advance Directives: No Advance Directives Information Provided: No service: No Sexual orientation: Straight/Heterosexual Gender identity: Female Physical Exam 2 Vital Signs: Vital Signs: Last Vital Signs Temp 98.7 F 02/19/24 02:23 Pulse 98 02/19/24 02:23 Resp 18 02/19/24 02:23 BP 132/75 02/19/24 02:23 Pulse Ox 97 02/19/24 02:23 O2 Del Method Room Air 02/19/24 02:23 BMI result Body Mass Index 28.7 Appearance: Alert.?Oriented to person, place and time. No acute distress.?Normal affect.?? Neck: Normal inspection.? Neck supple.?? CVS: Heart sounds normal. Normal heart rate and rhythm.? Pulses normal.?? Respiratory: No respiratory distress.? Lung sounds clear to auscultation bilaterally?? Abdomen: Soft and non-tender. No rebound tenderness at McBurney's point. Negative psoas sign. Negative Rovsing sign. Negative Choudhary sign. No CVAT. Normoactive bowel sounds. No pulsatile mass.?? Skin: Skin warm and dry.? Normal skin color.? Extremities: No lower extremity edema.? Neuro: Moves all extremities spontaneously. Sensation intact bilaterally. Ambulates with normal steady gait. Course Course Course Narrative: RME: 23 yold female presents to the ED for dysuria and leeft lower qaudrnat abdominal pain since yesterday. positive LLQ tenderness on palpation . labs ordered Reevaluation(s) Reevaluation #1: CT/CT abdomen pelvis wo IV con IMPRESSION: 1. No evidence of nephrolithiasis or hydronephrosis. 2. No additional CT abnormalities to explain the patient's symptoms. [facility] was called multiple times in regards to the delay and interpretation. These results were discussed with patient. Given the presence of the materia no reported dysuria, although no urine bacteria seen she does have 2+ leukocyte esterase urine WBC without compelling evidence of significant epithelial contamination will treat as urinary tract infection. Discussed strict return precautions. All questions answered. Stable for discharge Time: 01:57 Medications Administered Discontinued Medications Generic Name Dose Route Start Last Admin Trade Name Freq PRN Reason Stop Dose Admin Cefuroxime Axetil 250 mg 02/19/24 02:07 02/19/24 02:20 Cefuroxime Axetil 250 Mg Tablet PO 02/19/24 02:08 250 mg ONCE ONE Administration Medical Decision Making Medical Decision Making MDM Narrative: Patient is a 23-year-old female who presents emergency department for evaluation of urinary frequency, hematuria, and bilateral groin pain with onset yesterday as per HPI. Abdominal examination is benign, she is afebrile, no hypotension all the tachycardic though this may be due to pain. Examination not consistent with acute abdomen, no peritoneal signs; no tenderness upon light palpation, no rebound tenderness, no guarding, no percussive tenderness. She does endorse urinary frequency and hematuria concerning for UTI/pyelonephritis, renal colic, nephrolithiasis, hydronephrosis. Discussed possibility for muscular strain of the groin. hCG is negative, unlikely ectopic , lower clinical suspicion for TOA/torsion. No rebound tenderness at McBurney's point, rigidity, guarding to suggest acute appendicitis. No tenderness of the left lower quadrant nor associated nausea, vomiting, constipation, hematochezia or melena to suggest diverticulitis or GI bleed. No appreciable hernia to suggest strangulation/incarceration. Lower suspicion for bowel obstruction. No distention or rigidity to suggest GI perforation. Differential Diagnosis Differential Diagnoses: The differential diagnosis associated with the presentation includes (See narrative above) Admission/Observation Consideration of admission/observation: Escalation of care including admission/observation considered (See narrative above ) Lab Data MDM Lab Attestation statement: I reviewed the patient's lab results. CBC reveals mild leukocytosis 11,900 left shift, no anemia or thrombocytopenia. No electrolyte derangement. No DEVAUGHN. LFTs within normal range. HCG is negative. Urinalysis with 2+ leukocyte esterase,> 50 WBC and microscopic hematuria 02/18/24 17:58 02/18/24 17:58 Labs: Lab Results 02/18/24 02/18/24 Range/Units 17:58 18:24 WBC 11.9 H (4.8-10.8) X10*3/uL RBC 5.04 (4.20-5.50) X10*6/uL Hgb 14.7 (12.0-16.0) g/dl Hct 43.9 (37.0-47.0) % MCV 87.1 (80.0-98.0) fL MCH 29.2 (27.0-33.0) pg MCHC 33.5 (31.0-35.0) g/dl RDW 12.4 (11.0-16.0) % Plt Count 318 (160-400) X10*3/uL MPV 10.4 (9.4-12.3) fL Immature Gran % (Auto) 0.3 (0.0-0.4) % Neut % (Auto) 76.8 H (45-73) % Lymph % (Auto) 15.0 L (20-40) % [place] % (Auto) 4.6 (2-11) % Eos % (Auto) 2.6 (0-4) % Baso % (Auto) 0.7 (0-2) % Lymph # (Auto) 1.8 (1.2-4.9) X10*3/uL [place] # (Auto) 0.6 (0.1-1.2) X10*3/uL Eos # (Auto) 0.3 (0.0-0.4) X10*3/uL Baso # (Auto) 0.1 (0.0-0.2) X10*3/uL Abs Immat Gran (auto) 0.03 (0.00-0.03) X10*3/uL Absolute Neuts (auto) 9.2 H (2.0-8.3) x10*3/uL Absolute Nucleated RBC 0.000 (0.0-0.012) X10*3/uL Nucleated RBC % (auto) 0.0 (0.0-0.2) /100WBC Sodium 140 (135-145) mmol/L Potassium 3.9 (3.3-5.1) mmol/L Chloride 106 (96-108) mmol/L Carbon Dioxide 26 (22-29) mmol/L Anion Gap 12 (12-20) BUN 10 (9-16) mg/dL Creatinine 1.03 (0.5-1.4) mg/dL Estim Creat Clear Calc 86.1 Estimated GFR > 60 Random Glucose 136 H (60-115) mg/dL Calcium 9.9 (8.4-10.2) mg/dL Total Bilirubin 0.4 (0.0-1.0) mg/dL AST 23 (5-31) U/L ALT 28 (0-31) U/L Alkaline Phosphatase 76 (39-117) U/L Total Protein 7.6 (6.5-8.0) g/dL Albumin 4.6 (3.5-5.0) g/dL Beta HCG, Quant < 2 mIU/mL Urine Color Yellow Urine Appearance Cloudy Urine pH 5.5 (5.0-9.0) Ur Specific [place] >= 1.030 H (1.005-1.025) Urine Protein 30 (1+) H (Neg-Trace) mg/dL Urine Glucose (UA) 100 H (Negative) mg/dL Urine Ketones Trace (Negative) mg/dL Urine Blood Moderate (2+) H (Negative) Urine Nitrite Negative (Negative) Ur Leukocyte Esterase Moderate (2+) H (Negative) Urine RBC 6-10 H (0-2) /HPF Urine WBC >50 H (0-5) /HPF Ur Squamous Epith Cells 3-5 (0-2) /HPF Urine Bacteria None Seen (None Seen) Hyaline Casts 0-2 (0-2) /LPF Urine Test NEGATIVE (NEGATIVE) Radiology Impression Discussion of test interpretation with radiology: I have reviewed the radiologist's reading. External Record Review External record reviewed: Outpatient record Discharge Plan Discharge Clinical Impression: Urinary tract infection Patient Disposition: Home, Self-Care Instructions: Urinary Tract Infection in Women (ED) Prescriptions: New cefuroxime axetil 250 mg tablet 250 mg PO BID Qty: 14 0RF No Action acetaminophen 325 mg Tablet 650 mg PO Q6H PRN (Reason: Pain, Mild (Pain Scale 1-3)) Qty: 120 0RF hydroxyzine HCl 50 mg tablet 50 mg PO TID docusate sodium 100 mg capsule 100 mg PO DAILY cholecalciferol (vitamin D3) 25 mcg (1,000 unit) tablet 25 mcg PO DAILY guanfacine 3 mg tablet extended release 24 hr 3 mg PO DAILY cetirizine 10 mg tablet 10 mg PO DAILY Nexplanon 68 mg implant subdermal propranolol 40 mg tablet 20 mg PO BID mirtazapine [Remeron SolTab] 45 mg tablet,disintegrating 45 mg PO BEDTIME quetiapine 50 mg tablet extended release 24 hr 50 mg PO BEDTIME fluticasone propionate 50 mcg/actuation spray,suspension intranasal sucralfate [Carafate] 100 mg/mL suspension 10 ml PO BID Qty: 1000 12RF Rx Instructions: Ok to mix with sweet drink famotidine 20 mg tablet 20 mg PO BID Qty: 56 12RF Interventions: ED Discharge Assessment Last Done: 02/19/24 02:23 Discharge Date/Time: 02/19/24 02:24 Print Language: Korean
[2024-02-18 18:05] LABS: MANUAL DIFF FLAG NO
[2024-02-18 18:06] LABS: Basophils Absolute Auto 0.1 X10*3/uL (0.0-0.2); Basophils Percent Auto 0.7 % (0-2); Eosinophils Absolute Auto 0.3 X10*3/uL (0.0-0.4); Eosinophils Percent Auto 2.6 % (0-4); Hematocrit 43.9 % (37.0-47.0); Hemoglobin 14.7 g/dl (12.0-16.0); Imm Gran Abs Auto 0.03 X10*3/uL (0.00-0.03); Imm Gran Pct Auto 0.3 % (0.0-0.4); Lymphocytes Absolute Auto 1.8 X10*3/uL (1.2-4.9); Mean Corpuscular HGB Conc 33.5 g/dl (31.0-35.0); Mean Corpuscular Hemoglobin 29.2 pg (27.0-33.0); Mean Corpuscular Volume 87.1 fL (80.0-98.0); Mean Platelet Volume 10.4 fL (9.4-12.3); Monocytes Absolute Auto 0.6 X10*3/uL (0.1-1.2); Monocytes Percent Auto 4.6 % (2-11); Neutrophils Absolute Auto 9.2 x10*3/uL (2.0-8.3); Neutrophils Percent Auto 76.8 % (45-73); Platelet Count 318 X10*3/uL (160-400); Red Blood Count 5.04 X10*6/uL (4.20-5.50); Red Cell Distribution Width 12.4 % (11.0-16.0); White Blood Count 11.9 X10*3/uL (4.8-10.8)
[2024-02-18 18:27] LABS: Alanine Aminotransferase 28 U/L (0-31); Albumin Level 4.6 g/dL (3.5-5.0); Alkaline Phosphatase 76 U/L (39-117); Anion Gap 12 (12-20); Aspartate Amino Transferase 23 U/L (5-31); Bilirubin Total 0.4 mg/dL (0.0-1.0); Blood Urea Nitrogen 10 mg/dL (9-16); Calcium 9.9 mg/dL (8.4-10.2); Carbon Dioxide 26 mmol/L (22-29); Chloride 106 mmol/L (96-108); Creatinine Clr Calc Pharmacy 86.1; Estimated Glomerular Filt Rate > 60; Glucose Random 136 mg/dL (60-115); Potassium 3.9 mmol/L (3.3-5.1); Sodium 140 mmol/L (135-145); Total Protein 7.6 g/dL (6.5-8.0)
[2024-02-18 18:30] LABS: HCG Quantitative < 2 mIU/mL
[2024-02-18 18:47] LABS: Appearance Urine Cloudy; Color Urine Yellow; Glucose Urine UA 100 mg/dL (Negative); Leukocyte Esterase Urine Moderate (2+) (Negative); Nitrite Urine Negative (Negative); PH 5.5 (5.0-9.0); Specific Gravity - Urine >= 1.030 (1.005-1.025); UMIC TRIGGER UACC YES; Urine Blood Moderate (2+) (Negative); Urine Ketones Trace mg/dL (Negative); Urine Protein 30 (1+) mg/dL (Neg-Trace)
[2024-02-18 18:54] LABS: Bacteria Urine None Seen (None Seen); Hyaline Casts Urine 0-2 /LPF (0-2); UACC Culture Trigger YES; WBC Urine >50 /HPF (0-5)
[2024-02-18 19:02] LABS: UPreg QC Valid YES; Urine Pregnancy NEGATIVE (NEGATIVE)
[2024-02-18 21:56] VITALS: BP 118/70; PULSE 93; RESP 16; TEMP 36.9; O2SAT 98
[2024-02-18 23:41] VITALS: BP 132/89; PULSE 100; RESP 18; TEMP 36.8; O2SAT 96
[2024-02-19 01:54] VITALS: BP 132/75; PULSE 98; RESP 18; TEMP 37.1; O2SAT 97
[2024-02-19] MEDS: cefuroxime axetiL 250 MG TABLET PO (02:20)
[2024-02-19 02:23] VITALS: BP 132/75; PULSE 98; RESP 18; TEMP 37.1; O2SAT 97
--- NOTE | 2024-02-19 02:23 | PC.NURSE ---
Pt medicated per MAR, cleared for DC home.
== END 2024-02-19 02:24 | disposition home or self-care (01) ==
PROVIDERS: Physician Assistant; Emergency Provider Emergency Medicine; PCP Registered Nurse
DX: N39.0 Urinary tract infection, site not specified (principal); R10.12 Left upper quadrant pain
CPT/HCPCS: 36415; 74176; 80053; 81001; 81025; 84702; 85025; 87086; 87088; 87186; 99284

== ENCOUNTER 2024-04-14 15:25 | Outpatient (REF) | payer MEDICAID, SELFPAY ==
[2024-04-14 18:12] LABS: Anion Gap 9 (12-20); Blood Urea Nitrogen 10 mg/dL (9-16); Calcium 9.4 mg/dL (8.4-10.2); Carbon Dioxide 27 mmol/L (22-29); Chloride 108 mmol/L (96-108); Estimated Glomerular Filt Rate > 60; Glucose Random 122 mg/dL (60-115); Potassium 3.9 mmol/L (3.3-5.1); Sodium 140 mmol/L (135-145)
[2024-04-14 18:31] LABS: TSH reflex Free T4 0.89 uIU/mL (0.32-4.0); Vitamin D 25-OH Total 65.5 ng/mL (>30)
[2024-04-14 18:43] LABS: Folate 8.8 ng/mL (> or = 4.0); Vitamin B12 196 pg/mL (200-900)
--- OUTSIDE RECORDS SUMMARY | 2024-04-14 19:28 | XMS_ITS | Encounter Summary ---
Author Organization [employer] [facility] Address [address] [place] [address] [address] [place] [address] Care Team Providers Care Academic Computing Director Name Role Phone Nancy Patel Primary Care Provider [phone] Devante Jurado MD Unavailable [phone] Encounter Details Date Type Department Care Team ([facility] Contact Info) Description 06/02/2022 Telephone [facility] MEDICINE [address] [place], [place] [phone] Nancy Patel FNP [address] [place] [address] Social History Tobacco Use Types Packs/Day Years Used Date Smoking Tobacco: Never Smokeless Tobacco: Never Alcohol Use Standard Drinks/Week Comments Never 0 (1 standard drink = 0.6 oz pur e alcohol) Comments Unknown Sex and Gender Information Value Date Recorded Sex Assigned at Female 01/16/2022 10:26 AM EDT Legal Sex Female 10:26 AM EDT Gender Identity Female 01/16/2022 10:26 AM EDT Sexual Orientation Straight 01/16/2022 10 :26 AM EDT documented as of this encounter Plan of Treatment Upcoming Encounters Date Type Department Care Team ([facility] Contact Info) Description 05/19/2024 3:45 PM EST Office Visit [facility] CHC MED & PEDS [address] [place], [place] [phone] Nancy Patel FNP [address] [place], [place] [phone] documented as of this encounter Visit Diagnoses Not on filedocumented in this encounter Care Teams Academic Computing Director Relationship Specialty Start Date End Date Nancy Patel FNP [address] [place] [address] PCP - General Family Medicine 11/10/21 Devante Jurado MD [address] [place] [address] Cardiology 04/14/24 documented as of this encounter
--- OUTSIDE RECORDS SUMMARY | 2024-04-14 19:28 | XMS_ITS | Encounter Summary ---
Author Organization [employer] Address [address] [facility] [address] [place] [address] Care Team Providers Care Director Of Neurology Name Role Phone Nancy Patel Primary Care Provider [phone] Devante Jurado MD Unavailable Reason for Visit * Reason Onset Date Comments ER Follow-up 06/22/2023 Encounter Details Date Type Department Care Team ([facility] Contact Info) Description 06/22/2023 Telephone [facility] MEDICINE [address] [place] [address] Nancy Patel FNP [address] [place] [address] ER Follow-up Social History Tobacco Use Types Packs/Day Years Used Date Smoking Tobacco: Never Passive Smoke Exposure: Never Smokeless Tobacco: Never Alcohol Use Standard Drinks/Week Comments Never 0 (1 standard drink = 0.6 oz pur e alcohol) Depression Answer Date Recorded Patient Health Questionnaire-9 Score 5 03/06/2023 Patient Health Questionnaire-9 Score 5 03/06/2023 Last PHQ-9: Questionnaire Data Not on file 1 05/07/2022 Housing Stability Answer Date Recorded What is your housing situation today? I have [employer] flowers 01/01/[address] you li ve. Do you have problems with any of the following? None of the above 01/01/2023 Food Insecurity Answer Date Recorded Within the past 12 months, y ou worried that your food would run out before you got money to buy more: Never True 01/01/2023 Within the past 12 months,th e food you bought just didn't last and you didn't have enough money to get more: Never True Transportation Answer Date Recorded In the past 12 months, has l ack of transportation kept you from medical appts, meetings, work or from getting things needed for daily living? No 01/01/2023 Utilities Answer Date Recorded In the past 12 months, has t he electric, gas, oil or water company threatened to shut off services in your home? No 01/01/2023 Depression Answer Date Recorded Patient Health Questionnaire-2 Score 0 03/06/2023 Comments No Sex and Gender Information Value Date Recorded Sex Assigned at Female 01/16/2022 10:26 AM EDT Legal Sex Female 10:26 AM EDT Gender Identity Female 01/16/2022 10:26 AM EDT Sexual Orientation Straight 01/16/2022 10 :26 AM EDT documented as of this encounter Miscellaneous Notes * Telephone Encounter - Wing Harsh RN - 06/25/2023 10:18 AM EDT Tc to [facility] regarding ED f/u. [facility] reports pt is doing alright with only problem of allergies, having one to urgent care to get a nasal spray. Scheduled pt for paulie on 06/25 at 11:[address] Chester. [facility] verbalizes understanding and agreement with plan. Will scan ED note into pt's chart. * Telephone Encounter - Estevan Juarez - 06/22/2023 10:42 AM EDT [place] [facility] [place], states received a call for EDF. Please contact at [phone] * Telephone Encounter - Juan Daniel Mabry - 06/22/2023 9:33 AM EDT Patient calling to report ED visit on : Date: 06/22/23 Hospital: [facility] Seen for: Seizure Patient advised will forward to team nurse for follow up documented in this encounter Plan of Treatment Upcoming Encounters Date Type Department Care Team (Late st Contact Info) Description 05/19/2024 3:45 PM EST Office Visit [facility] CHC MED & PEDS [address] [place] [address] Nancy Patel FNP [address] [place] [address] documented as of this encounter Visit Diagnoses Not on filedocumented in this encounter Additional Health Concerns Assessment Noted Time PHQ-9 Depression Total Score: 5 03/06/20 23 10:22 AM EST documented as of this encounter Care Teams Director Of Neurology Relationship Specialty Start Date End Date Nancy Patel FNP [address] [place] [address] PCP - General Family Medicine 11/10/21 Devante Jurado MD [address] [place] [address] Cardiology 04/14/24 documented as of this encounter
--- OUTSIDE RECORDS SUMMARY | 2024-04-14 19:28 | XMS_ITS | Patient Health Record ---
Author Organization [facility] Address [address] [place] [address] Care Team Providers Care Departmental Buyer Name Role Phone ARGENIS TOLEDO Unavailable [phone] REASON FOR REFERRAL No Information MEDICATIONS Medication SIG (Take, Route, Fr equency, Duration) Notes Start Date End Date Status Tenex Active Depo-Provera 150 MG/ML 1 ml Intramuscula r every 3 months for 90 days 01/09/2019 Active Prozac Active Flagyl 500 MG 1 tablet Orally Twic e a day for 7 days 01/15/2019 Active PLAN OF TREATMENT No Information Insurance Providers Payer Name Payer Address Payer Phone Subscriber Number Group Number Insured Name Patient Relationship to Insured Coverage Start Date Coverage End Date [facility] [address] [place] [id number] JASON BRYANT Self - patient is the insured MEDICATIONS ADMINISTERED Medication Instructions Date of Administration Dosage Notes depo provera 01/13/2019 MEDICAL (GENERAL) HISTORY Medical History History ICD Code depression anxiety Surgical History Surgery Date(Month/Year)
--- OUTSIDE RECORDS SUMMARY | 2024-04-14 19:28 | XMS_ITS | Clinical Summary ---
Author Organization [facility] Address [address] [place] [address] Care Team Providers Care Grades 1 6 Tutor Name Role Phone Unavailable Primary Care Provider Unavailabl e Social History Tobacco Use Types Packs/Day Years Used Date Smoking Tobacco: Never Assessed Sex and Gender Information Value Date Recorded Sex Assigned at Not on file Gender Identity Not on file Sexual Orientation Not on file Plan of Treatment Health Maintenance Due Date Last Done Comments Gonorrhea/Chlamydia Screening 2002 HPV Vaccines (1 - 3-dose series) 2017 DTaP,Tdap,and Td Vaccines (1 - Tdap) 2021 Hepatitis B Vaccines (1 of 3 - 19+ 3-dose series) 2021 Depression Screening 02/18/2022 HIV Screening 02/18/2022 Hepatitis C Screening 02/18/2022 Social Influencers of Health Screening 02/18/2022 Cervical Cancer Screening: P ap Smear 2023 COVID-19 Vaccine ( - 2023-2 5 season) 2023 Influenza Vaccine (#1) 2023 HIB Vaccines Aged Out No longer eligi ble based on patient's age to complete this topic Hepatitis A Vaccines Aged Out No long er eligible based on patient's age to complete this topic IPV Vaccines Aged Out No longer eligi ble based on patient's age to complete this topic MMR Vaccines Aged Out No longer eligi ble based on patient's age to complete this topic Meningococcal ACWY Vaccine Aged Out N o longer eligible based on patient's age to complete this topic Pneumococcal Vaccine: Pediat rics (0 to 5 Years) and At-Risk Patients (6 to 64 Years) Aged Out No longer eligible b ased on patient's age to complete this topic RSV Immunization Patients Un bernice 20 months Aged Out No longer eligible b ased on patient's age to complete this topic Varicella Vaccines Aged Out No longer eligible based on patient's age to complete this topic
--- OUTSIDE RECORDS SUMMARY | 2024-04-14 19:29 | XMS_ITS | Encounter Summary ---
Author Organization [facility] Address [address] [place] [address] Care Team Providers Care Naprapath Name Role Phone Nancy Patel Primary Care Provider [phone] Devante Jurado MD Unavailable [phone] Reason for Visit * Reason Onset Date Comments Nurse Triage 02/07/2023 Encounter Details Date Type Department Care Team ([facility] Contact Info) Description 02/07/2023 Telephone [facility]S [address] [place], [place] [phone] Nancy Patel FNP [address] [place] [address] Nurse Triage Social History Tobacco Use Types Packs/Day Years Used Date Smoking Tobacco: Never Passive Smoke Exposure: Never Smokeless Tobacco: Never Alcohol Use Standard Drinks/Week Comments Never 0 (1 standard drink = 0.6 oz pur e alcohol) Depression Answer Date Recorded Patient Health Questionnaire-9 Score 19 08/10/2022 Housing Stability Answer Date Recorded What is [...] Answer Date Recorded Patient Health Questionnaire-2 Score 3 08/10/2022 Comments No Sex and Gender Information Value Date Recorded Sex Assigned at Female 01/16/2022 10:26 AM EDT Legal Sex Female 10:26 AM EDT Gender Identity Female 01/16/2022 10:26 AM EDT Sexual Orientation Straight 01/16/2022 10 :26 AM EDT documented as of this encounter Miscellaneous Notes * Telephone Encounter - Vita Perkins RN - 02/07/2023 10:35 AM EST Triage call to Susanna, (interior design program chair) reporting Pt concern regarding urinary symptoms. Pt just reported this morning that trying to uriniate was like trying to squeeze a lemon . Pt reports pain with urination and unable to urinate as needed. Odor unknown, color of urine unknown. Neg for burning. Liquid intake unknown. Advised to bring Pt to [facility] to be seen by provider and Susanna agreed. Insurance is verified as active prior to booking. Protocol Used: Urinary Symptoms (Adult) Protocol-Based Disposition: See in Office or Video Visit Today Positive Triage Question: * Can't control passage of urine (i.e., urinary incontinence) and new-onset (< 2 weeks) or worsening * All higher-acuity triage questions were negative Care Advice Discussed: * Reassurance and Education - Urinary Hesitancy * Reasons To Call Back - Fever occurs - Pain or burning with urination - Unable to urinate and bladder feels full - You become worse * Telephone Encounter - Jil Davalos - 02/07/2023 10:19 AM EST Symptom: Urine Symptoms Outcome: Schedule an urgent appointment (within 1 hour) or talk to a nurse or provider soon Reason: Can't pass urine (can't pee) The caller accepted this outcome Please contact susanna at [phone] documented in this encounter Plan of Treatment Upcoming Encounters Date Type Department Care Team (Late st Contact Info) Description 05/19/2024 3:45 PM EST Office Visit [facility] [address] [place] [address] Nancy Patel FNP [address] [place] [address] documented as of this encounter Visit Diagnoses Not on filedocumented in this encounter Additional Health Concerns Assessment Noted Time PHQ-9 Depression Total Score: 19 023 3:09 PM EDT documented as of this encounter Care Teams Naprapath Relationship Specialty Start Date End Date Nancy Patel FNP [address] [place] [address] PCP - General Family Medicine 11/10/21 Devante Jurado MD [address] [place] [id number] Cardiology 04/14/24 documented as of this encounter
--- OUTSIDE RECORDS SUMMARY | 2024-04-14 19:29 | XMS_ITS | Encounter Summary ---
Author Organization [employer] Address [address] [facility] [facility] [address] [place] [address] Care Team Providers Care Radiocommunications Technician Name Role Phone Nancy Patel MEGHA Primary Care Provider [phone] Devante Jurado MD Unavailable [phone] Encounter Details Date Type Department Care Team (Latest Contact Info) Description 04/14/2024 Travel Social History Tobacco Use Types Packs/Day Years Used Date Smoking Tobacco: Never Passive Smoke Exposure: Never Smokeless Tobacco: Never Alcohol Use Standard Drinks/Week Comments Never 0 (1 standard drink = 0.6 oz pur e alcohol) Depression Answer Date Recorded Patient Health Questionnaire-9 Score 10 04/14/2024 Patient Health Questionnaire-9 Score 10 04/14/2024 Last PHQ-9: Questionnaire Data Not on file 0 04/14/2024 Housing Stability Answer Date Recorded What is [...] Answer Date Recorded Patient Health Questionnaire-2 Score 1 04/14/2024 Internet Access Answer Date Recorded Internet Access Q1 Yes 11/19/2023 Internet Access Q2 Not on file 11/19/2023 Comments No Sex and Gender Information Value Date Recorded Sex Assigned at Female 01/16/2022 10:26 AM EDT Legal Sex Female 10:26 AM EDT Gender Identity Female 01/16/2022 10:26 AM EDT Sexual Orientation Straight 01/16/2022 10 :26 AM EDT documented as of this encounter Plan of Treatment Upcoming Encounters Date Type Department Care Team ([facility] st Contact Info) Description 05/19/2024 3:45 PM EST Office Visit [facility] MED & PEDS [address] [place] [address] Nancy Patel FNP [address] [place] [address] documented as of this encounter Visit Diagnoses Not on filedocumented in this encounter Additional Health Concerns Assessment Noted Time PHQ-9 Depression Total Score: 10 025 11:16 AM EST documented as of this encounter Care Teams Radiocommunications Technician Relationship Specialty Start Date End Date Nancy Patel FNP [address] [place] [address] PCP - General Family Medicine 11/10/21 Devante Jurado MD [address] [place] [id number] Cardiology 04/14/24 documented as of this encounter
--- OUTSIDE RECORDS SUMMARY | 2024-04-14 19:29 | XMS_ITS | Encounter Summary ---
Author Organization [employer] [facility] Address [address] [place] [address] Care Team Providers Care Manager Marketing Sales Name Role Phone Nancy Patel Primary Care Provider [phone] Devante Jurado MD Unavailable [phone] Reason for Visit * Reason Onset Date Comments Nurse Triage 02/27/2023 Encounter Details Date Type Department Care Team ([facility] Contact Info) Description 02/27/2023 Telephone [facility] MED & PEDS [address] [place], [place] [phone] Nancy Patel FNP [address] [place] [address] Nurse Triage Social History Tobacco Use Types [...] Telephone Encounter - Vita Perkins RN - 02/27/2023 9:36 AM EST Triage call Pt was [place] [facility] for vaginal bleeding and dysmenorrhea. Pt reports that bleeding continues using 3-4 pads/day. No further clotting observed but cramping continues. Pt does havenexplanon in place since 2020. Pt is taking tylenol alternating with ibuprofen for some relief. Aptwith Dr. Eric Clark for follow up Ed visit, 03/06/23 @ 900am. insurance is verified as active prior to booking. Multiple (2) protocols were used on this call. Disposition for Call: See in Office or Video Visit within 2 Weeks Protocol Used: Abdominal Pain - Menstrual Cramps (Adult) Protocol-Based Disposition: See in Office or Video Visit within 2 Weeks Positive Triage Question: * Moderate pain (e.g., cramps interfere with normal activities) and not relieved by ibuprofen or naproxen used per Care Advice * All higher-acuity triage questions were negative Care Advice Discussed: * Reassurance and Education - Menstrual Cramps * General Health Tips * Use Heat * Pain Medicines for Menstrual Cramps * Reasons To Call Back - Severe pain and not better after taking ibuprofen or naproxen - Menstrual cramps cause you to miss work, school, or other important activities - Menstrual cramps last over 3 days - You become worse Protocol Used: Vaginal Bleeding - Abnormal (Adult) * Telephone Encounter - Jil Davalos - 02/27/2023 9:01 AM EST Symptom: Vaginal Bleeding - Not Outcome: Talk to a nurse or provider within 15 minutes Reason: Heavy bleeding, pt was seen at [facility] [place] for vaginal bleeding. Pt still symptomatic The caller accepted this outcome Please contact pt at [phone] documented in this encounter Plan of Treatment Upcoming Encounters Date Type Department Care Team ([facility] st Contact Info) Description 05/19/2024 3:45 PM EST Office Visit [facility] MED & PEDS [address] [place] [address] Nancy Patel FNP [address] [place] [address] documented as of this encounter Visit Diagnoses Not on filedocumented in this encounter Additional Health Concerns Assessment Noted Time PHQ-9 Depression Total Score: 19 023 3:09 PM EDT documented as of this encounter Care Teams Manager Marketing Sales Relationship Specialty Start Date End Date Nancy Patel FNP [address] [place] [address] PCP - General Family Medicine 11/10/21 Devante Jurado MD [address] [place] [id number] Cardiology 04/14/24 documented as of this encounter
--- OUTSIDE RECORDS SUMMARY | 2024-04-14 19:29 | XMS_ITS | Clinical Summary ---
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 Intra-abdominal and Retroperitoneal Spaces: ?? No intra-abdominal free fluid collections or gas. No mesenteric, ?? retroperitoneal, or inguinal lymphadenopathy. ? VASCULATURE: ?? The abdominal aorta is of normal contour and caliber. ? MUSCULOSKELETAL: ?? No acute osseous abnormalities. No lytic or sclerotic osseous lesions ?? demonstrated. No soft tissue masses demonstrated. ? CT/CT abdomen pelvis wo IV con ?? IMPRESSION: ?? 1. ??No evidence of nephrolithiasis or hydronephrosis. ?? 2. ??No additional CT abnormalities to explain the patient's symptoms. ? Electronically signed by: ??Anil Benjamin DO ??02/19/2024 01:49 AM EST RP ? Dictated By: ?Gee Benjamin DO ? Signed By: ?<Electronically signed by Gee Benjamin DO in OV> ? 02/19/24 0149 ? DD/ 1906 ? TD/TT: 02/18/24 1938 ? Abalone Processor: ANDREW ? Procedure Note Donotuseinterpreter, Image - 02/19/[address] [place] [address] [address] Scan Report Signed Patient: Deisi Jacques#: [id number] : 2000Acct:[id number] Age/Sex: Date: [birth year]24 Loc: HO.ED Attending Dr: Ordering Physician: Zacarias Wiley Date of Service: 02/18/24 Procedure(s): CT abdomen pelvis wo IV con Accession Number(s): [id number] cc: Zacarias Wiley; Nancy Patel EXAMINATION: CT ABDOMEN AND PELVIS WITHOUT CONTRAST CLINICAL INFORMATION: Left lower quadrant abdominal pain. Kidney stones. COMPARISON: Pelvic ultrasound from 06/16/2021. TECHNIQUE: Multidetector volumetric imaging was performed from the lung bases to the pubic without contrast. Sagittal and coronal reformatted images were obtained on the technologist workstation. This CT examination was performed using dose optimization techniques as appropriate, variously including the following: *Automated exposure control. *Adjustment of mA and/or kV according to patient size (this includes techniques or standardized protocols for targeted exams where dose is matched to indication/reason for exam; i.e. extremities or head). *Use of iterative reconstruction technique. DLP: 580 mGy-cm FINDINGS: LUNG BASES: Mild bilateral dependent atelectasis. Otherwise, no abnormalities of the visualized lung bases. No demonstrated abnormalities of the visualized cardiac structures. ABDOMEN/PELVIS: Liver, Biliary Ducts, and Gallbladder: The unenhanced liver is normal in size and attenuation without focal hepatic lesions or biliary ductal dilatation. The gallbladder is physiologically distended without radiopaque gallstones, pericholecystic fluid, or significant gallbladder wall thickening. Pancreas: The pancreas is normal in appearance. Adrenal Glands: The adrenal glands are normal in appearance. Spleen: The spleen is normal in appearance. Kidneys and Ureters: The unenhanced kidneys are normal in size without evidence of nephrolithiasis or hydronephrosis. No ureterolithiasis or hydroureter. Urinary Bladder: The urinary bladder is partially distended without focal wall thickening. No bladder calculi are demonstrated. Gastrointestinal System: The stomach is decompressed and therefore not well evaluated on this exam. The small bowel is of normal caliber. The colon is normal in appearance without focal wall thickening or pericolonic inflammatory change. Normal appendix. Genitourinary: No adnexal soft tissue masses. Intra-abdominal and Retroperitoneal Spaces: No intra-abdominal free fluid collections or gas. No mesenteric, retroperitoneal, or inguinal lymphadenopathy. VASCULATURE: The abdominal aorta is of normal contour and caliber. MUSCULOSKELETAL: No acute osseous abnormalities. No lytic or sclerotic osseous lesions demonstrated. No soft tissue masses demonstrated. CT/CT abdomen pelvis wo IV con IMPRESSION: 1. No evidence of nephrolithiasis or hydronephrosis. 2. No additional CT abnormalities to explain the patient's symptoms. Electronically signed by: Anil Benjamin DO 02/19/2024 01:49 AM EST Dictated By: Gee Benjamin DO Signed By: <Electronically signed by Gee Benjamin DO in OV> 02/19/24 0149 DD/ 190 TD/TT: 02/18/24 193 Abalone Processor: ANDREW [facility] External Provider IMG CT PROCEDURES Final Result * Chlamydia/N. Gonorrhoeae RNA, TMA, Urogenitial (12/26/2023 12:10 PM EDT) CT PCR NOT DETECTED Not Detect. [facility] Comment:A not detected test result does not exclude the possibilityof infection because test results can be affected byimproper specimen collection, concurrent antibiotic therapy,or the number of organisms in the specimen which may bebelow the sensitivity of the test. As with many diagnostictests, results from the Xpert CT/NG assay should beinterpreted in conjunction with other laboratory andclinical data available to the clinician.Xpert CT/NG performance has not been evaluated in patientsless than 14 years of age. The assay should not be used forthe evaluationof suspected sexual abuse or for other medico-legalindications. Additional testing is recommended in anycircumstance when false positive or false negative resultscould lead to adverse medical, social or psychologicalconsequences. NG PCR NOT DETECTED Not Detect. [facility] Comment:A not detected test result does not exclude the possibilityof infection because test results can be affected byimproper specimen collection, concurrent antibiotic therapy,or the number of organisms in the specimen which may bebelow the sensitivity of the test. As with many diagnostictests, results from the Xpert CT/NG assay should beinterpreted in conjunction with other laboratory andclinical data available to the clinician.Xpert CT/NG performance has not been evaluated in patientsless than 14 years of age. The assay should not be used forthe evaluationof suspected sexual abuse or for other medico-legalindications. Additional testing is recommended in anycircumstance when false positive or false negative resultscould lead to adverse medical, social or psychologicalconsequences. Urine, Random 12/26/2023 12: 10 PM EDT 12/26/2023 2:13 PM EDT Narrative [facility] - 12/26/2023 5:01 PM EDT Urine aNncy Patel [facility] MICROBIOLOGY - GENERAL ORD ERABLES Final Result [facility] [address] [place] [address] [phone] * HIV-1/2 Antigen and Antibodies, Fourth Generation, with Reflexes (12/26/2023 12:06 PM EDT) HIV AB/AG Nonreactive Nonreactive [facility] Comment:HIV-1 p24 Ag and/or HIV-1/HIV-2 Ab not detected.A test result that is nonreactive does not exclude thepossibility of exposure to or infection with HIV-1 and/orHIV-2. Nonreactive results in this assay for individualswith prior exposure to HIV-1 and/or HIV-2 may be due toantigen and antibody levels that are below the limit ofdetection of this assay.The [employer] HIV Ag/Ab Combo assay result andsupplemental assay results should be interpreted inconjunction with the patient's clinical presentation,history and other laboratory results. If the results areinconsistent with clinical evidence, additional testing issuggested to confirm the result. Blood Venous blood specimen / Unknown 12/26/2023 12:06 PM EDT 12/26/2023 2:19 PM EDT Result [facility] Nancy Harrellestiven [facility] BLOOD ORDERABLES Final Res ult Performing Organization Address [facility] de Phone Number [facility] [address] [place] [phone] * Hepatitis C Viral RNA, Quantitative, Real-Time PCR (12/26/2023 12:01 PM EDT) Hepatitis C Viral Load <15 NOT DETECTED NOT DETECTED IU/mL [facility] HCV Log PCR <1.18 NOT DETECTED NOT DETECTED Log IU/mL [facility] Comment:For additional infor is[place], please refer tohttp://education.Global Axcess/faq/UWX36u7(This link is being provided for informational/educational purposes only.)THIS TEST WAS PERFORMED AT:[employer] [place] [phone] BARRETT MD Blood 12/26/2023 12:0 1 PM EDT 12/26/2023 2:19 PM EDT [facility] BLOOD ORDERABLES Final Res ult Performing Organization Address [facility] Co de Phone Number [facility] [address] [place] [phone] * Pap Smear (03/29/2023 11:11 AM EST) Swab Cervix uteri structure / Unknown 03/29/2023 11:11 AM EST 03/30/2023 11:20 AM EST Chiqui [facility] - 04/09/2023 11:21 AM EST ----- ------- Name: Cleve Jacques ? Age/Sex: 23/F ? : 2000 Unit#: [id number] ?? Attend Dr: ?Re03/29/23 ?Status: PRE REF ? Location: HO.LNP ?Disch: ? ----- ------- SPEC : [id number] ?RECD: 03/30/23-1119 ? STATUS: ??SOUT ? REQ NUM: [id number] ? VERONICA: 03/29/23-1111 ? SUBM DR: TIAGO RODRÍGUEZ CNM ? ENTERED: ??03/30/23-5 ?SP TYPE: Pap Smr ?OTHR : ? ORDERED: ??Pap Smear ? Interpretation ?? Satisfactory for evaluation. ?? Negative for intraepithelial lesion or malignancy. ?Clinical Information LMP: Unknown date Previous PAP test: Unknown date/findings ? Material Received ?? ThinPrep-Cervical ----- ------- Signed (signature on file) Heydi Tolbert Herminia 04/09/231120 ? ----- ------- ? END OF REPORT ? us Tiago Katty CNM LAB CYTOLOGY ORDERABLES F inal Result [facility] [address] [place] [address] [phone] from Last 3 Months or Most Recently Relevant to Health Maintenance Insurance # [id number] [place] [address] [employer] STANDARD # [id number] [place] [address] # [id number] [place] [address] [place] [address] Care Teams Orthopaedic Doctor Relationship Specialty Start Date End Date Nancy Patel FNP [address] [place] [address] PCP - General Family Medicine 11/10/21 Devante Jurado MD [address] [place] [phone] Cardiology 04/14/24
--- OUTSIDE RECORDS SUMMARY | 2024-04-14 19:29 | XMS_ITS | Encounter Summary ---
Author Organization [employer] Address [address] [place] [address] Care Team Providers Care Internet Sales Consultant Name Role Phone Nancy Patel Primary Care Provider [phone] Devante Jurado MD Unavailable [phone] Encounter Details Date Type Department Care Team ([facility] Contact Info) Description 04/14/2024 11:15 AM EST Office Visit [facility] [address] [place] [address] Nancy Patel FNP [address] [place] [address] Excessive sleepiness (Primary Dx) Social History Tobacco Use Types Packs/Day Years [...] AM EDT documented as of this encounter Last Filed Vital Signs Vital Sign Reading [...] Mass Index 28.77 04/14/2024 11:13 AM EST documented in this encounter Progress Notes * Nancy Patel, MEGHA - 04/14/2024 11:15 AM EST Subjective: Cleve Agudelo is a 24 y.o. female who presents to the office for a follow up visit. HPI: Last PCP visit: 12/21/23 for Physical Exam Upcoming appointment in April 2024 to establish with a new psych prescriber. Bridging medications through PCP until established. Reports that she has been feeling increased sleepiness over the past month. Sleeping approximately 8 hours per night, as well as multiple naps during the day. Working at [employer]. Has not been exercising. Appetite baseline. Will be transitioning to a [facility] long term in April 2024. Denies SI/HI/thoughts of self harm. Patient Active Problem List Diagnosis Attention deficit hyperactivity disorder Complex cyst of uterine adnexa Psychogenic nonepileptic seizure Mood disorder (CMS/HCC) History of suicidal ideation Seasonal allergies Healthcare maintenance Dysmenorrhea Lymphocytosis GERD (gastroesophageal reflux disease) Tachycardia Posttraumatic stress disorder Family History Problem Relation Hypertension Father Liver cancer Father Heart disease Father Lung cancer Maternal Grandmother Heart disease Maternal Grandfather Social History Social History Narrative -Living in long term with 3 other women -Employment: [employer] -Denies use of alcohol, tobacco, opioid use, or other substances -Sexual hx: male partner - boyfriend. Reviewed consent, contraception, and STI prevention. Uses condoms every time. -Contraception: Nexplanon No LMP recorded (lmp unknown). Patient has had an implant. No Known Allergies Review of Systems Constitutional: Negative for activity change, appetite change and fever. Respiratory: Negative for cough. Cardiovascular: Negative for chest pain and palpitations. Gastrointestinal: Negative for abdominal pain, constipation, diarrhea and vomiting. Genitourinary: Negative for decreased urine volume, difficulty urinating and menstrual problem. Psychiatric/Behavioral: Positive for sleep disturbance. Visit Vitals BP 115/77 (BP Location: Left arm, Patient Position: Sitting, BP Cuff Size: Adult) Pulse 86 Temp 97.3 ??F (36.3 ??C) (Oral) Resp 20 Ht 5' 3.5 (1.613 m) Wt 165 lb (74.8 kg) LMP (LMP Unknown) SpO2 98% BMI 28.77 kg/m?? OB Status Implant Smoking Status Never BSA 1.83 m?? Physical Exam Constitutional: Appearance: Normal appearance. HENT: Head: Atraumatic. Right Ear: External ear normal. Left Ear: External ear normal. Cardiovascular: Rate and Rhythm: Normal rate and regular rhythm. Pulmonary: Effort: Pulmonary effort is normal. Breath sounds: Normal breath sounds. Neurological: Mental Status: She is alert and oriented to person, place, and time. Psychiatric: Mood and Affect: Mood normal. Behavior: Behavior normal. Problem List Items Addressed This Visit Visit Diagnoses Excessive sleepiness - Primary - Check labs as below - No noted changes around onset of symptoms - Will be entering new long term soon Relevant Orders Basic Metabolic Panel Vitamin D, 25-Hydroxy, Total, Immunoassay Vitamin B12/Folate, Serum Panel TSH W/Reflex to FT4 Follow up: 1 month for sleep, sooner as needed documented in this encounter Plan of Treatment Upcoming Encounters Date Type Department Care Team (Late st Contact Info) Description 05/19/2024 3:45 PM EST Office Visit [facility] [address] [place] [address] Nancy Patel FNP [address] [place] [address] documented as of this encounter Procedures Procedure Name Priority Date/Time Associated Diagnosis Comments VITAMIN D,25-OH,TOTAL,IA Routine 04/14/2024 3:27 PM EST Excessive sleepiness VITAMIN B12/FOLATE, SERUM PANEL Routine 04/14/2024 3:27 PM EST Excessive sleepiness TSH W/REFLEX TO FT4 Routine 04/14/2024 3 :27 PM EST Excessive sleepiness BASIC METABOLIC PANEL Routine 04/14/2024 3:27 PM EST Excessive sleepiness documented in this encounter Results * TSH W/Reflex to FT4 (04/14/2024 3:27 PM EST) TSH reflex Free T4 0.89 0.32 - 4.0 uIU/mL [facility] Blood Venous blood specimen / Unknown 04/14/2024 3:27 PM EST 04/14/2024 5:46 PM EST us Nancy [facility] BLOOD ORDERABLES Final Res ult [facility] [address] [place] [phone] * (ABNORMAL) Vitamin B12/Folate, Serum Panel (04/14/2024 3:27 PM EST) Vitamin B12 196(L) 200 - 900 pg/mL [facility] Comment:NORMAL 200-900 PG/ML INDETERMINATE 160-199 PG/ML DEFICIENT < 160 PG/ML Folate 8.8 > or = 4.0 ng/mL [facility] Comment:Reference Values:> o r = 4.0 ng/mL< 4.0 ng/mL suggests folate deficiency Methotrexate, aminopterin and folinic acid(leucovorin) are chemotherapeutic agents whose molecularstructures are similar to folate; therefore, the Architectfolate assay cannot be used for patients using these drugs. Blood Venous blood specimen / Unknown 04/14/2024 3:27 PM EST 04/14/2024 5:46 PM EST Nancy Patel [facility] BLOOD ORDERABLES Final Res ult [facility] [address] [place] [phone] * Vitamin D, 25-Hydroxy, Total, Immunoassay (04/14/2024 3:27 PM EST) Vitamin D 25-OH Total 65.5 >30 ng/mL [facility] Comment:Health Based Referen ce Values*< 20 ng/mL Pcsaskkzg92-52 ng/mL Insufficient> 30 ng/mL Sufficient*Giovany PEPPER. N [...] EST 04/14/2024 5:46 PM EST Nancy Patel [facility] BLOOD ORDERABLES Final Res ult Performing Organization Address [facility] Co de Phone Number [facility] [address] [place] [phone] * (ABNORMAL) Basic Metabolic Panel (04/14/2024 3:27 PM EST) Sodium 140 135 - 145 mmol/L [facility] Potassium 3.9 3.3 - 5.1 mmol/L [facility] Chloride 108 96 - 108 mmol/L [facility] Carbon Dioxide 27 22 - 29 mmol/L [facility] Anion Gap 9(L) 12 - 20 [facility] Urea Nitrogen (BUN) 10 9 - 16 mg/dL [facility] Creatinine, Serum 0.83 0.5 - 1.4 mg/dL [facility] Estimated Glomerular Filt Rate >60 [facility] Comment:Chronic Kidney Disea se: Estimated GFR < 60 mL/min/[id number] Kidney Disease: Estimated GFR < 15 mL/min/1.73m2 Glucose 122(H) 60 - 115 mg/dL [facility] Calcium 9.4 8.4 - 10.2 mg/dL [facility] Blood Venous blood specimen / Unknown 04/14/2024 3:27 PM EST 04/14/2024 5:46 PM EST Nancy [facility] BLOOD ORDERABLES Final Res ult Performing Organization Address [facility] Co de Phone Number [facility] [address] [place] [phone] documented in this encounter Visit Diagnoses Diagnosis Excessive sleepiness- Primary Hypersomnia, unspecified documented in this encounter Additional Health Concerns Assessment Noted Time PHQ-9 Depression Total Score: 10 025 11:16 AM EST documented as of this encounter Care Teams Internet Sales Consultant Relationship Specialty Start Date End Date Nancy Patel FNP [address] [place] [address] PCP - General Family Medicine 11/10/21 Devante Jurado MD [address] [place] [address] Cardiology 04/14/24 documented as of this encounter
--- OUTSIDE RECORDS SUMMARY | 2024-04-14 19:29 | XMS_ITS | Encounter Summary ---
Author Organization [employer] Address [address] [place] [address] Care Team Providers Care Passenger Service Representative Name Role Phone Nancy Patel Primary Care Provider [phone] Devante Jurado MD Unavailable [phone] Reason for Visit * Reason Onset Date Comments Medication Question 01/22/2024 Encounter Details Date Type Department Care Team ([facility] Contact Info) Description 01/22/2024 Telephone [facility] [address] [place], [place] [phone] Nancy Patel FNP [address] [place] [address] Medication Question Social History Tobacco Use Types Packs/Day Years [...] Recorded Patient Health Questionnaire-2 Score 0 03/06/2023 Internet Access Answer Date Recorded Internet Access [...] encounter Miscellaneous Notes * Telephone Encounter - MEGHA Salmeron - 01/23/2024 4:40 PM EST 30 day bridge prescription of psych medications were sent to pharmacy on 01/22/24. Please ask Ramez the plan is for establishing with new psych prescriber. Thank you!. Hydroxyzine 50mg Q8H PRN Quetiapine 50mg nightly Mirtazapine 45mg nightly Guanfacine 3mg nightly * Telephone Encounter - Adilia Cooney - 01/22/2024 12:07 PM EST Tc [place] Gao from pt retirement at [facility] requesting a call back to go over pt medications. Also to see if pcp can prescribe pt psych meds. Best contact # [phone]. documented in this encounter Plan of Treatment Upcoming Encounters Date Type Department Care Team ([facility] st Contact Info) Description 05/19/2024 3:45 PM EST Office Visit [facility] [address] [place] [address] Nancy Patel FNP [address] [place] [address] documented as of this encounter Visit Diagnoses Not on filedocumented in this encounter Additional Health Concerns Assessment Noted Time PHQ-9 Depression Total Score: 5 03/06/20 23 10:22 AM EST documented as of this encounter Care Teams Passenger Service Representative Relationship Specialty Start Date End Date Nancy Patel FNP [address] [place] [address] PCP - General Family Medicine 11/10/21 Devante Jurado MD [address] [place] [address] Cardiology 04/14/24 documented as of this encounter
--- OUTSIDE RECORDS SUMMARY | 2024-04-14 19:29 | XMS_ITS | Encounter Summary ---
Author Organization [employer] Address [address] [facility] 7[address] [place] [address] Care Team Providers Care Box Brander Name Role Phone Nancy Patel Primary Care Provider [phone] Reason for Visit * Reason Onset Date Comments Medication Question 04/02/2024 Med Refill 04/02/2024 Encounter Details Date Type Department Care Team ([facility] st Contact Info) Description 04/02/2024 Telephone [facility] MEDICINE [address] [place] [address] Nancy Patel FNP [address] [place], [place] [id number] Medication Question; Med Refill Social History Tobacco Use Types Packs/Day Years [...] encounter Miscellaneous Notes * Telephone Encounter - Smita Lara RN - 04/03/2024 12:00 PM EST Notified Murray from long term that medications were prescribed and sent to pharmacy. Advised Murray to call office with any other questions, concerns, or needs. * Telephone Encounter - MEGHA Salmeron - 04/03/2024 11:54 AM EST Refill of meds sent to the pharmacy with 30 tablets +1 refill. Please call to let store group manager know, and to give us a call with any further questions or concerns. Thank you. * Telephone Encounter - Smita Lara RN - 04/02/2024 3:47 PM EST TC to Murray. Patient is no longer seeing rita Akinsist. She has appointment scheduled with new psychiatrist on . Murray states patient will be out of psych medications in 2 days and would like to know if PCP is willing to prescribe these medications until patient sees new psychiatrist. Reviewed psych medications that need to prescribed. They are: Seroquel 50 mg Remeron 45 mg Hydroxyzine 50 mg Guanfacine 3 mg Routing to provider for review and advisement. * Telephone Encounter - Manuel Pacheco - 04/02/2024 10:41 AM EST Tc from Murray with long term requesting a call back to Discuss pt medicating and he is requestingfor Pt to be Prescribed Psych Med. Pt does have a New Psych Doctor but the first apt is not until the April so he was wondering if it was possible to get the Pt meds Until then. Contact Murray at [phone] documented in this encounter Plan of Treatment Upcoming Encounters Date Type Department Care Team (Late st Contact Info) Description 05/19/2024 3:45 PM EST Office Visit [facility] MED & PEDS [address] [place] [address] Nancy Patel FNP [address] [place] [address] documented as of this encounter Visit Diagnoses Not on filedocumented in this encounter Additional Health Concerns Assessment Noted Time PHQ-9 Depression Total Score: 5 03/06/20 23 10:22 AM EST documented as of this encounter Care Teams Box Brander Relationship Specialty Start Date End Date Nancy Patel FNP [address] [place] [address] PCP - General Family Medicine 11/10/21 documented as of this encounter
--- OUTSIDE RECORDS SUMMARY | 2024-04-14 19:29 | XMS_ITS | Encounter Summary ---
Author Organization [employer] Address [address] [facility] 7[address] [place] [address] Care Team Providers Care Beverage Inspection Machine Tender Name Role Phone Nancy Patel Primary Care Provider [phone] Reason for Visit * Reason Onset Date Comments Med Refill 02/15/2023 Encounter Details Date Type Department Care Team ([facility] Contact Info) Description 02/15/2023 Telephone [facility] MEDICINE [address] [place] [address] Nancy Patel FNP [address] [place] [address] Med Refill Social History Tobacco Use Types [...] your housing situation today? I have anabell floewrs 01/01/[address] you li [...] encounter Miscellaneous Notes * Telephone Encounter - Shabnam Flores LPN - 02/15/2023 10:43 AM EST Medication isn't prescribed by PCP. * Telephone Encounter - Estevan Juarez - 02/15/2023 10:41 AM EST Tc from [facility] requesting a refill for famotidine (Pepcid) 20 MG tablet documented in this encounter Plan of Treatment Upcoming Encounters Date Type Department Care Team (Late st Contact Info) Description 05/19/2024 3:45 PM EST Office Visit [facility] MED & PEDS [address] [place] [address] Nancy Patel FNP [address] [place] [address] documented as of this encounter Visit Diagnoses Not on filedocumented in this encounter Additional Health Concerns Assessment Noted Time PHQ-9 Depression Total Score: 19 023 3:09 PM EDT documented as of this encounter Care Teams Beverage Inspection Machine Tender Relationship Specialty Start Date End Date Nancy Patel FNP [address] [place] [address] PCP - General Family Medicine 11/10/21 documented as of this encounter
--- OUTSIDE RECORDS SUMMARY | 2024-04-14 19:30 | XMS_ITS | Encounter Summary ---
Author Organization [employer] Address [address] [facility] 7[address] [place] [address] Care Team Providers Care Laboratory Analyst Name Role Phone Nancy Patel Primary Care Provider [phone] Devante Jurado MD Unavailable [phone] Reason for Visit * Reason Onset Date Comments Call Back Request 05/23/2023 Encounter Details Date Type Department Care Team ([facility] st Contact Info) Description 05/23/2023 Telephone [facility] MEDICINE [address] [place] [address] Nancy Patel FNP [address] [place] [address] Call Back Request Social History Tobacco Use Types Packs/Day Years [...] Telephone Encounter - Wing Harsh RN - 05/25/2023 12:13 PM EST Tc to Murray from [facility]. Confirmed that pt stopped taking psych meds after seeing TANK SYSTEMS MAINTAINER last week. Murray states he is working with his nurses to reach out th the psych provider. He wants to reiterate concerns that pt may have seizures and behavorial issues due to not taking her psych meds. Scheduled televisit with you for 05/29 at 2:30 pm. Also advised Murray that if pt can't wait until then to go to the [facility] in [place]. Murray verbalizes understanding and agreement with plan. * Telephone Encounter - MEGHA Salmeron - 05/25/2023 11:43 AM EST Cleve is prescribed multiple medications through psych, which ideally should not be stopped abruptly. Sounds like she stopped taking them after TANK SYSTEMS MAINTAINER appt? My recommendation would be to continue reaching out to psych prescriber who prescribes meds, but also to schedule Cleve for a visit to discuss if interested to get to the root of why she is refusing meds. Please schedule for a 30 mins visit with myself. She may also be seen in [facility] today if not able to wait until next week. (If no soon appt slots available on my schedule, OK to book for a 30 minute televisit Sun05/30/23 at 2:30 or 3pm. Let me know if you need me to override schedule block) Thank you! * Telephone Encounter - Wing Harsh RN - 05/24/2023 3:45 PM EST Please advise, tc to Murray from [facility] regarding pt not taking medication. Murray reported that pt did not taken her regular med only once yesterday morning but has taken regular meds since then. Pt is currently not taking psych meds because pt had seen a senior consultant recently for bleeding andwanted to start Nexplanon. Or Scrub Tech stated to the pt that her med will mean she will continue bleeding as Murray informed me. Pt then stopped taking psych meds after this. Murray has attempted sherron herrera to move up her appointment with them from June 05 to address this issue. Murray's main concern is the pt not taking her pysch meds that is a mood stabilizer. Informed Murray that I would forward the message to PCP and decide on the next steps. Also informed Murray to callus back if anything else changes or pt refuses to take regular meds. Murray verbalizes understanding and agreement with plan and stated he would call psych again tomorrow. * Telephone Encounter - MEGHA Salmeron - 05/23/2023 3:51 PM EST Please reach out to Murray to further discuss. List of psych meds documented under provider list (history of SI). Has she stopped those too? What has prompted this? May schedule pt for 30 minute visit if needed. Thank you! * Telephone Encounter - Nimo Tan RN - 05/23/2023 12:49 PM EST Will forward to PCP as BURAK. Tc from Murray from [facility] calling to inform PCP pt is no taking her medications, please contact Murray for advise at [phone]. * Telephone Encounter - Lauren Swartz - 05/23/2023 11:19 AM EST Tc from Murray from [facility] calling to inform PCP pt is no taking her medications, please contact Murray for advise at [phone]. documented in this encounter Plan of Treatment Upcoming Encounters Date Type Department Care Team (Late st Contact Info) Description 05/19/2024 3:45 PM EST Office Visit [facility] MED [facility] PEDS [address] [place] [address] Nancy Patel FNP [address] [place] [address] documented as of this encounter Visit Diagnoses Not on filedocumented in this encounter Additional Health Concerns Assessment Noted Time PHQ-9 Depression Total Score: 5 03/06/20 23 10:22 AM EST documented as of this encounter Care Teams Laboratory Analyst Relationship Specialty Start Date End Date Nancy Patel FNP [address] [place] [address] PCP - General Family Medicine 11/10/21 Devante Jurado MD [address] [place] [id number] Cardiology 04/14/24 documented as of this encounter
== END 2024-04-14 15:26 | disposition home or self-care (01) ==
LOC: HO.CHCLDS 15:25
PROVIDERS: Visit Provider Registered Nurse
DX: G47.10 Hypersomnia, unspecified (principal)
CPT/HCPCS: 36415; 80048; 82306; 82607; 82746; 84443

== ENCOUNTER 2024-09-05 13:08 | Outpatient (AMB) | payer MEDICAID, SELFPAY ==
--- OUTSIDE RECORDS SUMMARY | 2024-09-05 13:11 | XMS_ITS | Clinical Summary ---
Author Organization [facility] it Address [address] [place] [address] Care Team Providers Care Roof Bolter Helper Name Role Phone Unavailable Primary Care Provider Unavailabl e Social History Tobacco Use Types Packs/Day Years Used Date Smoking Tobacco: Never Assessed Comments Unknown Sex and Gender Information Value Date Recorded Sex Assigned at Not on file Legal Sex Female 6:52 PM EST Gender Identity Not on file Sexual Orientation Not on file Plan of Treatment Health Maintenance Due Date Last Done Comments Gonorrhea/Chlamydia Screening 2002 HPV Vaccines (1 - 3-dose series) 2017 Meningococcal B Vaccine (1 o f 2 - Standard) 2018 DTaP,Tdap,and Td Vaccines (1 - Tdap) 2021 Hepatitis B Vaccines (1 of 3 - 19+ 3-dose series) 2021 Depression Screening 02/18/2022 HIV Screening 02/18/2022 Hepatitis C Screening 02/18/2022 Social Influencers of Health Screening 02/18/2022 Cervical Cancer Screening: P ap Smear 2023 COVID-19 Vaccine ( - 2023-2 5 season) 2023 Influenza Vaccine (Season Ended) 2024 HIB Vaccines Aged Out No longer eligi [...]
--- NOTE | 2024-09-05 13:12 | MHC.OFFVIS ---
Vital Signs 09/05/24 13:14 Height 5 ft 4 in Weight 180 lb BMI 30.9 BP 128/62 Blood Pressure Location Rt brachial Position Sitting Pulse 80 Pulse Source Pulse Oximeter Pulse Oximetry (%) 96 Oxygen Delivery Method Room Air Intake Visit Reasons: Gerd 6 mo Follow up r/s 05/15 r/s 07/14/24 Intake Note: Est pt for GERD mgmt. CC; Pt denies any sx or concerns at this time. Confirms that Rx are working well for them. Dance Hall Hostess Required: No Accompanied by: Other Relationship Allergies No Known Allergies Allergy (Verified 09/05/24 13:17) HPI HPI Gerd 6 mo Follow up r/s 05/15 r/s 07/14/24: Details: Assessment & Plan (1) GERD (gastroesophageal reflux disease): Code(s): K21.9 - Gastro-esophageal reflux disease without esophagitis Category: Medical Plan She has been out of her carafate since 07/2023 and her HB was quite worse, Appartenly she was in [place] and missed several appts. She continues on famotidine. RoV 6 mos. Medications: New sucralfate (Carafate) Ok to mix with sweet drink 10 mL PO BID 1,000 mL 12RF Refilled famotidine 20 mg PO BID 56 tabs 12RF TODAYS VISIT She is here today with a staff member who is supportive. She is doing well, her total GI regimen consists of carafate (I rx) and famotidine and colace (PCP rx). She is satisfed with this regimen. ROV 1 year. [facility] Medical History Well woman exam with routine gynecological exam Encounter for monitoring of etonogestrel implant Etonogestrel implant for control Screen for sexually transmitted diseases COVID-19 Insertion of Nexplanon Breakthrough bleeding on Depo-Provera [place] contraception control counseling Encounter for surveillance of Nexplanon subdermal contraceptive Encounter for removal and reinsertion of Nexplanon Psychiatric pseudoseizure Severe recurrent major depression PTSD (post-traumatic stress disorder) Traumatic brain injury Learning disability ADHD Depression with anxiety Social History Household Members: Other Household Members Other:: nursing home Housing: Other Housing Other:: nursing home Do you presently have visiting nurse or other home services: No Unable to assess alcohol history related to: Unable to respond Alcohol intake: never Patient Tobacco Use Status: Never used Tobacco service: No Sexual orientation: Straight/Heterosexual Gender identity: Female Female Reproductive History Menstrual Age of Menarche: 16 Review of Systems Const Denies fatigue, Denies fever(s), Denies night sweats, Denies poor appetite and Denies weight loss ENT Reports Normal hearing present, Denies dental pain, Denies dysphagia, Denies hearing loss, Denies mouth pain, Denies odynophagia, Denies throat swelling, Denies tongue swelling and Reports other (Dentition adequate) Card Reports no additional complaints Resp Reports no additional complaints GI Details: Denies abdominal pain, Denies melena, Denies bloating, Denies hematochezia, Reports constipation, Denies GI cramping, Denies dysphagia, Denies excessive flatus, Denies early satiety, Reports heartburn, Denies diarrhea, Denies nausea, Denies odynophagia, Denies vomiting and Denies hematemesis Skin/Breast Denies pruritus, Denies lesions, Denies rash and Denies jaundice Neuro Reports Normal hearing present and Denies Abnormal speech present Endo Denies fatigue Aller/Immun Denies throat swelling and Denies tongue swelling Physical Exam Const General: cooperative, no acute distress, well developed and well groomed Nutritional Appearance: well nourished and overweight Orientation/consciousness: oriented to person, oriented to place and oriented to time Limitations: No language barrier and other limitations HEENT Head: Yes normocephalic and Yes atraumatic Eyes General: appearance normal, both eyes and all related structures Pupils: Equal, round and reactive pupils present Neck Neck: Yes normal visual inspection and Yes no lymphadenopathy Thyroid: Thyroid normal Resp Effort & Inspection: normal respiratory effort and able to speak in complete sentences Auscultation: clear to auscultation bilaterally Cardio Rate: regular rate Rhythm: regular rhythm Heart sounds: Normal, physiologic split S2 sound present Peripheral pulses: radial pulses present and posterior tibial pulses present GI Inspection: No distended, No Abdominal panniculus present and Yes obesity Palpation (GI): Soft to palpation, nontender, no guarding, not rigid and No hepatosplenomegaly present Percussion: Yes normal to percussion Auscultation: normal bowel sounds Rectal Exam - Female: deferred Skin General skin exam: no rashes or lesions noted, turgor normal, skin not dry, no jaundice, No spider nevi and no striae Rashes: no rashes Nails: normal Neuro General: oriented to person, oriented to place and oriented to time Cranial nerves: Yes Equal, round and reactive pupils present and Yes Normal hearing present Speech: No Abnormal speech present Extrem General: Yes normal to inspection, No clubbing, No cyanosis and No edema Psych Appearance: grossly normal and well kempt Mental Status: mental status grossly normal Speech and movement: Normal speech and movement present Affect: normal affect Attitude: cooperative Thought process: Normal thought process present and not confabulating Thought content: Normal thought content present Insight: Limited insight present (Psych) Judgement: Limited judgement present (Psych) Assessment & Plan Assessment & Plan (1) GERD (gastroesophageal reflux disease): Code(s): K21.9 - Gastro-esophageal reflux disease without esophagitis Category: Medical Plan She is here today with a staff member who is supportive. She is doing well, her total GI regimen consists of carafate (I rx) and famotidine and colace (PCP rx). She is satisfed with this regimen. ROV 1 year. Medications: Refilled sucralfate (Carafate) Ok to mix with sweet drink 10 mL PO BID 1,000 mL 12RF famotidine 20 mg PO BID 56 tabs 12RF Coding Level of Care Code Est Pt Level 3 (04497) Diagnoses GERD (gastroesophageal reflux disease) K21.9
[2024-09-05 13:14] VITALS: BP 128/62; PULSE 80; O2SAT 96; BMI 30.9
== END 2024-09-05 13:49 | disposition home or self-care (01) ==
LOC: HO.HGI 13:09
PROVIDERS: PCP Registered Nurse; Visit Provider Nurse Practitioner
DX: K21.9 Gastro-esophageal reflux disease without esophagitis (principal)
CPT/HCPCS: 99213

== ENCOUNTER → 2024-09-05 13:08 | Outpatient (BNVA) | payer OTHER, SELFPAY | PROVIDERS: PCP Registered Nurse; Visit Provider Nurse Practitioner | DX: K21.9 Gastro-esophageal reflux disease without esophagitis (principal) | CPT/HCPCS: 99212 ==

== ENCOUNTER 2024-10-20 10:54 | Outpatient (REF) | payer MEDICAID, SELFPAY ==
--- OUTSIDE RECORDS SUMMARY | 2024-10-20 11:53 | XMS_ITS | Clinical Summary ---
Author Organization [facility] it Address [address] [place] [address] Care Team Providers Care Life Guard Name Role Phone Unavailable Primary Care Provider [...] of 3 - 19+ 3-dose series) 2021 HIV Screening 02/18/2022 Hepatitis C Screening 02/18/2022 Social Influencers of Health Screening 02/18/2022 Cervical Cancer Screening: P ap Smear 2023 COVID-19 Vaccine ( - 2023-2 5 season) 2023 Depression Screening 03/19/2024 Influenza Vaccine (#1) 2024 HIB Vaccines Aged Out No longer [...] 5 Years) and At-Risk Patients (6 to 49 Years) Aged Out No longer eligible b ased on patient's age to complete this topic RSV Immunization Patients Un bernice 20 months Aged Out No longer eligible b ased on patient's age to complete this topic Varicella Vaccines Aged Out No longer eligible based on patient's age to complete this topic
--- OUTSIDE RECORDS SUMMARY | 2024-10-20 11:53 | XMS_ITS | Encounter Summary ---
Author Organization [employer] Address [address] [place] [address] Care Team Providers Care Sewer Head Name Role Phone Nancy Patel Primary Care Provider [phone] Devante Jurado MD Unavailable [phone] Reason for Visit * Reason Onset Date Comments ER Follow-up 06/22/2023 Encounter Details Date Type Department Care Team ([facility] st Contact Info) Description 06/22/2023 Telephone [facility] MEDICINE [address] [place] [address] Nancy Patel FNP [address] [place] [address] ER Follow-up Social History Tobacco Use Types [...] - 06/22/2023 10:42 AM EDT Tc from [facility] fpc returning call, states received a call for EDF. Please contact at [phone] * Telephone Encounter - Juan Daniel Mabry - 06/22/2023 9:33 AM EDT Patient calling to report ED visit on : Date: 06/22/23 Hospital: [facility] Seen for: Seizure Patient advised will forward to team nurse for follow up documented in this encounter Plan of Treatment Upcoming Encounters Date Type Department Care Team (Late st Contact Info) Description 12/29/2024 10:30 AM EDT Office Visit [facility] MED & PEDS [address] [place] [address] Nancy Patel FNP [address] [place] [address] documented as of this encounter Visit Diagnoses Not on filedocumented in this encounter Additional Health Concerns Assessment Noted Time PHQ-9 Depression Total Score: 5 03/06/20 23 10:22 AM EST documented as of this encounter Care Teams Sewer Head Relationship Specialty Start Date End Date Nancy Patel FNP [address] [place] [address] PCP - General Family Medicine 11/10/21 Devante Jurado MD [address] [place] [id number] Cardiology 04/14/24 documented as of this encounter
[2024-10-20 14:48] LABS: Vitamin B12 1427 pg/mL (200-900)
== END 2024-10-20 10:55 | disposition home or self-care (01) ==
LOC: HO.CHCLDS 10:54
PROVIDERS: Visit Provider Registered Nurse
DX: E53.8 Deficiency of other specified B group vitamins (principal)
CPT/HCPCS: 36415; 82607

== ENCOUNTER 2024-12-29 13:13 | Outpatient (REF) | payer MEDICAID, SELFPAY ==
--- OUTSIDE RECORDS SUMMARY | 2024-12-29 10:30 | XMS_ITS | Encounter Summary ---
Author Organization [employer] Address [address] [facility] [address] [place] [address] Care Team Providers Care Building Construction Foreman Name Role Phone Nancy Patel Primary Care Provider [phone] Devante Jurado MD Unavailable [phone] Reason for Visit * Reason Comments Annual Exam Encounter Details Date Type Department Care Team ([facility] Contact Info) Description 12/29/2024 10:30 AM EDT Office Visit [facility] [address] [place], [place] [phone] Nancy Patel FNP [address] [place] [address] Vitamin B12 deficiency (Primary Dx); Healthcare maintenance; Tachycardia; Mood disorder (CMS/HCC); Encounter for immunization Social History Tobacco Use Types Packs/Day Years Used Date Smoking Tobacco: Never Passive Smoke Exposure: Never Smokeless Tobacco: Never Alcohol Use Standard Drinks/Week Comments Never 0 (1 standard drink = 0.6 oz pur e alcohol) Depression Answer Date Recorded Patient Health Questionnaire-9 Score 3 12/29/2024 Patient Health Questionnaire-9 Score 3 12/29/2024 Last PHQ-9: Questionnaire Data Not on file 1 Housing Stability Answer Date Recorded What is your housing situation today? I do not have housing (Staying with others, in a hotel, in a longterm, living outside on the street, on a beach, in a car, or in a park 12/29/[address] you li ve. Do you have problems with any of the following? None of the above 12/29/2024 Food Insecurity Answer Date Recorded Within the past 12 months, y ou worried that your food would run out before you got money to buy more: Never True 12/29/2024 Within the past 12 months,th e food you bought just didn't last and you didn't have enough money to get more: Never True Transportation Answer Date Recorded In the past 12 months, has l ack of transportation kept you from medical appts, meetings, work or from getting things needed for daily living? Yes, it has kept me from non-medical meetings, work, or getting things that I need 12/29/2024 Utilities Answer Date Recorded In the past 12 months, has t he [employer], gas, oil or water [employer] threatened to shut off services in your home? I am not sure 12/29/2024 Depression Answer Date Recorded Patient Health Questionnaire-2 Score 2 12/29/2024 Internet Access Answer Date Recorded Internet Access Q1 Yes 12/29/2024 Internet Access Q2 Not on file 12/29/2024 Comments No Sex and Gender Information Value Date Recorded Sex Assigned at Female 01/16/2022 10:26 AM EDT Legal Sex Female 10:26 AM EDT Gender Identity Female 01/16/2022 10:26 AM EDT Sexual Orientation Straight 01/16/2022 10 :26 AM EDT documented as of this encounter Last Filed Vital Signs Vital Sign Reading Time Taken Comments Blood Pressure 132/94 12/29/2024 11:15 AM EDT Pulse 92 12/29/2024 11:15 AM EDT Temperature 36.6 C (97.9 F) 12/29/2024 11:15 AM EDT Respiratory Rate 18 12/29/2024 11:15 AM EDT Oxygen Saturation 98% 12/29/2024 11:15 AM EDT Inhaled Oxygen Concentration - - Weight 78.9 kg (174 lb) 12/29/2024 11:15 AM EDT Height 162 cm (5' 3.78 ) 12/29/2024 11:15 AM EDT Body Mass Index 30.07 12/29/2024 11:15 AM EDT documented in this encounter Functional Status * Over the past 2 weeks, how often have you been bothered by any of the following problems? Question Answer Date of Assessment Author Patient Health Questionnaire -2 Score 2 12/29/2024 11:18 AM EDT Sa milton Sterling [place] * Little interest or pleasure in doing things Answer Date of Assessment Author Not at all 12/29/2024 11:18 AM EDT Cece Beard MA * Feeling down, depressed, or hopeless Answer Date of Assessment Author More than half the days 12/29/2024 11:18 AM EDT Cece Sterling MA * Trouble falling or staying asleep, or sleeping too much Answer Date of Assessment Author Not at all 12/29/2024 11:18 AM EDT Cece Beard MA * Feeling tired or having little energy Answer Date of Assessment Author Not at all 12/29/2024 11:18 AM EDT Cece Beard MA * Poor appetite or overeating Answer Date of Assessment Author Not at all 12/29/2024 11:18 AM EDT Cece Beard MA * Feeling bad about yourself - or that you are a failure or have let yourself or your family down Answer Date of Assessment Author Several days 12/29/2024 11:18 AM EDT Cece Beard MA * Trouble concentrating on things, such as reading the newspaper or watching television Answer Date of Assessment Author Not at all 12/29/2024 11:18 AM ASBRAT Cece Beard MA * Moving or speaking so slowly that other people could have noticed? Or the opposite - being so fidgety or restless that you have been moving around a lot more than usual. Answer Date of Assessment Author Not at all 12/29/2024 11:18 AM SABRAT Cece Beard MA * Thoughts that you would be better off or hurting yourself in some way Answer Date of Assessment Author Not at all 12/29/2024 11:18 AM EDT Cece Beard MA * Patient Health Questionnaire-9 Score Answer Date of Assessment Author 3 12/29/2024 11:18 AM SABRAT Cece Beard MA * How difficult have these problems made it for you to do your work, take care of things at home, or get along with other people? Answer Date of Assessment Author Somewhat difficult 12/29/2024 11:18 AM EDT Cece Soares MA * Over the last 2 weeks, how often have you been bothered by any of the following problems? Question Answer Date of Assessment Author Feeling nervous, anxious, or on edge 1 12/29/2024 11:17 AM EDT Sa milton Sterling MA Not being able to stop or control worrying 0 12/29/2024 11:17 AM EDT Sa milton Sterling MA Worrying too much about different things 1 12/29/2024 11:17 AM EDT Sa milton Sterling MA Trouble relaxing 0 12/29/2024 11:17 AM EDT Cece Sterling MA Being so restless that it is hard to sit still 0 12/29/2024 11:17 AM EDT Sa milton Sterling MA Becoming easily annoyed or irritable 1 12/29/2024 11:17 AM EDT Sa milton Sterling MA Feeling afraid as if somethi ng awful might happen 2 12/29/2024 11:17 AM EDT Sa milton Sterling MA SHERRY-7 Total Score 5 12/29/2024 11:17 AM EDT Cece Sterling MA documented as of this encounter Miscellaneous Notes * Assessment & Plan Note - MEGHA Salmeron - 12/29/2024 7:00 AM EDTAssociated Problem(s): Tachycardia Well controlled with current regimen [facility] Completed Holter in 2023, echo essentially normal per consult note September 2023 Continues with Propranolol 40mg BID Previous medications: - Carvedilol (DC d/t med SE) documented in this encounter Plan of Treatment Scheduled Orders Name Type Priority Associated Diagnoses Orde r Schedule Vitamin B12 Lab Routine Healthcare maintenance Expected: 12/29/2024 (Approximate), Expires: 12/29/2025 Lipid Panel, Standard Lab Routine Healthcare maintenance Expected: 12/29/2024 (Approximate), Expires: 12/29/2025 Hemoglobin A1c Lab Routine Healthcare maintenance Expected: 12/29/2024 (Approximate), Expires: 12/29/2025 TSH with Reflex to Free T4 Lab Routine Healthcare maintenance Expected: 12/29/2024 (Approximate), Expires: 12/29/2025 Comprehensive Metabolic Panel Lab Routine Healthcare maintenance Expected: 12/29/2024 (Approximate), Expires: 12/29/2025 CBC auto differential Lab Routine Healthcare maintenance Expected: 12/29/2024, Expires: 12/29/2025 Chlamydia/Trichomonas/Neis seria gonorrhoeae, PCR, Urine Lab Routine Healthcare maintenance Expected: 12/29/2024 (Approximate), Expires: 12/29/2025 Hepatitis C Viral RNA, Quantitative, Real-Time PCR Lab Routine Healthcare maintenance Expected: 12/29/2024 (Approximate), Expires: 12/29/2025 RPR (Monitor) with Reflex to Titer Lab Routine Healthcare maintenance Expected: 12/29/2024 (Approximate), Expires: 12/29/2025 HIV-1/2 Antigen and Antibodies, Fourth Generation, with Reflexes Lab Routine Healthcare maintenance Expected: 12/29/2024 (Approximate), Expires: 12/29/2025 documented as of this encounter Visit Diagnoses Diagnosis Vitamin B12 deficiency- Primary Other B-complex deficiencies Healthcare maintenance Tachycardia Unspecified tachycardia Mood disorder (CMS/HCC) Unspecified episodic mood disorder Encounter for immunization documented in this encounter Additional Health Concerns Assessment Noted Time PHQ-9 Depression Total Score: 3 12/30/19 25 11:18 AM EDT documented as of this encounter Care Teams Building Construction Foreman Relationship Specialty Start Date End Date Nancy Patel FNP [address] [place] [address] PCP - General Family Medicine 11/10/21 Devante Jurado MD [address] [place] [address] Cardiology 04/14/24 documented as of this encounter
--- OUTSIDE RECORDS SUMMARY | 2024-12-29 13:18 | XMS_ITS | Encounter Summary ---
Author Organization [employer] Address [address] [facility] [address] [place] [address] Care Team Providers Care Historiography Teacher Name Role Phone Nancy Patel Primary Care Provider [phone] Devante Jurado MD Unavailable [phone] Encounter Details Date Type Department Care Team ([facility] st Contact Info) Description 06/02/2022 Telephone [facility] MED[facility] [address] [place] [address] Nancy Patel FNP [address] [place] [address] Social History Tobacco Use Types Packs/Day Years [...] as of this encounter Plan of Treatment Not on file documented as of this encounter Visit Diagnoses Not on filedocumented in this encounter Care Teams Historiography Teacher Relationship Specialty Start Date End Date Nancy Patel FNP [address] [place] [address] PCP - General Family Medicine 11/10/21 Devante Jurado MD [address] [place], [place] [id number] Cardiology 04/14/24 documented as of this encounter
--- OUTSIDE RECORDS SUMMARY | 2024-12-29 13:18 | XMS_ITS | Encounter Summary ---
Author Organization [employer] Address [address] [facility] [address] [place] [address] Care Team Providers Care File Clerk Name Role Phone Nancy Patel Primary Care Provider [phone] Devante Jurado MD Unavailable [phone] Reason for Visit * Reason Onset Date Comments Med Refill 12/25/2024 Encounter Details Date Type Department Care Team ([facility] st Contact Info) Description 12/25/2024 Refill [facility]ED[facility] [address] [place], [place] [phone] Nancy Patel FNP [address] [place] [address] Constipation, unspecified constipation type; Routine health maintenance Social History Tobacco Use Types Packs/Day Years [...] encounter Miscellaneous Notes * Telephone Encounter - Neha Tan LPN - 12/25/2024 1:27 PM EDT Last seen 11.12.24 documented in this encounter Plan of Treatment Not on file documented as of this encounter Visit Diagnoses Diagnosis Constipation, unspecified constipation type Routine health maintenance Unspecified examination documented in this encounter Additional Health Concerns Assessment Noted Time PHQ-9 Depression Total Score: 10 025 11:16 AM EST documented as of this encounter Care Teams File Clerk Relationship Specialty Start Date End Date Nancy Patel FNP [address] [place] [address] PCP - General Family Medicine 11/10/21 Devante Jurado MD [address] [place] [address] Cardiology 04/14/24 documented as of this encounter
--- OUTSIDE RECORDS SUMMARY | 2024-12-29 13:18 | XMS_ITS | Clinical Summary ---
Author Organization [facility] Address [address] [place] [address] Phone Care Team Providers Care Export Administrator Name Role Phone Physician, Pcp Unknown Primary Care Provider Nola vailable Allergies No known active allergies Medications hydrOXYzine pamoate (VISTARIL) 50 mg capsuleIndications :anxiety Take 1 capsule (50 mg total) by mouth 2 (two) times a day. Active guanFACINE (INTUNIV) 3 mg 24 Hour ER tabletIndications: attention-deficit hyperactivity disorder Take 1 tablet (3 mg total) by mouth at bedtime. Active mirtazapine (REMERON BELKIS-TAB) 45 mg disintegrating tablet Take 1 tablet (45 mg total) by mouth at bedtime. Active QUEtiapine fumarate ER (SeroqueL XR) 50 mg 24 hr tablet Take 1 tablet (50 mg total) by mouth at bedtime. Do not crush, chew, or split. Active docusate sodium (COLACE) 100 mg capsule Take 1 capsule (100 mg total) by mouth at bedtime. Active famotidine (PEPCID) 20 mg tablet Take 1 tablet (20 mg total) by mouth 2 (two) times a day. Active ondansetron (ZOFRAN) 4 mg tablet Take 1 tablet (4 mg total) by mouth every 8 (eight) hours if needed for nausea or vomiting. Active omeprazole (PriLOSEC) [address] capsule Take 1 capsule (20 mg total) by mouth 1 (one) time each day. Do not crush or chew. Active cyanocobalamin (VITAMIN B-12) 1,000 mcg tablet Take 1 tablet (1,000 mcg total) by mouth 1 (one) time each day. Active cholecalciferol (VITAMIN D-3) 25 mcg (1,000 unit) tablet Take 1 tablet (1,000 Units total) by mouth 1 (one) time each day. Active cetirizine (ZyrTEC) 10 mg tablet Take 1 tablet (10 mg total) by mouth 1 (one) time each day. Active naproxen (NAPROSYN) 500 mg tablet Take 1 tablet (500 mg total) by mouth 2 (two) times a day if needed for mild pain. Active acetaminophen (TYLENOL) 650 mg suppository Insert 1 suppository (650 mg total) into the rectum every 6 (six) hours if needed for mild pain. Active sucralfate (CARAFATE) 1 gram tablet Take 1 tablet (1 g total) by mouth 2 (two) times a day if needed (dyspepcia). Active propranoloL (INDERAL) 40 mg tablet Take 1 tablet (40 mg total) by mouth 2 (two) times a day. Active Active Problems No known active problems Encounters Date Type Department Care Team Description 12/12/2024 2:26 PM EDT - 12/13/2024 6:20 PM EDT Emergency [facility] Emergency [address] [place] [id number] Sunil Carpenter MD Wire, Jessica, MD Goebel, Mathew, MD Killelea, Alison G, MD Adjustment disorder, unspecified type (Primary Dx); Anxiety; Unable to control anger Discharge Disposition: Home or Self Care from Last 3 Months Medical History Medical History Date Comments GERD (gastroesophageal reflux disease) per [facility] paperwork Migraine per [facility] paperwork Adhd per [facility] paperwork Anxiety per [facility] paperwork Psychogenic nonepileptic seizure per [facility] paperwork Depression per [facility] paperwork Tachycardia per [facility] paperwork Constipation per [facility] paperwork Social History Tobacco Use Types Packs/Day Years Used Date Smoking Tobacco: Never Assessed Comments Unknown Sex and Gender Information Value Date Recorded Sex Assigned at Not on file Legal Sex Female 6:52 PM EST Gender Identity Not on file Sexual Orientation Not on file Obstetrics History Last Filed Vital Signs Vital Sign Reading Time Taken Comments Blood Pressure 128/58 12/13/2024 2:15 PM EDT Pulse 74 12/13/2024 2:15 PM EDT Temperature 36.9 C (98.4 F) 12/13/2024 2:15 PM EDT Respiratory Rate 20 12/13/2024 2:15 PM EDT Oxygen Saturation 98% 12/13/2024 2:15 PM EDT Inhaled Oxygen Concentration - - Weight 59 kg (130 lb) 12/12/2024 2:46 PM EDT Height 160 cm (5' 3 ) 12/12/2024 2:46 PM EDT Body Mass Index 23.03 12/12/2024 2:46 PM EDT Plan of Treatment Health Maintenance Due Date Last Done Comments Meningococcal B Vaccine (1 of 2 - Standard) 2018 Hepatitis C Screening 02/18/2022 Social Influencers of Health Screening 02/18/2022 Depression Screening 03/19/2024 Influenza Vaccine (#1) 2024 , 03/06/2023, 12/23/2021, Additional history exists Gonorrhea/Chlamydia Screening 12/25/2024 12/26/2023 Cervical Cancer Screening: Pap Smear 03/29/2026 03/29/2023 DTaP,Tdap,and Td Vaccines (8 - Td or Tdap) 04/18/2033 04/18/2023, 04/17/2013, 01/03/2007, Additional history exists RSV Immunization Adult Patients (1 - 1-dose 75+ series) 2077 Pneumococcal Vaccine: Pediatrics (0 to 5 Years) and At-Risk Patients (6 to 49 Years) Aged Out 2002 No longer eligible based on patient's age to complete this topic Hepatitis B Vaccines Completed 03/01/2003, 2002, 2002 MMR Vaccines Completed 09/09/2003, 06/04/2003 HIB Vaccines Completed 01/03/2007, 2002 IPV Vaccines Completed 01/03/2007, 02/16, 2002, Additional history exists Varicella Vaccines Completed 06/06/2011, 01/03/2007 Hepatitis A Vaccines Completed 04/17/2013, 06/06/19 HPV Vaccines Completed 08/18/2015, 02/16, 04/17/2013 Meningococcal ACWY Vaccine Completed 03/30, 02/10/2020, 04/17/2013 COVID-19 Vaccine Completed 12/21/2023, , 10/17/2022 HIV Screening Completed 12/26/2023 RSV Immunization Patients Under 20 months Aged Out No longer eligible based on patient's age to complete this topic Procedures Procedure Name Priority Date/Time Associated Diagnosis Comments POC , URINE DIAGNOSTIC STAT 12/12/2024 3:35 PM EDT METHADONE SCREEN, URINE STAT 12/12/2024 3:29 PM EDT PHENCYCLIDINE, URINE STAT 12/12/2024 3:29 PM EDT BUPRENORPHINE SCREEN, URINE STAT 12/12/2024 3:29 PM EDT DRUG ABUSE SCREEN 8A PANEL, URINE STAT 12/12/2024 3:29 PM EDT CBC WITH AUTO DIFFERENTIAL STAT 12/12/2024 3:27 PM EDT SALICYLATE LEVEL STAT 12/12/2024 3:27 PM EDT ACETAMINOPHEN LEVEL STAT 12/12/2024 3 :27 PM EDT ETHANOL STAT 12/12/2024 3:27 PM EDT COMPREHENSIVE METABOLIC PANEL STAT 12/12/2024 3:27 PM EDT CBC AND DIFFERENTIAL STAT 12/12/2024 3:27 PM EDT from Last 3 Months Results * POC , urine manually resulted (12/12/2024 3:35 PM EDT) HCG, Ur POC Negative Negative POC hCG Int QC Pass? Yes Yes Urine Urine specimen obtained by clean catch procedure / Unknown 12/12/2024 3:35 PM EDT Sunil Carpenter MD POINT OF CARE TEST ENTER/ EDIT ORDERABLES Final Result * Drug abuse screen 8a panel, urine (12/12/2024 3:29 PM EDT) Amphetamine Screen, Ur Negative Negative LAB CHEMISTRY METHOD 12/12/2024 5:37 PM EDT [facility] Comment:Certain OTC medicati ons containing ephedrine, phenylephrine, pseudoephedrine and phenylpropanolamine can cause false positive results. Barbiturate Screen, Ur Negative Negative LAB CHEMISTRY METHOD 12/12/2024 5:37 PM EDT [facility] Benzodiazepine Screen, Ur Negative Negative LAB CHEMISTRY METHOD 12/12/2024 5:37 PM EDT [facility] Cocaine Screen, Ur Negative Negative LAB CHEMISTRY [facility]12[facility] Opiate Screen, Ur Negative Negative LAB CHEMISTRY METHOD 12/12/2024 5:[facility] Cannabinoid (THC) Screen, Ur Negative Negative LAB CHEMISTRY METHOD 12/12/2024 5:37 PM EDT [facility] Comment:Specimens from patie nts taking pantoprazole sodium (Protonix) have been shown to produce false positive results. Oxycodone Screen, Ur Negative Negative LAB CHEMISTRY METHOD 12/12/2024 5:37 PM EDT [facility] Fentanyl, Ur Negative Negative LAB CHEMISTRY METHOD 12/12/2024 5:37 PM T [facility] Urine Urine specimen obtained by clean catch procedure / Unknown Non-blood Collection / Unknown 12/12/2024 3:29 PM EDT 12/12/2024 3:37 PM EDT Narrative [facility] - 12/12/2024 5:37 PM EDT Assay cutoffs: Amphetamines 1000 ng/mL Barbiturates 200 ng/mL Benzodiazepines 200 ng/mL Cocaine 300 ng/mL Fentanyl 1 ng/mL Opiates 300 ng/mL Oxycodone 100 ng/mL THC 50 ng/mL Semi-quantitative assay for screening purposes only. Unconfirmed screening result should not be used for non-medical purposes. *ALTERNATE METHOD CONFIRMATION DONE UPON REQUEST ONLY* Sunil Carpenter MD LAB URINE ORDERABLES Rachna l Result Performing Organization Address [facility] Co de Phone Number [facility] [address] [place] [address], [place] [phone] * Buprenorphine screen, urine (12/12/2024 3:29 PM EDT) [facility] Buprenorphine Screen Urine Negative Negative LAB CHEMISTRY METHOD 12/12/2024 5:37 PM EDT [facility] Urine Urine specimen obtained by clean catch procedure / Unknown Non-blood Collection / Unknown 12/12/2024 3:29 PM EDT 12/12/2024 3:37 PM EDT Narrative [facility] - 12/12/2024 5:37 PM EDT Assay cutoff 5 ng/mL Semi-quantitative assay for screening purposes only. Unconfirmed screening result should not be used for non-medical purposes. *ALTERNATE METHOD CONFIRMATION DONE UPON REQUEST ONLY* Sunil Carpenter MD LAB URINE ORDERABLES Rachna l Result Performing Organization Address [facility] de Phone Number [facility] [address] [place] [address], [place] [phone] * Methadone, urine (12/12/2024 3:29 PM EDT) [facility] Methadone Screen, Urine Negative Negative LAB CHEMISTRY METHOD 12/12/2024 5:37 PM EDT [facility] Comment: Assay cutoff 300 ng/mL Semi-quantitative assay for screening purposes only. Unconfirmed screening result should not be used for non-medical purposes. *ALTERNATE METHOD CONFIRMATION DONE UPON REQUEST ONLY* Urine Urine specimen obtained by clean catch procedure / Unknown Non-blood Collection / Unknown 12/12/2024 3:29 PM EDT 12/12/2024 3:37 PM EDT Sunil Carpenter MD LAB URINE ORDERABLES Rachna l Result Performing Organization Address City/[facility]/ZIP Co de Phone Number [facility] [address] [place] [address], [place] [phone] * Phencyclidine, urine (12/12/2024 3:29 PM EDT) PCP Scrn, Ur Negative Negative LAB CHEMISTRY METHOD 12/12/2024 5:37 PM EDT [facility] Comment: Assay cutoff 25 ng/mL Semi-quantitative assay for screening purposes only. Unconfirmed screening result should not be used for non-medical purposes. *ALTERNATE METHOD CONFIRMATION DONE UPON REQUEST ONLY* Urine Urine specimen obtained by clean catch procedure / Unknown Non-blood Collection / Unknown 12/12/2024 3:29 PM EDT 12/12/2024 3:37 PM EDT Sunil Carpenter MD LAB URINE ORDERABLES Rachna l Result Performing Organization Address City/[facility]/ZIP Co de Phone Number [facility] [address] [place] [address], [place] [phone] * (ABNORMAL) CBC auto differential (12/12/2024 3:27 PM EDT) WBC 11.8(H) 4.8 - 10.8 K/mcL LAB HEMETOLOGY METHOD 12/12/2024 3:47 PM EDT [facility] RBC 4.80 3.80 - 4.80 M/[facility] LAB HEMETOLOGY METHOD 12/12/2024 3:47 PM EDT [facility] Hemoglobin 13.6 11.5 - 16.0 g/dL LAB HEMETOLOGY METHOD 12/12/2024 3:47 PM EDT [facility] Hematocrit 41.0 35.0 - 47.0 % LAB HEMETOLOGY METHOD 12/12/2024 3:47 PM EDT [facility] MCV 85.4 79.0 - 98.0 FL LAB HEMETOLOGY METHOD 12/12/2024 3:47 PM EDT [facility] MCH 28.3 27.0 - 32.0 pcg LAB HEMETOLOGY METHOD 12/12/2024 3:[facility] MCHC 33.2 32.0 - 37.0 g/dL LAB HEMETOLOGY METHOD 12/12/2024 3:47 PM EDT [facility] RDW 12.2 11.0 - 15.0 % LAB HEMETOLOGY METHOD 12/12/2024 3:47 PM [facility] Platelets 329 130 - 400 K/mcL LAB HEMETOLOGY METHOD 12/12/2024 3:47 PM [facility] MPV 10.2 7.0 - 11.0 FL LAB HEMETOLOGY METHOD 12/12/2024 3:47 [facility] NRBC 0.0 <1.0 % LAB HEMETOLOGY METHOD 12/12/2024 3:47 PM [facility] NRBC Absolute 0.00 <0.10 K/mcL LAB HEMETOLOGY METHOD 12/12/2024 3:47 PM [facility] Neutrophils Relative 68.9 % LAB HEMETOLOGY METHOD 12/12/2024 3:47 PM [facility] Lymphocytes Relative 18.4 % LAB HEMETOLOGY METHOD 12/12/2024 3:47 PM [facility] Monocytes Relative 6.0 % LAB HEMETOLOGY METHOD 12/12/2024 3:47 PM [facility] Eosinophils Relative 5.7 % LAB HEMETOLOGY METHOD 12/12/2024 3:47 PM [facility] Basophils Relative 0.6 % LAB HEMETOLOGY METHOD 12/12/2024 3:47 PM EDT [facility] Immature Granulocytes Relative 0.4 % LAB HEMETOLOGY METHOD 12/12/2024 3:47 PM EDT [facility] Neutrophils Absolute 8.11(H) 1.50 - 7.00 K/mcL LAB HEMETOLOGY METHOD 12/12/2024 3:47 PM EDT [facility] Lymphocytes Absolute 2.17 1.00 - 5.00 K/mcL LAB HEMETOLOGY METHOD 12/12/2024 3:47 PM EDT [facility] Monocytes Absolute 0.71 0.20 - 1.00 K/[facility] HEMETOLOGY METHOD 12/12/2024 3:47 PM EDT [facility] Eosinophils Absolute 0.67(H) 0.00 - 0.50 K/mcL LAB HEMETOLOGY METHOD 12/12/2024 3:47 [facility] Basophils Absolute 0.07 0.00 - 0.20 K/[facility] HEMETOLOGY METHOD 12/12/2024 3:47 PM EDT [facility] Immature Granulocytes Absolute 0.05(H) 0.00 - 0.03 K/mcL LAB HEMETOLOGY METHOD 12/12/2024 3:47 PM [facility] Blood Venous blood specimen / Unknown Venipuncture / Unknown 12/12/2024 3:27 PM EDT 12/12/2024 3:37 PM EDT us Sunil Carpenter MD LAB BLOOD ORDERABLES Rachna l Result [facility] [address] [place] [address], * Ethanol (12/12/2024 3:27 PM EDT) Ethanol Level <3 0 - 10 mg/dL LAB CHEMISTRY METHOD 12/12/2024 4:34 PM EDT [facility] Blood Venous blood specimen / Unknown Venipuncture / Unknown 12/12/2024 3:27 PM EDT 12/12/2024 3:37 PM EDT Sunil Carpenter MD LAB BLOOD ORDERABLES Rachna l Result Performing Organization Address City/[facility]/ZIP Co de Phone Number [facility] [address] [place] [address], [place] [phone] * (ABNORMAL) Acetaminophen level (12/12/2024 3:27 PM EDT) Acetaminophen Level <2.0(L) 10.0 - 30.0 mcg/mL LAB CHEMISTRY METHOD 12/12/2024 4:41 PM EDT [facility] Blood Venous blood specimen / Unknown Venipuncture / Unknown 12/12/2024 3:27 PM EDT 12/12/2024 3:37 PM EDT Sunil Carpenter MD LAB BLOOD ORDERABLES Rachna l Result Performing Organization Address [facility]/ZIP Co de Phone Number [facility] [address] [place] [address], [place] [phone] * (ABNORMAL) Salicylate level (12/12/2024 3:27 PM EDT) Salicylate Level <1.7(L) 2.0 - 29.0 mg/dL LAB CHEMISTRY METHOD 12/12/2024 4:34 PM EDT [facility] Blood Venous blood specimen / Unknown Venipuncture / Unknown 12/12/2024 3:27 PM EDT 12/12/2024 3:37 PM EDT us Sunil Carpenter MD LAB BLOOD ORDERABLES Rachna l Result Performing Organization Address City/[facility]/ZIP Co de Phone Number [facility] [address] [place] [address], [place] [phone] * Comprehensive metabolic panel (12/12/2024 3:27 PM EDT) Sodium 138 133 - 145 mmol/L LAB CHEMISTRY METHOD 12/12/2024 4:38 PM [facility] Potassium 3.7 3.5 - 5.5 mmol/L LAB CHEMISTRY METHOD 12/12/2024 4:38 PM [facility] Chloride 103 96 - 110 mmol/L LAB CHEMISTRY METHOD 12/12/2024 4:38 PM [facility] CO2 30 21 - 32 mmol/L LAB CHEMISTRY METHOD 12/12/2024 4:38 PM [facility] Anion Gap 5 3 - 11 LAB CHEMISTRY METHOD 12/12/2024 4:38 PM [facility] Glucose 89 70 - 100 mg/dL LAB CHEMISTRY METHOD 12/12/2024 4:38 PM [facility] BUN 13 5 - 25 mg/dL LAB CHEMISTRY METHOD 12/12/2024 4:38 PM [facility] Creatinine 0.99 0.50 - 1.10 mg/dL LAB CHEMISTRY METHOD 12/12/2024 4:38 PM [facility] eGFR 83 >=60 mL/min/1. 73m2 LAB CHEMISTRY METHOD 12/12/2024 4:38 PM [facility] Comment:Calculation based on the Chronic Kidney Disease Epidemiology Collaboration (CKD-EPI) equation refit without adjustment for race. BUN/Creatinine Ratio 13.1 LAB CHEMISTRY METHOD 12/12/2024 4:38 PM [facility] Calcium 9.4 8.5 - 10.5 mg/dL LAB CHEMISTRY METHOD 12/12/2024 4:38 PM [facility] AST (SGOT) 20 10 - 42 unit/L LAB CHEMISTRY METHOD 12/12/2024 4:38 PM [facility] ALT (SGPT) 43 10 - 60 unit/L LAB CHEMISTRY METHOD 12/12/2024 4:38 PM EDT [facility] Alkaline Phosphatase 71 42 - 121 unit/L LAB CHEMISTRY METHOD 12/12/2024 4:38 PM EDT [facility] Total Protein 7.1 6.0 - 8.0 g/dL LAB CHEMISTRY METHOD 12/12/2024 4:38 PM EDT [facility] Albumin 4.3 3.2 - 5.0 g/dL LAB CHEMISTRY METHOD 12/12/2024 4:38 PM EDT [facility] Total Bilirubin 0.4 0.0 - 1.4 mg/dL LAB CHEMISTRY METHOD 12/12/2024 4:38 PM EDT [facility] Blood Venous blood specimen / Unknown Venipuncture / Unknown 12/12/2024 3:27 PM EDT 12/12/2024 3:37 PM EDT us Sunil Carpenter MD LAB BLOOD ORDERABLES Rachna l Result [facility] [address] [place] [address], from Last 3 Months Insurance MEDICAID - [place] Care Teams Export Administrator Relationship Specialty Start Date End Date Physician, Pcp Unknown PCP - General 12/12/24
--- OUTSIDE RECORDS SUMMARY | 2024-12-29 13:18 | XMS_ITS | Encounter Summary ---
Author Organization [employer] Address [address] [place] [address] Care Team Providers Care Shade Classifier Name Role Phone Nancy Patel MEGHA Primary Care Provider [phone] Devante Jurado MD Unavailable [phone] Encounter Details Date Type Department Care Team (Latest Contact Info) Description 12/29/2024 Travel Social History Tobacco Use Types Packs/Day [...] with others, in a hotel, in a halfway, living outside on the street, on a [...] AM EDT documented as of this encounter Functional Status * Over the [...] than half the days 12/29/2024 11:18 AM Cece Raymundo [place] * Trouble falling or staying asleep, or sleeping too much Answer Date of Assessment Author Not at all 12/29/2024 11:18 AM Cece Abdul [place] * Feeling tired or having little [...] Assessment Author Several days 12/29/2024 11:18 AM Cece Abdul [place] * Trouble concentrating on things, such as reading the newspaper or watching television Answer Date of Assessment Author Not at all 12/29/2024 11:18 AM EDT Cece Beard [place] * Moving or speaking so slowly that other people could have noticed? Or the opposite - being so fidgety or restless that you have been moving around a lot more than usual. Answer Date of Assessment Author Not at all 12/29/2024 11:18 AM EDT Cece Beard [place] * Thoughts that you [...] or on edge 1 12/29/2024 11:17 AM EDSa milton Jacobs [place] Not being able to stop or control worrying 0 12/29/2024 11:17 AM Sa milton Raymundo [place] Worrying too much about different things 1 12/29/2024 11:17 AM Sa milton Raymundo [place] Trouble relaxing 0 12/29/2024 11:17 AM SABRAT Cece Sterling [place] Being so restless that it is hard to sit still 0 12/29/2024 11:17 AM Sa milton Raymundo [place] Becoming easily annoyed or irritable 1 12/29/2024 11:17 AM Sa milton Raymundo [place] Feeling afraid as if somethi ng awful might happen 2 12/29/2024 11:17 AM SABRAT Sa milton Sterling [place] SHERRY-7 Total Score 5 12/29/2024 11:17 AM Cece Raymundo [place] documented as of this encounter Plan of Treatment Not on file documented as of this encounter Visit Diagnoses Not on filedocumented in this encounter Additional Health Concerns Assessment Noted Time PHQ-9 Depression Total Score: 3 12/30/19 25 11:18 AM EDT documented as of this encounter Care Teams Shade Classifier Relationship Specialty Start Date End Date Nancy Patel FNP [address] [place] [address] PCP - General Family Medicine 11/10/21 Devante Jurado MD [address] [place] [address] Cardiology 04/14/24 documented as of this encounter
--- OUTSIDE RECORDS SUMMARY | 2024-12-29 13:18 | XMS_ITS | Encounter Summary ---
Author Organization [employer] Address [address] [place] [address] Care Team Providers Care Parking Station Attendant Name Role Phone Nancy Patel Primary Care Provider [phone] Devante Jurado MD Unavailable [phone] Reason for Visit * Reason Onset Date Comments Nurse Triage 02/07/2023 Encounter Details Date Type Department Care Team ([facility] Contact Info) Description 02/07/2023 Telephone [facility] [address], [place] [id number] Nancy Patel FNP [address] [place] [address] Nurse Triage Social History Tobacco Use Types [...] 10:35 AM EST Triage call to Susanna, (hospitalist program director) reporting Pt concern regarding urinary symptoms. Pt just reported this morning that trying to uriniate was like trying to squeeze a lemon . Pt reports pain with urination and unable to urinate as needed. Odor unknown, color of urine unknown. Neg for burning. Liquid intake unknown. Advised to bring Pt to [facility] to be seen by provider and Susanna [...] accepted this outcome Please contact susanna at [phone] documented in this encounter Plan of Treatment Not on file documented as of this encounter Visit Diagnoses Not on filedocumented in this encounter Additional Health Concerns Assessment Noted Time PHQ-9 Depression Total Score: 19 08/10/ 023 3:09 PM EDT documented as of this encounter Care Teams Parking Station Attendant Relationship Specialty Start Date End Date Nancy Patel FNP [address] [place] [address] PCP - General Family Medicine 11/10/21 Devante Jurado MD [address] [place] [address] Cardiology 04/14/24 documented as of this encounter
--- OUTSIDE RECORDS SUMMARY | 2024-12-29 13:18 | XMS_ITS | Encounter Summary ---
Author Organization [employer] Address [address] [place] [address] Care Team Providers Care Glass Ribbon Machine Operator Assistant Name Role Phone Nancy Patel Primary Care Provider [phone] Devante Jurado MD Unavailable [phone] Reason for Visit * Reason Onset Date Comments ER Follow-up 06/22/2023 Encounter Details Date Type Department Care Team ([facility] st Contact Info) Description 06/22/2023 Telephone [facility] [address] [place] [address] Nancy Patel FNP [address] [place] [address] ER Follow-up Social History Tobacco Use Types [...] into pt's chart. * Telephone Encounter - Esteavn Juarez - 06/22/2023 10:42 AM EDT Tc from [facility] custodial returning call, states received a call for EDF. Please contact at [phone] * Telephone Encounter - Juan Daniel Mabry - 06/22/2023 9:33 AM EDT Patient calling to report ED visit on : Date: 06/22/23 Hospital: [facility] Seen for: Seizure Patient advised will forward to team nurse for follow up documented in this encounter Plan of Treatment Not on file documented as of this encounter Visit Diagnoses Not on filedocumented in this encounter Additional Health Concerns Assessment Noted Time PHQ-9 Depression Total Score: 5 03/06/20 23 10:22 AM EST documented as of this encounter Care Teams Glass Ribbon Machine Operator Assistant Relationship Specialty Start Date End Date Nancy Patel FNP [address] [place] [address] PCP - General Family Medicine 11/10/21 Devante Jurado MD [address] [place] [address] Cardiology 04/14/24 documented as of this encounter
--- OUTSIDE RECORDS SUMMARY | 2024-12-29 13:18 | XMS_ITS | Encounter Summary ---
Author Organization [employer] Address [address] [facility] 7[address] [place] [address] Care Team Providers Care Film Editor Name Role Phone Nancy Patel Primary Care Provider [phone] Devante Jurado MD Unavailable [phone] Reason for Visit * Reason Onset Date Comments Chart Prep 12/26/2024 Encounter Details Date Type Department Care Team ([facility] Contact Info) Description 12/26/2024 Telephone [facility] MED & PEDS [address] [place], [place] [phone] Nancy Patel FNP [address] [place] [address] Chart Prep Social History Tobacco Use Types Packs/Day Years [...] encounter Miscellaneous Notes * Telephone Encounter - Christine Mabry MA - 12/26/2024 3:52 PM EDT Chart Prep Labs: not applicable Images: not applicable Referrals: not applicable Vaccines due: Flu Screenings: STI screening and LMP Overdue care gaps: SBIRT, SDOH, PHQ-9, Oral health screening, and Tobacco documented in this encounter Plan of Treatment Not on file documented as of this encounter Visit Diagnoses Not on filedocumented in this encounter Additional Health Concerns Assessment Noted Time PHQ-9 Depression Total Score: 10 025 11:16 AM EST documented as of this encounter Care Teams Film Editor Relationship Specialty Start Date End Date Nancy Patel FNP [address] [place] [address] PCP - General Family Medicine 11/10/21 Devante Jurado MD [address] [place] [address] Cardiology 04/14/24 documented as of this encounter
--- OUTSIDE RECORDS SUMMARY | 2024-12-29 13:18 | XMS_ITS | Encounter Summary ---
Author Organization [email or web address] Address [address] [facility] [address] [place] [address] Care Team Providers Care Lead Cargo Mover Name Role Phone Nancy Patel Primary Care Provider [phone] Devante Jurado MD Unavailable Reason for Visit * Reason Onset Date Comments Nurse Triage 02/27/2023 Encounter Details Date Type Department Care Team ([facility] st Contact Info) Description 02/27/2023 Telephone [facility] MED & PEDS [address] [place], [place] [phone] Nancy Patel FNP [address] [place] [address] Nurse Triage Social History Tobacco Use Types [...] EST Triage call Pt was seen in [facility] 02/25/23 for vaginal bleeding and dysmenorrhea. Pt [...] Abnormal (Adult) * Telephone Encounter - Jil Anoop - 02/27/2023 9:01 AM EST Symptom: Vaginal Bleeding - Not Outcome: Talk to a nurse or provider within 15 minutes Reason: Heavy bleeding, pt was seen at [facility] on 02/25 for vaginal bleeding. Pt still symptomatic The caller accepted this outcome Please contact pt at [phone] documented in this encounter Plan of Treatment Not on file documented as of this encounter Visit Diagnoses Not on filedocumented in this encounter Additional Health Concerns Assessment Noted Time PHQ-9 Depression Total Score: 19 08/10/ 023 3:09 PM EDT documented as of this encounter Care Teams Lead Cargo Mover Relationship Specialty Start Date End Date Nancy Patel FNP [address] [place] [address] PCP - General Family Medicine 11/10/21 Devante Jurado MD [address] [place] [address] Cardiology 04/14/24 documented as of this encounter
--- OUTSIDE RECORDS SUMMARY | 2024-12-29 13:18 | XMS_ITS | Encounter Summary ---
Author Organization [employer] Address [address] [facility] [address] [place] [address] Care Team Providers Care Finish Photographer Name Role Phone Nancy Patel Primary Care Provider [phone] Devante Jurado MD Unavailable [phone] Reason for Visit * Reason Onset Date Comments Medication Question 01/22/2024 Encounter Details Date Type Department Care Team ([facility] Contact Info) Description 01/22/2024 Telephone [facility] MED & PEDS [address] [place], [place] [phone] Nancy Patel FNP [address] [place] [address] Medication Question Social History Tobacco Use Types [...] PM EST Tc lincoln Gao from pt [facility] at [facility] requesting a call back to go over pt medications. Also to see if pcp can prescribe pt psych meds. Best contact # [phone]. documented in this encounter Plan of Treatment Not on file documented as of this encounter Visit Diagnoses Not on filedocumented in this encounter Additional Health Concerns Assessment Noted Time PHQ-9 Depression Total Score: 5 03/06/20 23 10:22 AM EST documented as of this encounter Care Teams Finish Photographer Relationship Specialty Start Date End Date Nancy Patel FNP [address] [place] [address] PCP - General Family Medicine 11/10/21 Devante Jurado MD [address] [place] [address] Cardiology 04/14/24 documented as of this encounter
--- OUTSIDE RECORDS SUMMARY | 2024-12-29 13:18 | XMS_ITS | Encounter Summary ---
Author Organization [employer] Address [address] [facility] [address] [place] [address] Care Team Providers Care Manager Switch Name Role Phone Nancy Patel Primary Care Provider [phone] Devante Jurado MD Unavailable [phone] Reason for Visit * Reason Onset Date Comments Call Back Request 05/23/2023 Encounter Details Date Type Department Care Team ([facility] st Contact Info) Description 05/23/2023 Telephone [facility] MEDICINE [address] [place] [address] Nancy Patel FNP [address] [place] [address] Call Back Request Social History Tobacco Use [...] 12:13 PM EST Tc to Murray from [facility]. Confirmed that pt stopped taking psych meds after seeing E COMM[employer] SOLUTION ARCHITECT last week. Murray states he is working [...] go [facility] [place]. Murray verbalizes understanding and agreement with plan. * Telephone Encounter - MEGHA Salmeron - 05/25/2023 11:43 AM EST Cleve is prescribed multiple medications through psych, which ideally should not be stopped abruptly. Sounds like she stopped taking them after E [employer]UTION ARCHITECT appt? My recommendation would be to continue reaching out to psych prescriber who prescribes meds, but also to schedule Cleve for a visit to discuss if interested to get to the root of why she is refusing meds. Please schedule for a 30 mins visit with myself. She may also be seen in [facility] [place] today if not able to wait until next week. (If no soon appt slots available on my schedule, OK to book for a 30 minute televisit Sun05/30/23 at 2:30 or 3pm. Let me know if you need me to override schedule block) Thank you! * Telephone Encounter - Wing Harsh RN - 05/24/2023 3:45 PM EST Please advise, tc to Murray from [facility] regarding pt not taking medication. Murray reported that pt did not taken her regular med only once yesterday morning but has taken regular meds since then. Pt is currently not taking psych meds because pt had seen a wheat shipper recently for bleeding andwanted to start Nexplanon. Building Construction Ironworker stated to the pt that her med [...] PCP as [facility]. Tc from Murray from [facility] calling to inform PCP pt is no taking her medications, please contact Murray for advise at [phone]. * Telephone Encounter - Lauren Vázquezoyo - 05/23/2023 11:19 AM EST Tc from Murray from [facility] calling to inform PCP pt is no taking her medications, please contact Murray for advise at [phone]. documented in this encounter Plan of Treatment Not on file documented as of this encounter Visit Diagnoses Not on filedocumented in this encounter Additional Health Concerns Assessment Noted Time PHQ-9 Depression Total Score: 5 03/06/20 23 10:22 AM EST documented as of this encounter Care Teams Manager Switch Relationship Specialty Start Date End Date Nancy Patel FNP [address] [place] [address] PCP - General Family Medicine 11/10/21 Devante Jurado MD [address] [place] [id number] Cardiology 04/14/24 documented as of this encounter
--- OUTSIDE RECORDS SUMMARY | 2024-12-29 13:19 | XMS_ITS | Clinical Summary ---
Author Organization [employer] Address [address] [facility] [address] [place] [address] Care Team Providers Care Wildlife Conservationist Name Role Phone Nancy Patel MEGHA Primary Care Provider [phone] Devante Jurado MD Unavailable [phone] Allergies No known active allergies Medications * This document contains information received from the source organization and may not represent a complete record from that organization. etonogestrel-elu ting (Nexplanon) 68 mg contraceptive implant insertion 07/28/20 by Jackie Alberts CNM at [facility] 021 Active Carafate 1 GM/10ML suspension Take [...] (allergy symptoms). 5 mL 3 023 Active escitalopram (Lexapro) 5 MG tablet 024 Active propranolol (Inderal) 40 MG tabletIndication s:Tachycardia 024 Active benzoyl peroxide 5 % gelIndications:M ild acne Apply topically 2 times daily. Location: face 60 g 2 024 Active fluticasone (Flonase) 50 MCG/ACT nasal sprayIndications :Seasonal allergies Administer 1 spray into each nostril if needed in the morning and at bedtime (allergies or nasal congestion). Shake gently. Before first use, prime pump. After use, clean tip and replace cap. 16 g 5 024 Active Skin Protectants, Misc. (eucerin) creamIndications :Dry skin APPLY 1 APPLICATION TOPICALLY NEEDED IN THE MORNING, AT NOON, IN THE EVENING AND AT BEDTIME 100 g 024 Active guanFACINE (Intuniv) 3 mg 24 hr tablet TAKE 1 TABLET BY MOUTH EVERY DAY 30 tablet 025 Active hydrOXYzine HCl (Atarax) 50 MG tablet Take 1 tablet (50 mg) by mouth every 8 (eight) hours if needed for anxiety. 30 tablet 2 025 Active mirtazapine (Remeron) 45 MG tablet TAKE 1 TABLET BY MOUTH AT BEDTIME 30 tablet 025 Active QUEtiapine XR (SEROquel XR) 50 MG 24 hr tablet TAKE 1 TABLET BY MOUTH EVERY DAY 30 tablet 025 Active cetirizine (ZyrTEC) 10 MG tablet Take 1 tablet (10 mg) by mouth Once per day. 30 tablet 025 2025 Active Cyanocobalamin 1000 MCG capsuleIndicatio ns:Vitamin B12 deficiency TAKE 1 CAPSULE BY MOUTH EVERY Sunday, Sunday, and Sunday 90 capsule 1 025 Active acetaminophen (Tylenol 8 Hour) 650 MG ER tablet TAKE 1 TABLET BY MOUTH EVERY 8 HOURS NEEDED FOR PAIN OR FEVER. 100 tablet 1 025 Active naproxen (Naprosyn) 500 MG tablet Take 1 tablet (500 mg) by mouth if needed in the morning and at bedtime (pain). Take with food. 60 tablet 3 025 Active docusate sodium (Colace) 100 MG capsuleIndicatio ns:Constipation, unspecified constipation type TAKE 1 CAPSULE BY MOUTH AT BEDTIME 90 capsule 3 025 Active cholecalciferol (Vitamin D3) 25 MCG (1000 UT) tabletIndication s:Routine health maintenance TAKE 1 TABLET BY MOUTH EVERY DAY 90 tablet 3 025 Active cholecalciferol (Vitamin D3) 25 MCG (1000 UT) tabletIndication s:Routine health maintenance TAKE 1 TABLET BY MOUTH EVERY DAY 90 tablet 3 024 2024 Discontinued(R eorder (will not trigger notification to Pharmacy)) docusate sodium (Colace) 100 MG capsuleIndicatio ns:Constipation, unspecified constipation type TAKE 1 CAPSULE BY MOUTH AT BEDTIME 90 capsule 3 024 2024 Discontinued(R eorder (will not trigger notification to Pharmacy)) Active Problems Problem Noted Date Diagnosed Date Vitamin B12 deficiency 04/27/2024 Overview (12/29/2024 6:58 AM EDT): Lab Results Component Value Date VITB12 1,427 (H) 10/20/2024 VITB12 196 (L) 04/14/2024 - Initiated Vit B12 1000 mcg daily Apr 2024 - Oct 2024: decreased dosing to 3x/week Assessment & Plan (12/29/2024 6:58 AM EDT): >>ASSESSMENT AND PLAN FOR LOW VITAMIN B12 LEVEL WRITTEN ON 05/20/2024 2:59 PM BY MEGHA MEDRANO -Reports improvement s/p initiation of vitamin B supplement. Suspect improvement with change in environment as well. -Plan to follow-up with any persistence or worsening of symptoms. Assessment & Plan (04/27/2024 11:52 AM EST): - Vit B12 196 pg/mL in Mar 2024 - Started on Vit B12 1000 mcg PO daily Posttraumatic stress disorder 12/21/2023 Tachycardia 05/20/2023 Assessment & Plan (12/29/2024 7:00 AM EDT): Well controlled with current regimen Followed by [facility] Dr. Jurado Completed Holter in 2023, echo essentially normal per consult note September 2023 Continues with Propranolol 40mg BID Previous medications: - Carvedilol (DC d/t med SE) Assessment & Plan (12/23/2023 10:16 AM EDT): Well controlled with current regimen Followed by [facility] Dr. Jurado Completed Holter in 2023, echo essentially normal per consult note September 2023 Continues with Propranolol 40mg BID Previous medications: - Carvedilol (DC d/t med SE) Assessment & Plan (10/08/2023 9:17 PM EDT): Followed by [facility] Dr. Jurado Completed Holter in 2023, plan for echo Med SE with Carvedilol 3.25mg BID, plan to follow up with cardiology office later this week Assessment & Plan (07/30/2023 3:19 PM EDT): Followed by [facility] Dr. Jurado Completed Holter in 2023, plan for echo Continues with Carvedilol 3.25mg BID Assessment & Plan (05/20/2023 8:15 PM EST): Refer to cardiology for Holter GERD (gastroesophageal reflux disease) Overview (04/18/2023): Following with [facility] Per last consult note Jan 2023: Cont [...] flu vaccine 01/22/23 Mood disorder 04/03/2022 Overview (12/29/2024): Psych prescriber: Deisi Salazar at [facility]. Follows with therapist weekly through [facility] -Protective factors: skilled nursing staff, mental health team (psychiatrist plus weekly therapy sessions), supportive partner, work Med regimen through psych: Quetiapine 50mg daily [...] of care pending communication between psychiatrist and [employer]. Follow up with PCP office PRN. Assessment & Plan (01/22/2023 6:52 AM EST): See Z89.59 History of suicidal ideation 04/03/2022 Assessment & Plan (01/23/2023 9:57 AM EST): Psych prescriber: Deisi Salazar at [facility]. 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 Follow up with [facility]: Not recommended for follow-up 2. Patient goal [...] the Fall). PLAN: 1. Follow up with [facility]: Recommended for follow-up: August 10 at 1:30 pm 2. Patient goal is reengage in behavioral health services 3. Behavioral Recommendations a. Patient will attend OP therapy and psychiatry appointments b. Patient will comply with medication c. Patient will attend follow-up appointment with PCP d. Patient will continue using coping skills e. Patient will contact [facility], if experiencing suicidal ideation Attention deficit hyperactivity [...] Pain in the coccyx 03/30/2022 3 Seizure (CMS/HCC) 03/30/2022 04/03/2022 Behavior problems 10/25/2015 04/03/2022 Encounters Date Type Department Care Team Description 12/29/2024 10:30 AM EDT Office Visit [facility] [address] [place] [address] Nancy Patel FNP Vitamin B12 deficiency (Primary Dx); Healthcare maintenance; Tachycardia; Mood disorder (CMS/HCC); Encounter for immunization 12/29/2024 Travel 12/26/2024 Telephone [facility] [address] [place] [address] Nancy Patel FNP Chart Prep 12/25/2024 Refill [facility] [address] [place] [address] Nancy Patel FNP Constipation, unspecified constipation type; Routine health maintenance 12/23/2024 Travel 12/19/2024 Patient Outreach [facility] [address] [place] [phone] Nancy Patel FNP Pre-visit Planning (Pre visit planning LVM ) 11/19/2024 Telephone [facility] [address] [place] [phone] Nancy Patel FNP Medication Question 11/13/2024 Refill [facility] [address] [place] [phone] Nancy Patel FNP 11/12/2024 5:40 PM EDT Office Visit [facility] [address] [place] [phone] Mora Cota NP Sore throat (Primary Dx) 11/12/2024 Travel 11/12/2024 Telephone [facility] [address] [place] [phone] Nancy Patel FNP Nurse Triage 11/03/2024 Results Follow-Up [facility] [address] [place] [address] Nancy Patel FNP Vitamin B12 10/20/2024 10:00 AM EDT Office Visit [facility] [address] [place] [address] Nancy Patel FNP Folliculitis (Primary Dx); Vitamin B12 deficiency; Low vitamin B12 level 10/20/2024 Travel 10/13/2024 11:15 AM EDT Office Visit [facility] [address] [place] [address] Enid Starr MD Cellulitis of left lower extremity (Primary Dx); Calf cramp 10/13/2024 Travel 10/07/2024 Telephone [facility] [address] [place] [address] Enid Starr MD CHART PREP from Last 3 Months Immunizations Immunization Administration Dates Next Due DTaP 01/03/2007, 4,09/04/2003,03/01,2002,2002 HPV 9-Valent 08/18/2015 HPV, Quadrivalent 03/06/2014,04/17/2013 Hep A, ped/adol, 2 dose 04/17/2013,06/06/2011 Hep B, Adolescent or Pediatric 03/01/2003,2002,2002 Hib (PRP-T) 01/03/2007,2002 IPV 01/03/2007, 3,2002,07/15 Influenza Injectable Quadriv alant Preservative Free IIV4 MDCK 01/09/2020 Influenza injectable quadriv alent preservative free 03/06/2023,12/23/2021,01/25/2019,12/11,12/22/2015 Influenza live intranasal qu adrivalent LIAV4 03/06/2014 Influenza, seasonal, injecta ble, preservative free 12/29/2024,12/21/2023 MMR 09/09/2003,06/04/2003 Meningococcal MCV4P ACYW-135 03/30/2020,02/10/20 20,04/17/2013 Pfizer Covid-19 Vaccine 12+ 12/21/2023, Pfizer Covid-19 Vaccine 12+ Bivalent 10/17/2022 Pneumococcal [...] with others, in a hotel, in a half-way, living outside on the street, on a [...] Mass Index 30.07 12/29/2024 11:15 AM EDT Plan of Treatment Health Maintenance Due Date Last Done Comments Meningococcal B Vaccine (1 of 2 - Standard) 2018 Chlamydia and Gonorrhea Screening 12/25/2024 12/26/2023, 04/27/2023, 02/25/2023, Additional history exists Family Planning (PISQ) 04/14/2025 04/14/2024 Tobacco Screening 11/12/2025 11/12/2024 Disability Screening 12/23/2025 12/23/2024 Alcohol/Substance Use Screening 12/29/2025 12/29/2024 Depression Screening 12/29/2025 12/29/2024, 12/30/19 25 SDOH Screening 12/29/2025 12/29/2024 Pap Smear 03/29/2026 03/29/2023 DTaP/Tdap/Td Vaccines (8 - Td or Tdap) 04/18/2033 04/18/2023, 04/17/2013, 01/03/2007, Additional history exists Zoster Vaccines (1 of 2) 02/24/2052 RSV Patients and Patients Aged 60 years or older (1 - 1-dose 75+ series) 2077 Pneumococcal Vaccine: Pediatrics (0 to 5 Years) and At-Risk Patients (6 to 49) Years Aged Out 2002 No longer eligible based on patient's age to complete this topic Hepatitis B Vaccines Completed 03/01/2003, 2002, 2002 HIB Vaccines Completed 01/03/2007, 2002 IPV Vaccines Completed 01/03/2007, 02/16, 2002, Additional history exists Hepatitis A Vaccines Completed 04/17/2013, 06/06/19 12 HPV Vaccines Completed 08/18/2015, 02/16, 04/17/2013 Meningococcal Vaccine Completed 03/30/2020 , 02/10/2020, 04/17/2013 COVID-19 Vaccine Completed 12/21/2023, , 10/17/2022 HIV Screening Completed 12/26/2023, 09/18, 05/28/2020, Additional history exists Hepatitis C Screening Completed 12/26/2023 , 10/15/2020, 05/28/2020, Additional history exists Influenza Vaccine Completed 12/29/2024, , 03/06/2023, Additional history exists RSV under 20 months Aged Out No longe r eligible based on patient's age to complete this topic Rotavirus Vaccines Aged Out No longer eligible based on patient's age to complete this topic Procedures Procedure Name Priority Date/Time Associated Diagnosis Comments POC JARAMILLO ID NOW STREP A Routine 11/12/2024 6:18 PM EDT Sore throat POCT INFLUENZA B (ID NOW RAPID MOLECULAR) Routine 11/12/2024 6:17 PM EDT Sore throat POCT INFLUENZA A (ID NOW RAPID MOLECULAR) Routine 11/12/2024 6:17 PM EDT Sore throat POCT RAPID COVID ANTIGEN Routine 11/12/2024 6:16 PM EDT Sore throat VITAMIN B12 Routine 10/20/2024 10:56 AM EDT Vitamin B12 deficiency CHLAMYDIA/N. GONORRHOEAE RNA, TMA, UROGENITAL Routine 12/26/2023 [...] Recently Relevant to Health Maintenance Results * POCT Rapid Strep A JARAMILLO ID NOW (11/12/2024 6:18 PM EDT) [facility] Rapid Strep A Screen Negative Negative, None Detected QC Media Lot # [id number] Lot# Expiration Date Swab 11/12/2024 6:18 PM EDT Mora Garciam TECHNICAL AGRONOMIST POINT OF CARE TEST ENTER/EDIT O RDERABLES Final Result * POCT Rapid Influenza B JARAMILLO ID NOW (11/12/2024 6:17 PM EDT) Influenza B Negative Negative, Indeterminate [facility] QC Media Lot # [id number] [facility] Lot# Expiration Date [facility] Swab 11/12/2024 6:17 PM EDT Mora Garcia TECHNICAL AGRONOMIST POINT OF CARE TEST ENTER/EDIT O RDERABLES Final Result Performing Organization Address [facility] Co de Phone Number [facility] [address] [place] [phone] * POCT Rapid Influenza A JARAMILLO ID NOW (11/12/2024 6:17 PM EDT) Influenza A Negative Negative, Indeterminate [facility] QC Media Lot # [id number] [facility] Lot# Expiration Date [facility] Swab 11/12/2024 6:17 PM EDT Mora Garcia TECHNICAL AGRONOMIST POINT OF CARE TEST ENTER/EDIT O RDERABLES Final Result Performing Organization Address City/[facility]/ZIP Co de Phone Number [facility] [address] [place] [phone] * POCT Rapid Covid-19 BinaxNOW (11/12/2024 6:16 PM EDT) Rapid COVID Ag Negative QC Media Lot # [id number] Lot# Expiration Date Swab 11/12/2024 6:16 PM EDT Mora Cota TECHNICAL AGRONOMIST POINT OF CARE TEST ENTER/EDIT O RDERABLES Final Result * (ABNORMAL) Vitamin B12 (10/20/2024 10:56 AM EDT) Pathologist [facility] Vitamin B12 1,427(H) 200 - 900 pg/mL [facility] Comment:NORMAL 200-900 PG/ML INDETERMINATE 160-199 PG/ML DEFICIENT < 160 PG/ML Blood Venous blood specimen / Unknown 10/20/2024 10:56 AM EDT 10/20/2024 1:54 PM EDT Nancy Patel CHAR BELT OPERATOR LAB BLOOD ORDERABLES Final Res ult [facility] [address] [place] [phone] * Chlamydia/N. Gonorrhoeae RNA, TMA, Urogenitial (12/26/2023 12:10 PM EDT) [facility] CT PCR NOT DETECTED Not Detect. [facility] Comment:A not detected test result does [...] psychologicalconsequences. NG PCR NOT DETECTED Not Detect. [facility] Comment:A not detected test result does [...] PM EDT 12/26/2023 2:13 PM EDT Narrative [facility] - 12/26/2023 5:01 PM EDT Urine Nancy [facility] MICROBIOLOGY - GENERAL ORD ERABLES Final Result Performing Organization Address City/[facility]/ZIP Co de Phone Number [facility] [address] [place] [phone] * HIV-1/2 Antigen and Antibodies, Fourth Generation, with Reflexes (12/26/2023 12:06 PM EDT) [facility] HIV AB/AG Nonreactive Nonreactive [facility] Comment:HIV-1 p24 Ag and/or HIV-1/HIV-2 Ab not detected.A test result that is nonreactive does not exclude thepossibility of exposure to or infection with HIV-1 and/orHIV-2. Nonreactive results in this assay for individualswith prior exposure to HIV-1 and/or HIV-2 may be due toantigen and antibody levels that are below the limit ofdetection of this assay.The Any.DOniMindie HIV Ag/Ab Combo assay result andsupplemental assay results should be interpreted inconjunction with the patient's clinical presentation,history and other laboratory results. If the results areinconsistent with clinical evidence, additional testing issuggested to confirm the result. Blood Venous blood specimen / Unknown 12/26/2023 12:06 PM EDT 12/26/2023 2:19 PM EDT Nancy [facility] BLOOD ORDERABLES Final Res ult [facility] [address] [place] [phone] * Hepatitis C Viral RNA, Quantitative, Real-Time PCR (12/26/2023 12:01 PM EDT) Hepatitis C Viral Load <15 NOT DETECTED NOT DETECTED IU/mL [facility] HCV Log PCR <1.18 NOT DETECTED NOT DETECTED Log IU/mL [facility] Comment:For additional infor [place], please refer [email or web address].Parametric/faq/PKO05e5(This link is being provided for informational/educational purposes only.)THIS TEST WAS PERFORMED AT:[employer] [place] [id number] BARRETT MD Blood 12/26/2023 12:0 1 PM EDT 12/26/2023 2:19 PM EDT Nancy Patel CHAR BELT OPERATOR LAB BLOOD ORDERABLES Final Res ult Performing Organization Address [facility] de Phone Number [facility] [address] [place] [phone] * Pap Smear (03/29/2023 11:11 AM EST) Swab Cervix uteri structure / Unknown 03/29/2023 11:11 AM EST 03/30/2023 11:20 AM EST Narrative [facility] - 04/09/2023 11:21 AM EST ----- ------- Name: Cleve Jacques Age/Sex: 23/F : 2000 Unit#: [id number] Attend Dr: Re03/29/23 Status: PRE REF Location: [facility] Disch: ----- ------- SPEC : [id number] RECD: 03/30/23 STATUS: TAQUERIA OLIVAS NUM: [id number] VERONICA: 03/29/23-[address] [facility] [address]: KIM RODRÍGUEZ CNM ENTERED: 03/30/23-1225 SP TYPE: Pap Smr [facility] DR: ORDERED: Pap Smear Interpretation Satisfactory for evaluation. Negative for intraepithelial lesion or malignancy. Clinical Information LMP: Unknown date Previous PAP test: Unknown date/findings Material Received ThinPrep-Cervical ----- ------- Signed (signature on file) Heydi Hope 04/09/231120 ----- ------- END OF REPORT Kim Rodríguez CNM LAB CYTOLOGY ORDERABLES F inal Result [facility] [address] [place] [phone] from Last 3 Months or Most Recently Relevant to Health Maintenance Insurance Care Teams Wildlife Conservationist Relationship Specialty Start Date End Date Nancy Patel FNP [address] [place] [address] PCP - General Family Medicine 11/10/21 Devante Jurado MD [address] [place] [phone] Cardiology 04/14/24
[2024-12-29 14:18] LABS: MANUAL DIFF FLAG NO
[2024-12-29 14:19] LABS: Hematocrit 38.6 % (37.0-47.0); Hemoglobin 12.9 g/dl (12.0-16.0); Imm Gran Abs Auto 0.02 X10*3/uL (0.00-0.03); Imm Gran Pct Auto 0.2 % (0.0-0.4); Lymphocytes Absolute Auto 1.9 X10*3/uL (1.2-4.9); Mean Corpuscular HGB Conc 33.4 g/dl (31.0-35.0); Mean Corpuscular Hemoglobin 28.7 pg (27.0-33.0); Mean Corpuscular Volume 86.0 fL (80.0-98.0); NRBC Abs Auto 0.000 X10*3/uL (0.0-0.012); NRBC Pct Auto 0.0 /100WBC (0.0-0.2); Platelet Count 240 X10*3/uL (160-400); Red Blood Count 4.49 X10*6/uL (4.20-5.50); White Blood Count 8.0 X10*3/uL (4.8-10.8)
[2024-12-29 14:35] LABS: Hemoglobin A1C 126.7338 umol/L; Total Hemoglobin (HGBA1C) 3304.9824 umol/L
[2024-12-29 14:50] LABS: Carbon Dioxide 26 mmol/L (22-29); Chloride 106 mmol/L (96-108); Potassium 4.1 mmol/L (3.3-5.1); Sodium 141 mmol/L (135-145)
[2024-12-29 14:51] LABS: Alanine Aminotransferase 25 U/L (0-31); Albumin Level 4.5 g/dL (3.5-5.0); Alkaline Phosphatase 71 U/L (39-117); Anion Gap 13 (12-20); Aspartate Amino Transferase 21 U/L (5-31); Blood Urea Nitrogen 7 mg/dL (9-16); Calcium 9.3 mg/dL (8.4-10.2); Cholesterol 153 mg/dL (<200); Estimated Glomerular Filt Rate > 60; HDL Cholesterol 37 mg/dL (>40); Total Protein 7.0 g/dL (6.5-8.0); Triglycerides 131 mg/dL (<150)
[2024-12-29 15:00] LABS: Vitamin B12 884 pg/mL (200-900)
[2024-12-29 16:01] LABS: CT PCR Urine NOT DETECTED (Not Detect.); NG PCR Urine NOT DETECTED (Not Detect.)
[2024-12-30 04:24] LABS: HIV Num 1 0.04 S/CO (0.00-0.99)
[2024-12-30 15:19] LABS: HCV Log PCR <1.18 NOT DETECTED Log IU/mL (NOT DETECTED); HepC Viral Load <15 NOT DETECTED IU/mL (NOT DETECTED)
== END 2024-12-29 13:14 | disposition home or self-care (01) ==
LOC: HO.CHCLDS 13:13
PROVIDERS: Visit Provider Registered Nurse
DX: Z00.00 Encounter for general adult medical examination without abnormal findings (principal)
CPT/HCPCS: 80053; 80061; 82607; 83036; 84443; 85025; 86592; 87389; 87491; 87522; 87591

== ENCOUNTER 2025-01-27 12:18 | Inpatient (IN) | payer OTHER, SELFPAY ==
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
[2025-01-27 12:29] VITALS: BP 130/80; PULSE 72; O2SAT 98; BMI 25.8
[2025-01-27 12:44] VITALS: BP 132/92; PULSE 88; RESP 18; TEMP 36.4; O2SAT 98
[2025-01-27 13:06] LABS: MANUAL DIFF FLAG NO
[2025-01-27 13:11] LABS: Hematocrit 45.0 % (37.0-47.0); Hemoglobin 14.8 g/dl (12.0-16.0); Imm Gran Abs Auto 0.04 X10*3/uL (0.00-0.03); Imm Gran Pct Auto 0.4 % (0.0-0.4); Lymphocytes Absolute Auto 2.0 X10*3/uL (1.2-4.9); Mean Corpuscular HGB Conc 32.9 g/dl (31.0-35.0); Mean Corpuscular Hemoglobin 28.8 pg (27.0-33.0); Mean Corpuscular Volume 87.5 fL (80.0-98.0); NRBC Abs Auto 0.000 X10*3/uL (0.0-0.012); NRBC Pct Auto 0.0 /100WBC (0.0-0.2); Platelet Count 302 X10*3/uL (160-400); Red Blood Count 5.14 X10*6/uL (4.20-5.50); White Blood Count 9.1 X10*3/uL (4.8-10.8)
[2025-01-27 13:29] LABS: Alanine Aminotransferase 24 U/L (0-31); Albumin Level 5.0 g/dL (3.5-5.0); Alkaline Phosphatase 83 U/L (39-117); Anion Gap 16 (12-20); Aspartate Amino Transferase 21 U/L (5-31); Blood Urea Nitrogen 13 mg/dL (9-16); Calcium 9.9 mg/dL (8.4-10.2); Carbon Dioxide 25 mmol/L (22-29); Chloride 104 mmol/L (96-108); Creatinine Clr Calc Pharmacy 82.6; Estimated Glomerular Filt Rate > 60; Potassium 4.1 mmol/L (3.3-5.1); Sodium 141 mmol/L (135-145); Total Protein 7.9 g/dL (6.5-8.0)
[2025-01-27 13:40] LABS: UPreg QC Valid YES
[2025-01-27 13:41] LABS: Appearance Urine Cloudy; Glucose Urine UA Negative (Negative); PH 5.5 (5.0-9.0); Specific Gravity - Urine >= 1.030 (1.005-1.025); UMIC TRIGGER UACC YES
[2025-01-27 13:48] LABS: Cannabinoid Screen Urine Not Detected (Not Detect)
--- NOTE | 2025-01-27 13:58 | PC.NURSE ---
Pts [facility] worker arrives to sit with her. She states Pt has not taken her medications consistently for weeks.
[2025-01-27 14:06] LABS: UACC Culture Trigger YES
--- NOTE | 2025-01-27 14:33 | ED_ITS ---
HPI - Psych General Chief Complaint: Psychiatric Symptoms Stated Complaint: SI W/PLAN IN PLACE FROM [facility] PER EMS Time Seen by Provider: 01/27/25 13:21 Source: patient and RN notes reviewed Mode of arrival: ambulatory Limitations: no limitations History of Present Illness ED Provider: Heydi Lan PA-C HPI Narrative: This is a 24-year-old female, with a past medical history of PTSD, learning disability, TBI, ADHD, depression and anxiety, who presents emergency department from [facility] with concerns for suicidal ideation. Patient reports that she has been triggered by stressors at the [facility] she is currently living at, and also reports stressors involving her cousin. She states that her cousin told her some things that upset her. Patient reports that she did take extra doses of her medications 2 days ago, she said that they are only several extra tablets, and she has refused her other medications over the last several days as she knows that she overused her medication. She states that she is currently feeling well, does report some slight nausea, otherwise no other symptoms. She denies any fevers, chills, chest pain, shortness of breath, abdominal pain, nausea, vomiting or diarrhea. She states that she took these extra medications to end her life. No auditory or visual hallucinations. No other complaints or concerns at this time. Related Data Home Medications ?Medication ?Instructions ?Recorded ?Confirmed cholecalciferol (vitamin D3) 25 25 mcg PO DAILY 01/27/25 mcg (1,000 unit) tablet docusate sodium 100 mg capsule 100 mg PO DAILY 3 01/27/25 guanfacine 3 mg tablet,extended 3 mg PO DAILY 10/12/22 01/27/25 release 24 hr hydroxyzine HCl 50 mg tablet 50 mg PO TID 10/12/2202/10 quetiapine 50 mg tablet,extended 50 mg PO BEDTIME 06/0801/27/25 release 24 hr cetirizine 10 mg tablet 10 mg PO DAILY 08/21/2301/17 propranolol 40 mg tablet 20 mg PO BID 11/05/23 cyanocobalamin (vitamin B-12) 1,000 mcg PO DAILY 09/0501/27/25 1,000 mcg tablet mirtazapine 45 mg tablet 45 mg PO BEDTIME 09/05/24 Previous Rx's ?Medication ?Instructions ?Recorded famotidine 20 mg tablet 20 mg PO BID #56 tabs sucralfate 100 mg/mL oral 10 ml PO BID #1,000 mL 11/20 suspension (Carafate) Allergies Allergy/AdvReac Type Severity Reaction Status Date / Time No Known Allergies Allergy Verified 01/27/25 12:33 Review of Systems 2 Review of Systems: Constitutional : No Fever, No Chills ENT/Mouth : No sore throat, No Rhinorrhea Eyes: No Eye Pain, No Swelling, No Redness Cardiovascular : No Chest Pain, No SOB Respiratory : No Cough, No Sputum Gastrointestinal : No Nausea, No Vomiting, No Diarrhea, No abdominal Pain Genitourinary : No Dysuria, No Hematuria Musculoskeletal : No joint pain, No Myalgias, No Joint Swelling Skin : No Skin Lesions Neuro : No Weakness, No Numbness, No Headache All other systems reviewed and are negative Yes all other systems are reviewed and are negative Constitutional: Constitutional: Reports as per [facility] Past Medical History Medical History Well woman exam with routine gynecological exam Encounter for monitoring of etonogestrel implant Etonogestrel implant for control Screen for sexually transmitted diseases COVID-19 Insertion of Nexplanon Breakthrough bleeding on Depo-Provera Depot contraception control counseling Encounter for surveillance of Nexplanon subdermal contraceptive Encounter for removal and reinsertion of Nexplanon Psychiatric pseudoseizure Severe recurrent major depression PTSD (post-traumatic stress disorder) Traumatic brain injury Learning disability ADHD Depression with anxiety Social History Social History Household Members: Other Household Members Other[facility] Housing: Other Housing Other:: [facility] Do you presently have visiting nurse or other home services: No Alcohol intake: never Patient Tobacco Use Status: Never used Tobacco Smoked in Last 30 Days: No Use of substances other than those prescribed or required for medical reasons: No Advance Directives: No Advance Directives Information Provided: Yes Do you have a plan to hurt others: No Plan Patient : No service: No Sexual orientation: Straight/Heterosexual Gender identity: Female Physical Exam 2 Vital Signs: Vital Signs: Last Vital Signs Temp 97.5 F 11/11/25 12:44 Pulse 88 01/27/25 12:44 Resp 18 01/27/25 12:44 BP 132/92 H 01/27/25 12:44 Pulse Ox 98 01/27/25 12:44 O2 Del Method Room Air 01/27/25 12:44 BMI result Body Mass Index 25.8 Const: General: cooperative, comfortable and no acute distress O rientation/consciousness: patient oriented x3 Limitations: no limitations HEENT: Head: Yes normal to inspection, Yes normocephalic and Yes atraumatic Ears: hearing grossly normal bilaterally General nose exam: Normal external nose present Face and sinus: Yes normal facial exam Mouth: Normal oral and palatal mucosa present, oropharynx normal and moist mucous membranes Throat: Yes posterior oropharynx normal Eyes: General: appearance normal, both eyes and all related structures E yelids: Yes eyelids normal Conjunctivae: conjunctivae normal Sclerae: s clerae normal Pupils: Equal, round and reactive pupils present EOM: EOMs intact bilaterally Neck: Neck: Yes normal visual inspection, Yes full ROM and Yes no lymphadenopathy Lymphatic: no lymphadenopathy noted Chest: Chest palpation & inspection: normal inspection of the chest Resp: Effort & Inspection: normal respiratory effort and able to speak in complete sentences Auscultation: clear to auscultation bilaterally, no crackles, no rales, no rhonchi and no wheezes Cardio: Rate: regular rate Rhythm: regular rhythm Heart sounds: S1 normal heart sound present and S2 normal heart sound present GI: Inspection: Yes normal to inspection Skin: General skin exam: no rashes or lesions noted Trauma: no lacerations or abrasions Wounds: no wounds Neuro: General: patient oriented x3 and moves all extremities Cranial nerves: Yes Equal, round and reactive pupils present Extrem: General: Yes normal to inspection Right upper extremity: normal to inspection Left upper extremity: normal to inspection Right lower extremity: normal to inspection Left lower extremity: normal to inspection Medical Decision Making Medical Decision Making MDM Narrative: This is a 24-year-old female who presents emergency department for evaluation of suicidal ideation. Patient had a suicidal attempt 2 days ago when she took extra doses of her medications. She states that it was only an extra couple of tablets. She states that she is feeling nauseous, otherwise denies any other symptoms. Labs were obtained, she has no leukocytosis, stable H&H, chemistry within normal limits. Patient did test positive for PCP, she adamantly refuses that she does not use any other drugs. No alcohol use. Given question of overdose, acetaminophen, ethanol and salicylate level ordered. Patient was seen by the care team, section 12 was signed by my attending physician, Dr. Freitas. Patient will be an inpatient bed search. 4:56 PM 01/27/2025 (Heydi Lan PA-C): Patient admitted psychiatrically. Other additional labs negative. Transfer of care initiated. Differential Diagnosis Differential Diagnoses: The differential diagnosis associated with the presentation includes Suicidal ideation, homicidal ideation, medication noncompliance, depression, anxiety Admission/Observation Consideration of admission/observation: Escalation of care including admission/observation considered Lab Data [facility] Lab Attestation statement: I reviewed the patient's lab results. See [facility] 01/27/25 12:49 01/27/25 12:49 Labs: Lab Results 01/27/25 01/27/25 01/27/25 Range/Units 12:49 13:23 13:24 WBC 9.1 (4.8-10.8) X10*3/uL RBC 5.14 (4.20-5.50) X10*6/uL Hgb 14.8 (12.0-16.0) g/dl Hct 45.0 (37.0-47.0) % MCV 87.5 (80.0-98.0) fL MCH 28.8 (27.0-33.0) pg MCHC 32.9 (31.0-35.0) g/dl RDW 12.6 (11.0-16.0) % Plt Count 302 D (160-400) X10*3/uL MPV 10.4 (9.4-12.3) fL Immature Gran % (Auto) 0.4 (0.0-0.4) % Neut % (Auto) 69.9 (45-73) % Lymph % (Auto) 21.7 (20-40) % Mower % (Auto) 5.2 (2-11) % Eos % (Auto) 2.2 (0-4) % Baso % (Auto) 0.6 (0-2) % Lymph # (Auto) 2.0 (1.2-4.9) X10*3/uL Mower # (Auto) 0.5 (0.1-1.2) X10*3/uL Eos # (Auto) 0.2 (0.0-0.4) X10*3/uL Baso # (Auto) 0.1 (0.0-0.2) X10*3/uL Abs Immat Gran (auto) 0.04 H (0.00-0.03) X10*3/uL Absolute Neuts (auto) 6.3 (2.0-8.3) x10*3/uL Absolute Nucleated RBC 0.000 (0.0-0.012) X10*3/uL Nucleated RBC % (auto) 0.0 (0.0-0.2) /100WBC Sodium 141 (135-145) mmol/L Potassium 4.1 (3.3-5.1) mmol/L Chloride 104 (96-108) mmol/L Carbon Dioxide 25 (22-29) mmol/L Anion Gap 16 (12-20) BUN 13 (9-16) mg/dL Creatinine 1.05 (0.5-1.4) mg/dL Estim Creat Clear Calc 82.6 Estimated GFR > 60 Random Glucose 113 (60-115) mg/dL Calcium 9.9 D (8.4-10.2) mg/dL Total Bilirubin 0.6 (0.0-1.0) mg/dL AST 21 (5-31) U/L ALT 24 (0-31) U/L Alkaline Phosphatase 83 (39-117) U/L Total Protein 7.9 (6.5-8.0) g/dL Albumin 5.0 (3.5-5.0) g/dL Urine Color Dark Yellow Urine Appearance Cloudy Urine pH 5.5 (5.0-9.0) Ur Specific Gardiner >= 1.030 H (1.005-1.025) Urine Protein Trace (Neg-Trace) mg/dL Urine Glucose (UA) Negative (Negative) mg/dL Urine Ketones 80 (Negative) mg/dL Urine Blood Negative (Negative) Urine Nitrite Negative (Negative) Ur Leukocyte Esterase Small (1+) H (Negative) Urine RBC 0-2 (0-2) /HPF Urine WBC 6-10 (0-5) /HPF Ur Squamous Epith Cells >20 (0-2) /HPF Urine Bacteria 3+ (None Seen) Hyaline Casts 0-2 (0-2) /LPF Urine Test NEGATIVE (NEGATIVE) Urine Opiates Screen Not Detected (Not Detect) Ur Buprenorphine Scrn Not Detected (Not Detect) ng/mL Ur Oxycodone Screen Not Detected (Not Detect) ng/mL Urine Methadone Screen Not Detected (Not Detect) ng/mL Urine Fentanyl Screen Not Detected (Not Detect) Ur Barbiturates Screen Not Detected (Not Detect) Ur Phencyclidine Scrn POSITIVE H (Not Detect) Ur Amphetamines Screen Not Detected (Not Detect) U Benzodiazepines Scrn Not Detected (Not Detect) Urine Cocaine Screen Not Detected (Not Detect) U Marijuana (THC) Screen Not Detected (Not Detect) Ethyl Alcohol < 10 mg/dL Independent Interpretation I performed an independent interpretation of an: EKG Interpretation: EKG normal sinus rhythm at a ventricular rate of 76 beats per minute, NE interval 182, no STEMI. Discharge Plan Discharge Clinical Impression: Suicidal ideation Patient Disposition: Admitted As Inpatient Interventions: [place]-Suicide Risk Severity Scale Last Done: 01/27/25 13:03
--- NOTE | 2025-01-27 15:08 | ECG_ITS ---
Test Reason : prolong qtc Blood Pressure : */* mmHG Vent. Rate : 87 BPM Atrial Rate : 87 BPM P-R Int : 156 ms QRS Dur : 72 ms QT Int : 328 ms P-R-T Axes : 19 60 -3 degrees QTcB Int : 394 ms Normal sinus rhythm Nonspecific T wave abnormality Abnormal ECG When compared with ECG of 21-Jun-2023 18:45, No significant change was found Referred By: Anne-Marie Freitas Electronically Signed By: JOHNNIE NEWELL MD
--- OUTSIDE RECORDS SUMMARY | 2025-01-27 15:51 | XMS_ITS | Encounter Summary ---
Author Organization [employer] Address [address] [place] [address] Care Team Providers Care Tank Cleaner Name Role Phone Nancy Patel MEGHA Primary Care Provider Devante Jurado MD Unavailable [phone] Encounter Details Date Type Department Care Team (Latest Contact Info) Description 01/23/2025 Travel Social History Tobacco Use Types Packs/Day [...] with others, in a hotel, in a jail, living outside on the street, on a [...] Care Team (Late st Contact Info) Description 03/27/2025 11:30 AM EST Office Visit [facility] MED & PEDS [address] [place] [address] Nancy Patel FNP [address] [place] [address] documented as of this encounter Visit Diagnoses Not on filedocumented in this encounter Additional Health Concerns Assessment Noted Time PHQ-9 Depression Total Score: 3 12/30/19 25 11:18 AM EDT documented as of this encounter Care Teams Tank Cleaner Relationship Specialty Start Date End Date Nancy Patel FNP [address] [place] [address] PCP - General Family Medicine 11/10/21 Devante Jurado MD [address] [place] [address] Cardiology 04/14/24 documented as of this encounter
--- OUTSIDE RECORDS SUMMARY | 2025-01-27 15:51 | XMS_ITS | Encounter Summary ---
Author Organization [employer] [facility] Address [address] [place] [address] Care Team Providers Care Vp Clinical Name Role Phone Nancy Patel Primary Care Provider [phone] Devante Jurado MD Unavailable [phone] Encounter Details Date Type Department Care Team (Late Contact Info) Description 06/02/2022 Telephone [facility] MEDICINE [address] [place] [address] Nancy Patel FNP [address] [place], [place] [phone] Social History Tobacco Use Types Packs/Day Years [...] Encounters Date Type Department Care Team (Late Contact Info) Description 03/27/2025 11:30 AM EST Office Visit [facility] & PEDS [address] [place], [place] [phone] Nancy Patel FNP [address] [place], [place] [phone] documented as of this encounter Visit Diagnoses Not on filedocumented in this encounter Care Teams Vp Clinical Relationship Specialty Start Date End Date Nancy Patel FNP [address] [place] [address] PCP - General Family Medicine 11/10/21 Devante Jurado MD [address] [place] [address] Cardiology 04/14/24 documented as of this encounter
--- OUTSIDE RECORDS SUMMARY | 2025-01-27 15:51 | XMS_ITS | Encounter Summary ---
Author Organization [employer] Address [address] [place] [address] Care Team Providers Care Follow Up Clerk Name Role Phone Nancy Patel Primary Care Provider [phone] Devante Jurado MD Unavailable [phone] Reason for Visit * Reason Onset Date Comments ER Follow-up 06/22/2023 Encounter Details Date Type Department Care Team ([facility] st Contact Info) Description 06/22/2023 Telephone [facility] MEDICINE [address] [place] [address] Nancy Patel FNP [address] [place] [address] ER Follow-up Social History Tobacco Use Types [...] - 06/22/2023 10:42 AM EDT Tc from [facility] returning call, states received a call for EDF. Please contact at [phone] * Telephone Encounter - Juan Daniel Mabry - 06/22/2023 9:33 AM EDT Patient calling to report ED visit on : Date: 06/22/23 Hospital: [facility] Seen for: Seizure Patient advised will forward to team nurse for follow up documented in this encounter Plan of Treatment Upcoming Encounters Date Type Department Care Team (Late st Contact Info) Description 03/27/2025 11:30 AM EST Office Visit [facility] MED & PEDS [address] [place] [address] Nancy Patel FNP [address] [place] [address] documented as of this encounter Visit Diagnoses Not on filedocumented in this encounter Additional Health Concerns Assessment Noted Time PHQ-9 Depression Total Score: 5 03/06/20 23 10:22 AM EST documented as of this encounter Care Teams Follow Up Clerk Relationship Specialty Start Date End Date Nancy Patel FNP [address] [place] [address] PCP - General Family Medicine 11/10/21 Devante Jurado MD [address] [place] [address] Cardiology 04/14/24 documented as of this encounter
--- OUTSIDE RECORDS SUMMARY | 2025-01-27 15:51 | XMS_ITS | Encounter Summary ---
Author Organization [employer] Address [address] [facility] 7t [place] [address] Care Team Providers Care Contact Person Name Role Phone Nancy Patel Primary Care Provider [phone] Devante Jurado MD Unavailable [phone] Reason for Visit * Reason Onset Date Comments Nurse Triage 02/07/2023 Encounter Details Date Type Department Care Team ([facility] Contact Info) Description 02/07/2023 Telephone [facility] MED & PEDS [address] [place], [place] [phone] Nancy Patel FNP [address] [place] [address] Nurse Triage Social History Tobacco Use Types [...] 10:35 AM EST Triage call to Susanna, (residential program manager) reporting Pt concern regarding urinary symptoms. Pt just reported this morning that trying to uriniate was like trying to squeeze a lemon . Pt reports pain with urination and unable to urinate as needed. Odor unknown, color of urine unknown. Neg for burning. Liquid intake unknown. Advised to bring Pt to [facility] to be seen by provider and Susanna [...] accepted this outcome Please contact susanna at [phone] documented in this encounter Plan of Treatment Upcoming Encounters Date Type Department Care Team (Late st Contact Info) Description 03/27/2025 11:30 AM EST Office Visit [facility] MED & PEDS [address] [place] [address] Nancy Patel FNP [address] [place] [address] documented as of this encounter Visit Diagnoses Not on filedocumented in this encounter Additional Health Concerns Assessment Noted Time PHQ-9 Depression Total Score: 19 08/10/ 023 3:09 PM EDT documented as of this encounter Care Teams Contact Person Relationship Specialty Start Date End Date Nancy Patel FNP [address] [place] [address] PCP - General Family Medicine 11/10/21 Devante Jurado MD [address] [place] [address] Cardiology 04/14/24 documented as of this encounter
--- OUTSIDE RECORDS SUMMARY | 2025-01-27 15:51 | XMS_ITS | Encounter Summary ---
Author Organization [employer] Address [address] [facility] 7t [place] [address] Care Team Providers Care Oil Field Worker Name Role Phone Nancy Patel Primary Care Provider [phone] Devante Jurado MD Unavailable [phone] Reason for Visit * Reason Onset Date Comments Medication Question 01/22/2024 Encounter Details Date Type Department Care Team ([facility] Contact Info) Description 01/22/[address] [facility] MED & PEDS [address] [place], [place] [phone] Nancy Patel FNP [address] [place] [address] Medication Question Social History Tobacco Use Types [...] Cooney - 01/22/2024 12:07 PM EST Tc from Murray from pt halfway at [facility] requesting a call back to go over pt medications. Also to see if pcp can prescribe pt psych meds. Best contact # [phone]. documented in this encounter Plan of Treatment Upcoming Encounters Date Type Department Care Team ([facility] st Contact Info) Description 03/27/2025 11:30 AM EST Office Visit [facility] MED & PEDS [address] [place] [address] Nancy Patel FNP [address] [place], [place] [phone] documented as of this encounter Visit Diagnoses Not on filedocumented in this encounter Additional Health Concerns Assessment Noted Time PHQ-9 Depression Total Score: 5 03/06/20 23 10:22 AM EST documented as of this encounter Care Teams Oil Field Worker Relationship Specialty Start Date End Date Nancy Patel FNP [address] [place] [address] PCP - General Family Medicine 11/10/21 Devante Jurado MD [address] [place] [address] Cardiology 04/14/24 documented as of this encounter
--- OUTSIDE RECORDS SUMMARY | 2025-01-27 15:51 | XMS_ITS | Encounter Summary ---
Author Organization [employer] Address [address] [facility] [address] 7t [place] [address] Care Team Providers Care Mine Laborer Name Role Phone Nancy Patel Primary Care Provider Devante Jurado MD Unavailable [phone] Reason for Visit * Reason Onset Date Comments Call Back Request 05/23/2023 Encounter Details Date Type Department Care Team ([facility] Contact Info) Description 05/23/2023 Telephone [facility] MEDICINE [address] [place] [address] Nancy Patel FNP [address] [place] [address] Call Back Request Social History Tobacco Use [...] 12:13 PM EST Tc to Murray from [facility]. Confirmed that pt stopped taking psych meds after seeing FRAME CARVER SPINDLE last week. Murray states he is working [...] go [facility] [place]. Murray verbalizes understanding and agreement with plan. * Telephone Encounter - MEGHA Salmeron - 05/25/2023 11:43 AM EST Cleve is prescribed multiple medications through psych, which ideally should not be stopped abruptly. Sounds like she stopped taking them after FRAME CARVER SPINDLE appt? My recommendation would be to continue reaching out to psych prescriber who prescribes meds, but also to schedule Cleve for a visit to discuss if interested to get to the root of why she is refusing meds. Please schedule for a 30 mins visit with myself. She may also be seen in [facility] [place] today if not able to wait until next week. (If no soon appt slots available on my schedule, OK to book for a 30 minute televisit Sun05/30/23 at 2:30 or 3pm. Let me know if you need me to override schedule block) Thank you! * Telephone Encounter - Wing Harsh RN - 05/24/2023 3:45 PM EST Please advise, tc to Murray from [facility] regarding pt not taking medication. Murray reported that pt did not taken her regular med only once yesterday morning but has taken regular meds since then. Pt is currently not taking psych meds because pt had seen a broadcast operations technician recently for bleeding andwanted to start Nexplanon. Textile Science Technician stated to the pt that her med [...] PCP as BURAK. Tc from Murray from [facility] calling to inform PCP pt is no taking her medications, please contact Murray for advise at [phone]. * Telephone Encounter - Lauren Vázquezoyo - 05/23/2023 11:19 AM EST Tc from Murray from [facility] calling to inform PCP pt is no taking her medications, please contact Murray for advise at [phone]. documented in this encounter Plan of Treatment Upcoming Encounters Date Type Department Care Team (Late st Contact Info) Description 03/27/2025 11:30 AM EST Office Visit [facility] MED & PEDS [address] [place] [address] Nancy Patel FNP [address] [place] [address] documented as of this encounter Visit Diagnoses Not on filedocumented in this encounter Additional Health Concerns Assessment Noted Time PHQ-9 Depression Total Score: 5 03/06/20 23 10:22 AM EST documented as of this encounter Care Teams Mine Laborer Relationship Specialty Start Date End Date Nancy Patel FNP [address] [place] [address] PCP - General Family Medicine 11/10/21 Devante Jurado MD [address] [place] [address] Cardiology 04/14/24 documented as of this encounter
--- OUTSIDE RECORDS SUMMARY | 2025-01-27 15:51 | XMS_ITS | Encounter Summary ---
Author Organization [employer] Address [address] [facility] [address] 7t [place] [address] Care Team Providers Care Service Consultant Name Role Phone Nancy Patel Primary Care Provider Devante Jurado MD Unavailable [phone] Encounter Details Date Type Department Care Team ([facility] Contact Info) Description 01/02/2025 Results Follow-Up [facility] MED & PEDS [address] [place] [address] Nancy Patel FNP [address] [place] [address] Vitamin B12, Lipid Panel, Standard, Hemoglobin A1c, Additional followed-up results: 7 Social History Tobacco Use Types Packs/Day Years [...] with others, in a hotel, in a detention, living outside on the street, on a [...] Description 03/27/2025 11:30 AM EST Office Visit [facility] MED & PEDS [address] [place] [address] Nancy Patel FNP [address] [place] [address] documented as of this encounter Visit Diagnoses Not on filedocumented in this encounter Additional Health Concerns Assessment Noted Time PHQ-9 Depression Total Score: 3 12/30/19 25 11:18 AM EDT documented as of this encounter Care Teams Service Consultant Relationship Specialty Start Date End Date Nancy Patel FNP [address] [place] [address] PCP - General Family Medicine 11/10/21 Devante Jurado MD [address] [place] [address] Cardiology 04/14/24 documented as of this encounter
--- OUTSIDE RECORDS SUMMARY | 2025-01-27 15:51 | XMS_ITS | Encounter Summary ---
Author Organization [employer] Address [address] [facility] 7t [place] [address] Care Team Providers Care Concrete Bucket Loader Name Role Phone Nancy Patel Primary Care Provider [phone] Devante Jurado MD Unavailable [phone] Reason for Visit * Reason Onset Date Comments Nurse Triage 02/27/2023 Encounter Details Date Type Department Care Team ([facility] st Contact Info) Description 02/27/2023 Telephone [facility] MED & PEDS [address] [place], [place] [phone] Nancy Patel FNP [address] [place] [address] Nurse Triage Social History Tobacco Use Types Packs/Day Years Used Date Smoking Tobacco: Never Passive Smoke Exposure: Never Smokeless Tobacco: Never Alcohol Use Standard Drinks/Week Comments Never 0 (1 standard drink = 0.6 oz pur e alcohol) Depression Answer Date Recorded Patient Health Questionnaire-9 Score 19 08/10/2022 Housing Stability Answer Date Recorded What is your housing situation today? I have anablel flowers 01/01/[address] you [...] EST Triage call Pt was seen in [facility] 02/25/23 for vaginal bleeding and dysmenorrhea. Pt [...] Reason: Heavy bleeding, pt was seen at [facility] on 02/25 for vaginal bleeding. Pt still symptomatic The caller accepted this outcome Please contact pt at [phone] documented in this encounter Plan of Treatment Upcoming Encounters Date Type Department Care Team ([facility] st Contact Info) Description 03/27/2025 11:30 AM EST Office Visit [facility] MED & PEDS [address] [place] [address] Nancy Patel FNP [address] [place] [address] documented as of this encounter Visit Diagnoses Not on filedocumented in this encounter Additional Health Concerns Assessment Noted Time PHQ-9 Depression Total Score: 19 08/10/ 023 3:09 PM EDT documented as of this encounter Care Teams Concrete Bucket Loader Relationship Specialty Start Date End Date Nancy Patel FNP [address] [place] [address] PCP - General Family Medicine 11/10/21 Devante Jurado MD [address] [place] [address] Cardiology 04/14/24 documented as of this encounter
--- OUTSIDE RECORDS SUMMARY | 2025-01-27 15:51 | XMS_ITS | Clinical Summary ---
Author Organization [facility] Address [address] [place] [address] Phone Care Team Providers Care Nonprofit Fundraiser Name Role Phone Physician, Pcp Unknown Primary [...] EDT - 12/13/2024 6:20 PM EDT Emergency [facility] Emergency [address] [place] [phone] Sunil Carpenter MD Wire, Jessica, MD Goebel, Mathew, MD Killelea, Alison G, MD Adjustment disorder, unspecified type (Primary Dx); Anxiety; Unable to control anger Discharge Disposition: Home or Self Care from Last 3 Months Medical History Medical History Date Comments GERD (gastroesophageal reflux disease) per [facility] paperwork Migraine per [facility] paperwork Adhd per [facility] paperwork Anxiety per [facility] paperwork Psychogenic nonepileptic seizure per [facility] paperwork Depression per [facility] [...] of Health Screening 02/18/2022 Depression Screening 03/19/2024 COVID-19 Vaccine ( season) 2024 12/21/2023, 07/30/2023, 10/17/2022 Influenza Vaccine (#1) 2024 , 03/06/2023, 12/23/2021, [...] 01/03/2007 Hepatitis A Vaccines Completed 04/17/2013, 06/06/19 12 HPV Vaccines Completed 08/18/2015, 02/16, 04/17/2013 Meningococcal ACWY Vaccine Completed 03/30, 02/10/2020, 04/17/2013 HIV Screening Completed 12/26/2023 RSV Immunization Patients [...] LAB CHEMISTRY METHOD 12/12/2024 5:37 PM EDT [facility] Comment:Certain OTC medicati ons containing ephedrine, phenylephrine, pseudoephedrine and phenylpropanolamine can cause false positive results. Barbiturate Screen, Ur Negative Negative LAB CHEMISTRY METHOD 12/12/2024 5:37 PM EDT [facility] Benzodiazepine Screen, Ur Negative Negative LAB CHEMISTRY METHOD 12/12/2024 5:37 PM EDT [facility] Cocaine Screen, Ur Negative Negative LAB CHEMISTRY METHOD 12/12/2024 5:37 PM EDT [facility] Opiate Screen, Ur Negative Negative LAB CHEMISTRY METHOD 12/12/2024 5:37 PM EDT [facility] Cannabinoid (THC) Screen, Ur Negative Negative LAB CHEMISTRY METHOD 12/12/2024 5:37 PM EDT [facility] Comment:Specimens from patie nts taking pantoprazole sodium (Protonix) have been shown to produce false positive results. Oxycodone Screen, Ur Negative Negative LAB CHEMISTRY METHOD 12/12/2024 5:37 PM EDT [facility] Fentanyl, Ur Negative Negative LAB CHEMISTRY METHOD 12/12/2024 5:37 PM T [facility] Urine Urine specimen obtained by clean catch procedure / Unknown Non-blood Collection / Unknown 12/12/2024 3:29 PM EDT 12/12/2024 3:37 PM EDT Narrative [facility] - 12/12/2024 5:37 PM EDT Assay [...] ORDERABLES Rachna l Result Performing Organization Address [facility]/ZIP Co de Phone Number [facility] [address] [place] [address], * Buprenorphine screen, urine (12/12/2024 3:29 PM EDT) Buprenorphine Screen Urine Negative Negative LAB CHEMISTRY METHOD 12/12/2024 5:37 PM EDT [facility] Urine Urine specimen obtained by clean catch procedure / Unknown Non-blood Collection / Unknown 12/12/2024 3:29 PM EDT 12/12/2024 3:37 PM EDT Narrative [facility] - 12/12/2024 5:37 PM EDT Assay cutoff 5 ng/mL Semi-quantitative assay for screening purposes only. Unconfirmed screening result should not be used for non-medical purposes. *ALTERNATE METHOD CONFIRMATION DONE UPON REQUEST ONLY* Sunil Carpenter MD LAB URINE ORDERABLES Rachna l Result Performing Organization Address [facility] de Phone Number [facility] [address] [place] [address], * Methadone, urine (12/12/2024 3:29 PM EDT) Methadone Screen, Urine Negative Negative LAB CHEMISTRY METHOD 12/12/2024 5:37 PM EDT [facility] Comment: Assay cutoff 300 ng/mL Semi-quantitative assay for screening purposes only. Unconfirmed screening result should not be used for non-medical purposes. *ALTERNATE METHOD CONFIRMATION DONE UPON REQUEST ONLY* Urine Urine specimen obtained by clean catch procedure / Unknown Non-blood Collection / Unknown 12/12/2024 3:29 PM EDT 12/12/2024 3:37 PM EDT Sunil Carpenter MD LAB URINE ORDERABLES Rachna l Result Performing Organization Address [facility]/ZIP Co de Phone Number [facility] [address] [place] [address], [place] [phone] * Phencyclidine, urine (12/12/2024 3:29 PM EDT) Pathologist [facility] PCP Scrn, Ur Negative Negative LAB CHEMISTRY METHOD 12/12/2024 5:37 PM EDT [facility] Comment: Assay cutoff 25 ng/mL Semi-quantitative assay for screening purposes only. Unconfirmed screening result should not be used for non-medical purposes. *ALTERNATE METHOD CONFIRMATION DONE UPON REQUEST ONLY* Urine Urine specimen obtained by clean catch procedure / Unknown Non-blood Collection / Unknown 12/12/2024 3:29 PM EDT 12/12/2024 3:37 PM EDT Sunil Carpenter MD LAB URINE ORDERABLES Rachna l Result Performing Organization Address [facility]/ZIP Co de Phone Number [facility] [address] [place] [address], [place] [phone] * (ABNORMAL) CBC auto differential (12/12/2024 3:27 PM EDT) Pathologist [facility] WBC 11.8(H) 4.8 - 10.8 K/mcL LAB HEMETOLOGY METHOD 12/12/2024 3:47 PM EDT [facility] RBC 4.80 3.80 - 4.80 M/mcL LAB HEMETOLOGY METHOD 12/12/2024 3:47 PM EDT [facility] Hemoglobin 13.6 11.5 - 16.0 g/dL LAB HEMETOLOGY METHOD 12/12/2024 3:47 PM EDT [facility] Hematocrit 41.0 35.0 - 47.0 % LAB HEMETOLOGY METHOD 12/12/2024 3:47 PM EDT [facility] MCV 85.4 79.0 - 98.0 FL LAB HEMETOLOGY METHOD 12/12/2024 3:47 PM EDT [facility] MCH 28.3 27.0 - 32.0 pcg LAB HEMETOLOGY METHOD [facility]/12[facility] MCHC 33.2 32.0 - 37.0 g/dL LAB HEMETOLOGY METHOD 12/12/2024 3:47 PM EDT [facility] RDW 12.2 11.0 - 15.0 % LAB HEMETOLOGY METHOD 12/12/2024 3[facility] Platelets 329 130 - 400 K/mcL LAB HEMETOLOGY METHOD 12/12/2024 3:47 [facility] MPV 10.2 7.0 - 11.0 FL LAB HEMETOLOGY METHOD 12/12/2024 3:47 PM EDT [facility] NRBC 0.0 <1.0 % LAB HEMETOLOGY METHOD 12/12/2024 3:[facility] NRBC Absolute 0.00 <0.10 K/mcL LAB HEMETOLOGY METHOD 12/12/2024 3:47 [facility] Neutrophils Relative 68.9 % LAB HEMETOLOGY METHOD 12/12/2024 3:47 PM EDT [facility] Lymphocytes Relative 18.4 % LAB HEMETOLOGY METHOD 12/12/2024 3:47 PM EDT [facility] Monocytes Relative 6.0 % LAB HEMETOLOGY METHOD 12/12/2024 3:47 PM EDT [facility] Eosinophils Relative 5.7 % LAB HEMETOLOGY METHOD 12/12/2024 3:47 PM EDT [facility] Basophils Relative 0.6 % LAB HEMETOLOGY METHOD 12/12/2024 3:47 PM EDT [facility] Immature Granulocytes Relative 0.4 % LAB HEMETOLOGY METHOD 12/12/2024 3:47 PM EDT [facility] Neutrophils Absolute 8.11(H) 1.50 - 7.00 K/mcL LAB HEMETOLOGY METHOD 12/12/2024 3:47 PM EDT [facility] Lymphocytes Absolute 2.17 1.00 - 5.00 K/mcL LAB HEMETOLOGY METHOD 12/12/2024 3:47 PM EDT [facility] Monocytes Absolute 0.71 0.20 - 1.00 K/mcL LAB HEMETOLOGY METHOD 12/12/2024 3:47 PM EDT [facility] Eosinophils Absolute 0.67(H) 0.00 - 0.50 K/mcL LAB HEMETOLOGY METHOD 12/12/2024 3:47 PM EDT [facility] Basophils Absolute 0.07 0.00 - 0.20 K/mcL LAB HEMETOLOGY METHOD 12/12/2024 3:47 PM EDT [facility] Immature Granulocytes Absolute 0.05(H) 0.00 - 0.03 K/mcL LAB HEMETOLOGY METHOD 12/12/2024 3:47 PM EDT [facility] Blood Venous blood specimen / Unknown Venipuncture / Unknown 12/12/2024 3:27 PM EDT 12/12/2024 3:37 PM EDT us Sunil Carpenter MD LAB BLOOD ORDERABLES Rachna l Result [facility] [address] [place] [address], * Ethanol (12/12/2024 3:27 PM EDT) Ethanol Level <3 0 - 10 mg/dL LAB CHEMISTRY METHOD 12/12/2024 4:34 PM EDT [facility] Blood Venous blood specimen / Unknown Venipuncture / Unknown 12/12/2024 3:27 PM EDT 12/12/2024 3:37 PM EDT Sunil Carpenter MD LAB BLOOD ORDERABLES Rachna l Result Performing Organization Address City/[facility]/ZIP Co de Phone Number [facility] [address] [place] [address], [place] [phone] * (ABNORMAL) Acetaminophen level (12/12/2024 3:27 PM EDT) Acetaminophen Level <2.0(L) 10.0 - 30.0 mcg/mL LAB CHEMISTRY METHOD 12/12/2024 4:41 PM EDT [facility] Blood Venous blood specimen / Unknown Venipuncture / Unknown 12/12/2024 3:27 PM EDT 12/12/2024 3:37 PM EDT Sunil Carpenter MD LAB BLOOD ORDERABLES Rachna l Result Performing Organization Address [facility] Co de Phone Number [facility] [address] [place] [address], [place] [phone] * (ABNORMAL) Salicylate level (12/12/2024 3:27 PM EDT) Salicylate Level <1.7(L) 2.0 - 29.0 mg/dL LAB CHEMISTRY METHOD 12/12/2024 4:34 PM EDT [facility] Blood Venous blood specimen / Unknown Venipuncture / Unknown 12/12/2024 3:27 PM EDT 12/12/2024 3:37 PM EDT Sunil Carpenter MD LAB BLOOD ORDERABLES Rachna l Result Performing Organization Address City/[facility]/ZIP Co de Phone Number [facility] [address] [place] [address], [place] [phone] * Comprehensive metabolic panel (12/12/2024 3:27 PM EDT) Sodium 138 133 - 145 mmol/L LAB CHEMISTRY METHOD 12/12/2024 4:38 PM [facility] Potassium 3.7 3.5 - 5.5 mmol/L LAB CHEMISTRY METHOD 12/12/2024 4:38 PM [facility] Chloride 103 96 - 110 mmol/L LAB CHEMISTRY METHOD 12/12/2024 4:38 PM [facility] CO2 30 21 - 32 mmol/L LAB CHEMISTRY METHOD 12/12/2024 4:38 PM [facility] Anion Gap 5 3 - 11 LAB CHEMISTRY METHOD 12/12/2024 4:38 PM [facility] Glucose 89 70 - 100 mg/dL LAB CHEMISTRY METHOD 12/12/2024 4:38 PM [facility] BUN 13 5 - 25 mg/dL LAB CHEMISTRY METHOD 12/12/2024 4:38 PM [facility] Creatinine 0.99 0.50 - 1.10 mg/dL LAB CHEMISTRY METHOD 12/12/2024 4:38 PM [facility] eGFR 83 >=60 mL/min/1. 73m2 LAB CHEMISTRY METHOD 12/12/2024 4:38 PM [facility] Comment:Calculation based on the Chronic Kidney Disease Epidemiology Collaboration (CKD-EPI) equation refit without adjustment for race. BUN/Creatinine Ratio 13.1 LAB CHEMISTRY METHOD 12/12/2024 4:38 PM [facility] Calcium 9.4 8.5 - 10.5 mg/dL LAB CHEMISTRY METHOD 12/12/2024 4:38 PM [facility] AST (SGOT) 20 10 - 42 unit/L LAB CHEMISTRY METHOD 12/12/2024 4:38 PM EDT [facility] ALT (SGPT) 43 10 - 60 unit/L LAB CHEMISTRY METHOD 12/12/2024 4:38 PM EDT [facility] Alkaline Phosphatase 71 42 - 121 unit/L LAB CHEMISTRY METHOD 12/12/2024 4:38 PM EDT [facility] Total Protein 7.1 6.0 - 8.0 g/dL LAB CHEMISTRY METHOD 12/12/2024 4:38 PM EDT [facility] Albumin 4.3 3.2 - 5.0 g/dL LAB CHEMISTRY METHOD 12/12/2024 4:38 PM EDT [facility] Total Bilirubin 0.4 0.0 - 1.4 mg/dL LAB CHEMISTRY METHOD 12/12/2024 4:38 PM EDT [facility] Blood Venous blood specimen / Unknown Venipuncture / Unknown 12/12/2024 3:27 PM EDT 12/12/2024 3:37 PM EDT us Sunil Carpenter MD LAB BLOOD ORDERABLES Rachna l Result [facility] [address] [place] [address], from Last 3 Months Insurance MEDICAID - [place] Care Teams Nonprofit Fundraiser Relationship Specialty Start Date End Date Physician, Pcp Unknown PCP - General 12/12/24
--- OUTSIDE RECORDS SUMMARY | 2025-01-27 15:51 | XMS_ITS | Encounter Summary ---
Author Organization [employer] Address [address] [place] [address] Care Team Providers Care Talent Scout Name Role Phone Nancy Patel MEGHA Primary Care Provider [phone] Devante Jurado MD Unavailable [phone] Encounter Details Date Type Department Care Team ([facility] Contact Info) Description 01/27/2025 Orders Only GENERIC EXTERNAL DATA DEPARTMENT Provider, Generic External Data Social History Tobacco Use Types Packs/Day Years [...] with others, in a hotel, in a [facility], living outside on the street, on a [...] Description 03/27/2025 11:30 AM EST Office Visit [facility] [address] [place] [address] Nancy Patel, MEGHA [address] [place] [address] documented as of this encounter Procedures Procedure Name Priority Date/Time Associated Diagnosis Comments HCG, QL, URINE Routine 01/27/2025 1:24 PM EST URINALYSIS, COMPLETE, WITH REFLEX TO CULTURE Routine 01/27/2025 1:23 PM EST DRUG MONITOR, PANEL 1, SCREEN, URINE Routine 01/27/2025 1:23 PM EST ETHANOL Routine 01/27/2025 12:49 PM EST CBC WITH AUTO DIFFERENTIAL Routine 01/27/2025 12:49 PM EST COMPREHENSIVE METABOLIC PANEL Routine 01/27/2025 12:49 PM EST documented in this encounter Results * HCG, Qualitative, Urine (01/27/2025 1:24 PM EST) Urine NEGATIVE NEGATIVE [facility] Comment:This test was develo ped to detect early . Falsenegative results may occur after the 5th - 7th week ofpregnancy when using this test method. If clinicallyindicated, consider a serum hCG. 01/27/2025 1:24 PM EST 01/27/2025 1:28 PM EST us Generic External Data Provider LAB URINE ORDERAB LES Final Result [facility] [address] [place] [address] [phone] * (ABNORMAL) Drug Monitoring, Panel 1, Screen, Urine (01/27/2025 1:23 PM EST) Opiate Screen Urine Not Detected Not Detect [facility] Comment:Opiate cut-off is 30 0 ng/mL.Positive results are unconfirmed and should not be used fornon-medical purposes. Barbiturates, Urine Not Detected Not Detect [facility] Comment:Barbiturate cut-off is 200 ng/mL.Positive results are unconfirmed and should not be used fornon-medical purposes. Phencyclidine Screen Urine POSITIVE(A) Not Detect [facility] Comment:Phencyclidine cut-of f is 25 ng/mL.Positive results are unconfirmed and should not be used fornon-medical purposes. Amphetamine Screen Urine Not Detected Not Detect [facility] Comment:Amphetamine cut-off is 1000 ng/mL.Positive results are unconfirmed and should not be used fornon-medical purposes. Benzodiazepines Screen Urine Not Detected Not Detect [facility] Comment:Benzodiazepine cut-o ff is 200 ng/mL.Positive results are unconfirmed and should not be used fornon-medical purposes. Cocaine Screen Urine Not Detected Not Detect [facility] Comment:Cocaine cut-off is 3 00 ng/mL.Positive results are unconfirmed and should not be used fornon-medical purposes. Cannabinoid Screen Urine Not Detected Not Detect [facility] Comment:Cannabinoid cut-off is 50 ng/mL.Positive results are unconfirmed and should not be used fornon-medical purposes. Methadone Screen, Urine Not Detected Not Detect ng/mL [facility] Comment:Methadone cut-off is 300 ng/mL.Positive results are unconfirmed and should not be used fornon-medical purposes. FENTANYL URINE Not Detected Not Detect [facility] Comment:Fentanyl cut-off is 1 ng/mL.Positive results are unconfirmed and should not be used fornon-medical purposes. Oxycodone Urine Screen Not Detected Not Detect ng/mL [facility] Comment:Oxycodone cut-off is 100 ng/mL.Positive results are unconfirmed and should not be used fornon-medical purposes. Buprenorphine Screen Not Detected Not Detect ng/mL [facility] Comment:Buprenorphine cut-of f is 5 ng/mL.Positive results are unconfirmed and should not be used fornon-medical purposes. 01/27/2025 1:23 PM EST 01/27/2025 1:34 PM EST us Generic External Data Provider LAB URINE ORDERAB LES Final Result [facility] [address] [place] [phone] * (ABNORMAL) Urinalysis, Complete, with Reflex to Culture (01/27/2025 1:23 PM EST) Color Urine Dark Yellow [facility] Appearance Urine Cloudy [facility] PH 5.5 5.0 - 9.0 [facility] Glucose Urine UA Negative Negative mg/dL [facility] Urine Blood Negative Negative [facility] Specific [place] - Urine >=1.030(H) 1.005 - 1.025 [facility] Urine Protein Trace Neg-Trace mg/dL [facility] Urine Ketones 80 Negative mg/dL [facility] Nitrite Urine Negative Negative [facility] Leukocyte Esterase Urine Small (1+)(A) Negative [facility] RBC Urine 0-2 0 - 2 /HPF [facility] Urine WBC 6-10 0 - 5 /HPF [facility] Urine Squamous Epithelial Cell >20 0 - 2 /HPF [facility] Urine Bacteria 3+ None Seen [facility] Hyaline Casts, Urine 0-2 0 - 2 /LPF [facility] 01/27/2025 1:23 PM EST 01/27/2025 1:34 PM EST Narrative [facility] - 01/27/2025 2:09 PM EST [id number], Clean Catch us Generic External Data Provider LAB URINE ORDERAB LES Final Result [facility] [address] [place] [address] [phone] * (ABNORMAL) CBC auto differential (01/27/2025 12:49 PM EST) White Blood Count 9.1 4.8 - 10.8 X10*3/uL [facility] Red Blood Count 5.14 4.20 - 5.50 X10*6/uL [facility] Hemoglobin 14.8 12.0 - 16.0 g/dl [facility] Hematocrit 45.0 37.0 - 47.0 % [facility] Mean Corpuscular Volume 87.5 80.0 - 98.0 fL [facility] Mean Corpuscular Hemoglobin 28.8 27.0 - 33.0 pg [facility] Mean Corpuscular HGB Conc 32.9 31.0 - 35.0 g/dl [facility] Red Cell Distribution Width 12.6 11.0 - 16.0 % [facility] Platelet Count 302 160 - 400 X10*3/uL [facility] Mean Platelet Volume 10.4 9.4 - 12.3 fL [facility] Neutrophils Percent Auto 69.9 45 - 73 % [facility] Imm Gran Pct Auto 0.4 0.0 - 0.4 % [facility] Lymphocytes Percent Auto 21.7 20 - 40 % [facility] Monocytes Percent Auto 5.2 2 - 11 % [facility] Eosinophils Percent Auto 2.2 0 - 4 % [facility] Basophils Percent Auto 0.6 0 - 2 % [facility] NRBC Pct Auto 0.0 0.0 - 0.2 /100WBC [facility] Neutrophils Absolute Auto 6.3 2.0 - 8.3 x10*3/uL [facility] Imm Gran Abs Auto 0.04(H) 0.00 - 0.03 X10*3/uL [facility] Lymphocytes Absolute Auto 2.0 1.2 - 4.9 X10*3/uL [facility] Monocytes Absolute Auto 0.5 0.1 - 1.2 X10*3/uL [facility] Eosinophils Absolute Auto 0.2 0.0 - 0.4 X10*3/uL [facility] Basophils Absolute Auto 0.1 0.0 - 0.2 X10*3/uL [facility] NRBC Abs Auto 0.000 0.0 - 0.012 X10*3/uL [facility] 01/27/2025 12:4 9 PM EST 01/27/2025 1:05 PM EST Generic External Data Provider LAB BLOOD ORDERAB LES Final Result Performing Organization Address [facility]/ZIP Co de Phone Number [facility] [address] [place] [phone] * Ethanol (01/27/2025 12:49 PM EST) ETHANOL (MG/DL) IN SER/PLAS <10 mg/dL [facility] Comment:Serum/plasma ethanol results are to be used formedical/treatment purposes only. 01/27/2025 12:4 9 PM EST 01/27/2025 1:05 PM EST us Generic External Data Provider LAB BLOOD ORDERAB LES Final Result Performing Organization Address City/[facility]/ZIP Co de Phone Number [facility] [address] [place] [phone] * Comprehensive Metabolic Panel (01/27/2025 12:49 PM EST) Sodium 141 135 - 145 mmol/L [facility] Potassium 4.1 3.3 - 5.1 mmol/L [facility] Chloride 104 96 - 108 mmol/L [facility] Carbon Dioxide 25 22 - 29 mmol/L [facility] Anion Gap 16 12 - 20 [facility] Urea Nitrogen (BUN) 13 9 - 16 mg/dL [facility] Creatinine, Serum 1.05 0.5 - 1.4 mg/dL [facility] Creatinine Clr Calc Pharmacy 82.6 [facility] Comment:Provided height and weight: 165.1 cm,70.307 kg.eGFR (calculated from the MDRD study equation) and eCrCl(calculated from the Cockcroft-Gault equation) are based ondifferent parameters and may not yield comparable results.If eCrCl result is absurd, please check patient'sheight/weight. Estimated Glomerular Filt Rate >60 [facility] Comment:Chronic Kidney Disea se: Estimated GFR < 60 mL/min/[id number] Kidney Disease: Estimated GFR < 15 mL/min/1.73m2 Glucose 113 60 - 115 mg/dL [facility] Calcium 9.9 8.4 - 10.2 mg/dL [facility] Bilirubin, Total 0.6 0.0 - 1.0 mg/dL [facility] Aspartate Amino Transferase 21 5 - 31 U/L [facility] Alanine Aminotransferase 24 0 - 31 U/L [facility] Total Protein 7.9 6.5 - 8.0 g/dL [facility] Albumin Level 5.0 3.5 - 5.0 g/dL [facility] Alkaline Phosphatase 83 39 - 117 U/L [facility] 01/27/2025 12:4 9 PM EST 01/27/2025 1:05 PM EST us Generic External Data Provider LAB BLOOD ORDERAB LES Final Result [facility] [address] [place] [phone] documented in this encounter Visit Diagnoses Not on filedocumented in this encounter Additional Health Concerns Assessment Noted Time PHQ-9 Depression Total Score: 3 12/30/19 25 11:18 AM EDT documented as of this encounter Care Teams Talent Scout Relationship Specialty Start Date End Date Nancy Patel FNP [address] [place] [address] PCP - General Family Medicine 11/10/21 Devante Jurado MD [address] [place] [address] Cardiology 04/14/24 documented as of this encounter
--- OUTSIDE RECORDS SUMMARY | 2025-01-27 15:51 | XMS_ITS | Encounter Summary ---
Author Organization [employer] Address [address] [place] [address] Care Team Providers Care Home Care Rn Name Role Phone Nancy Patel Primary Care Provider [phone] Devante Jurado MD Unavailable [phone] Reason for Visit * Reason Onset Date Comments Medication Question 01/26/2025 Encounter Details Date Type Department Care Team ([facility] Contact Info) Description 01/26/2025 Telephone [facility] [address], [place] [phone] Nancy Patel FNP [address] [place] [address] Medication Question Social History Tobacco Use Types [...] with others, in a hotel, in [place] [facility], living outside on the [address], on a [...] Telephone Encounter - Smita Lara RN - 01/27/2025 1:59 PM EST Provider did not prescribe omeprazole. No Zofran on med chart. * Telephone Encounter - Terence Lopez - 01/26/2025 1:48 PM EST Tc from christy with [facility] requesting for the medication omeprazole (PriLOSEC) [address] capsule Instead of tablets, to be written as capsules due to insurance not covering it. Christy is also requesting for the medication Zolfran. Any questions contact christy at [phone] opt 3 and then opt 3 again. documented in this encounter Plan of Treatment Upcoming Encounters Date Type Department Care Team ([facility] st Contact Info) Description 03/27/2025 11:30 AM EST Office Visit [facility] [address], [place] [phone] Nancy Patel FNP [address] [place] [address] documented as of this encounter Visit Diagnoses Not on filedocumented in this encounter Additional Health Concerns Assessment Noted Time PHQ-9 Depression Total Score: 3 12/30/19 25 11:18 AM EDT documented as of this encounter Care Teams Home Care Rn Relationship Specialty Start Date End Date Nancy Patel FNP [address] [place] [address] PCP - General Family Medicine 11/10/21 Devante Jurado MD [address] [place] [phone] Cardiology 04/14/24 documented as of this encounter
--- OUTSIDE RECORDS SUMMARY | 2025-01-27 15:52 | XMS_ITS | Clinical Summary ---
Author Organization [employer] Address [address] [facility] [address] [place] [address] Care Team Providers Care Perinatal Educator Name Role Phone Nancy Patel MEGHA Primary Care Provider [phone] Devante Jurado MD Unavailable [phone] Allergies No known active allergies Medications * This document contains information received from the source organization and may not represent a complete record from that organization. etonogestrel-elu ting (Nexplanon) 68 mg contraceptive implant insertion 07/28/20 by Jackie Alberts CNM [place] [facility] [place] Active Carafate 1 GM/10ML suspension Take 10 ml by mouth twice a day as needed for dyspepsia 022 Active famotidine (Pepcid) 20 MG tablet Take 1 tablet by mouth twice a day 023 Active trolamine salicylate (Aspercreme) 10 % cream Apply topically if needed. Active propranolol (Inderal) 40 MG tabletIndication s:Tachycardia 024 Active benzoyl peroxide 5 % gelIndications:M ild acne Apply topically 2 times daily. Location: face 60 g 2 024 Active Skin Protectants, Misc. (eucerin) creamIndications :Dry skin APPLY 1 APPLICATION TOPICALLY NEEDED IN THE MORNING, AT NOON, IN THE EVENING AND AT BEDTIME 100 g 11 024 Active guanFACINE (Intuniv) 3 mg 24 hr tablet TAKE 1 TABLET BY MOUTH EVERY DAY 30 tablet 1 025 Active mirtazapine (Remeron) 45 MG tablet TAKE 1 TABLET BY MOUTH AT BEDTIME 30 tablet 1 025 Active QUEtiapine XR (SEROquel XR) 50 MG 24 hr tablet TAKE 1 TABLET BY MOUTH EVERY DAY 30 tablet 1 025 Active cetirizine (ZyrTEC) 10 MG tablet Take 1 tablet (10 mg) by mouth Once per day. 30 tablet 11 025 2025 Active Cyanocobalamin 1000 MCG capsuleIndicatio [...] EVERY DAY 90 tablet 3 025 Active hydrOXYzine HCl (Atarax) 50 MG tablet Take 50 mg by mouth in the morning and 50 mg in the evening. Active omeprazole (PriLOSEC) [address] capsule TAKE ONE TABLET BY MOUTH DAILY IN THE MORNING (NOT COVERED) 025 Active fluticasone (Flonase) 50 MCG/ACT nasal sprayIndications :Seasonal allergies Administer 1 spray into each nostril if needed in the morning and at bedtime (allergies or nasal congestion). Shake gently. Before first use, prime pump. After use, clean tip and replace cap. 16 g 5 025 2025 Active dicyclomine (Bentyl) 20 MG tablet Take 1 tablet 4 times a day as needed 023 2024 Discontinued(T herapy completed) calcium carbonate (Tums) 500 MG chewable tablet Chew 500 mg every 6 (six) hours if needed. 2024 Discontinued(T herapy completed) ketotifen (Zaditor) 0.025 % ophthalmic solutionIndicati ons:Seasonal allergies Administer 1 drop into both eyes if needed in the morning and at bedtime (allergy symptoms). 5 mL 3 023 2024 Discontinued(T herapy completed) escitalopram (Lexapro) 5 MG tablet 024 2024 Discontinued(T herapy completed) fluticasone (Flonase) 50 MCG/ACT nasal sprayIndications :Seasonal allergies Administer 1 spray into each nostril if needed in the morning and at bedtime (allergies or nasal congestion). Shake gently. Before first use, prime pump. After use, clean tip and replace cap. 16 g 5 024 2024 Discontinued(R eorder (will not trigger notification to Pharmacy)) hydrOXYzine HCl (Atarax) 50 MG tablet Take 1 tablet (50 mg) by mouth every 8 (eight) hours if needed for anxiety. 30 tablet 2 025 2024 Discontinued(D ose adjustment) Active Problems Problem Noted Date Diagnosed Date Vitamin B12 deficiency 04/27/2024 Overview (12/29/2024 6:58 AM EDT): Lab Results Component Value Date VITB12 1,427 (H) 10/20/2024 VITB12 196 (L) 04/14/2024 - Initiated Vit B12 1000 mcg daily Apr 2024 - Oct 2024: decreased dosing to 3x/week Assessment & Plan (12/29/2024 2:18 PM EDT): Plan to repeat level with updated dosing 3x/week Assessment & Plan (12/29/2024 6:58 AM [...] Well controlled with current regimen [facility] Completed Holter in 2023, echo essentially normal per consult note September 2023 Continues with Propranolol 40mg BID Previous medications: - Carvedilol (DC d/t med SE) Assessment & Plan (12/23/2023 10:16 AM EDT): Well controlled with current regimen [facility] Jur[facility] Completed Holter in 2023, echo [...] for Holter GERD (gastroesophageal reflux disease) Overview (12/29/2024): Following with [facility] Per last consult note Jan 2023: Cont carafate and famotidine. Assessment & Plan (12/29/2024 2:39 PM EDT): Famotidine 20mg BID Omeprazole 20mg daily Dysmenorrhea 03/06/2023 Assessment & Plan (12/29/2024 2:40 PM EDT): Continue with naproxen PRN Assessment & Plan (03/06/2023 7:33 PM EST): [...] need further evaluation Seasonal allergies 10/19/2022 Overview (12/29/2024): Cetirizine 10mg daily PRN for allergies Flonase BID allergic rhinitis Healthcare maintenance 10/19/2022 Overview (12/29/2024): Last PE: 12/29/24 Pap: Mar 2023 NILM Assessment & Plan (12/29/2024 2:27 PM EDT): Routine lab work ordered today Influenza vaccine administered, pt tolerated well Assessment & Plan (12/21/2023 3:07 PM EDT): COVID vaccine administered today, pt tolerated well Assessment & Plan (07/30/2023 3:21 PM EDT): COVID vaccine administered today, pt tolerated well Assessment & Plan (01/23/2023 9:57 AM EST): Declines flu vaccine 01/22/23 Mood disorder 04/03/2022 Overview (12/29/2024): Psych prescriber: Dr. Theo León Previous therapist through [facility], pending new therapist -Protective factors: [place] [facility] [place], mental health team (psychiatrist plus weekly therapy sessions), supportive partner, work Med regimen through psych: Quetiapine XR 50mg nightly Mirtazapine 45mg nightly Guanfacine 3mg nightly Hydroxyzine 50mg BID Assessment & Plan (01/23/2025 12:32 PM EST): - Mental health has improved, she is in the process of transitioning to stable housing situation in [place] through [employer] - Return to work letter generated as of 02/07/25 Assessment & Plan (12/23/2023 10:29 AM EDT): -Stable following DC of oxcarbazepine -Cont with regimen above through Psych Assessment & Plan (07/30/2023 3:21 PM EDT): -Stable following DC of oxcarbazepine -Cont with regimen above through Psych Assessment & Plan (05/30/2023 5:46 PM EDT): Level D interaction between Trileptal and Nexplanon. Plan of care pending communication between psychiatrist and [facility]. Follow up with PCP office PRN. Assessment & Plan (01/22/2023 6:52 AM EST): See Z89.59 History of suicidal ideation 04/03/2022 Assessment & Plan (01/23/2023 9:57 AM EST): Psych prescriber: Deisi Salazar at [facility]. 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 Follows with therapist weekly through [facility] -Protective factors: [place] [facility] [place] [facility], mental health team (psychiatrist plus weekly [...] Items Addressed This Visit Other Mood disorder ([facility]) History of suicidal ideation Patient ready to address current needs Yes Strengths include advocating for self PLAN: 1. Follow up with [facility]: Not recommended for follow-up 2. Patient goal [...] the Fall). PLAN: 1. Follow up with [facility]: Recommended for follow-up: August 10 at 1:30 pm 2. Patient goal is reengage in behavioral health services 3. Behavioral Recommendations a. Patient will attend OP therapy and psychiatry appointments b. Patient will comply with medication c. Patient will attend follow-up appointment with PCP d. Patient will continue using coping skills e. Patient will contact [facility], if experiencing suicidal ideation Attention deficit hyperactivity disorder 023 Psychogenic nonepileptic seizure 05/23/2021 Assessment & Plan (12/29/2024 2:40 PM EDT): -Referred to OT 04/03/22 for further assistance with coping skills -Continue following with psych team & Neuro - Dr. Nunes Assessment & Plan (10/19/2022 6:32 PM EDT): [...] 03/30/2022 12/23/2023 Pain in the coccyx 03/30/2022 Seizure (CMS/HCC) 03/30/2022 04/03/2022 Behavior problems 10/25/2015 04/03/2022 Encounters Date Type Department Care Team Description 01/27/2025 Orders Only GENERIC EXTERNAL DATA DEPARTMENT Provider, Generic External Data 01/26/2025 Telephone [facility] [address] [place] [address] Nancy Patel FNP Medication Question 01/23/2025 11:15 AM EST Office Visit [facility] [address] [place] [address] Nancy Patel FNP Mood disorder (CMS/HCC) (Primary Dx) 01/23/2025 Travel 01/20/2025 Telephone [facility] [address] [place] [address] Nancy Patel FNP Chart Prep 01/18/2025 Travel 01/15/2025 Telephone [facility] [address] [place] [address] Nancy Patel FNP Letter for School/Work 01/02/2025 Results Follow-Up [facility] [address] [place] [address] Nancy Patel FNP Vitamin B12, Lipid Panel, Standard, Hemoglobin A1c, Additional followed-up results: 7 12/29/2024 10:30 AM EDT Office Visit [facility] [address] [place] [address] Nancy Patel FNP Encounter for routine history and physical examination of adult (Primary Dx); Vitamin B12 deficiency; Healthcare maintenance; Tachycardia; Mood disorder ([facility]/HCC); Encounter for immunization; Dietary counseling; Exercise counseling; Vitamin D insufficiency; Seasonal allergies; Gastroesophageal reflux disease, unspecified whether esophagitis present; Dysmenorrhea; Psychogenic nonepileptic seizure 12/29/2024 Telephone [facility] [address] [place] [address] Nancy Patel FNP Paperwork: PE 12/29/2024 Travel 12/26/2024 Telephone [facility] [address] [place] [address] Nancy Patel FNP Chart Prep 12/25/2024 Refill [facility] [address] [place] [address] Nancy Patel FNP Constipation, unspecified constipation type; Routine health maintenance 12/23/2024 Travel 12/19/2024 Patient Outreach [facility] [address] [place] [phone] Nancy Patel FNP Pre-visit Planning (Pre visit planning LVM ) 11/19/2024 Telephone [facility] [address] [place] [phone] Nancy Patel FNP Medication Question 11/13/2024 Refill [facility] [address] [place] [phone] Nancy Patel FNP 11/12/2024 5:40 PM EDT Office Visit [facility] [address] [place] [phone] Mora Cota NP Sore throat (Primary Dx) 11/12/2024 Travel 11/12/2024 Telephone [facility] [address] [place] [phone] Nancy Patel FNP Nurse Triage 11/03/2024 Results Follow-Up [facility] [address] [place] [address] Nancy Patel FNP Vitamin B12 from Last 3 Months Immunizations Immunization Administration [...] History Relation Name Comments Heart disease Father Cesar Hypertension Father Cesar Liver cancer Father Cesar Heart disease Maternal Grandfather Lung cancer Maternal Grandmother Relation Name Status Comments Father Cesar Maternal Grandfather Maternal Grandmother Social History Tobacco [...] with others, in a hotel, in a long term, living outside on the street, on a [...] Q2 Not on file 12/29/2024 Comments No Intention Date Recorded No desire to become (finding) 1 Sex and Gender Information Value Date Recorded [...] 18 01/23/2025 11:38 AM EST Oxygen Saturation 98% 12/29/2024 11:15 AM EDT Inhaled Oxygen Concentration - - Weight 78.5 kg (173 lb) 01/23/2025 11:38 AM EST Height 160.7 cm (5' 3.25 ) 01/23/2025 11:38 AM Rahul MAYORGA Body Mass Index 30.4 01/23/2025 11:38 AM EST Plan of Treatment Upcoming Encounters Date Type Department Care Team (Late st Contact Info) Description 03/27/2025 11:30 AM EST Office Visit [facility] [address] [place] [address] Nancy Patel, AUTOMAT[employer] FURNACE OPERATOR [address] [place] [address] Health Maintenance Due Date Last Done Comments Meningococcal B Vaccine (1 of 2 - Standard) 2018 Disability Screening 12/23/2025 12/23/2024 Alcohol/Substance Use Screening 12/29/2025 12/29/2024 Chlamydia and Gonorrhea Screening 12/29/2025 12/29/2024, 12/26/2023, 04/27/2023, Additional history exists Depression Screening 12/29/2025 12/29/2024, 12/30/19 25 Diabetes: Hemoglobin A1C 12/29/2025 025, 12/26/2023, 07/20/2021 Family Planning (PISQ) 12/29/2025 12/29/2024 SDOH Screening 12/29/2025 12/29/2024 Tobacco Screening 01/23/2026 01/23/2025 Pap Smear 03/29/2026 03/29/2023 DTaP/Tdap/Td Vaccines (8 [...] Completed 12/21/2023, , 10/17/2022 HIV Screening Completed 12/29/2024, 11/2023, 10/15/2020, Additional history exists Hepatitis C Screening Completed 12/29/2024 , 12/26/2023, 10/15/2020, Additional history exists Influenza Vaccine Completed 12/29/2024, , 03/06/2023, Additional history exists RSV under 20 months Aged Out No longe r eligible based on patient's age to complete this topic Rotavirus Vaccines Aged Out No longer eligible based on patient's age to complete this topic Procedures Procedure Name Priority Date/Time Associated Diagnosis Comments HCG, QL, URINE Routine 01/27/2025 1:24 PM EST DRUG MONITOR, PANEL 1, SCREEN, URINE Routine 01/27/2025 1:23 PM EST URINALYSIS, COMPLETE, WITH REFLEX TO CULTURE Routine 01/27/2025 1:23 PM EST CBC WITH AUTO DIFFERENTIAL Routine 01/27/2025 12:49 PM EST ETHANOL Routine 01/27/2025 12:49 PM EST COMPREHENSIVE METABOLIC PANEL Routine 01/27/2025 12:49 PM EST COMPREHENSIVE METABOLIC PANEL Routine 12/29/2024 1:45 PM EDT Healthcare maintenance TSH W/REFLEX TO FT4 Routine 12/29/2024 1 :45 PM EDT Healthcare maintenance LIPID PANEL, STANDARD Routine 12/29/2024 1:45 PM EDT Healthcare maintenance CHLAMYDIA/TRICHOMONAS/ NEISSERIA GONORRHOEAE, PCR, URINE Routine 12/29/2024 1:20 PM EDT Healthcare maintenance HIV 1/2 ANTIGEN/ANTIBODY, FOURTH GENERATION W/RFL Routine 12/29/2024 1:15 PM EDT Healthcare maintenance RPR (MONITOR) W/REFL TITER Routine 12/29/2024 1:15 PM EDT Healthcare maintenance HEPATITIS C VIRAL RNA, QUANTITATIVE, REAL-TIME PCR Routine 12/29/2024 1:15 PM EDT Healthcare maintenance CBC WITH AUTO DIFFERENTIAL Routine 12/29/2024 1:15 PM EDT Healthcare maintenance HEMOGLOBIN A1C Routine 12/29/2024 1:15 PM EDT Healthcare maintenance VITAMIN B12 Routine 12/29/2024 1:15 PM EDT Healthcare maintenance POC JARAMILLO ID NOW STREP A Routine 11/12/2024 6:18 PM EDT Sore throat POCT INFLUENZA B (ID NOW RAPID MOLECULAR) Routine 11/12/2024 6:17 PM EDT Sore throat POCT INFLUENZA A (ID NOW RAPID MOLECULAR) Routine 11/12/2024 6:17 PM EDT Sore throat POCT RAPID COVID ANTIGEN Routine 11/12/2024 6:16 PM EDT Sore throat PAP SMEAR Routine 03/29/2023 11:11 AM EST Cervical cancer screening from Last 3 Months or Most Recently Relevant to Health Maintenance Results * HCG, Qualitative, Urine (01/27/2025 1:24 PM EST) Urine NEGATIVE NEGATIVE [facility] Comment:This test was develo ped to detect early . Falsenegative results may occur after the 5th - 7th week ofpregnancy when using this test method. If clinicallyindicated, consider a serum hCG. 01/27/2025 1:24 PM EST 01/27/2025 1:28 PM EST us Generic External Data Provider LAB URINE ORDERAB LES Final Result Performing Organization Address [facility] Co de Phone Number [facility] [address] [place] [phone] * (ABNORMAL) Urinalysis, Complete, with Reflex to Culture (01/27/2025 1:23 PM EST) Color Urine Dark Yellow [facility] Appearance Urine Cloudy [facility] PH 5.5 5.0 - 9.0 [facility] Glucose Urine UA Negative Negative mg/dL [facility] Urine Blood Negative Negative [facility] Specific [place] - Urine >=1.030(H) 1.005 - 1.025 [facility] Urine Protein Trace Neg-Trace mg/dL [facility] Urine Ketones 80 Negative mg/dL [facility] Nitrite Urine Negative Negative [facility] Leukocyte Esterase Urine Small (1+)(A) Negative [facility] RBC Urine 0-2 0 - 2 /HPF [facility] Urine WBC 6-10 0 - 5 /HPF [facility] Urine Squamous Epithelial Cell >20 0 - 2 /HPF [facility] Urine Bacteria 3+ None Seen [facility] Hyaline Casts, Urine 0-2 0 - 2 /LPF [facility] 01/27/2025 1:23 PM EST 01/27/2025 1:34 PM EST Narrative [facility] - 01/27/2025 2:09 PM EST [id number], Clean Catch us Generic External Data Provider LAB URINE ORDERAB LES Final Result Performing Organization Address [facility]/State/ZIP Co de Phone Number [facility] [address] [place] [address] [phone] * (ABNORMAL) Drug Monitoring, Panel 1, Screen, Urine (01/27/2025 1:23 PM EST) Opiate Screen Urine Not Detected Not Detect [facility] Comment:Opiate cut-off is 30 0 ng/mL.Positive results are unconfirmed and should not be used fornon-medical purposes. Barbiturates, Urine Not Detected Not Detect [facility] Comment:Barbiturate cut-off is 200 ng/mL.Positive results are unconfirmed and should not be used fornon-medical purposes. Phencyclidine Screen Urine POSITIVE(A) Not Detect [facility] Comment:Phencyclidine cut-of f is 25 ng/mL.Positive results are unconfirmed and should not be used fornon-medical purposes. Amphetamine Screen Urine Not Detected Not Detect [facility] Comment:Amphetamine cut-off is 1000 ng/mL.Positive results are unconfirmed and should not be used fornon-medical purposes. Benzodiazepines Screen Urine Not Detected Not Detect [facility] Comment:Benzodiazepine cut-o ff is 200 ng/mL.Positive results are unconfirmed and should not be used fornon-medical purposes. Cocaine Screen Urine Not Detected Not Detect [facility] Comment:Cocaine cut-off is 3 00 ng/mL.Positive results are unconfirmed and should not be used fornon-medical purposes. Cannabinoid Screen Urine Not Detected Not Detect [facility] Comment:Cannabinoid cut-off is 50 ng/mL.Positive results are unconfirmed and should not be used fornon-medical purposes. Methadone Screen, Urine Not Detected Not Detect ng/mL [facility] Comment:Methadone cut-off is 300 ng/mL.Positive results are unconfirmed and should not be used fornon-medical purposes. FENTANYL URINE Not Detected Not Detect [facility] Comment:Fentanyl cut-off is 1 ng/mL.Positive results are unconfirmed and should not be used fornon-medical purposes. Oxycodone Urine Screen Not Detected Not Detect ng/mL [facility] Comment:Oxycodone cut-off is 100 ng/mL.Positive results are unconfirmed and should not be used fornon-medical purposes. Buprenorphine Screen Not Detected Not Detect ng/mL [facility] Comment:Buprenorphine cut-of f is 5 ng/mL.Positive results are unconfirmed and should not be used fornon-medical purposes. 01/27/2025 1:23 PM EST 01/27/2025 1:34 PM EST Generic External Data Provider LAB URINE ORDERAB LES Final Result Performing Organization Address [facility] de Phone Number [facility] [address] [place] [phone] * Ethanol (01/27/2025 12:49 PM EST) [facility] ETHANOL (MG/DL) IN SER/PLAS <10 mg/dL [facility] Comment:Serum/plasma ethanol results are to be used formedical/treatment purposes only. 01/27/2025 12:4 9 PM EST 01/27/2025 1:05 PM EST Generic External Data Provider LAB BLOOD ORDERAB LES Final Result Performing Organization Address [facility] de Phone Number [facility] [address] [place] [phone] * (ABNORMAL) CBC auto differential (01/27/2025 12:49 PM EST) Only the most recent of2 resultswithin the time period is included. Pathologist [facility] White Blood Count 9.1 4.8 - 10.8 X10*3/uL [facility] Red Blood Count 5.14 4.20 - 5.50 X10*6/uL [facility] Hemoglobin 14.8 12.0 - 16.0 g/dl [facility] Hematocrit 45.0 37.0 - 47.0 % [facility] Mean Corpuscular Volume 87.5 80.0 - 98.0 fL [facility] Mean Corpuscular Hemoglobin 28.8 27.0 - 33.0 pg [facility] Mean Corpuscular HGB Conc 32.9 31.0 - 35.0 g/dl [facility] Red Cell Distribution Width 12.6 11.0 - 16.0 % [facility] Platelet Count 302 160 - 400 X10*3/uL [facility] Mean Platelet Volume 10.4 9.4 - 12.3 fL [facility] Neutrophils Percent Auto 69.9 45 - 73 % [facility] Imm Gran Pct Auto 0.4 0.0 - 0.4 % [facility] Lymphocytes Percent Auto 21.7 20 - 40 % [facility] Monocytes Percent Auto 5.2 2 - 11 % [facility] Eosinophils Percent Auto 2.2 0 - 4 % [facility] Basophils Percent Auto 0.6 0 - 2 % [facility] NRBC Pct Auto 0.0 0.0 - 0.2 /100WBC [facility] Neutrophils Absolute Auto 6.3 2.0 - 8.3 x10*3/uL [facility] Imm Gran Abs Auto 0.04(H) 0.00 - 0.03 X10*3/uL [facility] Lymphocytes Absolute Auto 2.0 1.2 - 4.9 X10*3/uL [facility] Monocytes Absolute Auto 0.5 0.1 - 1.2 X10*3/uL [facility] Eosinophils Absolute Auto 0.2 0.0 - 0.4 X10*3/uL [facility] Basophils Absolute Auto 0.1 0.0 - 0.2 X10*3/uL [facility] NRBC Abs Auto 0.000 0.0 - 0.012 X10*3/uL [facility] 01/27/2025 12:4 9 PM EST 01/27/2025 1:05 PM EST us Generic External Data Provider LAB BLOOD ORDERAB LES Final Result [facility] [address] [place] [address] [phone] * Comprehensive Metabolic Panel (01/27/2025 12:49 PM EST) Only the most recent of2 resultswithin the time period is included. Sodium 141 135 - 145 mmol/L [facility] Potassium 4.1 3.3 - 5.1 mmol/L [facility] Chloride 104 96 - 108 mmol/L [facility] Carbon Dioxide 25 22 - 29 mmol/L [facility] Anion Gap 16 12 - 20 [facility] Urea Nitrogen (BUN) 13 9 - 16 mg/dL [facility] Creatinine, Serum 1.05 0.5 - 1.4 mg/dL [facility] Creatinine Clr Calc Pharmacy 82.6 [facility] Comment:Provided height and weight: 165.1 cm,70.307 kg.eGFR (calculated from the MDRD study equation) and eCrCl(calculated from the Cockcroft-Gault equation) are based ondifferent parameters and may not yield comparable results.If eCrCl result is absurd, please check patient'sheight/weight. Estimated Glomerular Filt Rate >60 [facility] Comment:Chronic Kidney Disea se: Estimated GFR < 60 mL/min/[id number] Kidney Disease: Estimated GFR < 15 mL/min/1.73m2 Glucose 113 60 - 115 mg/dL [facility] Calcium 9.9 8.4 - 10.2 mg/dL [facility] Bilirubin, Total 0.6 0.0 - 1.0 mg/dL [facility] Aspartate Amino Transferase 21 5 - 31 U/L [facility] Alanine Aminotransferase 24 0 - 31 U/L [facility] Total Protein 7.9 6.5 - 8.0 g/dL [facility] Albumin Level 5.0 3.5 - 5.0 g/dL [facility] Alkaline Phosphatase 83 39 - 117 U/L [facility] 01/27/2025 12:4 9 PM EST 01/27/2025 1:05 PM EST us Generic External Data Provider LAB BLOOD ORDERAB LES Final Result [facility] [address] [place] [address] [phone] * TSH with Reflex to Free T4 (12/29/2024 1:45 PM EDT) TSH reflex Free T4 0.55 0.32 - 4.0 uIU/mL [facility] Blood 12/29/2024 1:45 PM EDT 12/29/2024 2:09 PM EDT us Nancy Patel AUTOMATIC FURNACE OPERATOR LAB BLOOD ORDERABLES Final Res ult [facility] [address] [place] [address] [phone] * (ABNORMAL) Lipid Panel, Standard (12/29/2024 1:45 PM EDT) Triglycerides 131 <150 mg/dL [facility] Comment:Desirable Triglyceri de: less than 150 mg/dLBorderline High Triglyceride 150-199 mg/dLHigh Triglyceride: 200-499 mg/dLVery High Triglyceride: greater than or equal to 5OO mg/dL Cholesterol 153 <200 mg/dL [facility] Comment:Desirable Cholestero l: less than 200 mg/dLBorderline High Cholesterol: 200-239 mg/dLHigh Cholesterol: greater than 239 mg/dL LDL Cholesterol Calculated 90 <100 mg/dL [facility] Comment:Desirable LDL: less than 100 mg/dLNear Optimal/Above Optimal LDL: 110- 129 mg/dLBorderline High LDL: 130-159 mg/dLHigh LDL: 160-189 mg/dLVery High LDL: greater than or equal to 190 mg/dL HDL Cholesterol 37(L) >40 mg/dL [facility] Comment:Desirable HDL: great er than 40 mg/dL Note: This HDL assay may give artificially low results in patients with liver disease. Blood Venous blood specimen / Unknown 12/29/2024 1:45 PM EDT 12/29/2024 2:09 PM EDT us Nancy Patel [facility] LAB BLOOD ORDERABLES Final Res ult Performing Organization Address City/[facility]/ZIP Co de Phone Number [facility] [address] [place] [phone] * Chlamydia/Trichomonas/Neisseria gonorrhoeae, PCR, Urine (12/29/2024 1:20 PM EDT) CT PCR, Urine NOT DETECTED Not Detect. [facility] Comment:A not detected test result does not exclude the possibilityof infection because test results can be affected byimproper specimen collection, concurrent antibiotic therapy,or the number of organisms in the specimen which may bebelow the sensitivity of the test. As with many diagnostictests, results from the Xpert CT/NG assay should beinterpreted in conjunction with other laboratory andclinical data available to the clinician.The Xpert CT/NG assay should not be used for the evaluationof suspected sexual abuse or for other medico-legalindications. Additional testing is recommended in anycircumstance when false positive or false negative resultscould lead to adverse medical, social or psychologicalconsequences. NG PCR, Urine NOT DETECTED Not Detect. [facility] Comment:A not detected test result does not exclude the possibilityof infection because test results can be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
[2025-01-27 16:55] LABS: Acetaminophen LAB < 3 mcg/mL (<30); Salicylate < 5.0 mg/dL (15-30)
[2025-01-27] MEDS: Magnesium Hydrox/Alum Hydrox 30 ML ORAL.SUSP PO (19:14)
--- NOTE | 2025-01-27 19:15 | PC.NURSE ---
pt medicated per MAR for nausea
[2025-01-27 20:00] VITALS: BP 126/82; PULSE 99; RESP 16; TEMP 36.8; O2SAT 98
--- NOTE | 2025-01-27 20:20 | PC.NURSE ---
report given to M3 at this time
--- NOTE | 2025-01-27 23:38 | PC.NURSE ---
01/27/25 Pt declined flu shot pt already had it this year.
[2025-01-28 01:51] VITALS: BMI 29.9
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
[2025-01-28 08:00] VITALS: BP 121/76; PULSE 113; RESP 18; TEMP 36.2; O2SAT 97
[2025-01-28 08:36] LABS: Cholesterol 188 mg/dL (<200); HDL Cholesterol 44 mg/dL (>40); Triglycerides 148 mg/dL (<150)
[2025-01-28 09:05] VITALS: BP 121/76; PULSE 113
[2025-01-28] MEDS: Sucralfate Oral Suspension 1 GM/10 ML ORAL.SUSP PO ×2 (09:05→22:54)
[2025-01-28] MEDS: guanFACINE HCl ER 1 MG TAB.ER.24H 3 MG PO (09:05)
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
--- NOTE | 2025-01-28 12:59 | MHC.CLN ---
CONSULT PATIENT REPORTED 10# RECENT WEIGHT LOSS FROM NOT EATING OR DRINKING. REVIEW OF WEIGHT HX SHOWS WEIGHT GAIN TREND X 1.5 YEARS. BMI=29.9, OVERWEIGHT. ANTICIPATE IMPROVED PO INTAKE WITH STABILIZED CLINICAL STATUS.
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
[2025-01-28 20:00] VITALS: BP 121/67; PULSE 93; RESP 16; TEMP 36.8; O2SAT 97
[2025-01-28 22:53] VITALS: BP 130/84; PULSE 106
[2025-01-29 07:00] VITALS: BMI 30.7
[2025-01-29 08:00] VITALS: BP 112/62; PULSE 83; RESP 16; TEMP 36.6; O2SAT 95
[2025-01-29 08:26] VITALS: BP 112/62; PULSE 83
[2025-01-29] MEDS: Sucralfate Oral Suspension 1 GM/10 ML ORAL.SUSP PO ×2 (08:26→22:01)
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
[2025-01-29 18:45] VITALS: BP 142/78; PULSE 105; RESP 16; TEMP 36.6; O2SAT 98
[2025-01-29 22:03] VITALS: BP 115/76; PULSE 88
[2025-01-29] MEDS: guanFACINE HCl ER 1 MG TAB.ER.24H 3 MG PO (22:04)
[2025-01-30 08:00] VITALS: BP 109/61; PULSE 74; RESP 16; TEMP 36.7; O2SAT 97
[2025-01-30] MEDS: Sucralfate Oral Suspension 1 GM/10 ML ORAL.SUSP PO ×2 (08:33→22:31)
--- NOTE | 2025-01-30 18:51 | HO.PSYCHPN ---
Subjective Subjective Date of Service: 01/30/25 Reason For Visit: decompensation Subjective Notes: 3 Day Interim History: chart reviewed, case discussed in tx team Doing 'okay'. Over-thinking/racing thoughts have decreased w/ risperidone. [place] a bit sedated this am with dose increase from .25 mg to .5 mg but wants to continue .5 mg bid for now. Denies SI, violent ideation, AHVH Slept well Looking forward to d/c on Sunday t/w spoke w/ staff from pt's half-way. Will need scripts for risperidone, trazodone, vistaril and propranolol to be sent to [facility] on [address] in [place] and medication orders Medication Compliance: Yes Attending Groups: Yes Mental Status Exam Mental Status Exam Narrative: Appearance: Hirsute. Grooming/hygiene wnl. Good eye contact Attitude:Cooperative Speech: Fluent and wnl in regard to volume, tone, prosody Motor activity: Calm and without any tics, tremors or dyskinesias. Steady gait Mood: 'okay' Affect: appropriate Thought process: goal directed Thought content: denies SI/violent ideation Perception: does not appear to respond to internal stimuli Insight: fair Judgment: intact Diagnostics Vital Signs (24Hr): Vital Signs - 24 hr 01/29/25 22:03 01/30/25 08:00 Temperature 98.1 F Pulse Rate 88 74 Respiratory Rate 16 Blood Pressure 115/76 109/61 Pulse Oximetry 97 Oxygen Delivery Method Room Air BMI result Body Mass Index 30.7 Labs 01/27/25 12:49 01/27/25 12:49 Medications Medications Current Medications Acetaminophen (Acetaminophen 325 Mg Tablet) 650 mg PO Q6H PRN PRN Reason: Headache/Pain, Scale 1-10 Al Hydroxide/Mg Hydroxide (Magnesium Hydrox/Alum Hydrox 30 Ml Oral.Susp) 30 ml PO Q6H PRN PRN Reason: Heartburn/Nausea Last Admin: 01/27/25 19:14 Dose: 30 ml Cyanocobalamin (Cyanocobalamin (Vitamin B-12) 1,000 Mcg Tablet) 1,000 mcg PO DAILY [facility] Last Admin: 01/30/25 08:31 Dose: 1,000 mcg Docusate Sodium (Docusate Sodium 100 Mg Capsule) 100 mg PO DAILY [facility] Last Admin: 01/30/25 08:31 Dose: 100 mg Famotidine (Famotidine 20 Mg Tablet) 20 mg PO BID [facility] Last Admin: 01/30/25 08:31 Dose: 20 mg Guanfacine HCl (Guanfacine Hcl Er 1 Mg Tab.Er.24h) 3 mg PO BEDTIME [facility] Last Admin: 01/29/25 22:04 Dose: 3 mg Hydroxyzine HCl (Hydroxyzine Hcl 50 Mg Tablet) 50 mg PO BID [facility] Loratadine (Loratadine 10 Mg Tablet) 10 mg PO DAILY [facility] Last Admin: 01/30/25 08:31 Dose: 10 mg Magnesium Hydroxide (Milk Of Magnesia 30 Ml Oral.Susp) 30 ml PO DAILY PRN PRN Reason: Constipation Mirtazapine (Mirtazapine 15 Mg Tablet) 45 mg PO BEDTIME [facility] Last Admin: 01/29/25 22:02 Dose: 45 mg Ondansetron HCl (Ondansetron Odt 4 Mg Tab.Rapdis) 4 mg TRANSLINGU Q4H PRN PRN Reason: Nausea and Vomiting Last Admin: 01/30/25 14:08 Dose: 4 mg Propranolol HCl (Propranolol Hcl 20 Mg Tablet) 20 mg PO BID [facility]; Protocol Last Admin: 01/30/25 08:31 Dose: 20 mg Risperidone (Risperidone 0.5 Mg Tablet) 0.5 mg PO BID [facility] Last Admin: 01/30/25 08:31 Dose: 0.5 mg Sucralfate (Sucralfate Oral Suspension 1 Gm/10 Ml Oral.Susp) 1 gm PO BID [facility] Last Admin: 01/30/25 08:33 Dose: 1 gm Trazodone HCl (Trazodone Hcl 50 Mg Tablet) 50 mg PO BEDTIME MRX1 PRN PRN Reason: Insomnia Last Admin: 01/29/25 22:03 Dose: 50 mg Vitamin D (Cholecalciferol (Vitamin D3) 25 Mcg Tablet) 25 mcg PO DAILY [facility] Last Admin: 01/30/25 08:31 Dose: 25 mcg Allergies Allergies Allergy/AdvReac Type Severity Reaction Status Date / Time No Known Allergies Allergy Verified 01/27/25 12:33 Assessment & Plan Assessment & Plan (1) 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 Conrado Agudelo is a 24 yo partnered Montenegrin speaking Filipino F with h/o PTSD, depression, ADHD and learning disability who was BIBA from her half-way due to SI. Per CARE team assessment, pt reported taking extra medication on Sunday in an attempt to end her life following an argument with her cousin but just went to sleep. Pt has experienced increased anxiety and depression in the setting of relationship stressors and issues with a peer who recently moved into her half-way. She denies SI currently and is happy that her half-way staff are working on moving her into a new half-way. She would like to adjust her medication to reduce 'overthinking' while she is here. *Pt's u tox was positive for PCP but this is presumed to be a false positive (quetiapine, NSAIDS, benadryl can cause false +). Pt has no recorded h/o substance use and denies any h/o substance use. Plan: Admitted to for safety and stabilization Legal status- 3-day note expires on Sunday, 02/02 15 min safety checks Milieu therapy Vital signs per unit standard Admission H&P completed by hospitalist, reviewed by t/w Meds- D/C quetiapine. Start risperidone .5 mg qhs and 0.25 mg qam off-label for severe anxiety Otherwise continue current home medication regimen D/C planning-will likely d/c on 02/02 to half-way 01/29: Pt is agreeable w/ recs to titrate risperidone to target anxiety (off-label). Will increase to .5 mg bid starting tomorrow am 01/30: Continue current tx plan. Will d/c to half-way on Sunday when 3-day expires. Reason for continued inpatient stay Substantial Risk for: med/psych decompensation Time Spent With Patient Time: Total time managing care of this patient today ____ minutes.
[2025-01-30 20:00] VITALS: BP 123/83; PULSE 81; RESP 16; TEMP 37.3; O2SAT 99
[2025-01-30] MEDS: guanFACINE HCl ER 1 MG TAB.ER.24H 3 MG PO (22:30)
[2025-01-31 08:30] VITALS: BP 116/67; PULSE 74; RESP 20; TEMP 36.3; O2SAT 98
[2025-01-31] MEDS: Sucralfate Oral Suspension 1 GM/10 ML ORAL.SUSP PO ×2 (08:48→22:31)
[2025-01-31 08:49] VITALS: BP 116/67; PULSE 74
--- NOTE | 2025-01-31 09:22 | P.PNPSI_ITS ---
Subjective Subjective Date of Service: 01/31/25 Reason For Visit: decompensation Interim History: chart reviewed Patient reports she feels stable. Has been visible on the milieu. Denies SI/HI/AVH. Racing thoughts are subsided. Feeling ready for DC on Sunday. Denies side effects with medications. Review of Systems Review of Systems Denies any shortness of breath, chest pain, headaches, dysuria, abdominal pain or discomfort, nausea, vomiting or diarrhea. Denies fever or chills. Yes all other systems are reviewed and are negative Constitutional: Reports as per [facility] Mental Status Exam Mental Status Exam Narrative: Appearance: Hirsute. Grooming/hygiene wnl. Good eye contact Attitude:Cooperative Speech: Fluent and wnl in regard to volume, tone, prosody Motor activity: Calm and without any tics, tremors or dyskinesias. Steady gait Mood: 'okay' Affect: appropriate Thought process: goal directed Thought content: denies SI/violent ideation Perception: does not appear to respond to internal stimuli Insight: fair Judgment: intact Diagnostics Vital Signs (24Hr): Vital Signs - 24 hr 01/30/25 20:00 01/31/25 08:49 Temperature 99.1 F Pulse Rate 81 74 Respiratory Rate 16 Blood Pressure 123/83 116/67 Pulse Oximetry 99 Oxygen Delivery Method Room Air BMI result Body Mass Index 30.7 Labs 01/27/25 12:49 01/27/25 12:49 Medications Medications Current Medications Acetaminophen (Acetaminophen 325 Mg Tablet) 650 mg PO Q6H PRN PRN Reason: Headache/Pain, Scale 1-10 Al Hydroxide/Mg Hydroxide (Magnesium Hydrox/Alum Hydrox 30 Ml Oral.Susp) 30 ml PO Q6H PRN PRN Reason: Heartburn/Nausea Last Admin: 01/27/25 19:14 Dose: 30 ml Cyanocobalamin (Cyanocobalamin (Vitamin B-12) 1,000 Mcg Tablet) 1,000 mcg PO DAILY [facility] Last Admin: 01/31/25 08:49 Dose: 1,000 mcg Docusate Sodium (Docusate Sodium 100 Mg Capsule) 100 mg PO DAILY [facility] Last Admin: 01/31/25 08:49 Dose: 100 mg Famotidine (Famotidine 20 Mg Tablet) 20 mg PO BID [facility] Last Admin: 01/31/25 08:49 Dose: 20 mg Guanfacine HCl (Guanfacine Hcl Er 1 Mg Tab.Er.24h) 3 mg PO BEDTIME [facility] Last Admin: 01/30/25 22:30 Dose: 3 mg Hydroxyzine HCl (Hydroxyzine Hcl 50 Mg Tablet) 50 mg PO BEDTIME [facility] Last Admin: 01/30/25 22:31 Dose: 50 mg Hydroxyzine HCl (Hydroxyzine Hcl 50 Mg Tablet) 50 mg PO DAILY PRN PRN Reason: Anxiety Loratadine (Loratadine 10 Mg Tablet) 10 mg PO DAILY [facility] Last Admin: 01/31/25 08:48 Dose: 10 mg Magnesium Hydroxide (Milk Of Magnesia 30 Ml Oral.Susp) 30 ml PO DAILY PRN PRN Reason: Constipation Mirtazapine (Mirtazapine 15 Mg Tablet) 45 mg PO BEDTIME [facility] Last Admin: 01/30/25 22:31 Dose: 45 mg Ondansetron HCl (Ondansetron Odt 4 Mg Tab.Rapdis) 4 mg TRANSLINGU Q4H PRN PRN Reason: Nausea and Vomiting Last Admin: 01/30/25 14:08 Dose: 4 mg Propranolol HCl (Propranolol Hcl 20 Mg Tablet) 20 mg PO BID [facility]; Protocol Last Admin: 01/31/25 08:49 Dose: 20 mg Risperidone (Risperidone 0.5 Mg Tablet) 0.5 mg PO BID [facility] Last Admin: 01/31/25 08:49 Dose: 0.5 mg Sucralfate (Sucralfate Oral Suspension 1 Gm/10 Ml Oral.Susp) 1 gm PO BID [facility] Last Admin: 01/31/25 08:48 Dose: 1 gm Trazodone HCl (Trazodone Hcl 50 Mg Tablet) 50 mg PO BEDTIME MRX1 PRN PRN Reason: Insomnia Last Admin: 01/30/25 22:30 Dose: 50 mg Vitamin D (Cholecalciferol (Vitamin D3) 25 Mcg Tablet) 25 mcg PO DAILY [facility] Last Admin: 01/31/25 08:49 Dose: 25 mcg Allergies Allergies Allergy/AdvReac Type Severity Reaction Status Date / Time No Known Allergies Allergy Verified 01/27/25 12:33 Assessment & Plan Assessment & Plan (1) 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 Conrado Agudelo is a 24 yo partnered Khmer speaking [place] F with h/o PTSD, depression, ADHD and learning disability who was BIBA from her intermediate due to SI. Per CARE team assessment, pt reported taking extra medication on Sunday in an attempt to end her life following an argument with her cousin but just went to sleep. Pt has experienced increased anxiety and depression in the setting of relationship stressors and issues with a peer who recently moved into her intermediate. She denies SI currently and is happy that her intermediate staff are working on moving her into a new intermediate. She would like to adjust her medication to reduce 'overthinking' while she is here. *Pt's u tox was positive for PCP but this is presumed to be a false positive (quetiapine, NSAIDS, benadryl can cause false +). Pt has no recorded h/o substance use and denies any h/o substance use. Plan: Admitted to for safety and stabilization Legal status- 3-day note expires on Sunday, 02/02 15 min safety checks Milieu therapy Vital signs per unit standard Admission H&P completed by hospitalist, reviewed by t/w Meds- D/C quetiapine. Start risperidone .5 mg qhs and 0.25 mg qam off-label for severe anxiety Otherwise continue current home medication regimen D/C planning-will likely d/c on 02/02 to intermediate 01/29: Pt is agreeable w/ recs to titrate risperidone to target anxiety (off- label). Will increase to .5 mg bid starting tomorrow am 01/30: Continue current tx plan. Will d/c to intermediate on Sunday when 3-day expires. 01/31: continue current management and treatment plan. Reason for continued inpatient stay Substantial Risk for: harm to self, inability to function and rapid decompensation Time Spent With Patient Time: Total time managing care of this patient today ____ minutes.
[2025-01-31 20:00] VITALS: BP 116/80; PULSE 91; RESP 16; TEMP 36.9; O2SAT 97
[2025-01-31 22:28] VITALS: BP 130/84; PULSE 92
[2025-01-31] MEDS: guanFACINE HCl ER 1 MG TAB.ER.24H 3 MG PO (22:30)
[2025-02-01 08:00] VITALS: BP 102/60; PULSE 74; RESP 16; TEMP 36.8; O2SAT 98
[2025-02-01 08:43] VITALS: BP 102/60; PULSE 74
[2025-02-01] MEDS: Sucralfate Oral Suspension 1 GM/10 ML ORAL.SUSP PO ×2 (08:44→22:23)
--- NOTE | 2025-02-01 09:47 | HO.PSYCHPN ---
Subjective Subjective Date of Service: 02/01/25 Reason For Visit: decompensation Subjective Notes: 3 Day Interim History: chart reviewed. Discussed with RN. Patient reports she is feeling well. Feels ready for possible DC tomorrow. She denies SI/AVH. Racing thoughts are subsided. Denies side effects with medications. Review of Systems Review of Systems Denies any shortness of breath, chest pain, headaches, dysuria, abdominal pain or discomfort, nausea, vomiting or diarrhea. Denies fever or chills. Yes all other systems are reviewed and are negative Constitutional: Reports as per [facility] Mental Status Exam Mental Status Exam Narrative: Appearance: Hirsute. Grooming/hygiene wnl. Good eye contact Attitude:Cooperative Speech: Fluent and wnl in regard to volume, tone, prosody Motor activity: Calm and without any tics, tremors or dyskinesias. Steady gait Mood: 'okay' Affect: appropriate Thought process: goal directed Thought content: denies SI/violent ideation Perception: does not appear to respond to internal stimuli Insight: fair Judgment: intact Diagnostics Vital Signs (24Hr): Vital Signs - 24 hr 01/31/25 20:00 01/31/25 22:28 02/01/25 08:00 Temperature 98.4 F 98.3 F Pulse Rate 91 92 74 Respiratory Rate 16 16 Blood Pressure 116/80 130/84 102/60 Pulse Oximetry 97 98 Oxygen Delivery Method Room Air Room Air 02/01/25 08:43 Temperature Pulse Rate 74 Respiratory Rate Blood Pressure 102/60 Pulse Oximetry Oxygen Delivery Method BMI result Body Mass Index 30.7 Labs 01/27/25 12:49 01/27/25 12:49 Medications Medications Current Medications Acetaminophen (Acetaminophen 325 Mg Tablet) 650 mg PO Q6H PRN PRN Reason: Headache/Pain, Scale 1-10 Last Admin: 01/31/25 22:30 Dose: 650 mg Al Hydroxide/Mg Hydroxide (Magnesium Hydrox/Alum Hydrox 30 Ml Oral.Susp) 30 ml PO Q6H PRN PRN Reason: Heartburn/Nausea Last Admin: 01/27/25 19:14 Dose: 30 ml Cyanocobalamin (Cyanocobalamin (Vitamin B-12) 1,000 Mcg Tablet) 1,000 mcg PO DAILY [facility] Last Admin: 02/01/25 08:43 Dose: 1,000 mcg Docusate Sodium (Docusate Sodium 100 Mg Capsule) 100 mg PO DAILY [facility] Last Admin: 02/01/25 08:44 Dose: 100 mg Famotidine (Famotidine 20 Mg Tablet) 20 mg PO BID [facility] Last Admin: 02/01/25 08:43 Dose: 20 mg Guanfacine HCl (Guanfacine Hcl Er 1 Mg Tab.Er.24h) 3 mg PO BEDTIME [facility] Last Admin: 01/31/25 22:30 Dose: 3 mg Hydroxyzine HCl (Hydroxyzine Hcl 50 Mg Tablet) 50 mg PO BEDTIME [facility] Last Admin: 01/31/25 22:28 Dose: 50 mg Hydroxyzine HCl (Hydroxyzine Hcl 50 Mg Tablet) 50 mg PO DAILY PRN PRN Reason: Anxiety Loratadine (Loratadine 10 Mg Tablet) 10 mg PO DAILY [facility] Last Admin: 02/01/25 08:43 Dose: 10 mg Magnesium Hydroxide (Milk Of Magnesia 30 Ml Oral.Susp) 30 ml PO DAILY PRN PRN Reason: Constipation Mirtazapine (Mirtazapine 15 Mg Tablet) 45 mg PO BEDTIME [facility] Last Admin: 01/31/25 22:29 Dose: 45 mg Ondansetron HCl (Ondansetron Odt 4 Mg Tab.Rapdis) 4 mg TRANSLINGU Q4H PRN PRN Reason: Nausea and Vomiting Last Admin: 01/30/25 14:08 Dose: 4 mg Propranolol HCl (Propranolol Hcl 20 Mg Tablet) 20 mg PO BID [facility]; Protocol Last Admin: 02/01/25 08:43 Dose: 20 mg Risperidone (Risperidone 0.5 Mg Tablet) 0.5 mg PO BID [facility] Last Admin: 02/01/25 08:44 Dose: 0.5 mg Sucralfate (Sucralfate Oral Suspension 1 Gm/10 Ml Oral.Susp) 1 gm PO BID [facility] Last Admin: 02/01/25 08:44 Dose: 1 gm Trazodone HCl (Trazodone Hcl 50 Mg Tablet) 50 mg PO BEDTIME MRX1 PRN PRN Reason: Insomnia Last Admin: 01/31/25 22:30 Dose: 50 mg Vitamin D (Cholecalciferol (Vitamin D3) 25 Mcg Tablet) 25 mcg PO DAILY [facility] Last Admin: 02/01/25 08:43 Dose: 25 mcg Allergies Allergies Allergy/AdvReac Type Severity Reaction Status Date / Time No Known Allergies Allergy Verified 01/27/25 12:33 Assessment & Plan Assessment & Plan (1) 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 Conrado Agudelo is a 24 yo partnered Indian speaking Monegasque F with h/o PTSD, depression, ADHD and learning disability who was BIBA from her shelter due to SI. Per CARE team assessment, pt reported taking extra medication on Sunday in an attempt to end her life following an argument with her cousin but just went to sleep. Pt has experienced increased anxiety and depression in the setting of relationship stressors and issues with a peer who recently moved into her shelter. She denies SI currently and is happy that her shelter staff are working on moving her into a new shelter. She would like to adjust her medication to reduce 'overthinking' while she is here. *Pt's u tox was positive for PCP but this is presumed to be a false positive (quetiapine, NSAIDS, benadryl can cause false +). Pt has no recorded h/o substance use and denies any h/o substance use. Plan: Admitted to for safety and stabilization Legal status- 3-day note expires on Sunday, 02/02 15 min safety checks Milieu therapy Vital signs per unit standard Admission H&P completed by hospitalist, reviewed by t/w Meds- D/C quetiapine. Start risperidone .5 mg qhs and 0.25 mg qam off-label for severe anxiety Otherwise continue current home medication regimen D/C planning-will likely d/c on 02/02 to shelter 01/29: Pt is agreeable w/ recs to titrate risperidone to target anxiety (off-label). Will increase to .5 mg bid starting tomorrow am 01/30: Continue current tx plan. Will d/c to shelter on Sunday when 3-day expires. 01/31: continue current management and treatment plan. 02/01: continue current management and treatment plan. Possible DC tomorrow. Reason for continued inpatient stay Substantial Risk for: harm to self, inability to function and rapid decompensation Time Spent With Patient Time: Total time managing care of this patient today ____ minutes.
[2025-02-01 19:47] VITALS: BP 136/68; PULSE 101; RESP 16; TEMP 37.2; O2SAT 97
[2025-02-01] MEDS: guanFACINE HCl ER 1 MG TAB.ER.24H 3 MG PO (22:22)
[2025-02-01 22:23] VITALS: BP 131/90; PULSE 96
[2025-02-02 08:00] VITALS: BP 111/70; PULSE 79; RESP 18; TEMP 36.8; O2SAT 97
[2025-02-02] MEDS: Sucralfate Oral Suspension 1 GM/10 ML ORAL.SUSP PO (08:49)
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
--- NOTE | 2025-02-02 12:08 | PC.NURSE ---
Jemily engages easily. Reports mood is stable, denies depression or sadness, denies anxiety, denies SI/HI plan or intent. Denies perceptual disturbances, no overt psychosis or expressed delusions. Reports feeling excited about provider meeting tomorrow, and moving towards new residence. Discharge paperwork reviewed reported understanding. Discharge medications reviewed reports understanding. Follow up appointments reviewed, reports understanding. All belongings taken with patient, reports missing pair of pant and underwear. Crisis numbers provided to patient. Resource booklet provided.
== END 2025-02-02 11:55 | disposition home or self-care (01) | DRG 755 ==
LOC: HO.ED 14:45 → HO.PADLT16 16:00
PROVIDERS: Physician Assistant Medical; Admitting Provider Psychiatry & Neurology Psychiatry; Emergency Provider Emergency Medicine; PCP Registered Nurse; Visit Provider Psychiatry & Neurology Psychiatry
DX: F43.25 Adjustment disorder with mixed disturbance of emotions and conduct (principal); R45.851 Suicidal ideations; F32.9 Major depressive disorder, single episode, unspecified; F43.10 Post-traumatic stress disorder, unspecified; K21.9 Gastro-esophageal reflux disease without esophagitis; F90.9 Attention-deficit hyperactivity disorder, unspecified type; Z79.899 Other long term (current) drug therapy
CPT/HCPCS: 36415; 80053; 80061; 80143; 80179; 80307; 81001; 81025; 83036; 85025; 87086; 93005; 99285; S9485

== ENCOUNTER → 2025-01-27 15:08 | Outpatient (BNV) | payer MEDICAID, SELFPAY | PROVIDERS: Admitting Provider Psychiatry & Neurology Psychiatry; Emergency Provider Emergency Medicine; PCP Registered Nurse; Visit Provider Internal Medicine Cardiovascular Disease | DX: R94.31 Abnormal electrocardiogram [ECG] [EKG] (principal); Z13.6 Encounter for screening for cardiovascular disorders | CPT/HCPCS: 93010 ==

== ENCOUNTER → 2025-01-27 15:53 | Outpatient (BNV) | payer OTHER, SELFPAY | PROVIDERS: Admitting Provider Psychiatry & Neurology Psychiatry; Emergency Provider Emergency Medicine; PCP Registered Nurse; Visit Provider Psychiatry & Neurology Psychiatry | DX: F33.2 Major depressive disorder, recurrent severe without psychotic features (principal); F43.25 Adjustment disorder with mixed disturbance of emotions and conduct; F43.11 Post-traumatic stress disorder, acute | CPT/HCPCS: 99231 ==

== ENCOUNTER → 2025-01-27 15:53 | Outpatient (BNV) | payer MEDICAID, SELFPAY | PROVIDERS: Admitting Provider Psychiatry & Neurology Psychiatry; Emergency Provider Emergency Medicine; PCP Registered Nurse; Visit Provider Nurse Practitioner Family | DX: K21.9 Gastro-esophageal reflux disease without esophagitis (principal) | CPT/HCPCS: 99221 ==

== ENCOUNTER 2025-02-06 15:30 | Outpatient (REF) | payer MEDICAID, SELFPAY ==
--- OUTSIDE RECORDS SUMMARY | 2025-02-06 15:35 | XMS_ITS | Encounter Summary ---
Author Organization [employer] Address [address] [facility] [address] [place] [address] Care Team Providers Care Customs Consultant Name Role Phone Nancy Patel Primary Care Provider [phone] Devante Jurado MD Unavailable [phone] Encounter Details Date Type Department Care Team ([facility] Contact Info) Description 06/02/2022 Telephone [facility] MEDICINE [address] [place] [address] Nancy Patel FNP [address] [place] [address] Social History Tobacco Use Types Packs/Day Years [...] Upcoming Encounters Date Type Department Care Team ([facility] Contact Info) Description 02/20/2025 2:00 PM EST Office Visit [facility] MED & PEDS [address] [place], [place] [phone] Nancy Patel FNP [address] [place], [place] [phone] 03/27/2025 11:30 AM EST Office Visit [facility] MED & PEDS [address] [place] [address] Nancy Patel FNP [address] [place] [address] 05/29/2025 1:00 PM EDT Office Visit [facility] OPTOMETRY [address] [place] [address] Sun Cook, OD [address] [place] [address] documented as of this encounter Visit Diagnoses Not on filedocumented in this encounter Care Teams Customs Consultant Relationship Specialty Start Date End Date Nancy Patel FNP [address] [place] [address] PCP - General Family Medicine 11/10/21 Devante Jurado MD [address] [place] [address] Cardiology 04/14/24 documented as of this encounter
--- OUTSIDE RECORDS SUMMARY | 2025-02-06 15:35 | XMS_ITS | Encounter Summary ---
Author Organization [employer] Address [address] [facility] [address] [place] [address] Care Team Providers Care Geriatric Nurse Name Role Phone Nnacy Patel Primary Care Provider [phone] Devante Jurado MD Unavailable [phone] Reason for Visit * Reason Onset Date Comments Nurse Triage 02/27/2023 Encounter Details Date Type Department Care Team ([facility] st Contact Info) Description 02/27/2023 Telephone [facility] MED & PEDS [address] [place], [place] [phone] Nancy Patel FNP [address] [place] [address] Nurse Triage Social History Tobacco Use Types [...] EST Triage call Pt was [place] [facility] [place] for vaginal bleeding and dysmenorrhea. Pt [...] Reason: Heavy bleeding, pt was seen [place] [facility] [place] for [place] bleeding. Pt still symptomatic The caller accepted this outcome Please contact pt at [phone] documented in this encounter Plan of Treatment Upcoming Encounters Date Type Department Care Team ([facility] st Contact Info) Description 02/20/2025 2:00 PM EST Office Visit [facility] MED & PEDS [address] [place] [address] Nancy Patel FNP [address] [place] [address] 03/27/2025 11:30 AM EST Office Visit [facility] MED & PEDS [address] [place] [address] Nancy Patel FNP [address] [place] [address] 05/29/2025 1:00 PM EDT Office Visit [facility] OPTOMETRY [address] [place] [address] Joey, Sun, OD [address] [place] [address] documented as of this encounter Visit Diagnoses Not on filedocumented in this encounter Additional Health Concerns Assessment Noted Time PHQ-9 Depression Total Score: 19 023 3:09 PM EDT documented as of this encounter Care Teams Geriatric Nurse Relationship Specialty Start Date End Date Nancy Patel FNP [address] [place] [address] PCP - General Family Medicine 11/10/21 Devante Jurado MD [address] [place] [address] Cardiology 04/14/24 documented as of this encounter
--- OUTSIDE RECORDS SUMMARY | 2025-02-06 15:35 | XMS_ITS | Encounter Summary ---
Author Organization [employer] Address [address] [place] [address] Care Team Providers Care Milling Machine Tender Name Role Phone Nancy Patel Primary Care Provider [phone] Devante Jurado MD Unavailable [phone] Reason for Visit * Reason Onset Date Comments ER Follow-up 06/22/2023 Encounter Details Date Type Department Care Team ([facility] st Contact Info) Description 06/22/2023 Telephone [facility] MEDICINE [address] [place] [address] Nancy Patel FNP [address] [place] [address] ER Follow-up Social History Tobacco Use Types [...] on 06/25 at 11:[address] hCester. Murray verbalizes understanding and agreement with plan. Will scan ED note into pt's chart. * Telephone Encounter - Estevan Juarez - 06/22/2023 10:42 AM EDT Tc from [facility] care home returning call, states received a call for EDF. Please contact at [phone] * Telephone Encounter - Juan Daniel Mabry - 06/22/2023 9:33 AM EDT Patient calling to report ED visit on : Date: 06/22/23 Hospital: [facility] Seen for: Seizure Patient advised will forward to team nurse for follow up documented in this encounter Plan of Treatment Upcoming Encounters Date Type Department Care Team (Late st Contact Info) Description 02/20/2025 2:00 PM EST Office Visit [facility] MED & PEDS [address] [place] [address] Nancy Patel FNP [address] [place] [address] 03/27/2025 11:30 AM EST Office Visit [facility] MED & PEDS [address] [place] [address] Nancy Patel FNP [address] [place] [address] 05/29/2025 1:00 PM EDT Office Visit [facility] OPTOMETRY [address] [place] [address] JoeySun murray, OD [address] [place] [address] documented as of this encounter Visit Diagnoses Not on filedocumented in this encounter Additional Health Concerns Assessment Noted Time PHQ-9 Depression Total Score: 5 03/06/20 23 10:22 AM EST documented as of this encounter Care Teams Milling Machine Tender Relationship Specialty Start Date End Date Nancy Patel FNP [address] [place] [address] PCP - General Family Medicine 11/10/21 Devante Jurado MD [address] [place] [address] Cardiology 04/14/24 documented as of this encounter
--- OUTSIDE RECORDS SUMMARY | 2025-02-06 15:35 | XMS_ITS | Encounter Summary ---
Author Organization [employer] Address [address] [facility] [address] [place] [address] Care Team Providers Care Senior Backup Administrator Name Role Phone Nancy Patel Primary Care Provider [phone] Devante Jurado MD Unavailable [phone] Reason for Visit * Reason Onset Date Comments Medication Question 01/22/2024 Encounter Details Date Type Department Care Team ([facility] Contact Info) Description 01/22/2024 Telephone [facility] MED & PEDS [address] [place], [place] [phone] Nancy Patel FNP [address] [place] [address] Medication Question Social History Tobacco Use Types [...] PM EST Tc from Murray from pt senior care at [facility] requesting a call back to go over pt medications. Also to see if pcp can prescribe pt psych meds. Best contact # [phone]. documented in this encounter Plan of Treatment Upcoming Encounters Date Type Department Care Team ([facility] st Contact Info) Description 02/20/2025 2:00 PM EST Office Visit [facility] MED & PEDS [address] [place] [address] Nancy Patel FNP [address] [place], [place] [phone] 03/27/2025 11:30 AM EST Office Visit [facility] MED & PEDS [address] [place] [address] Nancy Patel FNP [address] [place] [address] 05/29/2025 1:00 PM EDT Office Visit [facility] OPTOMETRY [address] [place] [address] JoeyShilon, OD [address] [place] [address] documented as of this encounter Visit Diagnoses Not on filedocumented in this encounter Additional Health Concerns Assessment Noted Time PHQ-9 Depression Total Score: 5 03/06/20 23 10:22 AM EST documented as of this encounter Care Teams Senior Backup Administrator Relationship Specialty Start Date End Date Nancy Patel FNP [address] [place] [address] PCP - General Family Medicine 11/10/21 Devante Jurado MD [address] [place] [address] Cardiology 04/14/24 documented as of this encounter
--- OUTSIDE RECORDS SUMMARY | 2025-02-06 15:35 | XMS_ITS | Encounter Summary ---
Author Organization [employer] Address [address] [place] [address] Care Team Providers Care 3Rd Mate Name Role Phone Nancy Patel Primary Care Provider [phone] Devante Jurado MD Unavailable [phone] Reason for Visit * Reason Onset Date Comments Call Back Request 05/23/2023 Encounter Details Date Type Department Care Team ([facility] Contact Info) Description 05/23/2023 Telephone [facility] MEDICINE [address] [place] [address] Nancy Patel FNP [address] [place] [address] Call Back Request Social History Tobacco Use [...] 12:13 PM EST Tc to [facility] from [facility]. Confirmed that pt stopped taking psych meds after seeing SPREADER last week. Murray states he is working [...] [facility] to [facility] [place]. Murray verbalizes understanding and agreement with plan. * Telephone Encounter - MEGHA Salmeron - 05/25/2023 11:43 AM EST Cleve is prescribed multiple medications through psych, which ideally should not be stopped abruptly. Sounds like she stopped taking them after SPREADER appt? My recommendation would be to continue reaching out to psych prescriber who prescribes meds, but also to schedule Cleve for a visit to discuss if interested to get to the root of why she is refusing meds. Please schedule for a 30 mins visit with myself. She may also be seen in [facility] [place] today if not able to wait until next week. (If no soon appt slots available on my schedule, OK to book for a 30 minute televisit Sun05/30/23 at 2:30 or 3pm. Let me know if you need me to override schedule block) Thank you! * Telephone Encounter - Wing Harsh RN - 05/24/2023 3:45 PM EST Please advise, tc to Murray from [facility] regarding pt not taking medication. Murray reported that pt did not taken her regular med only once yesterday morning but has taken regular meds since then. Pt is currently not taking psych meds because pt had seen a pin machine tender recently for bleeding andwanted to start Nexplanon. Guillotine Trimmer stated to the pt that her med [...] PCP as [facility]. Tc from Murray from [facility] calling to inform PCP pt is no taking her medications, please contact Murray for advise at [phone]. * Telephone Encounter - Lauren Swartz - 05/23/2023 11:19 AM EST Tc from [facility] from [facility] calling to inform PCP pt is no taking her medications, please contact Murray for advise at [phone]. documented in this encounter Plan of Treatment Upcoming Encounters Date Type Department Care Team (Late st Contact Info) Description 02/20/2025 2:00 PM EST Office Visit [facility] MED & PEDS [address] [place] [address] Nancy Patel FNP [address] [place] [address] 03/27/2025 11:30 AM EST Office Visit [facility] MED & PEDS [address] [place] [address] Nancy Patel FNP [address] [place] [address] 05/29/2025 1:00 PM EDT Office Visit [facility] OPTOMETRY [address] [place] [address] Joey, Sun, OD [address] [place] [address] documented as of this encounter Visit Diagnoses Not on filedocumented in this encounter Additional Health Concerns Assessment Noted Time PHQ-9 Depression Total Score: 5 03/06/20 23 10:22 AM EST documented as of this encounter Care Teams 3Rd Mate Relationship Specialty Start Date End Date Nancy Patel FNP [address] [place] [address] PCP - General Family Medicine 11/10/21 Devante Jurado MD [address] [place] [address] Cardiology 04/14/24 documented as of this encounter
--- OUTSIDE RECORDS SUMMARY | 2025-02-06 15:35 | XMS_ITS | Encounter Summary ---
Author Organization [employer] Address [address] [facility] [address] [place] [address] Care Team Providers Care Hedis Nurse Name Role Phone Nancy Patel Primary Care Provider [phone] Devante Jurado MD Unavailable [phone] Reason for Visit * Reason Onset Date Comments Nurse Triage 02/07/2023 Encounter Details Date Type Department Care Team ([facility] Contact Info) Description 02/07/2023 Telephone [facility] MED & PEDS [address] [place], [place] [phone] Nancy Patel FNP [address] [place] [address] Nurse Triage Social History Tobacco Use Types [...] 10:35 AM EST Triage call to Susanna, (program support clerk) reporting Pt concern regarding urinary symptoms. Pt just reported this morning that trying to uriniate was like trying to squeeze a lemon . Pt reports pain with urination and unable to urinate as needed. Odor unknown, color of urine unknown. Neg for burning. Liquid intake unknown. Advised to bring Pt to [facility] to be seen by provider and Susanna [...] accepted this outcome Please contact susanna at [phone] documented in this encounter Plan of Treatment Upcoming Encounters Date Type Department Care Team (Late st Contact Info) Description 02/20/2025 2:00 PM EST Office Visit [facility] [address] [place] [address] Nancy Patel FNP [address] [place] [address] 03/27/2025 11:30 AM EST Office Visit [facility] [address] [place] [address] Nancy Patel FNP [address] [place] [address] 05/29/2025 1:00 PM EDT Office Visit [facility] OPT[facility] [address] [place] [address] Joey, Sun, OD [address] [place] [address] documented as of this encounter Visit Diagnoses Not on filedocumented in this encounter Additional Health Concerns Assessment Noted Time PHQ-9 Depression Total Score: 19 023 3:09 PM EDT documented as of this encounter Care Teams Hedis Nurse Relationship Specialty Start Date End Date Nancy Patel FNP [address] [place] [address] PCP - General Family Medicine 11/10/21 Devante Jurado MD [address] [place] [address] Cardiology 04/14/24 documented as of this encounter
--- OUTSIDE RECORDS SUMMARY | 2025-02-06 15:35 | XMS_ITS | Encounter Summary ---
Author Organization [email or web address] Address [address] [facility] 7[address] [place] [address] Care Team Providers Care Senior Asp Net Developer Name Role Phone Nancy Patel Primary Care Provider [phone] Devante Jurado MD Unavailable [phone] Reason for Visit * Reason Comments Transition Of Care (Tcm) HDF scheduled Encounter Details Date Type Department Care Team ([facility] st Contact Info) Description 02/02/2025 Patient Outreach [facility] MEDICINE [address] [place] [address] Nancy Patel FNP [address] [place] [address] Transition Of Care (Tcm) (HDF scheduled) Social History Tobacco Use Types Packs/Day Years [...] with others, in a hotel, in a group home, living outside on the street, on a [...] as of this encounter Miscellaneous Notes * Significant Event - Monica Cooney - 02/02/2025 8:45 AM EST 02/02/25 0844 Hospital Discharges and Admission for [facility] Type of Visit Hospital Admission Date of Admission/Visit 01/27/25 Date of Discharge 02/02/25 [facility] BH Diagnosis PTSD adjustment disorder MDD Disposition Discharged Home Follow-Up Actions Follow-Up Needed Provider appointment Follow-Up Outcome Spoke to Caregiver Initial Contact Date 02/02/25 Received incoming call from the [facility]. MARIAELENA Spoke with Cinda from [facility] [phone] Patient has been scheduled for an HDF appointment on at 2:[address] Amanda FERRELL requested discharge summaries to be faxed to the Care Management Department at [phone]. CC will follow up on discharge summary following patient's discharge. documented in this encounter Plan of Treatment Upcoming Encounters Date Type Department Care Team (Late st Contact Info) Description 02/20/2025 2:00 PM EST Office Visit [facility] MED [facility] PEDS [address] [place] [address] Nancy Patel FNP [address] [place] [address] 03/27/2025 11:30 AM EST Office Visit [facility] MED [facility] PEDS [address] [place] [address] Nancy Patel FNP [address] [place] [address] 05/29/2025 1:00 PM EDT Office Visit [facility] OPTOMETRY [address] [place] [address] JoeySun murray, OD [address] [place] [address] documented as of this encounter Visit Diagnoses Not on filedocumented in this encounter Additional Health Concerns Assessment Noted Time PHQ-9 Depression Total Score: 3 12/30/19 25 11:18 AM EDT documented as of this encounter Care Teams Senior Asp Net Developer Relationship Specialty Start Date End Date Nancy Patel FNP [address] [place] [address] PCP - General Family Medicine 11/10/21 Devante Jurado MD [address] [place] [address] Cardiology 04/14/24 documented as of this encounter
--- OUTSIDE RECORDS SUMMARY | 2025-02-06 15:35 | XMS_ITS | Clinical Summary ---
Author Organization [facility] Address [address] [place] [address] Phone Care Team Providers Care Power Cleaner Operator Name Role Phone Physician, Pcp Unknown Primary [...] EDT - 12/13/2024 6:20 PM EDT Emergency [facility] Emergency [address] [place] [phone] Sunil Carpenter MD Wire, Jessica, MD Goebel, Mathew, MD Killelea, Alison G, MD Adjustment disorder, unspecified type (Primary Dx); Anxiety; Unable to control anger Discharge Disposition: Home or Self Care from Last 3 Months Medical History Medical History Date Comments GERD (gastroesophageal reflux disease) per [facility] paperwork Migraine per [facility] group [facility] paperwork Adhd per [facility] group [facility] me paperwork Anxiety per [facility] group [facility] me paperwork Psychogenic nonepileptic seizure per [facility] residential paperwork Depression per [facility] group ho me [...] LAB CHEMISTRY METHOD 12/12/2024 5:37 PM EDT [facility] Comment:Certain OTC medicati ons containing ephedrine, phenylephrine, pseudoephedrine and phenylpropanolamine can cause false positive results. Barbiturate Screen, Ur Negative Negative LAB CHEMISTRY METHOD 12/12/2024 5:37 PM EDT [facility] Benzodiazepine Screen, Ur Negative Negative LAB CHEMISTRY METHOD 12/12/2024 5:37 PM EDT [facility] Cocaine Screen, Ur Negative Negative LAB CHEMISTRY METHOD 12/12/2024 5:37 PM EDT [facility] Opiate Screen, Ur Negative Negative LAB CHEMISTRY METHOD 12/12/2024 5:37 PM EDT [facility] Cannabinoid (THC) Screen, Ur Negative Negative LAB CHEMISTRY METHOD 12/12/2024 5:37 PM EDT [facility] Comment:Specimens from patie nts taking pantoprazole sodium (Protonix) have been shown to produce false positive results. Oxycodone Screen, Ur Negative Negative LAB CHEMISTRY METHOD 12/12/2024 5:37 PM EDT [facility] Fentanyl, Ur Negative Negative LAB CHEMISTRY METHOD 12/12/2024 5:37 PM T [facility] Urine Urine specimen obtained by clean catch procedure / Unknown Non-blood Collection / Unknown 12/12/2024 3:29 PM EDT 12/12/2024 3:37 PM EDT Narrative [facility] - 12/12/2024 5:37 PM EDT [...] ORDERABLES Rachna l Result Performing Organization Address [facility]/ZIP Co de Phone Number [facility] [address] [place] [address], * Buprenorphine screen, urine (12/12/2024 3:29 PM EDT) Buprenorphine Screen Urine Negative Negative LAB CHEMISTRY METHOD 12/12/2024 5:37 PM EDT [facility] Urine Urine specimen obtained by clean catch procedure / Unknown Non-blood Collection / Unknown 12/12/2024 3:29 PM EDT 12/12/2024 3:37 PM EDT Narrative [facility] - 12/12/2024 5:37 PM EDT Assay cutoff 5 ng/mL Semi-quantitative assay for screening purposes only. Unconfirmed screening result should not be used for non-medical purposes. *ALTERNATE METHOD CONFIRMATION DONE UPON REQUEST ONLY* Sunil Carpenter MD LAB URINE ORDERABLES Rachna l Result Performing Organization Address [facility] de Phone Number [facility] [address] [place] [address], * Methadone, urine (12/12/2024 3:29 PM EDT) Methadone Screen, Urine Negative Negative LAB CHEMISTRY METHOD 12/12/2024 5:37 PM EDT [facility] Comment: Assay cutoff 300 ng/mL [...] ORDERABLES Rachna l Result Performing Organization Address [facility]/ZIP Co de Phone Number [facility] [address] [place] [address], [place] [phone] * Phencyclidine, urine (12/12/2024 3:29 PM EDT) Pathologist [facility] PCP Scrn, Ur Negative Negative LAB CHEMISTRY METHOD 12/12/2024 5:37 PM EDT [facility] Comment: Assay cutoff 25 ng/mL [...] ORDERABLES Rachna l Result Performing Organization Address [facility]/ZIP Co de Phone Number [facility] [address] [place] [address], [place] [phone] * (ABNORMAL) CBC auto differential (12/12/2024 3:27 PM EDT) Pathologist [facility] WBC 11.8(H) 4.8 - 10.8 K/mcL LAB HEMETOLOGY METHOD 12/12/2024 3:47 PM EDT [facility] RBC 4.80 3.80 - 4.80 M/mcL LAB HEMETOLOGY METHOD 12/12/2024 3:47 PM EDT [facility] Hemoglobin 13.6 11.5 - 16.0 g/dL LAB HEMETOLOGY METHOD 12/12/2024 3:47 PM EDT [facility] Hematocrit 41.0 35.0 - 47.0 % LAB HEMETOLOGY METHOD 12/12/2024 3:47 PM EDT [facility] MCV 85.4 79.0 - 98.0 FL LAB HEMETOLOGY METHOD 12/12/2024 3:47 PM EDT [facility] MCH 28.3 27.0 - 32.0 pcg LAB HEMETOLOGY METHOD 12/12/2024 3:47 [facility] MCHC 33.2 32.0 - 37.0 g/dL LAB HEMETOLOGY METHOD 12/12/2024 3:47 PM EDT [facility] RDW 12.2 11.0 - 15.0 % LAB HEMETOLOGY METHOD 12/12/2024 3:47 PM [facility] Platelets 329 130 - 400 K/mcL LAB HEMETOLOGY METHOD 12/12/2024 3:47 [facility] MPV 10.2 7.0 - 11.0 FL LAB HEMETOLOGY METHOD 12/12/2024 3:47 PM EDT [facility] NRBC 0.0 <1.0 % LAB HEMETOLOGY METHOD 12/12/2024 3:47 [facility] NRBC Absolute 0.00 <0.10 K/mcL LAB HEMETOLOGY METHOD 12/12/2024 3:47 PM [facility] Neutrophils Relative 68.9 % LAB HEMETOLOGY METHOD 12/12/2024 3:47 PM EDT [facility] Lymphocytes Relative 18.4 % LAB HEMETOLOGY METHOD 12/12/2024 3:47 PM EDT [facility] Monocytes Relative 6.0 % LAB HEMETOLOGY METHOD 12/12/2024 3:47 PM EDT [facility] Eosinophils Relative 5.7 % LAB HEMETOLOGY METHOD 12/12/2024 3:47 PM EDT [facility] Basophils Relative 0.6 % LAB HEMETOLOGY METHOD 12/12/2024 3:47 PM EDT [facility] Immature Granulocytes Relative 0.4 % LAB HEMETOLOGY METHOD 12/12/2024 3:47 PM EDT [facility] Neutrophils Absolute 8.11(H) 1.50 - 7.00 K/mcL LAB HEMETOLOGY METHOD 12/12/2024 3:47 PM EDT [facility] Lymphocytes Absolute 2.17 1.00 - 5.00 K/mcL LAB HEMETOLOGY METHOD 12/12/2024 3:47 PM EDT [facility] Monocytes Absolute 0.71 0.20 - 1.00 K/mcL LAB HEMETOLOGY METHOD 12/12/2024 3:47 PM EDT [facility] Eosinophils Absolute 0.67(H) 0.00 - 0.50 K/mcL LAB HEMETOLOGY METHOD 12/12/2024 3:47 PM EDT [facility] Basophils Absolute 0.07 0.00 - 0.20 K/mcL LAB HEMETOLOGY METHOD 12/12/2024 3:47 PM EDT [facility] Immature Granulocytes Absolute 0.05(H) 0.00 - 0.03 K/mcL LAB HEMETOLOGY METHOD 12/12/2024 3:47 PM EDT [facility] Blood Venous blood specimen / Unknown Venipuncture / Unknown 12/12/2024 3:27 PM EDT 12/12/2024 3:37 PM EDT us Sunil Carpenter MD LAB BLOOD ORDERABLES Rachna l Result [facility] [address] [place] [address], * Ethanol (12/12/2024 3:27 PM EDT) Ethanol Level <3 0 - 10 mg/dL LAB CHEMISTRY METHOD 12/12/2024 4:34 PM EDT [facility] Blood Venous blood specimen / Unknown Venipuncture / Unknown 12/12/2024 3:27 PM EDT 12/12/2024 3:37 PM EDT Sunil Carpenter MD LAB BLOOD ORDERABLES Rachna l Result Performing Organization Address City/[facility]/ZIP Co de Phone Number [facility] [address] [place] [address], [place] [phone] * (ABNORMAL) Acetaminophen level (12/12/2024 3:27 PM EDT) Acetaminophen Level <2.0(L) 10.0 - 30.0 mcg/mL LAB CHEMISTRY METHOD 12/12/2024 4:41 PM EDT [facility] Blood Venous blood specimen / Unknown Venipuncture / Unknown 12/12/2024 3:27 PM EDT 12/12/2024 3:37 PM EDT Sunil Carpenter MD LAB BLOOD ORDERABLES Rachna l Result Performing Organization Address [facility] Co de Phone Number [facility] [address] [place] [address], [place] [phone] * (ABNORMAL) Salicylate level (12/12/2024 3:27 PM EDT) Salicylate Level <1.7(L) 2.0 - 29.0 mg/dL LAB CHEMISTRY METHOD 12/12/2024 4:34 PM EDT [facility] Blood Venous blood specimen / Unknown Venipuncture / Unknown 12/12/2024 3:27 PM EDT 12/12/2024 3:37 PM EDT Sunil Carpenter MD LAB BLOOD ORDERABLES Rachna l Result Performing Organization Address City/[facility]/ZIP Co de Phone Number [facility] [address] [place] [address], [place] [phone] * Comprehensive metabolic panel (12/12/2024 3:27 PM EDT) Sodium 138 133 - 145 mmol/L LAB CHEMISTRY METHOD 12/12/2024 4:38 PM [facility] Potassium 3.7 3.5 - 5.5 mmol/L LAB CHEMISTRY METHOD 12/12/2024 4:38 PM [facility] Chloride 103 96 - 110 mmol/L LAB CHEMISTRY METHOD 12/12/2024 4:38 PM [facility] CO2 30 21 - 32 mmol/L LAB CHEMISTRY METHOD 12/12/2024 4:38 PM [facility] Anion Gap 5 3 - 11 LAB CHEMISTRY METHOD 12/12/2024 4:38 PM [facility] Glucose 89 70 - 100 mg/dL LAB CHEMISTRY METHOD 12/12/2024 4:38 PM [facility] BUN 13 5 - 25 mg/dL LAB CHEMISTRY METHOD 12/12/2024 4:38 PM [facility] Creatinine 0.99 0.50 - 1.10 mg/dL LAB CHEMISTRY METHOD 12/12/2024 4:38 PM [facility] eGFR 83 >=60 mL/min/1. 73m2 LAB CHEMISTRY METHOD 12/12/2024 4:38 PM [facility] Comment:Calculation based on the Chronic Kidney Disease Epidemiology Collaboration (CKD-EPI) equation refit without adjustment for race. BUN/Creatinine Ratio 13.1 LAB CHEMISTRY METHOD 12/12/2024 4:38 PM [facility] Calcium 9.4 8.5 - 10.5 mg/dL LAB CHEMISTRY METHOD 12/12/2024 4:38 PM [facility] AST (SGOT) 20 10 - 42 unit/L LAB CHEMISTRY METHOD 12/12/2024 4:38 PM EDT [facility] ALT (SGPT) 43 10 - 60 unit/L LAB CHEMISTRY METHOD 12/12/2024 4:38 PM EDT [facility] Alkaline Phosphatase 71 42 - 121 unit/L LAB CHEMISTRY METHOD 12/12/2024 4:38 PM EDT [facility] Total Protein 7.1 6.0 - 8.0 g/dL LAB CHEMISTRY METHOD 12/12/2024 4:38 PM EDT [facility] Albumin 4.3 3.2 - 5.0 g/dL LAB CHEMISTRY METHOD 12/12/2024 4:38 PM EDT [facility] Total Bilirubin 0.4 0.0 - 1.4 mg/dL LAB CHEMISTRY METHOD 12/12/2024 4:38 PM EDT [facility] Blood Venous blood specimen / Unknown Venipuncture / Unknown 12/12/2024 3:27 PM EDT 12/12/2024 3:37 PM EDT us Sunil Carpenter MD LAB BLOOD ORDERABLES Rachna l Result [facility] [address] [place] [address], from Last 3 Months Insurance MEDICAID - [place] Care Teams Power Cleaner Operator Relationship Specialty Start Date End Date Physician, Pcp Unknown PCP - General 12/12/24
--- OUTSIDE RECORDS SUMMARY | 2025-02-06 15:35 | XMS_ITS | Clinical Summary ---
Author Organization [employer] Address [address] [facility] [address] [place] [address] Care Team Providers Care Senior Cyber Intelligence Analyst Name Role Phone Nancy Patel MEGHA Primary Care Provider [phone] Devante Jurado MD Unavailable [phone] Allergies No known active allergies Medications * This document contains information received from the source organization and may not represent a complete record from that organization. etonogestrel-elut ing (Nexplanon) 68 mg contraceptive implant insertion 07/28/20 by Jackie Alberts CNM at [facility] 1 Active Carafate 1 GM/10ML suspension Take 10 ml by mouth twice a day as needed for dyspepsia 2 Active famotidine (Pepcid) 20 MG tablet Take 1 tablet by mouth twice a day 3 Active trolamine salicylate (Aspercreme) 10 % cream Apply topically if needed. Active propranolol (Inderal) 40 MG tabletIndications :Tachycardia 4 Active benzoyl peroxide 5 % gelIndications:Mi ld acne Apply topically 2 times daily. Location: face 60 g 2 4 Active Skin Protectants, Misc. (eucerin) creamIndications: Dry skin APPLY 1 APPLICATION TOPICALLY NEEDED IN THE MORNING, AT NOON, IN THE EVENING AND AT BEDTIME 100 g 11 4 Active guanFACINE (Intuniv) 3 mg 24 hr tablet TAKE 1 TABLET BY MOUTH EVERY DAY 30 tablet 1 5 Active mirtazapine (Remeron) 45 MG tablet TAKE 1 TABLET BY MOUTH AT BEDTIME 30 tablet 1 5 Active QUEtiapine XR (SEROquel XR) 50 MG 24 hr tablet TAKE 1 TABLET BY MOUTH EVERY DAY 30 tablet 1 5 Active cetirizine (ZyrTEC) 10 MG tablet Take 1 tablet (10 mg) by mouth Once per day. 30 tablet 11 5 026 Active Cyanocobalamin 1000 MCG capsuleIndication s:Vitamin B12 deficiency TAKE 1 CAPSULE BY MOUTH EVERY Sunday, Sunday, and Sunday 90 capsule 1 5 Active acetaminophen (Tylenol 8 Hour) 650 MG ER tablet TAKE 1 TABLET BY MOUTH EVERY 8 HOURS NEEDED FOR PAIN OR FEVER. 100 tablet 1 5 Active naproxen (Naprosyn) 500 MG tablet Take 1 tablet (500 mg) by mouth if needed in the morning and at bedtime (pain). Take with food. 60 tablet 3 5 Active docusate sodium (Colace) 100 MG capsuleIndication s:Constipation, unspecified constipation type TAKE 1 CAPSULE BY MOUTH AT BEDTIME 90 capsule 3 5 Active cholecalciferol (Vitamin D3) 25 MCG (1000 UT) tabletIndications :Routine health maintenance TAKE 1 TABLET BY MOUTH EVERY DAY 90 tablet 3 5 Active hydrOXYzine HCl (Atarax) 50 MG tablet Take 50 mg by mouth in the morning and 50 mg in the evening. Active omeprazole (PriLOSEC) [address] capsule TAKE ONE TABLET BY MOUTH DAILY IN THE MORNING (NOT COVERED) 5 Active fluticasone (Flonase) 50 MCG/ACT nasal sprayIndications: Seasonal allergies Administer 1 spray into each nostril if needed in the morning and at bedtime (allergies or nasal congestion). Shake gently. Before first use, prime pump. After use, clean tip and replace cap. 16 g 5 5 026 Active Active Problems Problem Noted Date Diagnosed Date [...] Well controlled with current regimen [facility] Completed Holter in 2023, echo essentially normal per consult note September 2023 Continues with Propranolol 40mg BID Previous medications: - Carvedilol (DC d/t med SE) Assessment & Plan (12/23/2023 10:16 AM EDT): Well controlled with current regimen [facility] Jur[facility] Completed Holter in 2023, echo essentially normal per consult note September 2023 Continues with Propranolol 40mg BID Previous medications: - Carvedilol (DC d/t med SE) Assessment & Plan (10/08/2023 9:17 PM EDT): [facility] Jur[facility] Completed Holter in 2023, plan for echo Med SE with Carvedilol 3.25mg BID, plan to follow up with cardiology office later this week Assessment & Plan (07/30/2023 3:19 PM EDT): [facility] Jur[facility] Completed Holter in 2023, plan for echo Continues with Carvedilol 3.25mg BID Assessment & Plan (05/20/2023 8:15 PM EST): Refer to cardiology for Holter GERD (gastroesophageal reflux disease) Overview (12/29/2024): Following with [facility] Per last consult note Jan 2023: [...] prescriber: Dr. Theo León Previous therapist through [facility], pending new therapist -Protective factors: halfway staff, mental health team (psychiatrist plus weekly therapy sessions), supportive partner, work Med regimen through psych: Quetiapine XR 50mg nightly Mirtazapine 45mg nightly Guanfacine 3mg nightly Hydroxyzine 50mg BID Assessment & Plan (01/23/2025 12:32 PM EST): - Mental health has improved, she is in the process of transitioning to stable housing situation in [place] through [employer] - Return to work [...] of care pending communication between psychiatrist and [employer]IC. Follow up with PCP office PRN. Assessment & Plan (01/22/2023 6:52 AM EST): See Z89.59 History of suicidal ideation 04/03/2022 Assessment & Plan (01/23/2023 9:57 AM EST): Psych prescriber: Deisi Salazar at [facility]. 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 Follows with therapist weekly through [facility] -Protective factors: halfway staff, mental health team (psychiatrist plus weekly [...] for self PLAN: 1. Follow up with [facility]: Not recommended for follow-up 2. Patient goal [...] the Fall). PLAN: 1. Follow up with [facility]: Recommended for follow-up: August 10 at 1:30 pm 2. Patient goal is reengage in behavioral health services 3. Behavioral Recommendations a. Patient will attend OP therapy and psychiatry appointments b. Patient will comply with medication c. Patient will attend follow-up appointment with PCP d. Patient will continue using coping skills e. Patient will contact [facility], if experiencing suicidal ideation Attention deficit [...] Encounters Date Type Department Care Team Description 02/06/2025 Telephone [facility] [address], [place] [phone] Nancy Patel FNP Lab Orders 02/02/2025 Patient Outreach [facility] [address], [place] [phone] Nancy Patel FNP Transition Of Care (Tcm) (HDF scheduled) 01/27/2025 Orders Only GENERIC EXTERNAL DATA DEPARTMENT Provider, Generic External Data 01/26/2025 Telephone [facility] [address] [place], [place] [phone] Nancy Patel FNP Medication Question 01/23/2025 11:15 AM EST Office Visit [facility] PEDS [address] [place] [address] Nancy Patel FNP Mood disorder (CMS/HCC) (Primary Dx) 01/23/2025 Travel 01/20/2025 Telephone [facility] MED & PEDS [address] [place] [address] Nancy Patel FNP Chart Prep 01/18/2025 Travel 01/15/2025 Telephone [facility] [address] [place] [phone] Nancy Patel FNP Letter for School/Work 01/02/2025 Results Follow-Up [facility] [address] [place] [address] Nancy Patel FNP Vitamin B12, Lipid Panel, Standard, Hemoglobin A1c, Additional followed-up results: 7 12/29/2024 10:30 AM EDT Office Visit [facility] MED [facility] PEDS [address] [place] [address] Nancy Patel FNP Encounter for routine history and physical examination of adult (Primary Dx); Vitamin B12 deficiency; Healthcare maintenance; Tachycardia; Mood disorder (CMS/HCC); Encounter for immunization; Dietary counseling; Exercise counseling; Vitamin D insufficiency; Seasonal allergies; Gastroesophageal reflux disease, unspecified whether esophagitis present; Dysmenorrhea; Psychogenic nonepileptic seizure 12/29/2024 Telephone [facility] MED [facility] PEDS [address] [place] [address] Nancy Patel FNP Paperwork: PE 12/29/2024 Travel 12/26/2024 Telephone [facility] MED & PEDS [address] [place] [address] Nancy Patel FNP Chart Prep 12/25/2024 Refill [facility] [address] [place] [address] Nancy Patel FNP Constipation, unspecified constipation type; Routine health maintenance 12/23/2024 Travel 12/19/2024 Patient Outreach [facility] [address] [place] [phone] Nancy Patel FNP Pre-visit Planning (Pre visit planning LVM ) 11/19/2024 Telephone [facility] [address], [place] [phone] Nancy Patel FNP Medication Question 11/13/2024 Refill [facility] [address], [place] [phone] Nancy Patel FNP 11/12/2024 5:40 PM EDT Office Visit [facility] [address] [place] [phone] Mora Cota, BUSINESS CONTINUITY PLANNING DIRECTOR Sore throat (Primary Dx) 11/12/2024 Travel 11/12/2024 Telephone [facility] [address], [place] [phone] Nancy Patel FNP Nurse Triage from Last 3 Months Immunizations Immunization Administration [...] 2:00 PM EST Office Visit [facility] PED[facility] [address] [place] [address] Nancy Patel FNP [address] [place] [address] 03/27/2025 11:30 AM EST Office Visit [facility] PED[facility] [address] [place] [address] Nancy Patel FNP [address] [place] [address] 05/29/2025 1:00 PM EDT Office Visit [facility] [address], [place] [phone] Joey, Sun, OD [address] [place] [address] Health Maintenance Due Date Last Done Comments Meningococcal B Vaccine (1 of 2 - Standard) 2018 COVID-19 Vaccine ( season) 2024 12/21/2023, 07/30/2023, 10/17/2022 Disability Screening 12/23/2025 12/23/2024 Alcohol/Substance Use Screening 12/29/2025 12/29/2024 Chlamydia and Gonorrhea Screening 12/29/2025 12/29/2024, 12/26/2023, 12/26/2023, Additional history exists Depression Screening 12/29/2025 12/29/2024, [...] Meningococcal Vaccine Completed 03/30/2020 , 02/10/2020, 04/17/2013 HIV Screening Completed 12/29/2024, 1011/2023, 10/15/2020, Additional history exists Hepatitis C Screening [...] (01/27/2025 1:24 PM EST) Urine NEGATIVE NEGATIVE [facility] Comment:This test was develo ped to detect early . Falsenegative results may occur after the 5th - 7th week ofpregnancy when using this test method. If clinicallyindicated, consider a serum hCG. 01/27/2025 1:24 PM EST 01/27/2025 1:28 PM EST us Generic External Data Provider LAB URINE ORDERAB LES Final Result [facility] [address] [place] [address] [phone] * (ABNORMAL) Urinalysis, Complete, with Reflex to Culture (01/27/2025 1:23 PM EST) Color Urine Dark Yellow [facility] Appearance Urine Cloudy [facility] PH 5.5 5.0 - 9.0 [facility] Glucose Urine UA Negative Negative mg/dL [facility] Urine Blood Negative Negative [facility] Specific [place] - Urine >=1.030(H) 1.005 - 1.025 [facility] Urine Protein Trace Neg-Trace mg/dL [facility] Urine Ketones 80 Negative mg/dL [facility] Nitrite Urine Negative Negative [facility] Leukocyte Esterase Urine Small (1+)(A) Negative [facility] RBC Urine 0-2 0 - 2 /HPF [facility] Urine WBC 6-10 0 - 5 /HPF [facility] Urine Squamous Epithelial Cell >20 0 - 2 /HPF [facility] Urine Bacteria 3+ None Seen [facility] Hyaline Casts, Urine 0-2 0 - 2 /LPF [facility] 01/27/2025 1:23 PM EST 01/27/2025 1:34 PM EST Narrative [facility] - 01/27/2025 2:09 PM EST [id number], Clean Catch us Generic External Data Provider LAB URINE ORDERAB LES Final Result [facility] [address] [place] [address] [phone] * (ABNORMAL) Drug Monitoring, Panel 1, Screen, Urine (01/27/2025 1:23 PM EST) Pathologist [facility] Opiate Screen Urine Not Detected Not Detect [facility] Comment:Opiate cut-off is 30 0 ng/mL.Positive results are unconfirmed and should not be used fornon-medical purposes. Barbiturates, Urine Not Detected Not Detect [facility] Comment:Barbiturate cut-off is 200 ng/mL.Positive results are unconfirmed and should not be used fornon-medical purposes. Phencyclidine Screen Urine POSITIVE(A) Not Detect [facility] Comment:Phencyclidine cut-of f is 25 ng/mL.Positive results are unconfirmed and should not be used fornon-medical purposes. Amphetamine Screen Urine Not Detected Not Detect [facility] Comment:Amphetamine cut-off is 1000 ng/mL.Positive results are unconfirmed and should not be used fornon-medical purposes. Benzodiazepines Screen Urine Not Detected Not Detect [facility] Comment:Benzodiazepine cut-o ff is 200 ng/mL.Positive results are unconfirmed and should not be used fornon-medical purposes. Cocaine Screen Urine Not Detected Not Detect [facility] Comment:Cocaine cut-off is 3 00 ng/mL.Positive results are unconfirmed and should not be used fornon-medical purposes. Cannabinoid Screen Urine Not Detected Not Detect [facility] Comment:Cannabinoid cut-off is 50 ng/mL.Positive results are unconfirmed and should not be used fornon-medical purposes. Methadone Screen, Urine Not Detected Not Detect ng/mL [facility] Comment:Methadone cut-off is 300 ng/mL.Positive results are unconfirmed and should not be used fornon-medical purposes. FENTANYL URINE Not Detected Not Detect [facility] Comment:Fentanyl cut-off is 1 ng/mL.Positive results are unconfirmed and should not be used fornon-medical purposes. Oxycodone Urine Screen Not Detected Not Detect ng/mL [facility] Comment:Oxycodone cut-off is 100 ng/mL.Positive results are unconfirmed and should not be used fornon-medical purposes. Buprenorphine Screen Not Detected Not Detect ng/mL [facility] Comment:Buprenorphine cut-of f is 5 ng/mL.Positive results are unconfirmed and should not be used fornon-medical purposes. 01/27/2025 1:23 PM EST 01/27/2025 1:34 PM EST us Generic External Data Provider LAB URINE ORDERAB LES Final Result Performing Organization Address City/State/[facility] Co de Phone Number [facility] [address] [place] [address] [phone] * Ethanol (01/27/2025 12:49 PM EST) [facility] ETHANOL (MG/DL) IN SER/PLAS <10 mg/dL [facility] Comment:Serum/plasma ethanol results are to be used formedical/treatment purposes only. 01/27/2025 12:4 9 PM EST 01/27/2025 1:05 PM EST us Generic External Data Provider LAB BLOOD ORDERAB LES Final Result Performing Organization Address [facility] Co de Phone Number [facility] [address] [place] [phone] * (ABNORMAL) CBC auto differential (01/27/2025 12:49 PM EST) Only the most recent of2 resultswithin the time period is included. [facility] White Blood Count 9.1 4.8 - 10.8 X10*3/uL [facility] Red Blood Count 5.14 4.20 - 5.50 X10*6/uL [facility] Hemoglobin 14.8 12.0 - 16.0 g/dl [facility] Hematocrit 45.0 37.0 - 47.0 % [facility] Mean Corpuscular Volume 87.5 80.0 - 98.0 fL [facility] Mean Corpuscular Hemoglobin 28.8 27.0 - 33.0 pg [facility] Mean Corpuscular HGB Conc 32.9 31.0 - 35.0 g/dl [facility] Red Cell Distribution Width 12.6 11.0 - 16.0 % [facility] Platelet Count 302 160 - 400 X10*3/uL [facility] Mean Platelet Volume 10.4 9.4 - 12.3 fL [facility] Neutrophils Percent Auto 69.9 45 - 73 % [facility] Imm Gran Pct Auto 0.4 0.0 - 0.4 % [facility] Lymphocytes Percent Auto 21.7 20 - 40 % [facility] Monocytes Percent Auto 5.2 2 - 11 % [facility] Eosinophils Percent Auto 2.2 0 - 4 % [facility] Basophils Percent Auto 0.6 0 - 2 % [facility] NRBC Pct Auto 0.0 0.0 - 0.2 /100WBC [facility] Neutrophils Absolute Auto 6.3 2.0 - 8.3 x10*3/uL [facility] Imm Gran Abs Auto 0.04(H) 0.00 - 0.03 X10*3/uL [facility] Lymphocytes Absolute Auto 2.0 1.2 - 4.9 X10*3/uL [facility] Monocytes Absolute Auto 0.5 0.1 - 1.2 X10*3/uL [facility] Eosinophils Absolute Auto 0.2 0.0 - 0.4 X10*3/uL [facility] Basophils Absolute Auto 0.1 0.0 - 0.2 X10*3/uL [facility] NRBC Abs Auto 0.000 0.0 - 0.012 X10*3/uL [facility] 01/27/2025 12:4 9 PM EST 01/27/2025 1:05 PM EST us Generic External Data Provider LAB BLOOD ORDERAB LES Final Result [facility] [address] [place] [phone] * Comprehensive Metabolic Panel (01/27/2025 12:49 PM EST) Only the most recent of2 resultswithin the time period is included. Sodium 141 135 - 145 mmol/L [facility] Potassium 4.1 3.3 - 5.1 mmol/L [facility] Chloride 104 96 - 108 mmol/L [facility] Carbon Dioxide 25 22 - 29 mmol/L [facility] Anion Gap 16 12 - 20 [facility] Urea Nitrogen (BUN) 13 9 - 16 mg/dL [facility] Creatinine, Serum 1.05 0.5 - 1.4 mg/dL [facility] Creatinine Clr Calc Pharmacy 82.6 [facility] Comment:Provided height and weight: 165.1 cm,70.307 kg.eGFR (calculated from the MDRD study equation) and eCrCl(calculated from the Cockcroft-Gault equation) are based ondifferent parameters and may not yield comparable results.If eCrCl result is absurd, please check patient'sheight/weight. Estimated Glomerular Filt Rate >60 [facility] Comment:Chronic Kidney Disea se: Estimated GFR < 60 mL/min/1.92w2Lqvgyd Kidney Disease: Estimated GFR < 15 mL/min/1.73m2 Glucose 113 60 - 115 mg/dL [facility] Calcium 9.9 8.4 - 10.2 mg/dL [facility] Bilirubin, Total 0.6 0.0 - 1.0 mg/dL [facility] Aspartate Amino Transferase 21 5 - 31 U/L [facility] Alanine Aminotransferase 24 0 - 31 U/L [facility] Total Protein 7.9 6.5 - 8.0 g/dL [facility] Albumin Level 5.0 3.5 - 5.0 g/dL [facility] Alkaline Phosphatase 83 39 - 117 U/L [facility] 01/27/2025 12:4 9 PM EST 01/27/2025 1:05 PM EST us Generic External Data Provider LAB BLOOD ORDERAB LES Final Result [facility] [address] [place] [address] [phone] * TSH with Reflex to Free T4 (12/29/2024 1:45 PM EDT) TSH reflex Free T4 0.55 0.32 - 4.0 uIU/mL [facility] Blood 12/29/2024 1:45 PM EDT 12/29/2024 2:09 PM EDT Nancy Patel [facility] LAB BLOOD ORDERABLES Final Res ult Performing Organization Address [facility] Co de Phone Number [facility] [address] [place] [address] [phone] * (ABNORMAL) Lipid Panel, Standard (12/29/2024 1:45 PM EDT) Triglycerides 131 <150 mg/dL [facility] Comment:Desirable Triglyceri de: less than 150 mg/dLBorderline High Triglyceride 150-199 mg/dLHigh Triglyceride: 200-499 mg/dLVery High Triglyceride: greater than or equal to 5OO mg/dL Cholesterol 153 <200 mg/dL [facility] Comment:Desirable Cholestero l: less than 200 mg/dLBorderline High Cholesterol: 200-239 mg/dLHigh Cholesterol: greater than 239 mg/dL LDL Cholesterol Calculated 90 <100 mg/dL [facility] Comment:Desirable LDL: less than 100 mg/dLNear Optimal/Above Optimal LDL: 110- 129 mg/dLBorderline High LDL: 130-159 mg/dLHigh LDL: 160-189 mg/dLVery High LDL: greater than or equal to 190 mg/dL HDL Cholesterol 37(L) >40 mg/dL [facility] Comment:Desirable HDL: great er than 40 mg/dL Note: This HDL assay may give artificially low results in patients with liver disease. Blood Venous blood specimen / Unknown 12/29/2024 1:45 PM EDT 12/29/2024 2:09 PM EDT Nancy Patel [facility] LAB BLOOD ORDERABLES Final Res ult Performing Organization Address [facility]/ZIP Co de Phone Number [facility] [address] [place] [address] [phone] * Chlamydia/Trichomonas/Neisseria gonorrhoeae, PCR, Urine (12/29/2024 1:20 PM EDT) CT PCR, Urine NOT DETECTED Not Detect. [facility] Comment:A not detected test result [...] NG PCR, Urine NOT DETECTED Not Detect. [facility] Comment:A not detected test result [...] EDT 12/29/2024 1:58 PM EDT Nancy Patel [facility] LAB URINE ORDERABLES Final Res ult [facility] [address] [place] [address] [phone] * Hepatitis C Viral RNA, Quantitative, Real-Time PCR (12/29/2024 1:15 PM EDT) Hepatitis C Viral Load <15 NOT DETECTED NOT DETECTED IU/mL [facility] HCV Log PCR <1.18 NOT DETECTED NOT DETECTED Log IU/mL [facility] Comment:For additional infor is[place], please refer tohttp://education.[employer]/faq/KQY78j2(This link is being provided for informational/educational purposes only.)THIS TEST WAS PERFORMED AT:[facility] [place] [id number] BARRETT MD Blood 12/29/2024 1:15 PM EDT 12/29/2024 2:02 PM EDT Nancy Patel [employer] LAB BLOOD ORDERABLES Final Res ult Performing Organization Address [facility] Co de Phone Number [facility] [address] [place] [address] [phone] * RPR (Monitor) with Reflex to??Titer (12/29/2024 1:15 PM EDT) RPR (Monitor) w/Refl Titer NON-REACTI VE NON-REACT MARIA ISABEL [facility] Comment:THIS TEST WAS PERFOR MED AT:[employer] [address] [id number] BARRETT MD Rapid Plasma Reagin Ab Titer TNP [facility] Blood Venous blood specimen / Unknown 12/29/2024 1:15 PM EDT 12/29/2024 2:09 PM EDT Nancy Patel [facility] LAB BLOOD ORDERABLES Final Res ult Performing Organization Address [facility] de Phone Number [facility] [address] [place] [address] [phone] * HIV-1/2 Antigen and Antibodies, Fourth Generation, with Reflexes (12/29/2024 1:15 PM EDT) HIV AB/AG Nonreactive Nonreactive [facility] Comment:HIV-1 p24 Ag and/or HIV-1/HIV-2 Ab not detected.A test result that is nonreactive does not exclude thepossibility of exposure to or infection with HIV-1 and/orHIV-2. Nonreactive results in this assay for individualswith prior exposure to HIV-1 and/or HIV-2 may be due toantigen and antibody levels that are below the limit ofdetection of this assay.The [employer] HIV Ag/Ab Combo assay result andsupplemental assay results should be interpreted inconjunction with the patient's clinical presentation,history and other laboratory results. If the results areinconsistent with clinical evidence, additional testing issuggested to confirm the result. Blood Venous blood specimen / Unknown 12/29/2024 1:15 PM EDT 12/29/2024 2:09 PM EDT Nancy Patel [facility] LAB BLOOD ORDERABLES Final Res ult Performing Organization Address [facility] [facility] Co de Phone Number [facility] [address] [place] [phone] * Hemoglobin A1c (12/29/2024 1:15 PM EDT) Hemoglobin A1c 5.7 <6.0 % [facility] Comment:Hemoglobin A1C Refer ence Range Adults: 4.8 - 6.0 % Non diabetic: < 6.0 % Goal: < 7.0 %Additional Action Suggested: > 8.0 %Note: Hemoglobin A1c results are invalid for patients with abnormal amounts of HbF. Blood transfusions may impact the HbA1c concentration in the patient sample. Estimated Average Glucose 117 mg/dL [facility] Comment:eAG = Estimated ave rage glucose which is %A1C expressed asaverage glucose, using the formula of the P3I-RvpsayfPhiesao Glucose study (ADAG), Diabetes Care, Vol.31,#8,Oct. 2007 Blood Venous blood specimen / Unknown 12/29/2024 1:15 PM EDT 12/29/2024 2:14 PM EDT Nancy Patel [facility] BLOOD ORDERABLES Final Res ult Performing Organization Address [facility]/ZIP Co de Phone Number [facility] [address] [place] [phone] * Vitamin B12 (12/29/2024 1:15 PM EDT) [facility] Vitamin B12 884 200 - 900 pg/mL [facility] Comment:NORMAL 200-900 PG/ML INDETERMINATE 160-199 PG/ML DEFICIENT < 160 PG/ML Blood Venous blood specimen / Unknown 12/29/2024 1:15 PM EDT 12/29/2024 2:09 PM EDT Nancy Patel [employer] BLOOD ORDERABLES Final Res ult Performing Organization Address [facility]/ZIP Co de Phone Number [facility] [address] [place] [address] [phone] * POCT Rapid Strep A JARAMILLO ID NOW (11/12/2024 6:18 PM EDT) [facility] Rapid Strep A Screen Negative Negative, None Detected QC Media Lot # [id number] Lot# Expiration Date Swab 11/12/2024 6:18 PM EDT Mora Cota BUSINESS CONTINUITY PLANNING DIRECTOR POINT OF CARE TEST ENTER/EDIT O RDERABLES Final Result * POCT Rapid Influenza B JARAMILLO ID NOW (11/12/2024 6:17 PM EDT) [facility] Influenza B Negative Negative, Indeterminate [facility] QC Media Lot # [id number] [facility] Lot# Expiration Date [facility] Swab 11/12/2024 6:17 PM EDT Mora Cota BUSINESS CONTINUITY PLANNING DIRECTOR POINT OF CARE TEST ENTER/EDIT O RDERABLES Final Result Performing Organization Address City/[facility]/ZIP Co de Phone Number [facility] [address] [place] [phone] [phone] * POCT Rapid Influenza A JARAMILLO ID NOW (11/12/2024 6:17 PM EDT) [facility] Influenza A Negative Negative, Indeterminate [facility] QC Media Lot # [id number] [facility] Lot# Expiration Date [facility] Swab 11/12/2024 6:17 PM EDT [facility] BUSINESS CONTINUITY PLANNING DIRECTOR POINT OF CARE TEST ENTER/EDIT O RDERABLES Final Result [facility] [address] [place] [phone] * POCT Rapid Covid-19 [employer] (11/12/2024 6:16 PM EDT) Pathologist [facility] Rapid COVID Ag Negative QC Media Lot # [id number] Lot# Expiration Date Swab 11/12/2024 6:16 PM EDT [facility] BUSINESS CONTINUITY PLANNING DIRECTOR POINT OF CARE TEST ENTER/EDIT O RDERABLES Final Result * Pap Smear (03/29/2023 11:11 AM EST) Swab Cervix uteri structure / Unknown 03/29/2023 11:11 AM EST 03/30/2023 11:20 AM EST Narrative [facility] - 04/09/2023 11:21 AM EST ----- ------- Name: Cleve Jacques Age/Sex: 23/F : 2000 Unit#: [id number] Attend Dr: Re03/29/23 Status: PRE REF Location: [facility] Disch: ----- ------- SPEC : [id number] RECD: 03/30/23 STATUS: TAQUERIA OLIVAS NUM: [id number] VERONICA: 03/29/23-[address] [facility] [address]: TIAGO RODRÍGUEZ CNM ENTERED: 03/30/231225 SP TYPE: Pap Smr OTHR DR: ORDERED: Pap Smear Interpretation Satisfactory for evaluation. Negative for intraepithelial lesion or malignancy. Clinical Information LMP: Unknown date Previous PAP test: Unknown date/findings Material Received ThinPrep-Cervical ----- ------- Signed (signature on file) Heydi Tolbert Herminia 04/09/231120 ----- ------- END OF REPORT Tiago Rodríguez [facility] CYTOLOGY ORDERABLES F inal Result [facility] [address] [place] [phone] from Last 3 Months or Most Recently Relevant to Health Maintenance [place] [address] [place] [address] C3 Care Teams Senior Cyber Intelligence Analyst Relationship Specialty Start Date End Date Nancy Patel FNP [address] [place] [phone] PCP - General Family Medicine 11/10/21 Devante Jurado MD [address] [place] [phone] Cardiology 04/14/24
--- OUTSIDE RECORDS SUMMARY | 2025-02-06 15:35 | XMS_ITS | Encounter Summary ---
Author Organization [employer] Address [address] [place] [address] Care Team Providers Care Financial Service Professional Name Role Phone Nancy Patel Primary Care Provider [phone] Devante Jurado MD Unavailable [phone] Reason for Visit * Reason Onset Date Comments Lab Orders 02/06/2025 Encounter Details Date Type Department Care Team ([facility] st Contact Info) Description 02/06/[address] [facility] MEDICINE [address] [place] [address] Nancy Patel FNP [address] [place] [address] Lab Orders Social History Tobacco Use Types Packs/Day Years [...] encounter Miscellaneous Notes * Telephone Encounter - Susy Martinez - 02/06/2025 1:40 PM EST Tc from pt requesting a lab order for a TB test Contact pt at [phone] documented in this encounter Plan of Treatment Upcoming Encounters Date Type Department Care Team ([facility] st Contact Info) Description 02/20/2025 2:00 PM EST Office Visit [facility] MED & PEDS [address] [place] [address] Nancy Patel FNP [address] [place] [address] 03/27/2025 11:30 AM EST Office Visit [facility] MED & PEDS [address] [place] [address] Nancy Patel FNP [address] [place] [address] 05/29/2025 1:00 PM EDT Office Visit [facility] OPTOMETRY [address] [place] [address] Joey, Sun, OD [address] [place] [address] Scheduled Orders Name Type Priority Associated Diagnoses Orde r Schedule T-SPOT .TB Lab Routine Screening for tuberculosis Expected: 02/06/2025 (Approximate), Expires: 02/06/2026 documented as of this encounter Visit Diagnoses Diagnosis Screening for tuberculosis Screening examination for pulmonary tuberculosis documented in this encounter Additional Health Concerns Assessment Noted Time PHQ-9 Depression Total Score: 3 12/30/19 25 11:18 AM EDT documented as of this encounter Care Teams Financial Service Professional Relationship Specialty Start Date End Date Nancy Patel FNP [address] [place] [address] PCP - General Family Medicine 11/10/21 Devante Jurado MD [address] [place] [address] Cardiology 04/14/24 documented as of this encounter
--- OUTSIDE RECORDS SUMMARY | 2025-02-06 15:35 | XMS_ITS | Encounter Summary ---
Author Organization [employer] Address [address] [place] [address] Care Team Providers Care Manager Unix Name Role Phone Nancy Patel Primary Care Provider [phone] Devante Jurado MD Unavailable [phone] Encounter Details Date Type Department Care Team ([facility] Contact Info) Description 01/02/2025 Results Follow-Up [facility] MED & PEDS [address] [place] [address] Nancy Patel FNP [address] [place] [address] Vitamin B12, Lipid Panel, Standard, Hemoglobin A1c, [...] Upcoming Encounters Date Type Department Care Team ([facility] Contact Info) Description 02/20/2025 2:00 PM EST Office Visit [facility] MED & PEDS [address] [place] [address] Nancy Patel FNP [address] [place] [address] 03/27/2025 11:30 AM EST Office Visit [facility] MED & PEDS [address] [place] [address] Nancy Patel FNP [address] [place] [address] 05/29/2025 1:00 PM EDT Office Visit [facility] OPTOMETRY [address] [place], [place] [phone] Joey, Sun, OD [address] [place] [address] documented as of this encounter Visit Diagnoses Not on filedocumented in this encounter Additional Health Concerns Assessment Noted Time PHQ-9 Depression Total Score: 3 12/30/19 25 11:18 AM EDT documented as of this encounter Care Teams Manager Unix Relationship Specialty Start Date End Date Nancy Patel FNP [address] [place] [address] PCP - General Family Medicine 11/10/21 Devante Jurado MD [address] [place] [address] Cardiology 04/14/24 documented as of this encounter
[2025-02-09 09:03] LABS: TS Negative Control Passed; TS Panel A 0; TS Panel B 0; TS Positive Control Passed; TSpotTB Negative (Negative)
== END 2025-02-06 15:31 | disposition home or self-care (01) ==
LOC: HO.HHCL 15:30
PROVIDERS: PCP Registered Nurse; Visit Provider Registered Nurse
DX: Z11.1 Encounter for screening for respiratory tuberculosis (principal); E55.9 Vitamin D deficiency, unspecified
CPT/HCPCS: 36415; 82306; 86481

== ENCOUNTER 2025-02-06 16:06 | Outpatient (REF) | payer MEDICAID, SELFPAY | END 2025-02-06 16:07 | disposition home or self-care (01) | LOC: HO.LAB 16:06 | PROVIDERS: PCP Registered Nurse; Visit Provider Registered Nurse | DX: Z13.89 Encounter for screening for other disorder (principal) ==